=== PATIENT | male | born 1950 | race Caucasian/White ===

== ENCOUNTER 2023-09-24 20:04 | Emergency (ER) | payer OTHER, SELFPAY ==
[2023-09-24 20:14] VITALS: BP 159/80; PULSE 56; RESP 16; TEMP 36.6; O2SAT 98; BMI 26.9
--- NOTE | 2023-09-24 20:23 | ED_ITS ---
HPI - Male Genitourinary General Chief complaint: Urogenital-Male Stated complaint: uti Time Seen by Provider: 09/24/23 20:14 Source: patient Mode of arrival: walk-in Limitations: no limitations History of Present Illness HPI Narrative: patient is on plavix and ASA presents complaining of hematuria that started around 5pm tonight. No nausea, vomiting, pain or fever. Doesn't feel right. Also some ringing in his ears and mild dizziness. Related Data Home Medications Medication Instructions Recorded Confirmed atorvastatin 80 mg tablet 80 mg PO DAILY 09/24/23 09/24/23 clopidogrel 75 mg tablet 75 mg PO DAILY 09/24/23 09/24/23 levothyroxine 75 mcg tablet 75 mcg PO DAILY 09/24/23 09/24/23 lisinopril 5 mg tablet 5 mg PO DAILY 09/24/23 09/24/23 metformin 500 mg tablet 500 mg PO DAILY 09/24/23 09/24/23 metoprolol tartrate 25 mg tablet 12.5 mg PO Q12H 09/24/23 09/24/23 pantoprazole 40 mg tablet,delayed 40 mg PO DAILY 09/24/23 09/24/23 release Allergies Allergy/AdvReac Type Severity Reaction Status Date / Time diphenhydramine AdvReac Hallucinati Verified 09/24/23 20:20 [From Jeffery] german Review of Systems ROS Status of ROS 10 or more systems reviewed and unremark able except as noted in history and below [facility] Social History Smoking status: Never smoker Exam Constitutional Vital Signs, click to edit/add: Last Vital Signs Temp 97.8 F 09/24/23 20:14 Pulse 56 L 09/24/23 20:14 Resp 16 09/24/23 20:14 BP 159/80 H 09/24/23 20:14 Pulse Ox 98 09/24/23 20:14 O2 Del Method Room Air 09/24/23 20:14 Common normals: no apparent distress, average body habitus, oriented x3, no limitations, healthy appearing, alert and well nourished [facility] Other: TM clear Eye Common normals: EOMs intact bilaterally and conjunctivae normal Chest Common normals: inspection of chest normal Respiratory Common normals: normal respiratory effort, no retractions, no use of accessory muscles and clear to auscultation bilaterally GI Common normals: Normal to inspection, nondistended, normoactive bowel sounds present, soft to palpation and non-tender Extremity Common normals: normal to inspection and full ROM Neuro Common normals: oriented x3, CN's II-XII intact bilaterally, moves all extremities and no focal motor deficits Psych Appearance: grossly normal Course Vital Signs Vital signs: Vital Signs Temperature 97.8 F 09/24/23 20:14 Pulse Rate 56 L 09/24/23 20:14 Respiratory Rate 16 09/24/23 20:14 Blood Pressure 159/80 H 09/24/23 20:14 Pulse Oximetry 98 09/24/23 20:14 Oxygen Delivery Method Room Air 09/24/23 20:14 Temperature 97.8 F 09/24/23 20:14 Pulse Rate 56 L 09/24/23 20:14 Respiratory Rate 16 09/24/23 20:14 Blood Pressure 159/80 H 09/24/23 20:14 Pulse Oximetry 98 09/24/23 20:14 Oxygen Delivery Method Room Air 09/24/23 20:14 MDM - Male Genitourinary MDM Narrative Medical decision making narrative: patient presents with acute onset of hematuria. CT with findings of cystitis. no fever. Patient advised he will need to continue workup with urology. Given prescription for cipro and discharged to follow up with Urology. His has seen Dr vaughan in the past and states they will follow up with him Lab Data Labs: Lab Results 09/24/23 09/24/23 Range/Units 20:32 21:20 WBC 5.5 (4.0-11.0) 10^3/uL RBC 4.14 L (4.70-6.10) 10^6/uL Hgb 13.3 L (14.0-18.0) g/dL Hct 39.8 L (42.0-54.0) % MCV 96.1 H (80.0-94.0) fL MCH 32.1 (25.9-34.0) pg MCHC 33.4 (29.9-35.2) g/dL RDW 13.0 (11.0-15.0) % Plt Count 181 (150-450) 10^3/uL MPV 9.2 L (9.5-13.5) fL Neut % (Auto) 72.3 (43.0-75.0) % Lymph % (Auto) 14.1 L (20.5-60.0) % [place] % (Auto) 11.3 (1.7-12.0) % Eos % (Auto) 1.5 (0.9-7.0) % Baso % (Auto) 0.4 (0.2-2.0) % Neut # (Auto) 4.0 (1.4-6.5) 10^3/uL Lymph # (Auto) 0.8 L (1.2-3.8) 10^3/uL [place] # (Auto) 0.6 (0.3-0.8) 10^3/uL Eos # (Auto) 0.1 (0.0-0.7) 10^3/uL Baso # (Auto) 0.0 (0.0-0.1) 10^3/uL Abs Immat Gran (auto) 0.02 (0.00-0.03) 10^3/uL Imm/Tot Granulo (auto) 0.4 (0.0-0.5) % Sodium 139 (136-145) mmol/L Potassium 3.8 (3.5-5.1) mmol/L Chloride 103 (98-107) mmol/L Carbon Dioxide 28.1 (21.0-32.0) mmol/L Anion Gap 11.7 BUN 18.0 (7.0-18.0) mg/dL Creatinine 1.01 (0.70-1.30) mg/dL Est GFR ( Amer) >60 (>=60) Est GFR (Non-Af Amer) >60 (>=60) BUN/Creatinine Ratio 17.8 Glucose 119 H (74-106) mg/dL Calcium 9.2 (8.5-10.1) mg/dL Urine Color Yellow (YELLOW) Urine Clarity Clear (CLEAR) Urine pH 6.5 (5.0-9.0) Ur Specific [place] 1.015 (1.005-1.025) Urine Protein Negative (NEG/TRACE) mg/dL Urine Glucose (UA) Negative (NEGATIVE) mg/dL Urine Ketones Negative (NEGATIVE) mg/dL Urine Occult Blood Moderate A (NEGATIVE) Urine Nitrite Negative (NEGATIVE) Urine Bilirubin Negative (NEGATIVE) Urine Urobilinogen 1.0 (0.2-1.0) EU/dL Ur Leukocyte Esterase Negative (NEGATIVE) Urine RBC 5-10 A (0-2) #/HPF Urine WBC None seen (NONE SEEN) #/HPF Ur Squamous Epith Cells None seen (NONE/RARE) #/LPF Urine Crystals None seen (None Seen) #/HPF Urine Bacteria None seen (NONE SEEN) #/HPF Urine Casts None seen (NONE SEEN) #/LPF Urine Mucus None seen (NONE SEEN) Imaging Data CT scan - abdomen: Radiologist's impression: urrent Patient Location: ER Accession/Order Number: [id number] Exam Date: 09/24/2023 20:38 Report Date: 09/24/2023 21:25 At the request of: ADRIAN TRUJILLO Procedure: CT abdomen pelvis wo con EXAM: CT abdomen pelvis wo con HISTORY: hematuria COMPARISON: None. TECHNIQUE: Axial CT imaging was performed through the abdomen and pelvis without intravenous contrast. Multiplanar reformats were performed. Dose reduction techniques were achieved by using automated exposure control and/or adjustment of mA and/or kV according to patient size and/or use of iterative reconstruction technique. FINDINGS: Lung bases: Lung bases are clear. No pleural effusion. GI upper: Small hiatal hernia. Liver: Normal size and contour. Gallbladder: Cholecystectomy. Biliary system: No intra or extrahepatic biliary ductal dilatation. Pancreas: Unremarkable. Spleen: Normal size. Adrenal glands: Normal adrenal glands. Kidneys/ureters: Normal contours. No hydronephrosis or visible mass. No nephrolithiasis. Both ureters are normal in caliber and course to the bladder. Vessels: No aneurysmal dilatation of the aorta. Atherosclerotic disease is noted. Retroperitoneum: No lymphadenopathy. Small bowel: No wall thickening or dilatation. Colon: No wall thickening or dilatation. Appendix: No findings of appendicitis. Peritoneal cavity: No free fluid or pneumoperitoneum. Lower : There is circumferential wall thickening of the urinary bladder with wall edema and adjacent fat stranding. Bones:Multilevel spondylosis. No acute bony abnormality. Soft tissues: No acute finding. Additional findings: None. CT/CT abdomen pelvis wo con IMPRESSION: 1. Urinary bladder wall thickening, wall edema, and adjacent fat stranding consistent with cystitis. 2. Prior cholecystectomy Discharge Plan Discharge Chief Complaint: Urogenital-Male Clinical Impression: Hematuria, Cystitis Patient Disposition: Home, Self-Care Prescriptions / Home Meds: No Action atorvastatin 80 mg tablet 80 mg PO DAILY clopidogrel 75 mg tablet 75 mg PO DAILY levothyroxine 75 mcg tablet 75 mcg PO DAILY lisinopril 5 mg tablet 5 mg PO DAILY metformin 500 mg tablet 500 mg PO DAILY metoprolol tartrate 25 mg tablet 12.5 mg PO Q12H pantoprazole 40 mg tablet,delayed release (DR/EC) 40 mg PO DAILY Instructions: Hematuria (ED) Additional Instructions: follow up with Urology as discussed Stand Alone Forms: Portal Instructions Referrals: Brandon Estrella DO [Primary Care Provider] - 1 week
[2023-09-24 20:44] LABS: Basophils Percent Auto 0.4 % (0.2-2.0); Eosinophils Absolute Auto 0.1 10^3/uL (0.0-0.7); Eosinophils Percent Auto 1.5 % (0.9-7.0); Hematocrit 39.8 % (42.0-54.0); Hemoglobin 13.3 g/dL (14.0-18.0); Immature Granulocytes Abs Auto 0.02 10^3/uL (0.00-0.03); Immature Granulocytes Pct Auto 0.4 % (0.0-0.5); Lymphocytes Absolute Auto 0.8 10^3/uL (1.2-3.8); Lymphocytes Percent Auto 14.1 % (20.5-60.0); Mean Corpuscular HGB Conc 33.4 g/dL (29.9-35.2); Mean Corpuscular Hemoglobin 32.1 pg (25.9-34.0); Mean Corpuscular Volume 96.1 fL (80.0-94.0); Mean Platelet Volume 9.2 fL (9.5-13.5); Monocytes Absolute Auto 0.6 10^3/uL (0.3-0.8); Monocytes Percent Auto 11.3 % (1.7-12.0); Neutrophils Percent Auto 72.3 % (43.0-75.0); Platelet Count 181 10^3/uL (150-450); Red Blood Count 4.14 10^6/uL (4.70-6.10); White Blood Count 5.5 10^3/uL (4.0-11.0)
[2023-09-24] MEDS: 0.9 % SODIUM CHLORIDE 1,000 ML 999 ML IV (20:59)
[2023-09-24 21:05] LABS: Anion Gap 11.7; BUN Creatinine Ratio 17.8; Calcium 9.2 mg/dL (8.5-10.1); Carbon Dioxide 28.1 mmol/L (21.0-32.0); Chloride 103 mmol/L (98-107); Estimated GFR (African America >60 (>=60); Estimated GFR (Non-African Ame >60 (>=60); Glucose 119 mg/dL (74-106); Potassium 3.8 mmol/L (3.5-5.1); Sodium 139 mmol/L (136-145)
[2023-09-24 21:30] LABS: Bilirubin Urine NEGATIVE (NEGATIVE); Blood Urine MODERATE (NEGATIVE); Clarity Urine CLEAR (CLEAR); Color Urine YELLOW (YELLOW); Glucose Urine UA NEGATIVE (NEGATIVE); Ketones Urine NEGATIVE (NEGATIVE); Leukocyte Esterase Urine NEGATIVE (NEGATIVE); Nitrite Urine NEGATIVE (NEGATIVE); Protein Urine NEGATIVE (NEG/TRACE); Specific Gravity Urine 1.015 (1.005-1.025); Urine Microscopic Indicated YES; pH Urine 6.5 (5.0-9.0)
[2023-09-24 21:37] LABS: Bacteria Urine NONE SEEN #/HPF (NONE SEEN); Cast Seen? NONE SEEN #/LPF (NONE SEEN); Crystals Seen? None Seen #/HPF (None Seen); Mucus Urine NONE SEEN (NONE SEEN); Squamous Epithelial Cell Urine NONE SEEN #/LPF (NONE/RARE); WBC Urine NONE SEEN #/HPF (NONE SEEN)
[2023-09-24] MEDS: CIPROFLOXACIN HCL 500 MG TABLET 250 MG PO (22:52)
[2023-09-24] MEDS: CIPROFLOXACIN HCL 500 MG TABLET PO (22:52)
== END 2023-09-24 22:55 | disposition home or self-care (01) ==
PROVIDERS: Emergency Provider Internal Medicine; PCP Internal Medicine
DX: N30.91 Cystitis, unspecified with hematuria (principal); Z79.02 Long term (current) use of antithrombotics/antiplatelets; Z79.84 Long term (current) use of oral hypoglycemic drugs; Z90.49 Acquired absence of other specified parts of digestive tract; R42 Dizziness and giddiness
CPT/HCPCS: 36415; 74176; 80048; 81001; 85025; 96360; 99285

== ENCOUNTER 2023-10-06 08:33 | Outpatient (OUT) | payer OTHER, SELFPAY ==
--- NOTE | 2023-10-06 | PCN_ITS ---
CARDIAC STRESS TEST Requesting Physician: Procedure Date: 10/06/2023 This was a treadmill stress test with myocardial perfusion imaging, performed at the [facility] on 10/06/2023. Informed consent was obtained. An intravenous line was secured. Baseline ECG and vital signs were obtained. The patient exercised on a treadmill for a 8 minutes and 16 seconds according to the Nael protocol and reached stage 3 and achieved 10.1 METS. Resting heart rate was 51 BPM and maximal heart rate was 118 BPM, representing 80% of maximal predicted heart rate. Resting blood pressure was 122/62 and maximum blood pressure was 176/88. The patient was injected with Cardiolite at peak exercise. The test was stopped due to dyspnea and peripheral muscle fatigue. Resting ECG showed sinus bradycardia with no ischemic changes. ECG during exercise showed sinus tachycardia with no ischemic ST changes. SUMMARY OF THE FINDINGS: 1. Submaximal stress test due to failure to achieve target heart rate. (The patient did not hold their beta rashad prior to the test.) 2. No evidence of ischemic ECG changes or arrhythmias seen during submaximal stress test. 3. Myocardial perfusion images will be reported separately. MTDD
--- NOTE | 2023-10-06 08:37 | NM_ITS ---
Patient Name: ONDINA LO MR#: [id number] : 1950 Exam Date: 10/06/2023 Ordering Doctor: DR CARLO SEN M.D. RADIOLOGY REPORT PROCEDURE: NM WILLIE PERF SPECT REST STR COMPARISON: None. 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 Rest and peak stress ECG findings were non-diagnostic and the exercise portion of the study was Non-diagnostic per attending physician Dr. Harding due to80% PMHR . For more details please see separate cardiac stress test report. FINDINGS: QUALITY OF STUDY: Excellent. PERFUSION DEFECT: None. LOCATION: N/A SIZE: N/A. SEVERITY: N/A. TYPE: N/A. WALL MOTION: Normal. LV SIZE: 86 mL. TID / TCD: 0.8 LVEF: Normal. Calculated EF 57%. SUMMARY: Myocardial perfusion imaging study is NORMAL. CONCLUSION: 1. Normal nuclear medicine myocardial perfusion portion of study. Dictated by: Jaciel Hanson M.D. on 10/07/2023 at 08:59 Approved by: Jaciel Hanson M.D. on 10/07/2023 at 09:01
--- OUTSIDE RECORDS SUMMARY | 2023-10-06 08:39 | XMS_ITS | CCD ---
Author Name Unknown Address [address] [place] [address] Organization [facility] Care Team Providers Care Distillation Operator Name Role Phone PHYSICIAN, DEFAULT Unavailable Unavailable PHYSICIAN, DEFAULT Unavailable Unavailable BALL, BRANDON Unavailable Unavailable PHYSICIAN, DEFAULT Unavailable Unavailable PHYSICIAN, DEFAULT Unavailable Unavailable BALL, BRANDON Unavailable Unavailable Sameer, DO Brandon Primary Care Provider MD Tim Hardwick Attending Provider Tim Hardwick Unavailable ELISABETH, DR TIM Dunn Consulting Unavailable FABIOLA COURTNEY Attending Unavailable SHERWIN, FABIOLA Admitting Unavailable BALL, DR OCAMPO Primary Care Unavailable FABIOLA COURTNEY Consulting Unavailable BALL, DR OCAMPO Attending Unavailable BALL, DR OCAMPO Consulting Unavailable BALL, DR OCAMPO Primary Care Unavailable BALL, DR OCAMPO Admitting Unavailable BALL, DR OCAMPO Consulting Unavailable BALL, DR OCAMPO Primary Care Unavailable BALL, DR OCAMPO Admitting Unavailable BALL, DR OCAMPO Attending Unavailable BALL, DR OCAMPO Attending Unavailable BALL, DR OCAMPO Primary Care Unavailable BALL, DR OCAMPO Admitting Unavailable Ball, Brandon Unavailable CARLO SEN Attending Unavailable Pola STOLL Attending Unavailable JUVENAL BALLARD Attending Unavailable Allergies Allergy Classification Reported Allergen(s) Allergy Type Date of Onset Reaction(s) Facility (1 source) Contrast media Drug allergy (disorder) 10-20-19 16 AOF [facility] Repository (1 source) diphenhydrAMINE Drug Allergy 09-22-20 19 Hallucinating [facility] (2 sources) Contrast media Propensity to adverse reactions Unknown [facility] Other (2 sources) Dyes Propensity to adverse reactions Comment:Contras t Dye [facility] Other (2 sources) Allergies Reconciled Propensity to adverse reactions Unknown [facility] Other (2 sources) patient allergy list reviewed by nurse or physicia Propensity to adverse reactions 09-11-20 Comment:Done [facility] Other (1 source) diphenhydrAMINE; Translations: [DIPHENHYDRAMINE HCL] Drug Allergy 05-10-20 [facility] Repository (1 source) diphenhydrAMINE; Translations: [Benadryl] Drug Allergy [facility] Repository Medications Current Medications Medication Drug Class(es) Dates Sig (Normalized) Sig (Original) Ascorbic Acid (10 sources) Vitamin C Vitamin C Active Aspir-81 81 MG (10 sources) take 1 tablet by mouth once daily Aspir-81 81 MG 1 tablet Orally Once a day Active aspirin 81 mg oral tablet (1 source) Platelet Aggregation Inhibitor, Nonsteroidal Anti-inflammatory Drug Start: 09-22-2019 take 81 mg by mouth once daily Aspirin Active 81 MG PO Daily September 22, 2019 9:01am atorvastatin 80 mg oral tablet (13 sources) HMG-CoA Reductase Inhibitor Start: 09-22-2019 take 80 mg by mouth once daily Atorvastatin Active 80 MG PO Daily September 22, 2019 9:01am cefuroxime 250 mg oral tablet (4 sources) Cephalosporin Antibacterial Start: 04-07-2023 take 1 tablet by mouth twice daily Cefuroxime Axetil 250 MG 1 tablet Orally twice daily w/ food for 7 Mar, Active clopidogrel 75 mg oral tablet (11 sources) P2Y12 Platelet Inhibitor Start: 09-22-2019 take 75 mg by mouth once daily Clopidogrel Active 75 MG PO Daily September 22, 2019 9:01am levothyroxine sodium 0.075 mg oral tablet (12 sources) l-Thyroxine Start: 09-22-2019 take 75 ug by mouth once daily Levothyroxine Active 75 MCG PO Daily September 22, 2019 9:01am take 1 tablet by sol th once daily in the morning Synthroid 75 MCG 1 tablet on an empty stomach in the morning Orally Once a day Active lisinopril 5 mg oral tablet (17 sources) Angiotensin Converting Enzyme Inhibitor Start: 02-16-2023 take 1 tablet by mouth every twenty-four hours Lisinopril 5 MG 1 tablet Orally Once a day for 30 days February, Active Lisinopril Activ e metFORMIN hydrochloride 500 mg oral tablet (11 sources) Biguanide Start: 09-22-2019 take 500 mg by mouth once daily Metformin Active 500 MG PO Daily September 22, 2019 9:01am metoprolol tartrate 25 mg oral tablet (11 sources) beta-Adrenergic Lashanda Start: 09-22-2019 take 0.5 tablet by mouth twice daily Metoprolol Tartrate Active 0.5 TAB PO Twice daily September 22, 2019 9:01am pantoprazole 40 mg delayed release oral tablet (11 sources) Proton Pump Inhibitor Start: 09-22-2019 take 40 mg by mouth once daily Pantoprazole Active 40 MG PO Daily September 22, 2019 9:01am Pantoprazole Sod ium 40 MG 1 packet Orally Once a day Active Vitamin D3 (10 sources) Vitamin D3 Activ e Zinc (10 sources) Zinc Active Completed/Discontinued Medications Medication Drug Class(es) Dates Sig (Normalized) Sig (Original) Acetaminophen (10 sources) Tylenol 1 tab Or al Not-Taking/PRN Tylenol 1 tab Or al Not-Taking Augmentin Tablets 875 MG (10 sources) Start: 05-04-2017 take 1 tablet by mouth twice daily as needed Augmentin Tablets 875 MG Take one tab Orally Twice daily for 10 days Apr, Not-Taking/PRN Start: 05-04-2017 take 1 tablet by sol th twice daily Augmentin Tablets 875 MG Take one tab Orally Twice daily for 10 days Apr, Not-Taking isosorbide dinitrate 30 mg oral tablet (10 sources) Nitrate Vasodilator take 1 tablet by mouth every twelve hours Isosorbide Dinitrate 30 MG 1 tablet Orally Twice a day Not-Taking/PRN Ketorolac (10 sources) Nonsteroidal Anti-inflammatory Drug, Cyclooxygenase Inhibitor Start: 11-17-19 15 Toradol per 15 mg Oct, 60 mg triamcinolone acetonide 40 mg/ml injectable suspension (10 sources) Corticosteroid Start: 01-28-20 23 Kenalog-40 Jul, 60 mg Problems Active Problems Problem Classification Problem Date Documented Da te Episodic/Chronic Acute bronchitis (4 sources) Acute bronchitis; Translations: [Acute bronchitis, unspecified] Onset: 5 Episodic Asthma (4 sources) Mild intermittent asthma; Translations: [Mild intermittent asthma, uncomplicated] Onset: 9 Chronic Coronary atherosclerosis and other heart disease (17 sources) Atherosclerotic heart disease of [place] coronary artery without angina pectoris; Translations: [Coronary arteriosclerosis] Onset: 6 Chronic Deficiency and other anemia (4 sources) Anemia, unspecified; Translations: [ANEMIA UNSPECIFIED] Onset: 2 Episodic Deficiency and other anemia (2 sources) Anemia; Translations: [Anemia, unspecified] Episodic Diabetes mellitus with complications (9 sources) Type 2 diabetes mellitus with hyperglycemia; Translations: [Type 2 diabetes mellitus] Onset: 2 Chronic Diseases of mouth; excluding dental (4 sources) Glossitis; Translations: [Glossitis] Resolved: 1 Episodic Disorders of lipid metabolism (13 sources) Familial hypercholesterolemia; Translations: [Pure hypercholesterolemia] Onset: 5 Chronic Esophageal disorders (20 sources) Gastroesophageal reflux disease without esophagitis; Translations: [Gastro-esophageal reflux disease without esophagitis] Onset: 5 Resolved: 2 Chronic Essential hypertension (9 sources) Essential hypertension; Translations: [Essential (primary) hypertension] Chronic Gastrointestinal hemorrhage (3 sources) Rectal hemorrhage; Translations: [Hemorrhage of anus and rectum] 09-22-2019 Episodic Genitourinary symptoms and ill-defined conditions (1 source) Nocturia Episodic Hemorrhoids (2 sources) Residual hemorrhoidal skin tags; Translations: [Residual hemorrhoidal skin tags] Episodic Hyperplasia of prostate (12 sources) Nocturia due to benign prostatic hypertrophy; Translations: [Benign prostatic hyperplasia with lower urinary tract symptoms] Onset: 5 Chronic Immunizations and screening for infectious disease (2 sources) Vaccination given; Translations: [Encounter for immunization] Episodic Miscellaneous mental health disorders (2 sources) Psychosexual dysfunction associated with inhibited sexual excitement; Translations: [Psychosexual dysfunction with inhibited sexual excitement] Onset: 5 Chronic Occlusion or stenosis of precerebral arteries (6 sources) Occlusion and stenosis of bilateral carotid arteries; Translations: [Left carotid artery occlusion] Onset: 2 Chronic Osteoarthritis (6 sources) Osteoarthritis of joint of right shoulder region; Translations: [Primary osteoarthritis, right shoulder] Chronic Other aftercare (2 sources) 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; Translations: [OTH CORRECTION CURRENT DRUG THERAPY] Onset: 2 Episodic Other aftercare (2 sources) Long-term current use of drug therapy; Translations: [Other [place] [facility] (current) drug therapy] Episodic Other injuries and conditions due to external causes (2 sources) History of fall; Translations: [History of falling] Episodic Other male genital disorders (4 sources) Impotence of organic origin; Translations: [Erectile dysfunction due to arterial insufficiency] Onset: 5 Chronic Other screening for suspected conditions (not mental disorders or infectious disease) (2 sources) Encounter for screening for malignant neoplasm of prostate; Translations: [ENC SCREEN MALIG NEOPLASM PROSTATE] Onset: 2 Episodic Other skin disorders (2 sources) Sebaceous cyst; Translations: [Sebaceous cyst] Episodic Other upper respiratory disease (10 sources) Seasonal allergic rhinitis; Translations: [Other seasonal allergic rhinitis] Chronic Other upper respiratory disease (2 sources) Other seasonal allergic rhinitis Chronic Other upper respiratory disease (2 sources) Allergic rhinitis; Translations: [Allergic rhinitis, unspecified] Onset: 5 Chronic Other upper respiratory infections (4 sources) Acute maxillary sinusitis, unspecified; Translations: [Acute maxillary sinusitis] Episodic Residual codes; unclassified (20 sources) Obstructive sleep apnea syndrome; Translations: [Obstructive sleep apnea (adult) (pediatric)] Chronic Residual codes; unclassified (2 sources) Obstructive sleep apnea (adult) (pediatric) Onset: 2 Resolved: 2 Chronic Spondylosis; intervertebral disc disorders; other back problems (6 sources) Cervical spondylosis; Translations: [Spondylosis without myelopathy or radiculopathy, cervical region] Chronic Systemic lupus erythematosus and connective tissue disorders (2 sources) Autoimmune disease; Translations: [Autoimmune disease, not elsewhere classified] Onset: 9 Chronic Thyroid disorders (20 sources) Acquired hypothyroidism; Translations: [Hypothyroidism, unspecified] Onset: 5 Chronic Past or Other Problems Problem Classification Problem Date Documented Da te Episodic/Chronic Bacterial infection; unspecified site (2 sources) Bacterial infectious disease; Translations: [Bacterial infection, unspecified, in conditions classified elsewhere and of unspecified site] Onset: 12-10-2016 Episodic Cardiac dysrhythmias (2 sources) Bradycardia; Translations: [Bradycardia, unspecified] Onset: 02-14-2018 Episodic Conditions associated with dizziness or vertigo (2 sources) Benign paroxysmal positional vertigo; Translations: [Benign paroxysmal positional vertigo] Onset: 02-14-2018 Episodic Coronary atherosclerosis and other heart disease (2 sources) Post percutaneous transluminal coronary angioplasty; Translations: [Coronary angioplasty status] Onset: 10-24-2015 Episodic Diabetes mellitus without complication (2 sources) Impaired fasting glycemia; Translations: [Impaired fasting glucose] Onset: 12-05-2015 Episodic Esophageal disorders (1 source) Esophageal disorders Malaise and fatigue (2 sources) Malaise and fatigue; Translations: [Other malaise and fatigue] Onset: 12-07-2016 Episodic Nonspecific chest pain (2 sources) Chest pain; Translations: [Chest pain, unspecified] Onset: 11-12-2014 Episodic Other connective tissue disease (1 source) Other symptoms and signs involving the nervous system; Translations: [Other symptoms and signs involving the nervous system] Resolved: 01-28-2021 Episodic Other connective tissue disease (2 sources) Pain in limb; Translations: [Pain in left finger(s)] Onset: 05-17-2018 Episodic Other connective tissue disease (2 sources) Olecranon bursitis; Translations: [Olecranon bursitis] Onset: 05-10-2017 Episodic Other connective tissue disease (1 source) Disorder of nervous system; Translations: [Other symptoms and signs involving the nervous system] Resolved: 01-28-2021 Episodic Other ear and sense organ disorders (2 sources) Tinnitus; Translations: [Tinnitus, right ear] Onset: 02-14-2018 Episodic Other lower respiratory disease (2 sources) Chronic cough; Translations: [Chronic cough] Onset: 11-20-2015 Episodic Other lower respiratory disease (6 sources) Cough; Translations: [Other specified cough] Onset: 10-02-2015 Episodic Other lower respiratory disease (2 sources) H/O: pneumonia; Translations: [Personal history, Pneumonia (recurrent)] Onset: 12-10-2015 Episodic Other nutritional; endocrine; and metabolic disorders (4 sources) Body mass index 25-29 - overweight; Translations: [Body mass index 28.0-28.9, adult] Onset: 04-30-2017 Episodic Other nutritional; endocrine; and metabolic disorders (2 sources) Overweight; Translations: [Overweight] Onset: 03-20-2022 Episodic Residual codes; unclassified (2 sources) Requires influenza virus vaccination; Translations: [Need for prophylactic vaccination and inoculation, Influenza] Onset: 08-02-2015 Episodic Superficial injury; contusion (6 sources) Abrasion, elbow area; Translations: [Abrasion of right elbow, initial encounter] Onset: 05-10-2017 Episodic Unclassified (2 sources) Long-term current use of drug therapy; Translations: [Long-term (current) use of other medications] Onset: 06-16-2016 Unclassified (2 sources) Need for prophylactic vaccination with tetanus toxoid alone; Translations: [Need for prophylactic vaccination with tetanus toxoid alone] Onset: 08-02-2015 Results Test Name Value Interpretation Reference Range Facil ity Office Visiton 09-15-2023 Follow-up visit [id number] PaytonazraPryor A 1950 M Date Provider Department Center 09/15/2023 CARLO LEIVA Family History Problem Relation Age of Onset Heart failure Brother Cancer Brother Family Status - Relation Status Age at Brother Level of Service:50159 SD OFFICE/OUTPATIENT ESTABLISHED MOD MDM 30-39 MIN Normal [facility] Orders Onlyon 09-15-2023 Orders Only [id number] PaytonazraOrourkeblayne A 1950 Date Provider Department Center 09/15/2023 ELLE GUADALUPE GINA [place] Family History Problem Relation Age of Onset Heart failure Brother Cancer Brother Family Status - Relation Status Age at Brother Normal [facility] US CAROTID ART BILon 022 US CAROTID ART SHAHRAM EXAMINATION: US ROSE TID ART SHAHRAM HISTORY: Bilateral stenosis of carotid arteries COMPARISON: No relevant comparison available. TECHNIQUE: Duplex Doppler ultrasound analysis of carotid and vertebral arteries. . Bilateral carotid arterial duplex examination was performed using B-mode, color flow and spectral analysis. Carotid stenosis is reported according to validated velocity parameters, similar to NASCET criteria. FINDINGS: RIGHT CAROTID ARTERY Mild to moderate atherosclerotic plaque. Maximum area of reduction in the bulb 65% Subclavian: PSV: 109.7 cm/s cm/s EDV: 7.9 cm/s cm/s CCA: Prox: PSV: 82.0 cm/s cm/s EDV: 12.8 cm/s cm/s Mid: PSV: 80.9 cm/s cm/s EDV: 18.2 cm/s cm/s Distal: PSV: 86.4 cm/s cm/s EDV: 16.0 cm/s cm/s BULB: PSV: 87.5 cm/s cm/s EDV: 17.1 cm/s cm/s ICA: Prox: PSV: 107.6 cm/s cm/s EDV: 24.8 cm/s cm/s Mid: PSV: 133.2 cm/s cm/s EDV: 26.8 cm/s cm/s Distal: PSV: 66.8 cm/s cm/s EDV: 13.7 cm/s cm/s ECA: PSV: 210.7 cm/s cm/s EDV: 7.2 cm/s cm/s VERTEBRAL: PSV: 44.8 cm/s cm/s EDV: 12.4 cm/s cm/s ICA/CCA ratio: PSV: 1.5 EDV: 1.7 LEFT CAROTID ARTERY Mild to moderate atherosclerotic plaque. Maximum area reduction in the bulb 64% Subclavian: PSV: 129.9 cm/s cm/s EDV: 10.1 cm/s CCA: Prox: PSV: 88.8 cm/s cm/s EDV: 21.5 cm/s Mid: PSV: 104.3 cm/s cm/s EDV: 28.0 cm/s Distal: PSV: 114.7 cm/s cm/s EDV: 25.4 cm/s BULB: PSV: 123.4 cm/s cm/s EDV: 24.8 cm/s ICA: Prox: PSV: 91.4 cm/s cm/s EDV: 20.2 cm/s Mid: PSV: 72.0 cm/s cm/s EDV: 21.5 cm/s Distal: PSV: 51.2 cm/s cm/s EDV: 18.2 cm/s ECA: PSV: 87.5 cm/s cm/s EDV: 7.3 cm/s VERTEBRAL: PSV: 57.8 cm/s cm/s EDV: 18.2 cm/s ICA/CCA ratio: PSV: 1.1 EDV: 1.0 IMPRESSION: 0-49% flow stenosis bilateral internal carotid arteries Spectral Doppler US Thresholds (Reference: Tommie EG, et al. Radiology 2000; 214:247-252) Stenosis (%) PSV (cm/sec) VICA/VCCA 0-49 <150 <2.5 50-69 150-225 2.5-4.0 >70 >225 >4.0 Electronically authenticated by: TIM BARBER Date: 2022-09-28 17:37 Normal [facility] CBC AUTO DIFFon 09-24-2022 BASO # 0.0 103/ul Normal 0.0-0.1 [facility] Comment on above: Performed By: #### C BC #### [facility] [address] [place] [address] Dr. Daisy Alan Basophils/100 WBC (Bld) 0.6 % Normal 0.2-2.0 [facility] Comment on above: Performed By: #### C BC #### [facility] [address] [place] [address] Dr. Daisy Alan EO # 0.1 103/ul Normal 0.0-0.7 [facility] Comment on above: Performed By: #### C BC #### [facility] [address] [place] [address] Dr. Daisy Alan Eosinophils/100 WBC (Bld) 1.7 % Normal 0.9-7.0 [facility] Comment on above: Performed By: #### C BC #### [facility] [address] [place] [address] Dr. Daisy Alan Erythrocyte distribution wid th (RBC) [Ratio] 12.7 % Normal 11.0-15.0 [facility] Comment on above: Performed By: #### C BC #### [facility] [address] [place] [address] Dr. Daisy Alan Hematocrit (Bld) [Volume fraction] 41.4 % Critically low 42.0-54.0 [facility] Comment on above: Performed By: #### C BC #### [facility] [address] [place] [address] Dr. Daisy Alan Hemoglobin (Bld) [Mass/Vol] 14.4 g/dL Normal 14.0-18. 0 [facility] Comment on above: Performed By: #### C BC #### [facility] [address] [place] [address] Dr. Daisy Alan IG # 0.02 10e3/ul Normal 0.00-0.03 [facility] Comment on above: Performed By: #### C BC #### [facility] [address] [place] [address] Dr. Daisy Alan IG % 0.3 % Normal 0.0-0.5 [facility] Comment on above: Performed By: #### C BC #### [facility] [address] [place] [address] Dr. Daisy Alan LYMPH # 1.0 103/ul Critically low 1.2-3.8 [facility] Comment on above: Performed By: #### C BC #### [facility] [address] [place] [address] Dr. Daisy Alan Lymphocytes/100 WBC (Bld) 14.1 % Critically low 20.5-6 0.0 [facility] Comment on above: Performed By: #### C BC #### [facility] [address] [place] [address] Dr. Daisy Alan MANUAL DIFF REQ NO Normal [facility] Comment on above: Performed By: #### C BC #### [facility] [address] [place] [address] Dr. Daisy Alan MCH (RBC) [Entitic mass] 31.9 pg Normal 25.9-34.0 [facility] Comment on above: Performed By: #### C BC #### [facility] [address] [place] [address] Dr. Daisy Alan MCHC (RBC) [Mass/Vol] 34.8 g/dL Normal 29.9-35.2 [facility] Comment on above: Performed By: #### C BC #### [facility] [address] [place] [address] Dr. Daisy Alan MCV (RBC) [Entitic vol] 91.6 fL Normal 80.0-94.0 [facility] Comment on above: Performed By: #### C BC #### [facility] [address] [place] [address] Dr. Daisy Alan MONO # 0.6 103/ul Normal 0.3-0.8 [facility] Comment on above: Performed By: #### C BC #### [facility] [address] [place] [address] Dr. Daisy Alan Monocytes/100 WBC (Bld) 8.7 % Normal 1.7-12.0 [facility] Comment on above: Performed By: #### C BC #### [facility] [address] [place] [address] Dr. Daisy Alan NEUT # 5.3 103/ul Normal 1.4-6.5 [facility] Comment on above: Performed By: #### C BC #### [facility] [address] [place] [address] Dr. Daisy Alan Neutrophils/100 WBC (Bld) 74.6 % Normal 43.0-75.0 [facility] Comment on above: Performed By: #### C BC #### [facility] [address] [place] [address] Dr. Daisy Alan Platelet mean volume (Bld) [Entitic vol] 9.0 fL Critically low 9.5-13.5 [facility] Comment on above: Performed By: #### C BC #### [facility] [address] [place] [address] Dr. Daisy Alan PLT 191 103/ul Normal 150-450 [facility] Comment on above: Performed By: #### C BC #### [facility] [address] [place] [address] Dr. Daisy Alan RBC 4.52 106/ul Critically low 4.70-6.10 [facility] Comment on above: Performed By: #### C BC #### [facility] [address] [place] [address] Dr. Daisy Alan WBC 7.1 103/ul Normal 4.0-11.0 [facility] Comment on above: Performed By: #### C BC #### [facility] [address] [place] [address] Dr. Daisy Alan CBC W MANUAL DIFFon 02-05-20 22 ATYPICAL LYMPH # Normal [facility] Comment on above: Performed By: #### C BCMAN #### [facility] [address] [place] [address] Dr. Daisy Alan ATYPICAL LYMPH % Normal [facility] Comment on above: Performed By: #### C BCMAN #### [facility] [address] [place] [address] Dr. Daisy Alan BAND # Normal 0.0-0.3 [facility] Comment on above: Performed By: #### C BCMAN #### [facility] [address] [place] [address] Dr. Daisy Alan BAND % Normal 0-5 [facility] Comment on above: Performed By: #### C BCMAN #### [facility] [address] [place] [address] Dr. Daisy Alan BASOM # 0.00 103/ul Normal 0.00-0.10 [facility] Comment on above: Performed By: #### C BCMAN #### [facility] [address] [place] [address] Dr. Daisy Alan BASOM % 0.0 % Critically low 0.2-2.0 [facility] Comment on above: Performed By: #### C BCMAN #### [facility] [address] [place] [address] Dr. Daisy Alan BLAST # Normal [facility] Comment on above: Performed By: #### C BCMAN #### [facility] [address] [place] [address] Dr. Daisy Alan BLAST % Normal [facility] Comment on above: Performed By: #### C BCMAN #### [facility] [address] [place] [address] Dr. Daisy Alan CORRECTED WBC Normal 4.0-11.0 [facility] Comment on above: Performed By: #### C BCMAN #### [facility] [address] [address] [address] Daisy Alan EOS # 0.13 103/ul Normal 0.00-0.70 [facility] Comment on above: Performed By: #### C BCBLU #### [facility] [address] [address] [address] Daisy Alan EOS% 2.0 % Normal 0.9-7.0 [facility] Comment on above: Performed By: #### C BCBLU #### [facility] [address] [address] [address] Daisy Alan HCT 41.8 % Critically low 42.0-54.0 [facility] Comment on above: Performed By: #### C BRIGIDA #### [facility] [address] [address] [address] Daisy Alan HGB 13.9 g/dl Critically low 14.0-18.0 [facility] Comment on above: Performed By: #### C BCBLU #### [facility] [address] [address] [address] Daisy Alan LYMPHM # 0.38 103/ul Critically low 1.20-3.80 [facility] Comment on above: Performed By: #### C BCBLU #### [facility] [address] [address] [address] Daisy Alan LYMPHM% 6.0 % Critically low 20.5-60.0 The [facility] Comment on above: Performed By: #### C BCBLU #### [facility] [address] [address] [address] Daisy Alan MCH 30.8 pg Normal 25.9-34.0 The [facility] Comment on above: Performed By: #### C BCMAN #### [facility] [address] [address] [address] Daisy Alan MCHC 33.3 g/dl Normal 29.9-35.2 [facility] Comment on above: Performed By: #### C BRIGIDA #### [facility] [address] [place] [address] Dr. Daisy Alan MCV 92.7 fL Normal 80.0-94.0 [facility] Comment on above: Performed By: #### C BRIGIDA #### [facility] [address] [place] [address] Dr. Daisy Alan METAMYELOCYTE # Normal [facility] Comment on above: Performed By: #### C BRIGIDA #### [facility] [address] [place] [address] Dr. Daisy Alan METAMYELOCYTE % Normal [facility] Comment on above: Performed By: #### C BRIGIDA #### [facility] [address] [place] [address] Dr. Daisy Alan MONOM# 0.50 103/ul Normal 0.30-0.80 [facility] Comment on above: Performed By: #### C BRIGIDA #### [facility] [address] [place] [address] Dr. Daisy Alan MONOM% 8.0 % Normal 1.7-12.0 [facility] Comment on above: Performed By: #### C BRIGIDA #### [facility] [address] [place] [address] Dr. Daisy Alan MPV 9.1 fL Critically low 9.5-13.5 The [facility] Comment on above: Performed By: #### C BRIGIDA #### [facility] [address] [place] [address] Dr. Daisy Alan MYELOCYTE # Normal [facility] Comment on above: Performed By: #### C BRIGIDA #### [facility] [address] [place] [address] Dr. Daisy Alan MYELOCYTE % Normal [facility] Comment on above: Performed By: #### C BRIGIDA #### [facility] [address] [place] [address] Dr. Daisy Alan NRBC Normal [facility] Comment on above: Performed By: #### C BRIGIDA #### [facility] [address] [address] [address] Daisy Alan PLT 153 103/ul Normal 150-450 The [facility] Comment on above: Performed By: #### Roxann ALLRED #### [facility] [address] [address] [address] Daisy Alan RBC 4.51 106/ul Critically low 4.70-6.10 [facility] Comment on above: Performed By: #### Roxann ALLRED #### [facility] [address] [address] [address] Daisy Alan RDW 12.8 % Normal 11.0-15.0 The [facility] Comment on above: Performed By: #### Roxann ALLRED #### [facility] [address] [address] [address] Daisy Alan SEG # 5.29 103/ul Normal 1.40-6.50 [facility] Comment on above: Performed By: #### Roxann ALLRED #### [facility] [address] [address] [address] Daisy Alan SEG % 84.0 % Critically high 43.0-75.0 [facility] Comment on above: Performed By: #### Roxann ALLRED #### [facility] [address] [address] [address] Daisy Alan WBC 6.3 103/ul Normal 4.0-11.0 The [facility] Comment on above: Performed By: #### Roxann ALLRED #### [facility] [address] [address] [address] Daisy Alan GLYCOHEMOGLOBIN A1Con 2021 ADA RECOMMENDATION ADA THERAPEUTIC TARG ET 6.0 - 7.0 ACTION SUGGESTED > 7.0 Normal The [facility] Comment on above: Performed By: #### A 1C #### [facility] [address] [address] [address] Daisy Alan Glucose [Mass/Vol] 154 mg/dL Normal The [facility] Comment on above: Performed By: #### A 1C #### [facility] [address] [address] [address] Daisy Alan HbA1c (Bld) [Mass fraction] 7.0 % Critically high <=6 .0 [facility] Comment on above: Performed By: #### A 1C #### [facility] [address] [place] [address] Dr. Daisy Alan LIPID PROFILEon 02-04-2022 CHOL-HDL RATIO NORM SEE BELOW Normal [facility] Comment on above: Result Comment: 3.3 - 4.4 LOW RISK 4.4 - 7.1 AVERAGE RISK 7.1 - 11.0 MODERATE RISK >11.0 HIGH RISK Performed By: #### B MP, LIPID, ALT, TSH #### [facility] [address] [address] [address] Daisy Alan Cholesterol [Mass/Vol] 149 mg/dL Normal <=200 [facility] Comment on above: Performed By: #### B MP, LIPID, ALT, TSH #### [facility] [address] [address] [address] Daisy Alan Cholesterol in HDL [Mass/Vol] 33 mg/dL Critically low 40 -60 [facility] Comment on above: Performed By: #### B MP, LIPID, ALT, TSH #### [facility] [address] [address] [address] Daisy Alan Cholesterol in LDL [Mass/Vol] 71.0 mg/dL Normal [facility] Comment on above: Performed By: #### B MP, LIPID, ALT, TSH #### [facility] [address] [address] [address] Daisy Alan Cholesterol.total/Cholestero l in HDL [Mass ratio] 4.5 {ratio} Normal [facility] Comment on above: Performed By: #### B MP, LIPID, ALT, TSH #### [facility] [address] [place] [address] Dr. Daisy Alan HDL NORMAL > or = 60 mg/dl - LO W CARDIOVASCULAR RISK <40 mg/dl - HIGH CARDIOVASCULAR RISK Normal [facility] Comment on above: Performed By: #### B MP, LIPID, ALT, TSH #### [facility] [address] [place] [address] Dr. Daisy Alan LDL CALC NORMAL SEE BELOW Normal [facility] Comment on above: Result Comment: <100 mg/dl OPTIMAL 100 - 129 mg/dl NEAR OR ABOVE OPTIMAL 130 - 159 mg/dl BORDERLINE HIGH 160 - 189 mg/dl HIGH >190 mg/dl VERY HIGH Performed By: #### B MP, LIPID, ALT, TSH #### [facility] [address] [place] [address] Dr. Daisy Alan Triglyceride [Mass/Vol] 225 mg/dL Critically high <=150 [facility] Comment on above: Performed By: #### B MP, LIPID, ALT, TSH #### [facility] [address] [place] [address] Dr. Daisy Alan VLDL CALC 45.0 mg/dL Normal [facility] Comment on above: Performed By: #### B MP, LIPID, ALT, TSH #### [facility] [address] [place] [address] Dr. Daisy Alan MICROALBUMIN, RAND URon 04-2 mALB 1.5 mg/L Normal <=30.0 [facility] Comment on above: Performed By: #### M ALBR #### [facility] [address] [place] [address] Dr. Daisy Alan PROF CHEM 8 (BAS METB)on Anion gap [Moles/Vol] 10.6 mmol/L Normal [facility] Comment on above: Performed By: #### B MP, LIPID, ALT, TSH #### [facility] [address] [place] [address] Dr. Daisy Alan Calcium [Mass/Vol] 9.2 mg/dL Normal 8.5-10.1 The [facility] Comment on above: Performed By: #### B MP, LIPID, ALT, TSH #### [facility] [address] [place] [address] Dr. Daisy Alan Chloride [Moles/Vol] 99 mmol/L Normal 98-107 [facility] Comment on above: Performed By: #### B MP, LIPID, ALT, TSH #### [facility] [address] [address] [address] Daisy Alan CO2 [Moles/Vol] 27.7 mmol/L Normal 22.0-30.0 [facility] Comment on above: Performed By: #### B MP, LIPID, ALT, TSH #### [facility] [address] [address] [address] Daisy Alan Creatinine [Mass/Vol] 1.00 mg/dL Normal 0.66-1.25 [facility] Comment on above: Performed By: #### B MP, LIPID, ALT, TSH #### [facility] [address] [address] [address] Daisy Alan EGFR-AF MALDIVIAN >60 Normal >=60 [facility] Comment on above: Performed By: #### B MP, LIPID, ALT, TSH #### [facility] [address] [address] [address] Daisy Alan EGFR-NON AF MALDIVIAN >60 Normal >=60 [facility] Comment on above: Performed By: #### B MP, LIPID, ALT, TSH #### [facility] [address] [address] [address] Daisy Alan Glucose [Mass/Vol] 186 mg/dL Critically high 74-106 T [facility] Comment on above: Performed By: #### B MP, LIPID, ALT, TSH #### [facility] [address] [address] [address] Daisy Alan Potassium [Moles/Vol] 4.3 mmol/L Normal 3.4-5.0 [facility] Comment on above: Performed By: #### B MP, LIPID, ALT, TSH #### [facility] [address] [address] [address] Daisy Alan Sodium [Moles/Vol] 133 mmol/L Critically low 137-145 Th [facility] Comment on above: Performed By: #### B MP, LIPID, ALT, TSH #### [facility] [address] [address] [address] Daisy Alan Urea nitrogen [Mass/Vol] 17.0 mg/dL Normal 7.0-18.0 [facility] Comment on above: Performed By: #### B MP, LIPID, ALT, TSH #### [facility] [address] [place] [address] Dr. Daisy Alna Urea nitrogen/Creatinine [Mass ratio] 17.0 mg/mg Normal [facility] Comment on above: Performed By: #### B MP, LIPID, ALT, TSH #### [facility] [address] [place] [address] Dr. Daisy Alan SGPTon 02-04-2022 ALT [Catalytic activity/Vol] 36 U/L Normal 16-63 [facility] Comment on above: Performed By: #### B MP, LIPID, ALT, TSH #### [facility] [address] [place] [address] Dr. Daisy Alan TSHon 02-04-2022 TSH 3.205 uIU/mL Normal 0.470-4.680 [facility] Comment on above: Performed By: #### B MP, LIPID, ALT, TSH #### [facility] [address] [place] [address] Dr. Daisy Alan TSH RANGE SEE BELOW Normal The [facility] Comment on above: Result Comment: <0.3 4 UIU/ml HYPERTHYROID 0.34-5.60 UIU/ml EUTHYROID >5.60 UIU/ml HYPOTHYROID Performed By: #### B MP, LIPID, ALT, TSH #### [facility] [address] [place] [address] Dr. Daisy Alan Vital Signs Date Time Vital Sign Value Performing Clinician Facility 03-22-2023 14:30-0400 Body height 170.18 cm [facility] Other [facility] Other 03-22-2023 14:30-0400 Body mass index (BMI) [Ratio] 27.12 kg/m2 [facility] Other [facility] Other 03-22-2023 14:30-0400 Body weight 78.56 kg [facility] Other [facility] Other 03-22-2023 14:30-0400 Diastolic blood pressure 74 mm[Hg] Brandon Ball Other [facility] Other 03-22-2023 14:30-0400 Respiratory rate 12 /min Brandon Ball Other [facility] Other 03-22-2023 14:30-0400 Systolic blood pressure 129 mm[Hg] Brandon Ball Other [facility] Other 02-05-2022 11:00-0400 Body height 170.18 cm Tim Hardwick Other [facility] Other 02-05-2022 11:00-0400 Body mass index (BMI) [Ratio] 28.03 kg/m2 Tim Hardwick Other [facility] Other 02-05-2022 11:00-0400 Body temperature 97.3 [degF] Tim Hardwick Other [facility] Other 02-05-2022 11:00-0400 Body weight 81.19 kg Tim Hardwick Other [facility] Other 02-05-2022 11:00-0400 Diastolic blood pressure 83 mm[Hg] Tim Hardwick Other [facility] Other 02-05-2022 11:00-0400 SaO2% (BldA) [Mass fraction] 98 % Tim Hardwick Other [facility] Other 02-05-2022 11:00-0400 Systolic blood pressure 159 mm[Hg] Tim Hardwick Other [facility] Other Encounters Encounter Date Encounter Type Care Provider Facility Start: 10-26-2023 ambulatory [place] ty:MARTA Swann Start: 10-04-2023 End: 10-04-2023 ambulatory JUVENAL BALLARD Not Available Start: 09-28-2023 End: 09-28-2023 ambulatory Brandon Estrella Other [facility] Other Start: 09-28-2023 Telephone encounter Brandon Estrella [facility] Start: 09-15-2023 End: 09-15-2023 ambulatory [facility] Start: 07-20-2023 End: 07-20-2023 ambulatory Brandon Estrella Other [facility] Other Start: 07-20-2023 Nursing evaluation o f patient and report Brandon Estrella [facility] Start: 04-14-2023 End: 04-14-2023 ambulatory Brandon Estrella Other [facility] Other Start: 04-14-2023 Telephone encounter Brandon Estrella [facility] Start: 04-07-2023 End: 04-07-2023 ambulatory Brandon Estrella Other [facility] Other Start: 04-07-2023 Office outpatient vi sit 15 minutes Brandon Estrella [facility] Start: 03-22-2023 End: 03-22-2023 ambulatory Brandon Estrella Other [facility] Other Start: 03-22-2023 Patient encounter procedure Brandon Estrella [facility] Start: 02-16-2023 End: 02-16-2023 ambulatory Brandon Estrella Other [facility] Other Start: 02-16-2023 Telephone encounter Brandon RODRIGUEZ [facility] Start: 01-27-2023 End: 01-27-2023 ambulatory Brandon Estrella Other [facility] Other Start: 01-27-2023 Nursing evaluation o f patient and report Brandon Sameer [facility] Start: 01-18-2023 End: 01-18-2023 ambulatory Brandon Estrella Other [facility] Other Start: 01-18-2023 Telephone encounter Brandon Estrella [facility] Start: 09-28-2022 End: 09-29-[address] TIM BARBER Facility:[facility] Start: 09-24-2022 End: 09-25-[address] BRANDON ESTRELLA Facility:[facility] Start: 05-25-[address] BRANDON ESTRELLA Facili ty:[facility] Start: 03-20-2022 Adult health examination Brandon Estrella Other [facility] Other Start: 02-05-2022 End: 02-05-2022 ambulatory Tim Hardwick Other [facility] Other Start: 02-05-2022 Office outpatient vi sit 15 minutes Tim Hardwick [facility] Start: 02-05-2022 End: 02-05-2022 Patient encounter procedure DO Brandon Estrella Work Phone: [facility] Start: 02-04-2022 End: 02-05-[address] BRANDON ESTRELLA Facility:[facility] Start: 02-14-2018 End: 02-15-2018 Ambulatory DEFAULT PHYSICIAN Facility:[facility] Start: 02-10-2018 End: 02-11-2018 Ambulatory DEFAULT PHYSICIAN Facility:[facility] Procedures Date Procedure Procedure Detail Performing Clinician Start: 03-20-2022 Depression screening Chema pearl [facility] Other Start: 02-04-[address] ITM BARBER Comment on above: Performed By: #### P [facility] #### [facility] [address] [place] [address] Dr. Daisy Alan Start: 12-10-2016 Viral screening Jennifer marino [facility] Other Start: 11-01-2014 Screening for malign ant neoplasm of prostate Brandon Estrella Other Screening for malign ant neoplasm of colon Brandon Sameer Other Screening for malign ant neoplasm of prostate Brandon Estrella Other Immunizations Immunization Date Immunization Notes Care Provider Terence may 09-28-2022 influenza virus vaccine, split virus (incl. purified surface antigen) Brandon Estrella Other [facility] Other 08-06-2020 influenza virus vaccine, split virus (incl. purified surface antigen) Brandon Estrella Other [facility] Other 08-17-2019 influenza virus vaccine, split virus (incl. purified surface antigen) Brandon Estrella Other [facility] Other 07-27-2018 influenza virus vaccine, split virus (incl. purified surface antigen) Brandon Estrella Other [facility] Other 12-11-2016 pneumococcal conjuga te vaccine, 13 valent Brandon Estrella Other [facility] Other 08-02-2015 influenza virus vaccine, split virus (incl. purified surface antigen) Brandon Estrella Other [facility] Other 08-02-2015 tetanus toxoid, redu carrillo diphtheria toxoid, and acellular pertussis vaccine, adsorbed Brandon Estrella Other [facility] Other 11-01-2014 pneumococcal Conjuga te, unspecified formulation; Translations: [Need for prophylactic vaccination against Streptococcus pneumoniae (pneumococcus)] Brandon Estrella Other [facility] Other 11-01-2014 pneumococcal polysaccharide vaccine, 23 valent Brandon Estrella Other [facility] Other Payers Date Payer Category Payer Unknown [id number] 1960 Medicare [id number] [id number] 1960 Self-pay [id number] 1960 Unknown [id number] 1950 Unknown [id number] 2.16.84 [id number] 1950 Unknown [id number] 2.16.84 [id number] 1949 Unknown [id number] 2.16.84 [id number] 1949 Unknown [id number] 2.16.84 [id number] 1949 Unknown [id number] 2.16.8 [id number] 1950 Unknown [id number] Self-pay Self Pay [id number] Unknown Social History Date Type Detail Facility Start: 09-22-2019 Tobacco smoking status NHIS Never smoked tobacco (finding) [facility] Start: 1950 Sex Assigned At Male F [place] Sex Assigned At Sex Assigned At Bir th [facility] Other Clinical Notes 02-05-2022 to 09-15-2023 Note Date & Type Note Facility 09-15-2023 Note [facility] Note Chief Complaint: Patient here for 1 year follow up CAD, carotid artery stenosis, and hypertension. Had carotid US after last visit in Sep 2022. No recent labs or testing. Denies chest pain, SOB, palpitations, and lightheadedness. HPI: Ondina Lo is a 73 y.o. male With a history of coronary artery disease, prior stent placement here in routine follow-up Denies symptoms. Pertinently, he had no significant symptoms prior to needing a stent approximately 7 years ago. He has been diabetic for the past 3 to 4 years. Cardiology ROS: Review of Systems HENT: Positive for tinnitus. Respiratory: Positive for snoring. Musculoskeletal: Positive for arthritis and joint pain. All other systems reviewed and are negative. Past Medical History He has a past medical history of CAD (coronary artery disease), Hyperlipidemia, and Hypertension. Surgical History He has a past surgical history that includes Appendectomy; Cholecystectomy; and Cardiac catheterization (10/17/2015). Social History He reports that he has never smoked. He has never used smokeless tobacco. He reports current alcohol use. No history on file for drug use. Family History Family History Problem Relation Name Age of Onset Heart failure Brother Cancer Brother Allergies Diphenhydramine hcl Medications Current Outpatient Medications: aspirin 81 mg EC tablet, Take 1 tablet every day by oral route., Disp: , Rfl: atorvastatin (Lipitor) 80 mg tablet, Take 1 tablet by mouth in the evening., Disp: , Rfl: clopidogrel (Plavix) 75 mg tablet, TAKE 1 TABLET BY MOUTH EVERY DAY IN THE MORNING, Disp: 90 tablet, Rfl: 3 levothyroxine (Synthroid, Levoxyl) 75 mcg tablet, Take 1 tablet by mouth in the morning., Disp: , Rfl: lisinopril 5 mg tablet, Take 1 tablet (5 mg) by mouth once daily as directed., Disp: 90 tablet, Rfl: 1 metFORMIN (Glucophage) 500 mg tablet, Take 1 tablet by mouth in the morning., Disp: , Rfl: metoprolol tartrate (Lopressor) 25 mg tablet, Take 0.5 tablets (12.5 mg) by mouth in the morning and at bedtime., Disp: 90 tablet, Rfl: 3 pantoprazole (ProtoNix) 40 mg EC tablet, Take 1 tablet (40 mg) by mouth once daily as directed., Disp: 90 tablet, Rfl: 3 Last Recorded Vitals BP 132/70 (BP Location: Left arm, Patient Position: Sitting) Ht 1.727 m (5' 8 ) Wt 79.8 kg (176 lb) BMI 26.76 kg/m??? Physical Examination: GENERAL: alert and oriented x3, well developed, in no acute distress. HEAD: atraumatic, normocephalic. EYES: EVELIA, EOMI. NECK: trachea midline, no JVD present, no carotid bruits present. CARDIAC: S1, S2 present. RRR. No murmur, rubs, or gallops. RESPIRATORY: CTAB, no increased effort of breathing, no rales, rhonchi, or wheezing. ABDOMEN: soft, nontender, nondistended. EXTREMITIES: no lower extremity edema, peripheral pulses are 2+ bilaterally. No rash/skin discoloration present. NEURO: strength/sensation equal and symmetric in bilateral upper and lower extremities. PSYCH: appropriate mood, affect, and judgement. Labs/Testing/Procedures: Labs 02/04/2022: Hgb 13.9, plt 153; Cr. 1, BUN 17, K 4.3, Na 133, GFR >60, ALT 36, Lipids: Chol 149, HDL 33, trig 225, LDL 71, TSH 3.2 Lipids 09/02/2021: Chol 167, HLD 40, trig 113, LDL 104 Carotid US (09/06/2021): 0-49% stenosis to bilateral ICA Labs reviewed 03/07/2020 CBC- WBC 5.2, HGB- 15, HCt-44.3, Plt 186 BUN17, Cr 1.07 AST 21, ALT- 36, Chol- 172, HDL 36, Trig- 147, LDL 106 A1C- 6.8 Carotid US 09/13/2020 US Carotid 05/30/2019 There is 50-69% (closer to 50%) stenosis of the RIGHT internal carotid artery. There is 50-69% (closer to 50%) stenosis of the LEFT internal carotid artery. Doppler flows are suggestive of a greater than 50% stenosis of the RIGHT external carotid artery. Moderate bilateral common carotid artery plaque also visualized. Antegrade vertebral artery flows bilaterally. No significant change from previous study. 01/2018 Echo Global left ventricular systolic function is normal (Visually estimated EF 60%). No significant valvular abnormalities Stress test 01/2018 No ischemia and normal perfusion. CVL report 10/19/2015 FINAL IMPRESSIONS: 1. Severe stenosis of the proximal to mid left anterior descending coronary artery, successfully treated by balloon angioplasty and drug-eluting stent placement. 2. Mild disease of the left circumflex coronary artery. 3. Mildly reduced global left ventricular systolic function by noninvasive imaging. No results found for: EXTCMP, BMPR1A, CBCDIF, BNP, BNP, LASAP, RED Assessment: Coronary artery disease, prior percutaneous revascularization and stent placement Carotid stenoses Essential hypertension Dyslipidemia Type 2 diabetes mellitus Plan: Continue optimal medical therapy for coronary artery disease including aspirin, high intensity statin therapy, a beta-lashanda and an angiotensin-converting enzyme inhibi (more content not included)... [facility] 07-20-2023 Evaluation note Encounter Date Diagnosis Assessment Notes Jul, Acute seasonal allergic rhinitis (ICD-10 - J30.2) [facility] Other 06-28-2023 Evaluation note* Encounter Date Diagnosis Assessment Notes Treatment Notes Treatment Clinical Notes Mar, Acute non-recurrent maxillary sinusitis (ICD-10 - J01.00) [facility] Other 06-21-2023 Evaluation note* Encounter Date Diagnosis Assessment Notes Treatment Notes Treatment Clinical Notes Mar, Acute non-recurrent maxillary sinusitis (ICD-10 - J01.00) Instructed to use Robitussin or Mucinex for cough, saline or Flonase NS for congestion, Tylenol for pain and fever. Mar, ASHD (arteriosclerotic heart disease) (ICD-10 - I25.10) Stable w/o symptoms suggestive of angina. Avoid decongestants, NSAIDs [facility] Other 06-05-2023 Evaluation note* Encounter Date Diagnosis Assessment Notes Treatment Notes Treatment Clinical Notes Mar, Medicare annual well ness visit, subsequent (ICD-10 - Z00.00) Personalized health advice was given to the beneficiary including a written plan for screenings discussed and provided. Advanced care planning reviewed and/or information given as requested. Additional counseling was provided here today in regards to, [ ]. The above visit was performed by [ ], under direct supervision of [ ]. Document reviewed and amended by provider signed below. Healthy diet and exercise. Reviewed age-appropriate preventive testing recommended. Mar, Type 2 diabetes eduardo itus with hyperglycemia, without long-term current use of insulin (ICD-10 - E11.65) This patient is following a comprehensive diabetic treatment plan. They are checking their feet daily for calluses and nonhealing ulcers. They are being seen for yearly dilated eye examinations. Goals: SBP less than 130, LDL less than 100, FBS less than 140, AC and A1C less than 7%. They are checking their BS daily, will which are reviewed at the office visit. Continue regular routine monitoring of A1C,] Microalbumin, Dilated eye exam and Foot exam Mar, ASHD (arteriosclerot ic heart disease) (ICD-10 - I25.10) This patient is stable without activity related CP, dyspnea or lightheadedness. They are instructed to continue exercise and AHA diet plan. Mar, Primary hypertension (ICD-10 - I10) This patient is instructed to consume a healthy, low-fat, low-salt diet. They are also encouraged to continue exercise to achieve/maintain a normal BMI. Mar, Pure hypercholestero lemia (ICD-10 - E78.00) Instructed on diet and exercise with continued statin therapy.Discussed the beneficial effects of lowering cholesterol in reducing the risk for cerebrovascular and cardiovascular disease. Mar, RICCARDO (obstructive sle ep apnea) (ICD-10 - G47.33) This patient is aware of the benefits associated with RICCARDO: With continued use, the patient reduces the risk for UT, CVA, HTN, cardiac dysrhythmias and sudden cardiac deaths.The patient is also aware of the association between RICCARDO and morning headaches, daytime somnolence, fatigue and obesity, which also has been improved with continued use.The patient is compliant with treatment, wearing the equipment every night for greater than 4 hours.The patient is instructed to continue use of the CPAP for RICCARDO treatment. Mar, Gastroesophageal ref lux disease with esophagitis without hemorrhage (ICD-10 - K21.00) Diet instructions: Smaller portions, avoid eating and laying flat, avoid eating or drinking prior to bedtime. Weight loss. 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 (ICD-10 - M19.011) ROM exercises, ice/heat and Tylenol Discussed PT, IA injection and referral Mar, Screening PSA (prost ate specific antigen) (ICD-10 - Z12.5) Mar, High risk medication use (ICD-10 - Z79.899) [facility] Other 05-02-2023 Evaluation note* Encounter Date Diagnosis Assessment Notes Treatment Notes Treatment Clinical Notes February, Primary hypertension (ICD-10 - I10) [facility] Other 04-12-2023 Evaluation note* Encounter Date Diagnosis Assessment Notes Treatment Notes Treatment Clinical Notes Jan, Acute seasonal allergic rhinitis (ICD-10 - J30.2) [facility] Other 04-21-2022 Evaluation note* Encounter Date Diagnosis Assessment Notes Treatment Notes Treatment Clinical Notes Jan, Obstructive sleep apnea (ICD-10 - G47.33) Fortunately the patient is using and benefiting from treatment. He has had positive effects from treatment with overall energy level and even with improved reflux. He does have some leakage issue when using moves around with the nasal pillows, particularly when on his belly. We will try the mask selector. Since he overall is doing well we will have him return in 2 years. He will call sooner if problems Jan, GERD without esophagitis (ICD-10 - K21.9) Nocturnal reflux is common with sleep apnea, as negative intrathoracic pressures during apnea can result in inadvertant esophageal reflux. Many times these issues will improve substantially once apneas are controlled Jan, Other Call if any questions or problems. Patient is advised to work on healthy diet choices and appropriate servings, weight control, regular exercise as directed, and reduce fat intake. Use machine regularly, and keep up with mask changes as needed. Call if problems with mask toleration, increased sleepiness, or poor response to treatment. . [facility] Other Evaluation noteNo assessment information available [facility] Work Phone: Evaluation noteNo InformationNort [employer] Other History general Narrative - Reported* Type Description Date Medical History Hypercholesteremia Medical History Hypothyroid (per patient is cont rolled) Medical History GERD (gastroesophageal reflux di sease) Medical History diabetes Medical History RICCARDO Surgical History cholecystectomy Surgical History heart stent Surgical History appendectomy Hospitalization History see above [facility] Other Summary Purpose Family History No Family History Records Found Relationship Condition Age at Onset Recorded Date/T asif brother Diabetes mellitus Unknown father Congestive heart failure Unknown Advance Directives No Advanced Directives Records Found Advance Directive Response Recorded Date/ Time Advance Directives No August 2:12pm Chief Complaint and Reason for Visit Chief Complaint Sleep apnea annual f ollow up Additional Source Comments (unrecognized sect ion and content) No Status Records FoundNo Status Records FoundNo Status Records FoundNo Status Records FoundNo Status Records Found INFORMATION SOURCE (unrecogn ized section and content) DATE CREATED AUTHOR 04/07/2018 [facility] DATE CREATED AUTHOR AUTHOR'S ORGANIZ ATION 10/09/2022 [facility] DATE CREATED AUTHOR AUTHOR'S ORGANIZ ATION 09/21/2023 [facility] DATE CREATED AUTHOR AUTHOR'S ORGANIZ ATION 10/03/2023 [facility] DATE CREATED AUTHOR AUTHOR'S ORGANIZ ATION 10/04/2023 [facility] [employer] Care Teams (unrecognized sec tion and content) Team Status: Inactive Member Role Status Dates Brandon Estrella DO Primary Care Provider Active Tim Hardwick MD Attending Provider Active Team Status: Active Member Role Status Dates Brandon Estrella DO Primary Care Provider Active Goals (unrecognized section and content) Goals may be documented in a n alternate sectionNo InformationNo InformationNo InformationNo InformationNo InformationNo InformationNo InformationNo InformationNo InformationNo Information REASON FOR VISIT (unrecogniz ed section and content) ER [id number] FOR RECORDS PERTAINING TO PATIENTS WHO ARE OR HAVE BEEN ENROLLED IN A CHEMICAL DEPENDENCY/SUBSTANCEABUSE PROGRAM, SOME INFORMATION MAY BE OMITTED. This clinical summary was aggregated from multiple sources. Caution should be exercised in using it in the provision of clinical care. This summary normalizes information from multiple sources, and as a consequence, information in this document may materially change the coding, format and clinical context of patient data. In addition, data may be omitted in some cases. CLINICAL DECISIONS SHOULD BE BASED ON THE PRIMARY CLINICAL RECORDS. [employer] provides no warranty or guarantee of the accuracy or completeness of information in this document.
== END 2023-10-06 08:34 | disposition home or self-care (01) ==
LOC: NM 08:33
PROVIDERS: PCP Internal Medicine; Visit Provider Internal Medicine Interventional Cardiology
DX: I25.10 Atherosclerotic heart disease of native coronary artery without angina pectoris (principal); I25.83 Coronary atherosclerosis due to lipid rich plaque
CPT/HCPCS: 78452; 93017; A9500

== ENCOUNTER 2023-10-07 06:56 | Outpatient (OUT) | payer OTHER, SELFPAY ==
[2023-10-07 07:16] LABS: Basophils Percent Auto 0.5 % (0.2-2.0); Eosinophils Absolute Auto 0.1 10^3/uL (0.0-0.7); Eosinophils Percent Auto 1.2 % (0.9-7.0); Hematocrit 43.4 % (42.0-54.0); Hemoglobin 14.9 g/dL (14.0-18.0); Immature Granulocytes Abs Auto 0.01 10^3/uL (0.00-0.03); Immature Granulocytes Pct Auto 0.2 % (0.0-0.5); Lymphocytes Percent Auto 14.8 % (20.5-60.0); Mean Corpuscular HGB Conc 34.3 g/dL (29.9-35.2); Mean Corpuscular Hemoglobin 32.7 pg (25.9-34.0); Mean Corpuscular Volume 95.4 fL (80.0-94.0); Mean Platelet Volume 8.8 fL (9.5-13.5); Monocytes Absolute Auto 0.7 10^3/uL (0.3-0.8); Neutrophils Absolute Auto 4.8 10^3/uL (1.4-6.5); Neutrophils Percent Auto 73.3 % (43.0-75.0); Platelet Count 183 10^3/uL (150-450); Red Blood Count 4.55 10^6/uL (4.70-6.10); Red Cell Distribution Width 12.8 % (11.0-15.0); White Blood Count 6.6 10^3/uL (4.0-11.0)
[2023-10-07 07:35] LABS: Microalbumin Urine Random 1.9 mg/dL (<=30.0)
[2023-10-07 07:38] LABS: Estimated Average Glucose 154 mg/dL
[2023-10-07 07:44] LABS: Alanine Aminotransferase 32 U/L (16-63); Carbon Dioxide 28.5 mmol/L (21.0-32.0); Chloride 101 mmol/L (98-107); Chol HDL Ratio 4.5; Cholesterol 188 mg/dL (<=200); Estimated GFR (African America >60 (>=60); Estimated GFR (Non-African Ame 59 (>=60); Glucose 174 mg/dL (74-106); HDL Cholesterol 42 mg/dL (40-60); Potassium 4.5 mmol/L (3.5-5.1); Sodium 138 mmol/L (136-145); Thyroid Stimulating Hormone 3.834 uIU/mL (0.358-3.740); Triglycerides 158 mg/dL (<=150); VLDL CHOLESTEROL 31.6 mg/dL
[2023-10-07 08:20] LABS: Prostate Specific Antigen Scrn 1.26 ng/mL (<=4.00)
--- OUTSIDE RECORDS SUMMARY | 2023-10-07 10:22 | XMS_ITS | CCD ---
Author Name Unknown Address [address] [place] [address] Organization [facility] Care Team Providers Care Bandoleer Straightener Stamper Name Role Phone PHYSICIAN, DEFAULT Unavailable Unavailable PHYSICIAN, DEFAULT Unavailable Unavailable BALL, BRANDON Unavailable Unavailable PHYSICIAN, DEFAULT Unavailable Unavailable PHYSICIAN, DEFAULT Unavailable Unavailable BALL, BRANDON Unavailable Unavailable Sameer, DO Brandon Primary Care Provider [phone] MD Tim Hardwick Attending Provider Tim Hardwick [...] Drug allergy (disorder) 10-20-19 16 [facility]OF [facility]ository (1 source) diphenhydrAMINE Drug Allergy 09-22-20 19 Hallucinating [facility] (3 sources) Contrast media Propensity to adverse reactions Unknown [facility] Other (3 sources) Dyes Propensity to adverse reactions Comment:Contras t Dye [facility] Other (3 sources) Allergies Reconciled Propensity to adverse reactions Unknown [facility] Other (3 sources) patient allergy list reviewed by nurse or physicia Propensity to adverse reactions 09-11-20 Comment:Done [facility] Other (1 source) diphenhydrAMINE; Translations: [DIPHENHYDRAMINE HCL] Drug Allergy 05-10-20 [facility] Repository (1 source) diphenhydrAMINE; Translations: [Benadryl] Drug Allergy [facility] Repository Medications Current Medications Medication Drug Class(es) Dates Sig (Normalized) Sig (Original) Ascorbic Acid (11 sources) Vitamin C Vitamin C Active Aspir-81 81 MG (11 sources) take 1 tablet by mouth once daily Aspir-81 81 MG 1 tablet Orally Once a day Active aspirin 81 mg oral tablet (1 source) Platelet Aggregation Inhibitor, Nonsteroidal Anti-inflammatory Drug Start: 09-22-2019 take 81 mg by mouth once daily Aspirin Active 81 MG PO Daily September 22, 2019 9:01am atorvastatin 80 mg oral tablet (15 sources) HMG-CoA Reductase Inhibitor Start: 09-22-2019 take 80 mg by mouth once daily Atorvastatin Active 80 MG PO Daily September 22, 2019 9:01am cefuroxime 250 mg oral tablet (5 sources) Cephalosporin Antibacterial Start: 04-07-2023 take 1 tablet by mouth twice daily Cefuroxime Axetil 250 MG 1 tablet Orally twice daily w/ food for 7 Mar, Active clopidogrel 75 mg oral tablet (12 sources) P2Y12 Platelet Inhibitor Start: 09-22-2019 take 75 mg by mouth once daily Clopidogrel Active 75 MG PO Daily September 22, 2019 9:01am levothyroxine sodium 0.075 mg oral tablet (14 sources) l-Thyroxine Start: 09-22-2019 take 75 ug by mouth once daily Levothyroxine Active 75 MCG PO Daily September 22, 2019 9:01am take 1 tablet by sol th once daily in the morning Synthroid 75 MCG 1 tablet on an empty stomach in the morning Orally Once a day Active lisinopril 5 mg oral tablet (19 sources) Angiotensin Converting Enzyme Inhibitor Start: 02-16-2023 take 1 tablet by mouth every twenty-four hours Lisinopril 5 MG 1 tablet Orally Once a day for 30 days February, Active Lisinopril Activ e metFORMIN hydrochloride 500 mg oral tablet (12 sources) Biguanide Start: 09-22-2019 take 500 mg by mouth once daily Metformin Active 500 MG PO Daily September 22, 2019 9:01am metoprolol tartrate 25 mg oral tablet (12 sources) beta-Adrenergic Lashanda Start: 09-22-2019 take 0.5 tablet by mouth twice daily Metoprolol Tartrate Active 0.5 TAB PO Twice daily September 22, 2019 9:01am pantoprazole 40 mg delayed release oral tablet (12 sources) Proton Pump Inhibitor Start: 09-22-2019 take 40 mg by mouth once daily Pantoprazole Active 40 MG PO Daily September 22, 2019 9:01am Pantoprazole Sod ium 40 MG 1 packet Orally Once a day Active Vitamin D3 (11 sources) Vitamin D3 Activ e Zinc (11 sources) Zinc Active Completed/Discontinued Medications Medication Drug Class(es) Dates Sig (Normalized) Sig (Original) Acetaminophen (11 sources) Tylenol 1 tab Or al Not-Taking/PRN Tylenol 1 tab Or al Not-Taking Augmentin Tablets 875 MG (11 sources) Start: 05-04-2017 take 1 tablet by mouth twice daily as needed Augmentin Tablets 875 MG Take one tab Orally Twice daily for 10 days Apr, Not-Taking/PRN Start: 05-04-2017 take 1 tablet by sol th twice daily Augmentin Tablets 875 MG Take one tab Orally Twice daily for 10 days Apr, Not-Taking isosorbide dinitrate 30 mg oral tablet (11 sources) Nitrate Vasodilator take 1 tablet by mouth every twelve hours Isosorbide Dinitrate 30 MG 1 tablet Orally Twice a day Not-Taking/PRN Ketorolac (11 sources) Nonsteroidal Anti-inflammatory Drug, Cyclooxygenase Inhibitor Start: 11-17-19 15 Toradol per 15 mg Oct, 60 mg triamcinolone acetonide 40 mg/ml injectable suspension (12 sources) Corticosteroid Start: 01-28-20 23 Kenalog-40 Jul, 60 mg Problems Active Problems Problem Classification Problem Date Documented Da te Episodic/Chronic Acute bronchitis (6 sources) Acute bronchitis; Translations: [Acute bronchitis, unspecified] Onset: 5 Episodic Asthma (6 sources) Mild intermittent asthma; Translations: [Mild intermittent asthma, uncomplicated] Onset: 9 Chronic Coronary atherosclerosis and other heart disease (20 sources) Atherosclerotic heart disease of [place] coronary artery without angina pectoris; Translations: [Coronary arteriosclerosis] Onset: 6 Chronic Deficiency and other anemia (4 sources) Anemia, unspecified; Translations: [ANEMIA UNSPECIFIED] Onset: 2 Episodic Deficiency and other anemia (3 sources) Anemia; Translations: [Anemia, unspecified] Episodic Diabetes mellitus with complications (12 sources) Type 2 diabetes mellitus with hyperglycemia; Translations: [Type 2 diabetes mellitus] Onset: 2 Chronic Diseases of mouth; excluding dental (6 sources) Glossitis; Translations: [Glossitis] Resolved: 1 Episodic Disorders of lipid metabolism (17 sources) Familial hypercholesterolemia; Translations: [Pure hypercholesterolemia] Onset: 5 Chronic Esophageal disorders (20 sources) Gastroesophageal reflux disease without esophagitis; Translations: [Gastro-esophageal reflux disease without esophagitis] Onset: 5 Resolved: 2 Chronic Essential hypertension (11 sources) Essential hypertension; Translations: [Essential (primary) hypertension] Chronic Gastrointestinal hemorrhage (4 sources) Rectal hemorrhage; Translations: [Hemorrhage of anus and rectum] 09-22-2019 Episodic Genitourinary symptoms and ill-defined conditions (3 sources) Nocturia; Translations: [Gross hematuria] Episodic Hemorrhoids (3 sources) Residual hemorrhoidal skin tags; Translations: [Residual hemorrhoidal skin tags] Episodic Hyperplasia of prostate (17 sources) Nocturia due to benign prostatic hypertrophy; Translations: [Benign prostatic hyperplasia with lower urinary tract symptoms] Onset: 5 Chronic Immunizations and screening for infectious disease (3 sources) Vaccination given; Translations: [Encounter for immunization] Episodic Miscellaneous mental health disorders (3 sources) Psychosexual dysfunction associated with inhibited sexual excitement; Translations: [Psychosexual dysfunction with inhibited sexual excitement] Onset: 5 Chronic Occlusion or stenosis of precerebral arteries (7 sources) Occlusion and stenosis of bilateral carotid arteries; Translations: [Left carotid artery occlusion] Onset: 2 Chronic Osteoarthritis (7 sources) Osteoarthritis of joint of right shoulder region; Translations: [Primary osteoarthritis, right shoulder] Chronic Other aftercare (2 sources) Other half-way (current) drug therapy; Translations: [OTH 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 CURRENT DRUG THERAPY] Onset: 2 Episodic Other aftercare (3 sources) Long-term current use of drug therapy; Translations: [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] Episodic Other injuries and conditions due to external causes (3 sources) History of fall; Translations: [History of falling] Episodic Other male genital disorders (6 sources) Impotence of organic origin; Translations: [Erectile dysfunction due to arterial insufficiency] Onset: 5 Chronic Other screening for suspected conditions (not mental disorders or infectious disease) (2 sources) Encounter for screening for malignant neoplasm of prostate; Translations: [ENC SCREEN MALIG NEOPLASM PROSTATE] Onset: 2 Episodic Other skin disorders (3 sources) Sebaceous cyst; Translations: [Sebaceous cyst] Episodic Other upper respiratory disease (12 sources) Seasonal allergic rhinitis; Translations: [Other seasonal allergic rhinitis] Chronic Other upper respiratory disease (2 sources) Other seasonal allergic rhinitis Chronic Other upper respiratory disease (3 sources) Allergic rhinitis; Translations: [Allergic rhinitis, unspecified] Onset: 5 Chronic Other upper respiratory infections (5 sources) Acute maxillary sinusitis, unspecified; Translations: [Acute maxillary sinusitis] Episodic Residual codes; unclassified (20 sources) Obstructive sleep apnea syndrome; Translations: [Obstructive sleep apnea (adult) (pediatric)] Chronic Residual codes; unclassified (2 sources) Obstructive sleep apnea (adult) (pediatric) Onset: 2 Resolved: 2 Chronic Spondylosis; intervertebral disc disorders; other back problems (7 sources) Cervical spondylosis; Translations: [Spondylosis without myelopathy or radiculopathy, cervical region] Chronic Systemic lupus erythematosus and connective tissue disorders (3 sources) Autoimmune disease; Translations: [Autoimmune disease, not elsewhere classified] Onset: 9 Chronic Thyroid disorders (20 sources) Acquired hypothyroidism; Translations: [Hypothyroidism, unspecified] Onset: 5 Chronic Past or Other Problems Problem Classification Problem Date Documented Da te Episodic/Chronic Bacterial infection; unspecified site (3 sources) Bacterial infectious disease; Translations: [Bacterial infection, unspecified, in conditions classified elsewhere and of unspecified site] Onset: 12-10-2016 Episodic Cardiac dysrhythmias (3 sources) Bradycardia; Translations: [Bradycardia, unspecified] Onset: 02-14-2018 Episodic Conditions associated with dizziness or vertigo (3 sources) Benign paroxysmal positional vertigo; Translations: [Benign paroxysmal positional vertigo] Onset: 02-14-2018 Episodic Coronary atherosclerosis and other heart disease (3 sources) Post percutaneous transluminal coronary angioplasty; Translations: [Coronary angioplasty status] Onset: 10-24-2015 Episodic Diabetes mellitus without complication (3 sources) Impaired fasting glycemia; Translations: [Impaired fasting glucose] Onset: 12-05-2015 Episodic Esophageal disorders (1 source) Esophageal disorders Malaise and fatigue (3 sources) Malaise and fatigue; Translations: [Other malaise and fatigue] Onset: 12-07-2016 Episodic Nonspecific chest pain (3 sources) Chest pain; Translations: [Chest pain, unspecified] Onset: 11-12-2014 Episodic Other connective tissue disease (1 source) Other symptoms and signs involving the nervous system; Translations: [Other symptoms and signs involving the nervous system] Resolved: 01-28-2021 Episodic Other connective tissue disease (3 sources) Pain in limb; Translations: [Pain in left finger(s)] Onset: 05-17-2018 Episodic Other connective tissue disease (3 sources) Olecranon bursitis; Translations: [Olecranon bursitis] Onset: 05-10-2017 Episodic Other connective tissue disease (2 sources) Disorder of nervous system; Translations: [Other symptoms and signs involving the nervous system] Resolved: 01-28-2021 Episodic Other ear and sense organ disorders (3 sources) Tinnitus; Translations: [Tinnitus, right ear] Onset: 02-14-2018 Episodic Other lower respiratory disease (3 sources) Chronic cough; Translations: [Chronic cough] Onset: 11-20-2015 Episodic Other lower respiratory disease (9 sources) Cough; Translations: [Other specified cough] Onset: 10-02-2015 Episodic Other lower respiratory disease (3 sources) H/O: pneumonia; Translations: [Personal history, Pneumonia (recurrent)] Onset: 12-10-2015 Episodic Other nutritional; endocrine; and metabolic disorders (6 sources) Body mass index 25-29 - overweight; Translations: [Body mass index 28.0-28.9, adult] Onset: 04-30-2017 Episodic Other nutritional; endocrine; and metabolic disorders (3 sources) Overweight; Translations: [Overweight] Onset: 03-20-2022 Episodic Residual codes; unclassified (3 sources) Requires influenza virus vaccination; Translations: [Need for prophylactic vaccination and inoculation, Influenza] Onset: 08-02-2015 Episodic Superficial injury; contusion (9 sources) Abrasion, elbow area; Translations: [Abrasion of right elbow, initial encounter] Onset: 05-10-2017 Episodic Unclassified (3 sources) Long-term current use of drug therapy; Translations: [Long-term (current) use of other medications] Onset: 06-16-2016 Unclassified (3 sources) Need for prophylactic vaccination with tetanus toxoid alone; Translations: [Need for prophylactic vaccination with tetanus toxoid alone] Onset: 08-02-2015 Results Test Name Value Interpretation Reference Range Facility Office Visiton 09-15-2023 Follow-up visit [id number] Ondina Lo A 1950 M Date Provider Department Center 09/15/2023 CARLO LEIVA [facility] Family History Problem Relation Age of Onset Heart failure Brother Cancer Brother Family Status - Relation Status Age at Brother Level of Service:04262 NC OFFICE/OUTPATIENT ESTABLISHED MOD MDM 30-39 MIN Normal [facility] Orders Onlyon 09-15-2023 Orders Only [id number] Ondina Lo A 1950 Date Provider Department Center 09/15/2023 ELLE GUADALUPE [facility] Family History Problem Relation Age of Onset Heart failure Brother Cancer Brother Family Status - Relation Status Age at Brother Normal [facility] US CAROTID ART BILon 09-28-2 022 US CAROTID ART SHAHRAM EXAMINATION: US CAROTID ART SHAHRAM HISTORY: Bilateral stenosis of carotid [...] TIM BARBER Date: 2022-09-28 17:37 Normal [facility] CBC AUTO DIFFon 09-24-2022 BASO # 0.0 103/ul Normal 0.0-0.1 [facility] Comment on above: Performed By: #### C BC #### [facility] [address] [place] [address] Dr. Daisy Alan Basophils/100 WBC (Bld) 0.6 % Normal 0.2-2.0 [facility] Comment on above: Performed By: #### C BC #### [facility] [address] [place] [address] Dr. Daisy Alan EO # 0.1 103/ul Normal 0.0-0.7 [facility] Comment on above: Performed By: #### C BC #### [facility] [address] [address] [address] Daisy Alan Eosinophils/100 WBC (Bld) 1.7 % Normal 0.9-7.0 [facility] Comment on above: Performed By: #### C BC #### [facility] [address] [address] [address] Daisy Alan Erythrocyte distribution width (RBC) [Ratio] 12.7 % Normal 11.0-15.0 [facility] Comment on above: Performed By: #### C BC #### [facility] [address] [place] [address] Dr. Daisy Alan Hematocrit (Bld) [Volume fraction] 41.4 % Critically low 42.0-54.0 [facility] Comment on above: Performed By: #### C BC #### [facility] [address] [place] [address] Dr. Daisy Alan Hemoglobin (Bld) [Mass/Vol] 14.4 g/dL Normal 14.0-18.0 [facility] Comment on above: Performed By: #### C BC #### [facility] [address] [place] [address] Dr. Daisy Alan IG # 0.02 10e3/ul Normal 0.00-0.03 [facility] Comment on above: Performed By: #### C BC #### [facility] [address] [place] [address] Dr. Daisy Alan IG % 0.3 % Normal 0.0-0.5 [facility] Comment on above: Performed By: #### C BC #### [facility] [address] [place] [address] Dr. Daisy Alan LYMPH # 1.0 103/ul Critically low 1.2-3.8 [facility] Comment on above: Performed By: #### C BC #### [facility] [address] [place] [address] Dr. Daisy Alan Lymphocytes/100 WBC (Bld) 14.1 % Critically low 20.5-60.0 [facility] Comment on above: Performed By: #### C BC #### [facility] [address] [place] [address] Dr. Daisy Alan MANUAL DIFF REQ NO Normal [facility] Comment on above: Performed By: #### C BC #### [facility] [address] [place] [address] Dr. Daisy Alan MCH (RBC) [Entitic mass] 31.9 pg Normal 25.9-34.0 [facility] Comment on above: Performed By: #### C BC #### [facility] [address] [place] [address] Dr. Daisy Alan MCHC (RBC) [Mass/Vol] 34.8 g/dL Normal 29.9-35.2 [facility] Comment on above: Performed By: #### C BC #### [facility] [address] [place] [address] Dr. Daisy Alan MCV (RBC) [Entitic vol] 91.6 fL Normal 80.0-94.0 [facility] Comment on above: Performed By: #### C BC #### [facility] [address] [address] [address] Daisy Alan MONO # 0.6 103/ul Normal 0.3-0.8 [facility] Comment on above: Performed By: #### C BC #### [facility] [address] [address] [address] Daisy Alan Monocytes/100 WBC (Bld) 8.7 % Normal 1.7-12.0 [facility] Comment on above: Performed By: #### C BC #### [facility] [address] [address] [address] Daisy Alan NEUT # 5.3 103/ul Normal 1.4-6.5 [facility] Comment on above: Performed By: #### C BC #### [facility] [address] [address] [address] Daisy Alan Neutrophils/100 WBC (Bld) 74.6 % Normal 43.0-75.0 [facility] Comment on above: Performed By: #### C BC #### [facility] [address] [address] [address] Daisy Alan Platelet mean volume (Bld) [Entitic vol] 9.0 fL Critically low 9.5-13.5 [facility] Comment on above: Performed By: #### C BC #### [facility] [address] [address] [address] Daisy Alan PLT 191 103/ul Normal 150-450 [facility] Comment on above: Performed By: #### C BC #### [facility] [address] [address] [address] Daisy Alan RBC 4.52 106/ul Critically low 4.70-6.10 [facility] Comment on above: Performed By: #### C BC #### [facility] [address] [address] [address] Daisy Alan WBC 7.1 103/ul Normal 4.0-11.0 [facility] Comment on above: Performed By: #### C BC #### [facility] [address] [place] [address] Dr. Daisy Alan CBC W MANUAL DIFFon 02-05-20 ATYPICAL LYMPH # Normal [facility] Comment on above: Performed By: #### C BCMAN #### [facility] [address] [place] [address] Dr. Daisy Alan ATYPICAL LYMPH % Normal [facility] Comment on above: Performed By: #### C BCMAN #### [facility] [address] [address] [address] Daisy Alan BAND # Normal 0.0-0.3 [facility] Comment on above: Performed By: #### C BCMAN #### [facility] [address] [place] [address] Dr. Daisy Alan BAND % Normal 0-5 [facility] Comment on above: Performed By: #### C BCBLU #### [facility] [address] [place] [address] Dr. Daisy Alan BASOM # 0.00 103/ul Normal 0.00-0.10 [facility] Comment on above: Performed By: #### C BCBLU #### [facility] [address] [place] [address] Dr. Daisy Alan BASOM % 0.0 % Critically low 0.2-2.0 [facility] Comment on above: Performed By: #### C BRIGIDA #### [facility] [address] [place] [address] Dr. Daisy Alan BLAST # Normal [facility] Comment on above: Performed By: #### C BCMAN #### [facility] [address] [place] [address] Dr. Daisy Alan BLAST % Normal [facility] Comment on above: Performed By: #### C BCMAN #### [facility] [address] [place] [address] Dr. Daisy Alan CORRECTED WBC Normal 4.0-11.0 [facility] Comment on above: Performed By: #### C BRIGIDA #### [facility] [address] [place] [address] Dr. Daisy Alan EOS # 0.13 103/ul Normal 0.00-0.70 [facility] Comment on above: Performed By: #### C BRIGIDA #### [facility] [address] [address] [address] Daisy Alan EOS% 2.0 % Normal 0.9-7.0 [facility] Comment on above: Performed By: #### C BRIGIDA #### [facility] [address] [address] [address] Daisy Alan HCT 41.8 % Critically low 42.0-54.0 [facility] Comment on above: Performed By: #### C BRIGIDA #### [facility] [address] [place] [address] Dr. Daisy Alan HGB 13.9 g/dl Critically low 14.0-18.0 [facility] Comment on above: Performed By: #### C BRIGIDA #### [facility] [address] [place] [address] Dr. Daisy Alan LYMPHM # 0.38 103/ul Critically low 1.20-3.80 [facility] Comment on above: Performed By: #### C BRIGIDA #### [facility] [address] [place] [address] Dr. Daisy Alan LYMPHM% 6.0 % Critically low 20.5-60.0 [facility] Comment on above: Performed By: #### C BRIGIDA #### [facility] [address] [address] [address] Daisy Alan MCH 30.8 pg Normal 25.9-34.0 [facility] Comment on above: Performed By: #### C BRIGIDA #### [facility] [address] [address] [address] Daisy Alan MCHC 33.3 g/dl Normal 29.9-35.2 [facility] Comment on above: Performed By: #### C BRIGIDA #### [facility] [address] [address] [address] Daisy Alan MCV 92.7 fL Normal 80.0-94.0 [facility] Comment on above: Performed By: #### C BRIGIDA #### [facility] [address] [address] [address] Daisy Alan METAMYELOCYTE # Normal [facility] Comment on above: Performed By: #### C BRIGIDA #### [facility] [address] [address] [address] Daisy Alan METAMYELOCYTE % Normal [facility] Comment on above: Performed By: #### C BRIGIDA #### [facility] [address] [address] [address] Daisy Alan MONOM# 0.50 103/ul Normal 0.30-0.80 [facility] Comment on above: Performed By: #### C BRIGIDA #### [facility] [address] [address] [address] Daisy Alan MONOM% 8.0 % Normal 1.7-12.0 [facility] Comment on above: Performed By: #### C BRIGIDA #### [facility] [address] [address] [address] Daisy Alan MPV 9.1 fL Critically low 9.5-13.5 [facility] Comment on above: Performed By: #### C BRIGIDA #### [facility] [address] [place] [address] Dr. Daisy Alan MYELOCYTE # Normal [facility] Comment on above: Performed By: #### C BRIGIDA #### [facility] [address] [address] [address] Daisy Alan MYELOCYTE % Normal [facility] Comment on above: Performed By: #### C BRIGIDA #### [facility] [address] [address] [address] Daisy Alan NRBC Normal [facility] Comment on above: Performed By: #### C BRIGIDA #### [facility] [address] [address] [address] Daisy Alan PLT 153 103/ul Normal 150-450 [facility] Comment on above: Performed By: #### C BRIGIDA #### [facility] [address] [address] [address] Daisy Alan RBC 4.51 106/ul Critically low 4.70-6.10 [facility] Comment on above: Performed By: #### C BRIGIDA #### [facility] [address] [address] [address] Daisy Alan RDW 12.8 % Normal 11.0-15.0 [facility] Comment on above: Performed By: #### C BRIGIDA #### [facility] [address] [address] [address] Daisy Alan SEG # 5.29 103/ul Normal 1.40-6.50 [facility] Comment on above: Performed By: #### C RBIGIDA #### [facility] [address] [place] [address] Dr. Daisy Alan SEG % 84.0 % Critically high 43.0-75.0 [facility] Comment on above: Performed By: #### C BRIGIDA #### [facility] [address] [address] [address] Daisy Alan WBC 6.3 103/ul Normal 4.0-11.0 [facility] Comment on above: Performed By: #### C BRIGIDA #### [facility] [address] [address] [address] Daisy Alan GLYCOHEMOGLOBIN A1Con 2021 ADA RECOMMENDATION ADA THERAPEUTIC TARGET 6.0 - 7.0 ACTION SUGGESTED > 7.0 Normal [facility] Comment on above: Performed By: #### A 1C #### [facility] [address] [place] [address] Dr. Daisy Alan Glucose [Mass/Vol] 154 mg/dL Normal [facility] Comment on above: Performed By: #### A 1C #### [facility] [address] [address] [address] Daisy Alan HbA1c (Bld) [Mass fraction] 7.0 % Critically high <=6.0 [facility] Comment on above: Performed By: #### A 1C #### [facility] [address] [place] [address] Dr. Daisy Alan LIPID PROFILEon 02-04-2022 CHOL-HDL RATIO NORM SEE BELOW Normal [facility] Comment on above: Result Comment: 3.3 - 4.4 LOW RISK 4.4 - 7.1 AVERAGE RISK 7.1 - 11.0 MODERATE RISK >11.0 HIGH RISK Performed By: #### B MP, LIPID, ALT, TSH #### [facility] [address] [address] [address] Daisy Alan Cholesterol [Mass/Vol] 149 mg/dL Normal <=200 [facility] Comment on above: Performed By: #### B MP, LIPID, ALT, TSH #### [facility] [address] [address] [address] Daisy Alan Cholesterol in HDL [Mass/Vol] 33 mg/dL Critically low 40-60 [facility] Comment on above: Performed By: #### B MP, LIPID, ALT, TSH #### [facility] [address] [address] [address] Daisy Alan Cholesterol in LDL [Mass/Vol] 71.0 mg/dL Normal [facility] Comment on above: Performed By: #### B MP, LIPID, ALT, TSH #### [facility] [address] [address] [address] Daisy Alan Cholesterol.total/Ch olesterol in HDL [Mass ratio] 4.5 {ratio} Normal [facility] Comment on above: Performed By: #### B MP, LIPID, ALT, TSH #### [facility] [address] [address] [address] Daisy Alan HDL NORMAL > or = 60 mg/dl - LOW CARDIOVASCULAR RISK <40 mg/dl - HIGH CARDIOVASCULAR RISK Normal [facility] Comment on above: Performed By: #### B MP, LIPID, ALT, TSH #### [facility] [address] [place] [address] Dr. Daisy Alan LDL CALC NORMAL SEE BELOW Normal [facility] Comment on above: Result Comment: <100 mg/dl OPTIMAL 100 - 129 mg/dl NEAR OR ABOVE OPTIMAL 130 - 159 mg/dl BORDERLINE HIGH 160 - 189 mg/dl HIGH >190 mg/dl VERY HIGH Performed By: #### B MP, LIPID, ALT, TSH #### [facility] [address] [address] [address] Daisy Alan Triglyceride [Mass/Vol] 225 mg/dL Critically high <=150 [facility] Comment on above: Performed By: #### B MP, LIPID, ALT, TSH #### [facility] [address] [address] [address] Daisy Alan VLDL CALC 45.0 mg/dL Normal [facility] Comment on above: Performed By: #### B MP, LIPID, ALT, TSH #### [facility] [address] [place] [address] Dr. Daisy Alan MICROALBUMIN, RAND URon 04 mALB 1.5 mg/L Normal <=30.0 [facility] Comment on above: Performed By: #### M ALBR #### [facility] [address] [place] [address] Dr. Daisy Alan PROF CHEM 8 (BAS METB)on Anion gap [Moles/Vol] 10.6 mmol/L Normal [facility] Comment on above: Performed By: #### B MP, LIPID, ALT, TSH #### [facility] [address] [place] [address] Dr. Daisy Alan Calcium [Mass/Vol] 9.2 mg/dL Normal 8.5-10.1 [facility] Comment on above: Performed By: #### B MP, LIPID, ALT, TSH #### [facility] [address] [place] [address] Dr. Daisy Alan Chloride [Moles/Vol] 99 mmol/L Normal 98-107 [facility] Comment on above: Performed By: #### B MP, LIPID, ALT, TSH #### [facility] [address] [place] [address] Dr. Daisy Alan CO2 [Moles/Vol] 27.7 mmol/L Normal 22.0-30.0 [facility] Comment on above: Performed By: #### B MP, LIPID, ALT, TSH #### [facility] [address] [address] [address] Daisy Alan Creatinine [Mass/Vol] 1.00 mg/dL Normal 0.66-1.25 [facility] Comment on above: Performed By: #### B MP, LIPID, ALT, TSH #### [facility] [address] [address] [address] Daisy Alan EGFR-AF SLOVENIAN >60 Normal >=60 [facility] Comment on above: Performed By: #### B MP, LIPID, ALT, TSH #### [facility] [address] [address] [address] Daisy Alan EGFR-NON AF SLOVENIAN >60 Normal >=60 [facility] Comment on above: Performed By: #### B MP, LIPID, ALT, TSH #### [facility] [address] [address] [address] Daisy Alan Glucose [Mass/Vol] 186 mg/dL Critically high 74-106 [facility] Comment on above: Performed By: #### B MP, LIPID, ALT, TSH #### [facility] [address] [address] [address] Daisy Alan Potassium [Moles/Vol] 4.3 mmol/L Normal 3.4-5.0 [facility] Comment on above: Performed By: #### B MP, LIPID, ALT, TSH #### [facility] [address] [address] [address] Daisy Alan Sodium [Moles/Vol] 133 mmol/L Critically low 137-145 [facility] Comment on above: Performed By: #### B MP, LIPID, ALT, TSH #### [facility] [address] [address] [address] Daisy Alan Urea nitrogen [Mass/Vol] 17.0 mg/dL Normal 7.0-18.0 [facility] Comment on above: Performed By: #### B MP, LIPID, ALT, TSH #### [facility] [address] [address] [address] Daisy Alan Urea nitrogen/Creatinine [Mass ratio] 17.0 mg/mg Normal [facility] Comment on above: Performed By: #### B MP, LIPID, ALT, TSH #### [facility] [address] [address] [address] Daisy Alan SGPTon 02-04-2022 ALT [Catalytic activity/Vol] 36 U/L Normal 16-63 [facility] Comment on above: Performed By: #### B MP, LIPID, ALT, TSH #### [facility] [address] [address] [address] Daisy Alan TSHon 02-04-2022 TSH 3.205 uIU/mL Normal 0.470-4.680 [facility] Comment on above: Performed By: #### B MP, LIPID, ALT, TSH #### [facility] [address] [address] [address] Daisy Alan TSH RANGE SEE BELOW Normal [facility] Comment on above: Result Comment: <0.3 4 UIU/ml HYPERTHYROID 0.34-5.60 UIU/ml EUTHYROID >5.60 UIU/ml HYPOTHYROID Performed By: #### B MP, LIPID, ALT, TSH #### [facility] [address] [address] [address] Daisy Alan Vital Signs Date Time Vital Sign Value Performing Clinician Facility 10-05-2023 13:45-0500 Body height 170.18 cm Brandon [email or web address] Other [facility] Other 10-05-2023 13:45-0500 Body mass index (BMI) [Ratio] 27.94 kg/m2 Brandon [email or web address] Other [facility] Other 10-05-2023 13:45-0500 Body weight 80.92 kg Brandon [email or web address] Other [facility] Other 10-05-2023 13:45-0500 Diastolic blood pressure 77 mm[Hg] Brandon [email or web address] Other [facility] Other 10-05-2023 13:45-0500 Respiratory rate 12 /min Brandon [email or web address] Other [facility] Other 10-05-2023 13:45-0500 Systolic blood pressure 128 mm[Hg] Brandon Ball Other [facility] Other 03-22-2023 14:30-0400 Body height 170.18 cm Brandon Ball Other [facility] Other 03-22-2023 14:30-0400 Body mass index (BMI) [Ratio] 27.12 kg/m2 Brandon Ball Other [facility] Other 03-22-2023 14:30-0400 Body weight 78.56 kg Brandon Ball Other [facility] Other 03-22-2023 14:30-0400 Diastolic blood pressure 74 mm[Hg] Brandon Ball Other [facility] Other 03-22-2023 14:30-0400 Respiratory rate 12 /min Brandon Ball Other [facility] Other 03-22-2023 14:30-0400 Systolic blood pressure 129 mm[Hg] Brandon Ball Other [facility] Other 02-05-2022 11:00-0400 Body height 170.18 cm Tim Hardwick Other [facility] Other 02-05-2022 11:00-0400 Body mass index (BMI) [Ratio] 28.03 kg/m2 Tim Hardwick Other [facility] Other 02-05-2022 11:00-0400 Body temperature 97.3 [degF] Tim Hardwick Other [facility] Other 02-05-2022 11:00-0400 Body weight 81.19 kg Tim Hardwick Other [facility] Other 02-05-2022 11:00-0400 Diastolic blood pressure 83 mm[Hg] Tim Hardwick Other [facility] Other 02-05-2022 11:00-0400 SaO2% (BldA) [Mass fraction] 98 % Tim Hardwick Other [facility] Other 02-05-2022 11:00-0400 Systolic blood pressure 159 mm[Hg] Tim Hardwick Other [facility] Other Encounters Encounter Date Encounter Type Care Provider Facility Start: 10-26-2023 ambulatory [place] ty:MARTA Swann Start: 10-05-2023 End: 10-05-2023 ambulatory Brandon Estrella Other [facility] Other Start: 10-05-2023 Office outpatient vi sit 15 minutes Brandon Estrella [facility] Start: 10-04-2023 End: 10-04-2023 ambulatory JUVENAL BALLARD Not Available Start: 09-28-2023 End: 09-28-2023 ambulatory Brandon Sameer Other [facility] Other Start: 09-28-2023 Telephone encounter Brandon Estrella [facility] Start: 09-15-2023 End: 09-15-2023 ambulatory [facility] Start: 07-20-2023 End: 07-20-2023 ambulatory Brandon Estrella Other [facility] Other Start: 07-20-2023 Nursing evaluation o f patient and report Brandon Estrella [facility] Start: 04-14-2023 End: 04-14-2023 ambulatory Brandon Estrella Other [facility] Other Start: 04-14-2023 Telephone encounter Brandon Sameer [facility] Start: 04-07-2023 End: 04-07-2023 ambulatory Brandon Estrella Other [facility] Other Start: 04-07-2023 Office outpatient vi sit 15 minutes Brandon Estrella [facility] Start: 03-22-2023 End: 03-22-2023 ambulatory Brandon Estrella Other [facility] Other Start: 03-22-2023 Patient encounter procedure Brandon Estrella [facility] Start: 02-16-2023 End: 02-16-2023 ambulatory Brandon Estrella Other [facility] Other Start: 02-16-2023 Telephone encounter Brandon Estrella [facility] Start: 01-27-2023 End: 01-27-2023 ambulatory Brandon Estrella Other [facility] Other Start: 01-27-2023 Nursing evaluation o f patient and report Brandon Estrella [facility] Start: 01-18-2023 End: 01-18-2023 ambulatory Brandon Estrella Other [facility] Other Start: 01-18-2023 Telephone encounter Brandon Estrella [facility] Start: 09-28-2022 End: 09-29-[address] TIM BARBER Facility:[facility] Start: 09-24-2022 End: 09-25-[address] BRANDON ESTRELLA Facility:[facility] Start: 05-25-[address] BRANDON ESTRELLA Facili ty:[facility] Start: 03-20-2022 Adult health examination Brandon Esterlla Other [facility] Other Start: 02-05-2022 End: 02-05-2022 ambulatory Tim Hardwick Other [facility] Other Start: 02-05-2022 Office outpatient vi sit 15 minutes Tim Hardwick [facility] Start: 02-05-2022 End: 02-05-2022 Patient encounter procedure DO Brandon Estrella Work Phone: [facility] Start: 02-04-2022 End: 02-05-[address] BRANDON ESTRELLA Facility: Start: 02-14-2018 End: 02-15-2018 Ambulatory DEFAULT PHYSICIAN Facility:[facility] Start: 02-10-2018 End: 02-11-2018 Ambulatory DEFAULT PHYSICIAN Facility:[facility] Procedures Date Procedure Procedure Detail Performing Clinician Start: 03-20-2022 Depression screening Be dae Estrella Other Start: 02-04-[address] TIM BARBER Comment on above: Performed By: #### [facility] #### [facility] [address] [place] [address] Dr. Daisy Alan Start: 12-10-2016 Viral screening Jennifer Estrella Other Start: 11-01-2014 Screening for malign ant neoplasm of prostate Brandon Estrella Other Screening for malign ant neoplasm of colon Brandon Estrella Other Screening for malign ant neoplasm of prostate Brandon Estrella Other Immunizations Immunization Date Immunization Notes [facility]-2022 influenza virus vaccine, split virus (incl. purified surface antigen) Brandon Estrella Other [facility] Other 08-06-2020 influenza virus vaccine, split virus (incl. purified surface antigen) Brandon Estrella Other [facility] Other 08-17-2019 influenza virus vaccine, split virus (incl. purified surface antigen) Brandon Estrella Other [facility] Other 07-27-2018 influenza virus vaccine, split virus (incl. purified surface antigen) Brandon Estrella Other [facility] Other 12-11-2016 pneumococcal conjuga te vaccine, 13 valent Brandon Estrella Other [facility] Other 08-02-2015 influenza virus vaccine, split virus (incl. purified surface antigen) Brandon Estrella Other [facility] Other 08-02-2015 tetanus toxoid, redu carrillo diphtheria toxoid, and acellular pertussis vaccine, adsorbed Brandon Estrella Other [facility] Other 11-01-2014 pneumococcal Conjuga te, unspecified formulation; Translations: [Need for prophylactic vaccination against Streptococcus pneumoniae (pneumococcus)] Brandon Estrella Other [facility] Other 11-01-2014 pneumococcal polysaccharide vaccine, 23 valent Brandon Estrella Other [facility] Other Payers Date Payer Category Payer Unknown [id number] 1960 Medicare [id number] 1960 Self-pay [id number] 1960 Unknown [id number] 1950 Unknown [id number] 2.16.84 [id number] 1950 Unknown [id number] 2.16.84 [id number] 1950 Unknown [id number] [id number] 1950 Unknown [id number] 2.16.84 [id number] 1950 Unknown [id number] 2.16.8 [id number] 1950 Unknown [id number] Self-pay Self Pay [id number] Unknown Social History Date Type Detail Facility Start: 09-22-2019 Tobacco smoking status NHIS Never smoked tobacco (finding) [facility] Start: 1950 Sex Assigned At Male F [facility] Sex Assigned At Sex Assigned At Bir th [facility] Other Clinical Notes 02-05-2022 to 10-05-2023 Note Date & Type Note Facility 10-05-2023 Evaluation note Encounter Date Diagnosis Assessment Notes Sep, Primary hypertension (ICD-10 - I10) Hypertensive in ER. Home BP readings all normal. No change in treatment. Sep, Gross hematuria (ICD-10 - R31.0) No further hematuria noted. Push fluids and call if recurs. He denies fever, chills, flank pain or any additional symptoms of intercurrent infection. CT abdomen/pelvis w/ thickening of the bladder wall w/o tumor. Refer to Urology for cystoscopy Sep, Type 2 diabetes mellitus with hyperglycemia, without long-term current use of insulin (ICD-10 - E11.65) Home BS are between 150-200 He was instructed to have his wellness labs (A1C) completed. Continue healthy diet and exercise. Sep, Nocturia (ICD-10 - R35.1) Nocturia x 1 and symptoms tolerable. He denies need for treatment. Sep, Benign prostatic hyperplasia with lower urinary tract symptoms (ICD-10 - N40.1) [facility] [id number] Chief Complaint: Patient [...] an angiotensin-converting enzyme inhibi (more content not included)...[facility] 07-20-2023 Evaluation note* Encounter Date Diagnosis Assessment Notes Treatment Notes Treatment Clinical Notes Jul, Acute seasonal allergic rhinitis (ICD-10 - J30.2) [facility] Other 06-28-2023 Evaluation note* Encounter Date Diagnosis Assessment Notes Treatment Notes Treatment Clinical Notes Mar, Acute non-recurrent maxillary sinusitis (ICD-10 - J01.00) [facility] Other 06-21-2023 Evaluation note* Encounter Date Diagnosis Assessment Notes Treatment Notes Treatment Clinical Notes Mar, Acute non-recurrent maxillary sinusitis (ICD-10 - J01.00) Instructed to use Robitussin or Mucinex for cough, saline or Flonase NS for congestion, Tylenol for pain and fever. Mar, ASHD (arteriosclerotic heart disease) (ICD-10 - I25.10) Stable w/o symptoms suggestive of angina. Avoid decongestants, NSAIDs [facility] Other 06-05-2023 Evaluation note* Encounter Date Diagnosis [...] use, the patient reduces the risk for KS, CVA, HTN, cardiac dysrhythmias and sudden cardiac [...] High risk medication use (ICD-10 - Z79.899) [facility] Other 05-02-2023 Evaluation note* Encounter Date Diagnosis Assessment Notes Treatment Notes Treatment Clinical Notes February, Primary hypertension (ICD-10 - I10) [facility] Other 04-12-2023 Evaluation note* Encounter Date Diagnosis Assessment Notes Treatment Notes Treatment Clinical Notes Jan, Acute seasonal allergic rhinitis (ICD-10 - J30.2) [facility] Other 04-21-2022 Evaluation note* Encounter Date Diagnosis [...] sleepiness, or poor response to treatment. . [facility] Other Evaluation noteNo assessment information available [facility] Work Phone: Evaluation [facility]No [facility] Other History general Narrative - Reported* Type Description Date Medical History Hypercholesteremia Medical History Hypothyroid (per patient is cont rolled) Medical History GERD (gastroesophageal reflux di sease) Medical History diabetes Medical History RICCARDO Surgical History cholecystectomy Surgical History heart stent Surgical History appendectomy Hospitalization History see above [facility] Other Summary Purpose Family History Relationship Condition Age at Onset Recorded Date/T asif brother Diabetes mellitus Unknown father Congestive heart failure Unknown Advance Directives Advance Directive Response Recorded Date/ Time Advance Directives No August 2:12pm Chief Complaint and Reason for Visit Chief Complaint Sleep apnea annual f ollow up Additional Source Comments (unrecognized sect ion and content) No Status Records FoundNo Status Records FoundNo Status Records FoundNo Status Records FoundNo Status Records Found INFORMATION SOURCE (unrecogn ized section and content) DATE CREATED AUTHOR 04/07/2018 [facility] DATE CREATED AUTHOR AUTHOR'S ORGANIZ ATION 10/09/2022 [facility] DATE CREATED AUTHOR AUTHOR'S ORGANIZ ATION 09/21/2023 [facility] DATE CREATED AUTHOR AUTHOR'S ORGANIZ ATION 10/03/2023 [facility] DATE CREATED AUTHOR AUTHOR'S ORGANIZ ATION 10/04/2023 [facility] [employer] Care Teams (unrecognized sec [...] VISIT (unrecogniz ed section and content) ER [id number] FOR RECORDS PERTAINING TO PATIENTS WHO ARE [...] BE BASED ON THE PRIMARY CLINICAL RECORDS. [facility] [employer] [facility]. provides no warranty or guarantee of the accuracy or completeness of information in this document.
== END 2023-10-07 06:57 | disposition home or self-care (01) ==
LOC: LAB 06:58
PROVIDERS: PCP Internal Medicine; Visit Provider Internal Medicine
DX: E11.65 Type 2 diabetes mellitus with hyperglycemia (principal); I10 Essential (primary) hypertension; E78.00 Pure hypercholesterolemia, unspecified; Z12.5 Encounter for screening for malignant neoplasm of prostate; Z79.899 Other long term (current) drug therapy; E06.3 Autoimmune thyroiditis
CPT/HCPCS: 36415; 80048; 80061; 82043; 83036; 84443; 84460; 85025; G0103

== ENCOUNTER 2024-02-18 08:02 | Outpatient (OUT) | payer OTHER, SELFPAY ==
--- OUTSIDE RECORDS SUMMARY | 2024-02-18 08:09 | XMS_ITS | CCD ---
Author Organization [facility] Care Team Providers Care Finishing Area Operator Name Role Phone PHYSICIAN, DEFAULT Unavailable Unavailable PHYSICIAN, DEFAULT Unavailable Unavailable BALL, BRANDON Unavailable Unavailable PHYSICIAN, DEFAULT Unavailable Unavailable PHYSICIAN, DEFAULT Unavailable Unavailable SAMEER, BRANDON Unavailable Unavailable Sameer, DO Taylor Primary Care Provider [phone] MD Tim Hardwick Attending Provider Tim Hardwick ELISABETH, DR TIM Dunn Consulting Unavailable FABIOLA COURTNEY Attending Unavailable FABIOLA COURTNEY Admitting Unavailable BALL, DR TAYLOR Primary Care Unavailable FABIOLA COURTNEY Consulting Unavailable BALL, DR TAYLOR Attending Unavailable BALL, DR TAYLOR Consulting Unavailable BALL, DR TAYLOR Primary Care Unavailable BALL, DR TAYLOR Admitting Unavailable BALL, DR TAYLOR Consulting Unavailable BALL, DR TAYLOR Primary Care Unavailable BALL, DR TAYLOR Admitting Unavailable BALL, DR TAYLOR Attending Unavailable BALL, DR TAYLOR Attending Unavailable BALL, DR TAYLOR Primary Care Unavailable BALL, DR TAYLOR Admitting Unavailable Ball, Brandon Unavailable CARLO SEN Attending Unavailable OMER ESTRELLA Primary Care Physician TRISH BALLARD Attending Unavailable TRISH BALLARD Attending Unavailable Unavailable Primary Care Provider UnavailPola Sharp Attending Unavailable CANTRELL, Pola Rothman Attending Unavailable CANTRELL, Pola Rothman Attending Unavailable CANTRELL, Pola Rothman Attending Unavailable BALLBRANDON Referring Unavailable CANTRELL, Pola Rothman Attending Unavailable CANTRELL, Pola R Attending Unavailable CANTRELL, Pola Rothman Admitting Unavailable CANTRELL, Pola Rothman Attending Unavailable Allergies Allergy Classification Reported Allergen(s) Allergy Type Date of Onset Reaction(s) Facility (1 source) Contrast media Drug allergy (disorder) 10-20-19 16 [facility] Repository (8 sources) diphenhydrAMIN E; Translations: [Diphenhydrami ne] Drug Allergy 05-10-20 19 Hallucinations (finding), Unknown [facility] Comment on above: Pt states that it is only IV Benadryl (9 sources) Contrast media Propensity to adverse reactions Unknown [facility] [employer] [facility] Other (11 sources) Dyes Propensity to adverse reactions 11-16-19 Comment:Contrast Dye [facility] (8 sources) Allergies Reconciled Propensity to adverse reactions Unknown [facility] Other (8 sources) patient allergy list reviewed by nurse or physicia Propensity to adverse reactions 09-11-20 Comment:Done [facility] [employer] Other (1 source) diphenhydrAMIN E; Translations: [DIPHENHYDRAMI NE HCL] Drug Allergy 05-10-20 19 [facility] Repository (4 sources) Iodinated Contrast Media Drug Allergy 06-16-20 23 Unknown [facility] (1 source) diphenhydrAMIN E; Translations: [Benadryl] Drug Allergy [facility] Repository Medications Current Medications Medication Drug Class(es) Dates Sig (Normalized) Sig (Original) Ascorbic Acid (20 sources) Vitamin C Start: 10-26-2023 Vitamin C Zeenat y Start Date: 10/26/23 Status: Ordered Vitamin C Active Aspir-81 81 MG (17 sources) take 1 tablet by mouth once daily Aspir-81 81 MG 1 tablet Orally Once a day Active aspirin 81 mg delayed release oral tablet (6 sources) Platelet Aggregation Inhibitor, Nonsteroidal Anti-inflammatory Drug Start: 09-09-2020 take 1 mg by mouth once daily aspirin 81 mg Oral EC Tab mg tab(s), Oral, Daily, Refills(s) 0 Start Date: 09/09/20 Status: Ordered Start: 09-22-2019 take 81 mg by mouth once daily Aspirin Active 81 MG PO Daily September 22, 2019 1:00am atorvastatin 80 mg oral tablet (20 sources) HMG-CoA Reductase Inhibitor Start: 09-22-2019 take 80 mg by mouth once daily Atorvastatin Active 80 MG PO Daily September 22, 2019 1:00am atorvastatin (Li pitor) 10 MG tablet azithromycin 250 mg oral tablet (2 sources) Macrolide Antimicrobial Start: 01-26-2024 Azithromycin Active 250 MG PO As Directed 6 January 26, 2024 12:00am baclofen 10 mg oral tablet (2 sources) gamma-Aminobutyri c Acid-ergic Agonist baclofen (Lioresal) 10 MG tablet baclofen 10 mg tablet 0 Active cefuroxime 250 mg oral tablet (11 sources) Cephalosporin Antibacterial Start: 04-07-2023 take 1 tablet by mouth twice daily Cefuroxime Axetil 250 MG 1 tablet Orally twice daily w/ food for 7 Mar, Active cholecalciferol 0.05 mg oral capsule (2 sources) Vitamin D take 1 capsule by mouth in the morning cholecalciferol (Vitamin D-3) 50 MCG (2000 UT) capsule Take 2,000 Units by mouth in the morning. 0 Active ciprofloxacin 500 mg oral tablet (4 sources) Quinolone Antimicrobial Start: 10-26-2023 ciprofloxacin (Cipro) 500 MG tablet TAKE ONE TAB DAY BEFORE PROCEDURE AND ONE TAB AFTER PROCEDURE 0 10/26/2023 Active clopidogrel 75 mg oral tablet (20 sources) P2Y12 Platelet Inhibitor Start: 09-22-2019 take 75 mg by mouth once daily Clopidogrel Active 75 MG PO Daily September 22, 2019 1:00am doxycycline hyclate 100 mg oral capsule (1 source) Tetracycline-clas s Drug Start: 11-19-2023 take 1 capsule by mouth twice daily Doxycycline Hyclate 100 MG 1 capsule Orally twice daily for 7 days Nov, Active ezetimibe 10 mg oral tablet (2 sources) Dietary Cholesterol Absorption Inhibitor ezetimibe (Zetia) 10 MG tablet ezetimibe 10 mg tablet 0 Active 24 hr hydroCHLOROthiazide 12.5 mg / metoprolol succinate 25 mg extended release oral tablet (3 sources) Thiazide Diuretic, beta-Adrenergic Lashanda Start: 09-09-2020 take 1 tablet by mouth once daily hydrochlorothiazide -metoprolol 12.5 mg-25 mg oral tablet, extended release tab(s), Oral, Daily, Refill(s) 0 Start Date: 09/09/20 Status: Ordered levoFLOXacin 500 mg oral tablet (2 sources) Quinolone Antimicrobial levoFLOXacin (Levaquin) 500 MG tablet levofloxacin 500 mg tablet 0 Active levothyroxine (20 sources) l-Thyroxine Start: 09-09-2020 take 1 tablet by mouth once daily Synthroid 75 mcg (0.075 mg) Tab mcg tab(s), Oral, Daily, Refills(s) 0 Start Date: 09/09/20 Status: Ordered Start: 09-22-2019 take 75 ug by mouth once daily Levothyroxine Active 75 MCG PO Daily September 22, 2019 1:00am take 1 tablet by sol th once daily in the morning Synthroid 75 MCG 1 tablet on an empty stomach in the morning Orally Once a day Active lisinopril 5 mg oral tablet (20 sources) Angiotensin Converting Enzyme Inhibitor Start: 02-16-2023 take 1 mg by mouth once daily lisinopril 5 mg Tab mg tab(s), Oral, Daily Start Date: 10/26/23 Status: Ordered lisinopril 2.5 M G tablet lisinopril 2.5 mg tablet 0 Active Lisinopril Activ e meloxicam 15 mg oral tablet (2 sources) Nonsteroidal Anti-inflammatory Drug meloxicam (Mobic) 15 MG tablet meloxicam 15 mg tablet 0 Active metFORMIN hydrochloride 500 mg oral tablet (20 sources) Biguanide Start: 01-31-20 24 take 1 tablet by mouth once daily at mealtime Metformin Active 0 .ROUTE .COMPLEX 90 January 31, 2024 6:13pm TAKE 1 TABLET BY MOUTH EVERY DAY WITH A MEAL FOR 90 DAYS Start: 09-09-2020 take 1 mg by mouth twice daily metformin 500 mg oral tablet mg tab(s), Oral, BID, Refills(s) 0 Start Date: 09/09/20 Status: Ordered Start: 09-22-2019 End: 01-31-2024 take 500 mg by mouth once daily Metformin Discontinued 500 MG PO Daily September 22, 2019 1:00am January 31, 2024 6:13pm metoprolol tartrate 25 mg oral tablet (20 sources) beta-Adrenergic Lashanda Start: 09-22-2019 take 0.5 tablet by mouth twice daily Metoprolol Tartrate Active 0.5 TAB PO Twice daily September 22, 2019 1:00am take 1 tablet by sol th every twenty-four hours in the morning metoprolol succinate XL (Toprol-XL) 25 M G 24 hr tablet Take 12.5 mg by mouth in the morning and 12.5 mg in the evening. 0 Active pantoprazole 40 mg delayed release oral tablet (20 sources) Proton Pump Inhibitor Start: 09-22-2019 take 40 mg by mouth once daily Pantoprazole Active 40 MG PO Daily September 22, 2019 1:00am Pantoprazole Sod ium 40 MG 1 packet Orally Once a day Active paxlovid (300/100) 20 x 150 mg & 10 x 100mg tablet therapy pack (2 sources) Start: 11-01-2023 take 3 tablets by mouth every twelve hours Paxlovid (300/100) 20 x 150 MG & 10 x 100MG 3 tablets Orally Twice a day for 5 days Oct, Active traMADol hydrochloride 50 mg oral tablet (2 sources) Opioid Agonist traMADol (Ultram) 50 MG tablet tramadol 50 mg tablet 0 Active Vitamin D3 (20 sources) Start: 10-26-2023 Vitamin D3 Sta rt Date: 10/26/23 Status: Ordered Vitamin D3 Activ e Zinc (20 sources) Start: 09-09-2020 take 1 mg by mouth o nce daily Zinc mg, Oral, Daily, Refills(s) 0 Start Date: 09/09/20 Status: Ordered Zinc Active Completed/Discontinued Medications Medication Drug Class(es) Dates Sig (Normalized) Sig (Original) Acetaminophen (17 sources) Tylenol 1 tab Or al Not-Taking/PRN Tylenol 1 tab Or al Not-Taking Augmentin Tablets 875 MG (17 sources) Start: 05-04-2017 take 1 tablet by mouth twice daily as needed Augmentin Tablets 875 MG Take one tab Orally Twice daily for 10 days Apr, Not-Taking/PRN Start: 05-04-2017 take 1 tablet by sol th twice daily Augmentin Tablets 875 MG Take one tab Orally Twice daily for 10 days Apr, Not-Taking isosorbide dinitrate 30 mg oral tablet (17 sources) Nitrate Vasodilator take 1 tablet by mouth every twelve hours Isosorbide Dinitrate 30 MG 1 tablet Orally Twice a day Not-Taking/PRN Ketorolac (17 sources) Nonsteroidal Anti-inflammatory Drug, Cyclooxygenase Inhibitor Start: 11-17-19 15 Toradol per 15 mg Oct, 60 mg triamcinolone acetonide 40 mg/ml injectable suspension (20 sources) Corticosteroid Start: 01-28-20 23 Kenalog-40 Jul, 60 mg Problems Active Problems Problem Classification Problem Date Documented Da te Episodic/Chronic Acute bronchitis (20 sources) Acute bronchitis; Translations: [Acute bronchitis, unspecified] Onset: 5 Episodic Asthma (18 sources) Mild intermittent asthma; Translations: [Mild intermittent asthma, uncomplicated] Onset: 9 Chronic Coronary atherosclerosis and other heart disease (20 sources) Atherosclerotic heart disease of [place] coronary artery without angina pectoris; Translations: [Coronary arteriosclerosis] Onset: 6 Chronic Deficiency and other anemia (4 sources) Anemia, unspecified; Translations: [ANEMIA UNSPECIFIED] Onset: 2 Episodic Deficiency and other anemia (9 sources) Anemia; Translations: [Anemia, unspecified] Episodic Diabetes mellitus with complications (20 sources) Type 2 diabetes mellitus with hyperglycemia; Translations: [Type 2 diabetes mellitus] Onset: 2 Chronic Diabetes mellitus without complication (3 sources) Type 2 diabetes mellitus 09-09-2020 Chronic Diseases of mouth; excluding dental (18 sources) Glossitis; Translations: [Glossitis] Resolved: 1 Episodic Disorders of lipid metabolism (20 sources) Familial hypercholesterolemia; Translations: [Pure hypercholesterolemia] Onset: 5 Chronic Esophageal disorders (20 sources) Gastroesophageal reflux disease without esophagitis; Translations: [Gastro-esophageal reflux disease without esophagitis] Onset: 5 Resolved: 2 Chronic Essential hypertension (18 sources) Essential hypertension; Translations: [Essential (primary) hypertension] Chronic Gastrointestinal hemorrhage (12 sources) Rectal hemorrhage; Translations: [Hemorrhage of anus and rectum] 09-22-2019 Episodic Genitourinary symptoms and ill-defined conditions (10 sources) Nocturia; Translations: [Gross hematuria] Onset: 4 Episodic Hemorrhoids (9 sources) Residual hemorrhoidal skin tags; Translations: [Residual hemorrhoidal skin tags] Episodic Hyperplasia of prostate (20 sources) Nocturia due to benign prostatic hypertrophy; Translations: [Benign prostatic hyperplasia with lower urinary tract symptoms] Onset: 5 Chronic Immunizations and screening for infectious disease (9 sources) Vaccination given; Translations: [Encounter for immunization] Episodic Miscellaneous mental health disorders (9 sources) Psychosexual dysfunction associated with inhibited sexual excitement; Translations: [Psychosexual dysfunction with inhibited sexual excitement] Onset: 5 Chronic Occlusion or stenosis of precerebral arteries (13 sources) Occlusion and stenosis of bilateral carotid arteries; Translations: [Left carotid artery occlusion] Onset: 2 Chronic Osteoarthritis (13 sources) Osteoarthritis of joint of right shoulder region; Translations: [Primary osteoarthritis, right shoulder] Chronic Other aftercare (2 sources) Other terminal superintendent (current) drug therapy; Translations: [OTH SKILLED NURSING CURRENT DRUG THERAPY] Onset: 2 Episodic Other aftercare (9 sources) Long-term current use of drug therapy; Translations: [Other terminal superintendent (current) drug therapy] Episodic Other aftercare (2 sources) Long-term current use of anticoagulant; Translations: [continuous churn buttermaker (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] Onset: 4 Episodic Other diseases of bladder and urethra (1 source) Disorder of bladder; Translations: [Bladder disorder, unspecified] Onset: 4 Chronic Other diseases of bladder and urethra (1 source) Lesion of bladder 11-23-2023 Chronic Other injuries and conditions due to external causes (9 sources) History of fall; Translations: [History of falling] Episodic Other male genital disorders (18 sources) Impotence of organic origin; Translations: [Erectile dysfunction due to arterial insufficiency] Onset: 5 Chronic Other male genital disorders (5 sources) Male erectile dysfunction, unspecified; Translations: [Erectile dysfunction] Onset: 4 Chronic Other non-epithelial cancer of skin (5 sources) Malignant neoplasm of skin; Translations: [Basal cell carcinoma of upper extremity] 09-09-2020 Episodic Other screening for suspected conditions (not mental disorders or infectious disease) (4 sources) Encounter for screening for malignant neoplasm of prostate; Translations: [Screening for malignant neoplasm done] Onset: 2 Episodic Other skin disorders (9 sources) Sebaceous cyst; Translations: [Sebaceous cyst] Episodic Other skin disorders (2 sources) Actinic keratosis; Translations: [Actinic keratosis] 11-24-2023 Episodic Other upper respiratory disease (20 sources) Seasonal allergic rhinitis; Translations: [Other seasonal allergic rhinitis] Chronic Other upper respiratory disease (2 sources) Other seasonal allergic rhinitis Chronic Other upper respiratory disease (9 sources) Allergic rhinitis; Translations: [Allergic rhinitis, unspecified] Onset: 5 Chronic Other upper respiratory infections (11 sources) Acute maxillary sinusitis, unspecified; Translations: [Acute maxillary sinusitis] Episodic Residual codes; unclassified (20 sources) Obstructive sleep apnea syndrome; Translations: [Obstructive sleep apnea (adult) (pediatric)] Chronic Residual codes; unclassified (2 sources) Obstructive sleep apnea (adult) (pediatric) Onset: 2 Resolved: 2 Chronic Spondylosis; intervertebral disc disorders; other back problems (13 sources) Cervical spondylosis; Translations: [Spondylosis without myelopathy or radiculopathy, cervical region] Chronic Systemic lupus erythematosus and connective tissue disorders (9 sources) Autoimmune disease; Translations: [Autoimmune disease, not elsewhere classified] Onset: 9 Chronic Thyroid disorders (20 sources) Acquired hypothyroidism; Translations: [Hypothyroidism, unspecified] Onset: 5 Chronic Unclassified (3 sources) Drug therapy finding 10-26-2023 Unclassified (3 sources) Patient encounter status 10-26-2023 Urinary tract infections (2 sources) Chronic cystitis; Translations: [Other chronic cystitis without hematuria] Onset: 4 Chronic Past or Other Problems Problem Classification Problem Date Documented Da te Episodic/Chronic Bacterial infection; unspecified site (9 sources) Bacterial infectious disease; Translations: [Bacterial infection, unspecified, in conditions classified elsewhere and of unspecified site] Onset: 12-10-2016 Episodic Cardiac dysrhythmias (9 sources) Bradycardia; Translations: [Bradycardia, unspecified] Onset: 02-14-2018 Episodic Conditions associated with dizziness or vertigo (9 sources) Benign paroxysmal positional vertigo; Translations: [Benign paroxysmal positional vertigo] Onset: 02-14-2018 Episodic Coronary atherosclerosis and other heart disease (9 sources) Post percutaneous transluminal coronary angioplasty; Translations: [Coronary angioplasty status] Onset: 10-24-2015 Episodic Diabetes mellitus without complication (9 sources) Impaired fasting glycemia; Translations: [Impaired fasting glucose] Onset: 12-05-2015 Episodic Esophageal disorders (1 source) Esophageal disorders Malaise and fatigue (9 sources) Malaise and fatigue; Translations: [Other malaise and fatigue] Onset: 12-07-2016 Episodic Nonspecific chest pain (9 sources) Chest pain; Translations: [Chest pain, unspecified] Onset: 11-12-2014 Episodic Other connective tissue disease (1 source) Other symptoms and signs involving the nervous system; Translations: [Other symptoms and signs involving the nervous system] Resolved: 01-28-2021 Episodic Other connective tissue disease (9 sources) Pain in limb; Translations: [Pain in left finger(s)] Onset: 05-17-2018 Episodic Other connective tissue disease (9 sources) Olecranon bursitis; Translations: [Olecranon bursitis] Onset: 05-10-2017 Episodic Other connective tissue disease (8 sources) Disorder of nervous system; Translations: [Other symptoms and signs involving the nervous system] Resolved: 01-28-2021 Episodic Other ear and sense organ disorders (9 sources) Tinnitus; Translations: [Tinnitus, right ear] Onset: 02-14-2018 Episodic Other lower respiratory disease (9 sources) Chronic cough; Translations: [Chronic cough] Onset: 11-20-2015 Episodic Other lower respiratory disease (20 sources) Cough; Translations: [Other specified cough] Onset: 10-02-2015 Episodic Other lower respiratory disease (9 sources) H/O: pneumonia; Translations: [Personal history, Pneumonia (recurrent)] Onset: 12-10-2015 Episodic Other nutritional; endocrine; and metabolic disorders (18 sources) Body mass index 25-29 - overweight; Translations: [Body mass index 28.0-28.9, adult] Onset: 04-30-2017 Episodic Other nutritional; endocrine; and metabolic disorders (9 sources) Overweight; Translations: [Overweight] Onset: 03-20-2022 Episodic Residual codes; unclassified (9 sources) Requires influenza virus vaccination; Translations: [Need for prophylactic vaccination and inoculation, Influenza] Onset: 08-02-2015 Episodic Superficial injury; contusion (20 sources) Abrasion, elbow area; Translations: [Abrasion of right elbow, initial encounter] Onset: 05-10-2017 Episodic Unclassified (9 sources) Long-term current use of drug therapy; Translations: [Long-term (current) use of other medications] Onset: 06-16-2016 Unclassified (9 sources) Need for prophylactic vaccination with tetanus toxoid alone; Translations: [Need for prophylactic vaccination with tetanus toxoid alone] Onset: 08-02-2015 Viral infection (1 source) COVID-19 Results Test Name Value Interpretation Reference Range Facility Forms 02-04-2024 Forms [id number] 0[facility] Consent for Procedure/Surger yon 02-02-2024 Consent for Procedure/Surgery [id number]#1.0 0TIFF [facility] Consent for Procedure/Surgery [id number] 0[facility] Formson 02-02-2024 Forms [id number] 0[facility] Ambulatory Visit Summaryon 0 02-01-2024 Ambulatory Visit Summary ONDINA LO :1950 Visit Date:02/01/2024 Ambulatory Visit Instructions Your Diagnosis Lesion of bladder Gross hematuria Chronic cystitis Screening PSA (prostate specific antigen) BPH without urinary obstruction ED (erectile dysfunction) Anticoagulated Your Care Team Attending Physician - DODIE DAWKINS, Pola Rothman Primary Care Physician - SAMEER DAWKINS, OMER This Is Your Medications List Contact prescribing physician if questions or concerns ascorbic acid (Vitamin C) aspirin (aspirin 81 mg Oral EC Tab) atorvastatin (Lipitor 80 mg Tab) cholecalciferol (Vitamin D3) clopidogrel (clopidogrel 75 mg Tab) hydrochlorothiazide-me toprolol (hydrochlorothiazide-m etoprolol 12.5 mg-25 mg oral tablet, extended release) levothyroxine (Synthroid 75 mcg (0.075 mg) Tab) lisinopril (lisinopril 5 mg Tab) metformin (metformin 500 mg oral tablet) pantoprazole (Pantoprazole [address] Tab) zinc sulfate (Zinc) [Image Removed: STOP]Stop taking these medications acetaminophen-hydrocod one ([place] 325 mg-5 mg oral tablet) ciprofloxacin (Cipro 500 mg Tab) Procedures Performed Cystoscopy (02/01/2024), Cystoscopy (11/23/2023), Appendectomy, Cholecystectomy, Colonoscopy, Placement of stent in cardiac conduit. Discharge Vitals Height 171 cm Height 67 in Weight 78 kg Weight 171.6 lb BMI 26.67 What to do next Scheduled Follow-Up Appointments Wednesday 10:45 AM EDT With: DODIE DAWKINS, Pola Rothman Where: [facility] Urology Office/Clinic Noteon 02-01-2024 Urology Office/Clinic Note Chief Complaint Cysto HPI Staff 2 month cystoscopy. Abx taken History of Present Illness Tests reviewed: none I have reviewed the previous health record information and history for this patient from Dr. Cantrell. I have reviewed and verified the staff HPI to be accurate for this encounter. Review of Systems PHQ Score Initial Depression Screen Score: 0 SCORE ROS - Provider Constitutional: denies weight loss, denies hot flashes. Eyes: denies eye problems. Gastrointestinal: denies nausea, denies vomiting. Cardiovascular: denies chest pain or angina. Integumentary: no dryness Musculoskeletal: denies musculoskeletal symptoms. ENMT: denies otolaryngeal symptoms. Respiratory: no shortness of breath. Heme/Lymph: denies easy bleeding tendency, denies easy bruising tendency. Psychiatric: no confusion, no anxiety. Genitourinary: See HPI. Physical Exam Vitals & Measurements HT: 67 in HT: 171 cm WT: 78 kg WT: 171.6 lb BMI: 26.67 General Appearance: alert, no distress, well nourished, well developed male. Genitourinary: normal scrotum, normal testes, normal urethra, normal epididymis, normal vas deferens/spermatic cord. Flank Pain: none. Bladder: nonpalpable. Procedure Operative Information Anesthesia Type: Local Procedure: Local Cystoscopy Complications: None Surgical risks, benefits, details of the procedure have been explained to the patient. Full informed consent has been obtained. Intraoperative Information Prepped: Patient is brought back to the endoscopy suite. Patient is placed in supine position. Patient prepped in the usual fashion with Betadine solution. 2% Xylocaine Jelly is placed per Urethra. After waiting several minutes, the Cystoscope is introduced. The Urethra is: Normal The Prostatic Urethra is: trilobar obstruction, mildly friable The Bladder: C.F. lesions subsided on R, one remaining C.F. lesion on L, 2 cm patches of raised fleshy lesions still present on L and R wall. Trabeculated: Mild (1) The Ureteral orifices: Show efflux of clear urine Specimens Removed: None Removal: Cystoscope is removed. The patient tolerated it well. Postoperative Information Patient is discharged home with antibiotic coverage. Follow up arranged. Assessment/Plan 1. Lesion of bladder (N32.9: Bladder disorder, unspecified) S/p Cysto 11/23/23 - 2 cm patches of raised fleshy lesions with CF lesions on left and right bladder wall. Pt had IO cysto without complications today. Pt took prophylactic abx and [place] prior to procedure. Found to have C.F. lesions subsided on R with one remaining C.F. lesion on L and 2 cm patches of raised fleshy lesions still present on L and R wall. Red on the left side. -Will schedule Cysto with TURBT. The procedure risks, benefits, details, and treatment alternatives have been discussed with the patient. These include bleeding -- sometimes to the point of hemorrhaging, infection, risk of bladder perforation, recurrence of bladder tumor in 60-70% of patients, need for indwelling catheter for a variable amount of time, as well as the rare risk of needing an open operation to repair the bladder, among others. Additional therapy as well as follow-up bladder evaluation will most likely be required. Full informed consent has been obtained. Will order General anesthesia. 2. Gross hematuria (R31.0: Gross hematuria) Presented to [facility] at the beginning of September 2023 due to gross hematuria. Was given Cipro 250mg x5 days. Did not notice any changes after taking abx. Micro UA 09/24/23 - 5-[address] AP wo con 09/24/23 - bladder wall thickening, wall edema, adjacent fat stranding consistent with cystitis. No stones or hydro. FISH/Cytology 10/26/23 - neg. Pt still being worked up hematuria. See #1. 3. Chronic cystitis (N30.20: Other chronic cystitis without hematuria) Found per cysto 11/23/23. Was given doxycycline 100mg bid x30 days at that time. 4. Screening PSA (prostate specific antigen) (Z12.5: Encounter for screening for malignant neoplasm of prostate) PSA 03/07/20 - 1.13 08/23/21 - 1.15 02/04/22 - 1.08 10/07/23 - 1.26 -Cont routine PSA checks w/ PCP 5. BPH without urinary obstruction (N40.0: Benign prostatic hyperplasia without lower urinary tract symptoms) S/p Cysto 11/23/23 - Trilobar obstruction and mildly friable prostate. Not currently taking any BPH meds. 6. ED (erectile dysfunction) (N52.9: Male erectile dysfunction, unspecified) Sildenafil 100mg prn. 7. Anticoagulated (Z79.01: [facility] (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) On Plavix and aspirin. Has 2 heart stents, placed 7 years ago. Elevated risk for periop complications in the future. Follow-up With When Contact Information DODIE DAWKINS, Pola Rothman, URL [facility] [address], [place] [phone] Additional Instructions: sched TURBT Patient Education Cystoscopy I, Simran Arroyo, personally scribed for Dr. Cantrell on 02/01/2024 13:34:43. Electronically signed by dia Khalil (more content not included)... [facility] Comment on above: Result Comment: Elec tronically Signed By: Pola CANTRELL MD\.br\Date and Time Signed: 02/01/24 13:36 EDT\.br\Electronically Co-Signed By: Simran Arroyo\.br\Date and Time Co-Signed: 02/01/24 13:35 EDT Consent for Procedure/Surger yon 11-24-2023 Consent for Procedure/Surgery [id number]#1. 00TIFF [facility] No Panel Informationon 11-24 Complexity: simple Destruction method: electrodesiccation and curettage Informed consent: discussed and consent obtained Informed consent comment: The risks of the procedure were discussed, including, but not limited to risks of scarring, darker or warehouse team member pigmentary changes, recurrence, infection, and incomplete removal Timeout: patient name, date of , surgical site, and procedure verified Procedure prep: Patient was prepped and draped in usual sterile fashion Prep type: Chlorhexidine Anesthesia: the lesion was anesthetized in a standard fashion Anesthetic: 1% lidocaine w/ epinephrine 1-100,000 buffered w/ 8.4% NaHCO3 Curettage performed in three different directions: Yes Electrodesiccation performed over the curetted area: Yes Curettage cycles: 3 Lesion length (cm): 1.5 Lesion width (cm): 1.4 Margin per side (cm): 0 Final wound size (cm): 1.5 Hemostasis achieved with: electrodesiccation Outcome: patient tolerated procedure well with no complications Post-procedure details: wound care instructions given Post-procedure details comment: Post-procedure instructions were given verbally and in writing. The office will be contacted if the lesion fails to resolve despite treatment, or if a side effect develops such as abnormal crusting, scabbing, reddness, discharge, or tenderness. Additional details: Amount of lidocaine used: 1.0 cc Previous accession number: [id number] [facility] Ambulatory Visit Summaryon 0 11-23-2023 Ambulatory Visit Summary ONDINA LO :1950 Visit Date:11/23/2023 Ambulatory Visit Instructions Your Diagnosis Gross hematuria BPH without urinary obstruction Screening PSA (prostate specific antigen) ED (erectile dysfunction) Anticoagulated Lesion of bladder Chronic cystitis Your Care Team Attending Physician - Pola CANTRELL MD Primary Care Physician - SAMEER DAWKINS, OMER This Is Your Medications List Contact prescribing physician if questions or concerns ascorbic acid (Vitamin C) aspirin (aspirin 81 mg Oral EC Tab) atorvastatin (Lipitor 80 mg Tab) cholecalciferol (Vitamin D3) clopidogrel (clopidogrel 75 mg Tab) hydrochlorothiazide-me toprolol (hydrochlorothiazide-m etoprolol 12.5 mg-25 mg oral tablet, extended release) levothyroxine (Synthroid 75 mcg (0.075 mg) Tab) lisinopril (lisinopril 5 mg Tab) metformin (metformin 500 mg oral tablet) pantoprazole (Pantoprazole [address] Tab) zinc sulfate (Zinc) Procedures Performed Cystoscopy (11/23/2023), Appendectomy, Cholecystectomy, Colonoscopy, Placement of stent in cardiac conduit. Discharge Vitals Heart Rate (Peripheral) 55 Respiratory Rate 18 Blood Pressure 132/81 Height 171 cm Height 67 in Weight 78 kg Weight 171.6 lb BMI 26.67 What to do next You Need to Schedule the Following Appointments Follow Up with DODIE DAWKINS, Pola Rothman, KRISTIN When: Where: [facility] [address] , [place] [address]- Medications What How Much When Instructions Unchanged ascorbic acid (Vitamin C) Every day Contact prescribing physician if questions or concerns Unchanged aspirin (aspirin 81 mg Oral EC Tab) Every day Contact prescribing physician if questions or concerns Unchanged atorvastatin (Lipitor 80 mg Tab) Every day Contact prescribing physician if questions or concerns Unchanged cholecalciferol (Vitamin D3) Contact prescribing physician if questions or concerns Unchanged clopidogrel (clopidogrel 75 mg Tab) Every day Contact prescribing physician if questions or concerns Unchanged hydrochlorothiazide-me toprolol (hydrochlorothiazide-m etoprolol 12.5 mg-25 mg oral tablet, extended release) Every day Contact prescribing physician if questions or concerns Unchanged levothyroxine (Synthroid 75 mcg (0.075 mg) Tab) Every day Contact prescribing physician if questions or concerns Unchanged lisinopril (lisinopril 5 mg Tab) Every day Contact prescribing physician if questions or concerns Unchanged metformin (metformin 500 mg oral tablet) 2 times a day Contact prescribing physician if questions or concerns Unchanged pantoprazole (Pantoprazole [address] Tab) Every day Contact prescribing physician if questions or concerns Unchanged zinc sulfate (Zinc) Every day Contact prescribing physician if questions or concerns Medications and Immunizations Administered Given lidocaine Top 2% Gel w/Appl 6 mL, 6 mL, Topical. For: Gross hematuria Allergies Benadryl (Hallucinations) Problems Ongoing - Any problem that you are currently receiving treatment for. Anticoagulated BPH associated with nocturia BPH without urinary obstruction CAD (coronary artery disease) Chronic cystitis ED (erectile dysfunction) Gross hematuria High cholesterol Lesion of bladder Screening PSA (prostate specific antigen) Skin cancer Type 2 diabetes mellitus Patient Survey You may receive a survey via text or e-mail asking about your office visit. Please share your experience with us by completing your survey. We appreciate your feedback and thank you for choosing us for your care. Normal [facility] Urology Office/Clinic Noteon 11-23-2023 Urology Office/Clinic Note Chief Complaint Patient is here for Cystoscopy. HPI Staff 73 yo male here for cystoscopy due to gross hematuria. Negative FISH/cytology 10/26/23. ABX started. History of Present Illness Tests reviewed: none. I have reviewed the previous health record information and history for this patient from . I have reviewed and verified the staff HPI to be accurate for this encounter. There have been no associated fever, chills, flank pain, or blood in the urine. Denies any urinary infections since last encounter. Review of Systems ROS - Provider Constitutional: denies weight loss, denies hot flashes. Eyes: denies eye problems. Gastrointestinal: denies nausea, denies vomiting. Cardiovascular: denies chest pain or angina. Integumentary: no dryness Musculoskeletal: denies musculoskeletal symptoms. ENMT: denies otolaryngeal symptoms. Respiratory: no shortness of breath. Heme/Lymph: denies easy bleeding tendency, denies easy bruising tendency. Psychiatric: no confusion, no anxiety. Genitourinary: See HPI. Physical Exam Vitals & Measurements HR: 55(Peripheral) RR: 18 BP: 132/81 HT: 67 in HT: 171 cm WT: 78 kg WT: 171.6 lb BMI: 26.67 General Appearance: alert, no distress, well nourished, well developed male. Procedure Operative Information Anesthesia Type: Local Procedure: Local Cystoscopy Complications: None Surgical risks, benefits, details of the procedure have been explained to the patient. Full informed consent has been obtained. Intraoperative Information Prepped: Patient is brought back to the endoscopy suite. Patient is placed in supine position. Patient prepped in the usual fashion with Betadine solution. 2% Xylocaine Jelly is placed per Urethra. After waiting several minutes, the Cystoscope is introduced. The Urethra is: Normal The Prostatic Urethra is: trilobar obstruction, mildly friable The Bladder: on the Lt and Rt wall there are 2 cm patches of raised fleshy lesions with C.F. lesions, Trabeculated: Mild (1) The Ureteral orifices: Show efflux of clear urine Specimens Removed: None Removal: Cystoscope is removed. The patient tolerated it well. Postoperative Information Patient is discharged home with antibiotic coverage. Follow up arranged. Assessment/Plan 1. Gross hematuria (R31.0: Gross hematuria) Presented to [facility] at the beginning of September due to gross hematuria. Was given Cipro 250mg x5 days. Did not notice any changes after taking abx. Micro UA 09/24/23 - 5-[address] AP wo con 09/24/23 - bladder wall thickening, wall edema, adjacent fat stranding consistent with cystitis. No stones or hydro. UA on 10/26/23 showed no signs of blood or infections, FISH/Cytology was negative. Pt had IO cysto done today without complications. Prophylactic abx taken. Follow up in 2 mos w/cysto. All questions/concerns were discussed. Pt to call the office if he encounters any issues prior. Pt acknowledges understanding. -Will schedule cysto. The risks and benefits for cystoscopy have been discussed. The risks include bleeding, infection, and irritation of the bladder and urinary channel, among others. The patient, after being informed of procedural details and after questions have been answered, wishes to proceed. Full informed consent has been obtained. Will order Local anesthesia. 2. BPH without urinary obstruction (N40.0: Benign prostatic hyperplasia without lower urinary tract symptoms) IPSS 3. Not currently taking any BPH meds. Denies any bothersome urinary habits. 3. Screening PSA (prostate specific antigen) (Z12.5: Encounter for screening for malignant neoplasm of prostate) PSA 03/07/20 - 1.13 08/23/21 - 1.15 02/04/22 - 1.08 10/07/23 - 1.26 Checked by PCP. Advised pt PSA levels are stable. States Dr. Estrella checks 4. ED (erectile dysfunction) (N52.9: Male erectile dysfunction, unspecified) Sildenafil 100mg prn. 5. Anticoagulated (Z79.01: [facility] (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) On Plavix and aspirin. Has 2 heart stents, placed 7 years ago. 6. Lesion of bladder (N32.9: Bladder disorder, unspecified) Found on cysto today. 7. Chronic cystitis (N30.20: Other chronic cystitis without hematuria) Found on cysto today. -Will send Doxycycline 100mg BID x30 days to pharmacy on file. Discussed the medication side effects, and the patient will monitor closely for these, as well as for symptom improvement. If severe side effects occur, the medication should be stopped and the office notified. Follow-up With When Contact Information DODIE DAWKINS, Pola Rothman, URL [facility] [address], [place] [address]- Additional Instructions: Patient Education I, Jess Solorzano , personally scribed for Dr. Cantrell on 11/23/2023 08:02:54. . Documentation recorded by the scribe, Jess Solorzano, accurately reflects the services(s) I performed and decisions made by me. Problem List/Past Medical History (more content not included)... [facility] Comment on above: Result Comment: Elec tronically Signed By: DODIE DAWKINS, Pola Rothman\.br\Date and Time Signed: 11/23/23 08:04 EST\.br\Electronically Co-Signed By: Jess Solorzano\.br\Date and Time Co-Signed: 11/23/23 08:03 EST [facility] Fish and Urine Cyt o ([facility])on 11-03-2023 UV[facility] & UC Diagnosis Info Invalid Interpretation Code [facility] Comment on above: Result Comment: A:Ur ine,Urine:Voided Diagnosis Summary - No evidence of high grade urothelial carcinoma identified. Adequate cellularity for evaluation. Diagnosis Summary - The [facility] FISH study detected normal copy numbers for chromosomes 3, 7, 17, and 9p21. 120 cells were analyzed in this evaluation. No evidence of aneuploidy for chromosomes 3, 7, or 17 or deletion of the 9p21 locus was found in cells present in this specimen. This test does not rule out the possibility of a low grade non-invasive papillary urothelial carcinoma. These findings should be correlated with cytology and cystoscopy results.* CPT 44449, 08298 Microscopic Notes - Microscopic Notes - Abnormal cells 9p21 deletions: Abnormal cells aneploid events: Total cells analyzed: 120 Hematuria: Gross Description Site ID:A color Shayla fixative Alcohol Received 90 mls of clear shayla fluid with the patient's name and, Urine on the vial. Electronically signed by : on: 11/03/2023 10:52:02 Performed By: #### 1 [id number] ####[facility] [id number] [place] [address] Physician Referralon Physician Referral [id number] 0TIFF Normal [facility] Formson 10-27-2023 Forms [id number] 0TIFF Normal [facility] Physician Referralon 024 Physician Referral [id number]. 00TIFF Normal [facility] Screenson 10-27-2023 Screens [id number]. 00TIFF Alexa Ibrahim [facility] Ambulatory Visit Summaryon 0 10-26-2023 Ambulatory Visit Summary ONDINA LO :1950 Visit Date:10/26/2023 Ambulatory Visit Instructions Your Diagnosis Gross hematuria BPH without urinary obstruction Screening PSA (prostate specific antigen) ED (erectile dysfunction) Anticoagulated Tests Performed Urnls Dip Stick Auto w/o Microscopy POC 71515 Your Care Team Attending Physician - DODIE DAWKINS, Pola Rothman Primary Care Physician - SAMEER DAWKINS, OMER Referring Physician - BRANDON ESTRELLA DO This Is Your Medications List ciprofloxacin (Cipro 500 mg Tab) Contact prescribing physician if questions or concerns ascorbic acid (Vitamin C) aspirin (aspirin 81 mg Oral EC Tab) atorvastatin (Lipitor 80 mg Tab) cholecalciferol (Vitamin D3) clopidogrel (clopidogrel 75 mg Tab) hydrochlorothiazide-me toprolol (hydrochlorothiazide-m etoprolol 12.5 mg-25 mg oral tablet, extended release) levothyroxine (Synthroid 75 mcg (0.075 mg) Tab) lisinopril (lisinopril 5 mg Tab) metformin (metformin 500 mg oral tablet) pantoprazole (Pantoprazole [address] Tab) zinc sulfate (Zinc) Procedures Performed Appendectomy, Cholecystectomy, Colonoscopy, Placement of stent in cardiac conduit. Discharge Vitals Heart Rate (Peripheral) 59 Blood Pressure 137/77 Height 169 cm Height 67 in Weight 78 kg Weight 171.6 lb BMI 27.31 What to do next You Need to Schedule the Following Appointments Follow Up with DODIE DAWKINS, Pola Rothman, URL When: Comments: sched cysto Where: [facility] [address] , [place] [address]- [phone] Medications What How Much When Instructions New ciprofloxacin (Cipro 500 mg Tab) 1 Tablets By Mouth Every day take one tab day before procedure and one tab after procedure Pickup at [facility]/pharmacy #[id number] Unchanged ascorbic acid (Vitamin C) Every day Contact prescribing physician if questions or concerns Unchanged aspirin (aspirin 81 mg Oral EC Tab) By Mouth Every day Contact prescribing physician if questions or concerns Unchanged atorvastatin (Lipitor 80 mg Tab) By Mouth Every day Contact prescribing physician if questions or concerns Unchanged cholecalciferol (Vitamin D3) Contact prescribing physician if questions or concerns Unchanged clopidogrel (clopidogrel 75 mg Tab) By Mouth Every day Contact prescribing physician if questions or concerns Unchanged hydrochlorothiazide-me toprolol (hydrochlorothiazide-m etoprolol 12.5 mg-25 mg oral tablet, extended release) By Mouth Every day Contact prescribing physician if questions or concerns Unchanged levothyroxine (Synthroid 75 mcg (0.075 mg) Tab) By Mouth Every day Contact prescribing physician if questions or concerns Unchanged lisinopril (lisinopril 5 mg Tab) By Mouth Every day Contact prescribing physician if questions or concerns Unchanged metformin (metformin 500 mg oral tablet) By Mouth 2 times a day Contact prescribing physician if questions or concerns Unchanged pantoprazole (Pantoprazole [address] Tab) By Mouth Every day Contact prescribing physician if questions or concerns Unchanged zinc sulfate (Zinc) By Mouth Every day Contact prescribing physician if questions or concerns Pharmacy Information [facility]/pharmacy #[id number]: [address] [place], [place] [id number] [phone] Test Results Urnls Dip Stick Auto w/o Microscopy POC 91328 (10/26/2023) Bilirubin Urine Dipstick - Negative Blood Urine Dipstick - Negative Glucose Urine Dipstick - Negative Ketones Urine Dipstick - Negative Leukocytes Urine Dipstick - Negative Nitrite Urine Dipstick - Negative Protein Urine Dipstick - Negative Specific [place] Urine Dipstick - 1.020 Urine Appearance Urine Dipstick - Clear Urine Color Urine Dipstick - Yellow Urobilinogen Urine Dipstick - Normal 0.2-1 EU/dl pH Urine Dipstick - 6 Medications and Immunizations Administered Not Given influenza virus vaccine, inactivated, Patient Refuses Allergies Benadryl (Hallucinations) Problems Ongoing - Any problem that you are currently receiving treatment for. Anticoagulated BPH associated with nocturia BPH without urinary obstruction CAD (coronary artery disease) ED (erectile dysfunction) Gross hematuria High cholesterol Screening PSA (prostate specific antigen) Skin cancer Type 2 diabetes mellitus Patient Survey You may receive a survey via text or e-mail asking about your office visit. Please share your experience with us by completing your survey. We appreciate your feedback and thank you for choosing us for your care. Education Materials Cystoscopy Cystoscopy is a procedure that is used to help diagnose and sometimes treat conditions that affect the lower urinary tract. The lower urinary tract includes the bladder and the urethra. The urethra is the tube that drains urine from the bladder. Cystoscopy is done using a thin, tube-shaped instrument with a light and camera at the end (cystoscope). The cystoscope may be hard or flexible, depending on the goal of the pr (more content not included)... Normal [facility] Fish and Urine Cyt o ([facility])on 10-26-2023 [facility] Method of Extraction Voided Normal [facility] Comment on above: Performed By: #### 1 [id number] ####[facility] [id number] [facility] [place] [address] [facility] Number of Jars 1 Invalid Interpretation Code [facility] Comment on above: Performed By: #### 1 [id number] ####[facility] [id number] [facility] [place] [address] [facility] Specimen Urine Normal [facility] Comment on above: Performed By: #### 1 [id number] ####[facility] [id number] [facility] [place] [address] [facility] Type of Service Technical Only Normal [facility] Comment on above: Performed By: #### 1 [id number] ####[facility] [id number] [facility] [place] [address] Urology Office/Clinic Noteon 10-26-2023 Urology Office/Clinic Note Chief Complaint Pt re-referred by Brandon Estrella, DO due to gross hematuria HPI Staff Re-referral per [facility] due to gross hematuria. Pt was last seen in our office on 12/02/20. CT SCAN 09/24/23. BUN 23, Creatinine 1.21-10/07/23. Previous DX: BPH w/o urinary obstruction, ED *Sildenafil 100mg PRN. Current PSA 1.26-10/07/23 Dysuria: denies pain and burning Incomplete bladder emptying: denies Hematuria: denies visible blood, Pt states he has not seen blood since ER visit, no urinary issues at this time. Frequency: denies Urgency: denies Nocturia: once a night Stream: okay stream Leaking: denies Post void dripping: denies Wearing pads/ Depends: denies Urge incontinence: denies Stress incontinence: denies Incontinence without Sensory Awareness: denies Abdominal pain: denies Flank pain: denies Sexual complaints: _ History of Present Illness Tests reviewed: reviewed UA, ER notes I have reviewed the previous health record information and history for this patient from external providers. I have reviewed and verified the staff HPI to be accurate for this encounter. Review of Systems PHQ Score Initial Depression Screen Score: 0 SCORE ROS - Provider Constitutional: denies weight loss, denies hot flashes. Eyes: denies eye problems. Gastrointestinal: denies nausea, denies vomiting. Cardiovascular: denies chest pain or angina. Integumentary: no dryness Musculoskeletal: denies musculoskeletal symptoms. ENMT: denies otolaryngeal symptoms. Respiratory: no shortness of breath. Heme/Lymph: denies easy bleeding tendency, denies easy bruising tendency. Psychiatric: no confusion, no anxiety. Genitourinary: See HPI. Physical Exam Vitals & Measurements HR: 59(Peripheral) BP: 137/77 HT: 67 in HT: 169 cm WT: 78 kg WT: 171.6 lb BMI: 27.31 General Appearance: alert, no distress, well nourished, well developed male. Head: normocephalic . Eyes: normal orbit and globe. ENMT: normal examination of external ears. Chest: Lungs CTA, respirations non labored. Cardiovascular: regular rate and rhythm. Abdomen: soft, non distended, no tenderness, no mass or organomegaly, no hernia. Genitourinary: normal scrotum, normal testes, normal urethra, normal epididymis, normal vas deferens/spermatic cord. Flank Pain: none. Bladder: nonpalpable. Penis: normal shaft, normal glans. Lymph Nodes: unremarkable palpation of the cervical area. Skin: warm, dry, no bruising. Psychiatric: cooperative, affect appropriate for age, normal judgement, euthymic mood. Assessment/Plan Ondina is a 73 yo male re-referred by Dr. Estrella for gross hematuria. Last seen in our office 12/02/20. 1. Gross hematuria (R31.0: Gross hematuria) Presented to [facility] at the beginning of September due to gross hematuria. Was given Cipro 250mg x5 days. Did not notice any changes after taking abx. Micro UA 09/24/23 - 5-[address] AP wo con 09/24/23 - bladder wall thickening, wall edema, adjacent fat stranding consistent with cystitis. No stones or hydro. Denies ever seeing any visible blood since ER visit. Denies any gross hematuria episodes prior. Denies hx of UTI sxs. Denies passing any blood clots. Never a smoker. UA today negative for blood and infection. Discussed possible etiologies of hematuria, such as prostatitis or an enlarged prostate. Due to no definitive reasoning for hematuria episode, will proceed with cysto. -Will schedule cystoscopy. The risks and benefits for cystoscopy have been discussed. The risks include bleeding, infection, and irritation of the bladder and urinary channel, among others. The patient, after being informed of procedural details and after questions have been answered, wishes to proceed. Full informed consent has been obtained. Will order Local anesthesia. urine will be sent for fish and cytology 2. BPH without urinary obstruction (N40.0: Benign prostatic hyperplasia without lower urinary tract symptoms) IPSS 3. Not currently taking any BPH meds. Denies any bothersome urinary habits. 3. Screening PSA (prostate specific antigen) (Z12.5: Encounter for screening for malignant neoplasm of prostate) PSA 03/07/20 - 1.13 08/23/21 - 1.15 02/04/22 - 1.08 10/07/23 - 1.26 Checked by PCP. Advised pt PSA levels are stable. States Dr. Estrella checks 4. ED (erectile dysfunction) (N52.9: Male erectile dysfunction, unspecified) Sildenafil 100mg prn. 5. Anticoagulated (Z79.01: [facility] (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) On Plavix and aspirin. Has 2 heart stents, placed 7 years ago. Follow-up With When Contact Information DODIE DAWKINS, Pola Rothman, [facility] [address], [place] [address] [phone] Additional Instructions: sched cysto Patient Education Cystoscopy Hematuria, Adult I, Simran Arroyo, personally scribed for Dr. Cantrell on 10/26/2023 10:02:48. . Documentation recorded by the scribeSimran, accurately reflects the services (more content not included)... Normal [facility] Comment on above: Result Comment: Elec tronically Signed By: Pola CANTRELL MD\.br\Date and Time Signed: 10/26/23 10:07 EST\.br\Electronically Co-Signed By: Simran Arroyo\.br\Date and Time Co-Signed: 10/26/23 10:03 EST RAD - CT Reporton 10-14-2023 RAD - CT Report [id number] 0TIFF Normal [facility] RAD - CT Report [id number]. 00TIFF Normal [facility] Office Visiton 09-15-2023 Follow-up visit [id number] Ondina Lo A 1950 M Date Provider Department Center 09/15/2023 CARLO LEIVA Family History Problem Relation Age of Onset Heart failure Brother Cancer Brother Family Status - Relation Status Age at Brother Level of Service:44796 [place] OFFICE/OUTPATIENT ESTABLISHED MOD MDM 30-39 MIN Normal [facility] Orders Onlyon 09-15-2023 Orders Only [id number] Ondina Lo A 1950 M Date Provider Department Center 09/15/2023 ELLE GUADALUPE [place]INA [place] Family History Problem Relation Age of Onset Heart failure Brother Cancer Brother Family Status - Relation Status Age at Brother Normal [facility] US CAROTID ART BILon 022 US [...] TIM BARBER Date: 2022-09-28 17:37 Normal [facility] CBC AUTO DIFFon 09-24-2022 BASO # 0.0 103/ul Normal 0.0-0.1 [facility] Comment on above: Performed By: #### C BC #### [facility] [address] [place] [address] Dr. Daisy Alan Basophils/100 WBC (Bld) 0.6 % Normal 0.2-2.0 [facility] Comment on above: Performed By: #### C BC #### [facility] [address] [place] [address] Dr. Daisy Alan EO # 0.1 103/ul Normal 0.0-0.7 [facility] Comment on above: Performed By: #### C BC #### [facility] [address] [place] [address] Dr. Daisy Alan Eosinophils/100 WBC (Bld) 1.7 % Normal 0.9-7.0 [facility] Comment on above: Performed By: #### C BC #### [facility] [address] [place] [address] Dr. Daisy Alan Erythrocyte distribution width (RBC) [Ratio] 12.7 % Normal 11.0-15.0 [facility] Comment on above: Performed By: #### C BC #### [facility] [address] [place] [address] Dr. Daisy Alan Hematocrit (Bld) [Volume fraction] 41.4 % Critically low 42.0-54.0 [facility] Comment on above: Performed By: #### C BC #### [facility] [address] [place] [address] Dr. Daisy Alan Hemoglobin (Bld) [Mass/Vol] 14.4 g/dL Normal 14.0-18.0 [facility] Comment on above: Performed By: #### C BC #### [facility] [address] [address] [address] Daisy Alan IG # 0.02 10e3/ul Normal 0.00-0.03 [facility] Comment on above: Performed By: #### C BC #### [facility] [address] [address] [address] Daisy Alan IG % 0.3 % Normal 0.0-0.5 [facility] Comment on above: Performed By: #### C BC #### [facility] [address] [place] [address] Dr. Daisy Alan LYMPH # 1.0 103/ul Critically low 1.2-3.8 [facility] Comment on above: Performed By: #### C BC #### [facility] [address] [place] [address] Dr. Daisy Alan Lymphocytes/100 WBC (Bld) 14.1 % Critically low 20.5-60.0 [facility] Comment on above: Performed By: #### C BC #### [facility] [address] [place] [address] Dr. Daisy Alan MANUAL DIFF REQ NO Normal [facility] Comment on above: Performed By: #### C BC #### [facility] [address] [place] [address] Dr. Daisy Alan MCH (RBC) [Entitic mass] 31.9 pg Normal 25.9-34.0 [facility] Comment on above: Performed By: #### C BC #### [facility] [address] [place] [address] Dr. Daisy Alan MCHC (RBC) [Mass/Vol] 34.8 g/dL Normal 29.9-35.2 [facility] Comment on above: Performed By: #### C BC #### [facility] [address] [place] [address] Dr. Daisy Alan MCV (RBC) [Entitic vol] 91.6 fL Normal 80.0-94.0 [facility] Comment on above: Performed By: #### C BC #### [facility] [address] [address] [address] Daisy Alan MONO # 0.6 103/ul Normal 0.3-0.8 [facility] Comment on above: Performed By: #### C BC #### [facility] [address] [place] [address] Dr. Daisy Alan Monocytes/100 WBC (Bld) 8.7 % Normal 1.7-12.0 [facility] Comment on above: Performed By: #### C BC #### [facility] [address] [place] [address] Dr. Daisy Alan NEUT # 5.3 103/ul Normal 1.4-6.5 [facility] Comment on above: Performed By: #### C BC #### [facility] [address] [place] [address] Dr. Daisy Alan Neutrophils/100 WBC (Bld) 74.6 % Normal 43.0-75.0 [facility] Comment on above: Performed By: #### C BC #### [facility] [address] [place] [address] Dr. Daisy Alan Platelet mean volume (Bld) [Entitic vol] 9.0 fL Critically low 9.5-13.5 [facility] Comment on above: Performed By: #### C BC #### [facility] [address] [place] [address] Dr. Daisy Alan PLT 191 103/ul Normal 150-450 [facility] Comment on above: Performed By: #### C BC #### [facility] [address] [place] [address] Dr. Daisy Alan RBC 4.52 106/ul Critically low 4.70-6.10 [facility] Comment on above: Performed By: #### C BC #### [facility] [address] [place] [address] Dr. Daisy Alan WBC 7.1 103/ul Normal 4.0-11.0 [facility] Comment on above: Performed By: #### C BC #### [facility] [address] [place] [address] Dr. Daisy Alan CBC W MANUAL DIFFon 04-20-20 22 ATYPICAL LYMPH # Normal [facility] Comment on above: Performed By: #### C BCMAN #### [facility] [address] [place] [address] Dr. Daisy Alan ATYPICAL LYMPH % Normal [facility] Comment on above: Performed By: #### C BCMAN #### [facility] [address] [place] [address] Dr. Daisy Alan BAND # Normal 0.0-0.3 [facility] Comment on above: Performed By: #### C BCMAN #### [facility] [address] [place] [address] Dr. Daisy Alan BAND % Normal 0-5 [facility] Comment on above: Performed By: #### C BRIGIDA #### [facility] [address] [place] [address] Dr. Daisy Alan BASOM # 0.00 103/ul Normal 0.00-0.10 [facility] Comment on above: Performed By: #### C BRIGIDA #### [facility] [address] [place] [address] Dr. Daisy Alan BASOM % 0.0 % Critically low 0.2-2.0 [facility] Comment on above: Performed By: #### C BRIGIDA #### [facility] [address] [place] [address] Dr. Daisy Alan BLAST # Normal [facility] Comment on above: Performed By: #### C BRIGIDA #### [facility] [address] [place] [address] Dr. Daisy Alan BLAST % Normal [facility] Comment on above: Performed By: #### C BCBLU #### [facility] [address] [place] [address] Dr. Daisy Alan CORRECTED WBC Normal 4.0-11.0 [facility] Comment on above: Performed By: #### C BCMAN #### [facility] [address] [place] [address] Dr. Daisy Alan EOS # 0.13 103/ul Normal 0.00-0.70 [facility] Comment on above: Performed By: #### C BRIGIDA #### [facility] [address] [address] [address] Daisy Alan EOS% 2.0 % Normal 0.9-7.0 [facility] Comment on above: Performed By: #### C BRIGIDA #### [facility] [address] [address] [address] Daisy Alan HCT 41.8 % Critically low 42.0-54.0 [facility] Comment on above: Performed By: #### C BRIGIDA #### [facility] [address] [address] [address] Daisy Alan HGB 13.9 g/dl Critically low 14.0-18.0 [facility] Comment on above: Performed By: #### C BRIGIDA #### [facility] [address] [address] [address] Daisy Alan LYMPHM # 0.38 103/ul Critically low 1.20-3.80 [facility] Comment on above: Performed By: #### C BRIGIDA #### [facility] [address] [address] [address] Daisy Alan LYMPHM% 6.0 % Critically low 20.5-60.0 [facility] Comment on above: Performed By: #### C BRIGIDA #### [facility] [address] [address] [address] Daisy Alan MCH 30.8 pg Normal 25.9-34.0 [facility] Comment on above: Performed By: #### C BRIGIDA #### [facility] [address] [address] [address] Daisy Alan MCHC 33.3 g/dl Normal 29.9-35.2 [facility] Comment on above: Performed By: #### C BRIGIDA #### [facility] [address] [address] [address] Daisy Aaln MCV 92.7 fL Normal 80.0-94.0 [facility] Comment on above: Performed By: #### C BRIGIDA #### [facility] [address] [place] [address] Dr. Daisy Alan METAMYELOCYTE # Normal [facility] Comment on above: Performed By: #### C BRIGIDA #### [facility] [address] [place] [address] Dr. Daisy Alan METAMYELOCYTE % Normal [facility] Comment on above: Performed By: #### C BRIGIDA #### [facility] [address] [place] [address] Dr. Daisy Alan MONOM# 0.50 103/ul Normal 0.30-0.80 [facility] Comment on above: Performed By: #### C BRIGIDA #### [facility] [address] [place] [address] Dr. Daisy Alan MONOM% 8.0 % Normal 1.7-12.0 [facility] Comment on above: Performed By: #### C BRIGIDA #### [facility] [address] [place] [address] Dr. Daisy Alan MPV 9.1 fL Critically low 9.5-13.5 [facility] Comment on above: Performed By: #### C KEEMAN #### [facility] [address] [place] [address] Dr. Daisy Alan MYELOCYTE # Normal [facility] Comment on above: Performed By: #### C BRIGIDA #### [facility] [address] [place] [address] Dr. Daisy Alan MYELOCYTE % Normal [facility] Comment on above: Performed By: #### C BRIGIDA #### [facility] [address] [place] [address] Dr. Daisy Alan NRBC Normal [facility] Comment on above: Performed By: #### C BRIGIDA #### [facility] [address] [place] [address] Dr. Daisy Alan PLT 153 103/ul Normal 150-450 [facility] Comment on above: Performed By: #### C BRIGIDA #### [facility] [address] [place] [address] Dr. Daisy Alan RBC 4.51 106/ul Critically low 4.70-6.10 [facility] Comment on above: Performed By: #### C BRIGIDA #### [facility] [address] [address] [address] Daisy Alan RDW 12.8 % Normal 11.0-15.0 [facility] Comment on above: Performed By: #### C BRIGIDA #### [facility] [address] [address] [address] Daisy Alan SEG # 5.29 103/ul Normal 1.40-6.50 [facility] Comment on above: Performed By: #### C BRIGIDA #### [facility] [address] [address] [address] Daisy Alan SEG % 84.0 % Critically high 43.0-75.0 [facility] Comment on above: Performed By: #### C BRIGIDA #### [facility] [address] [address] [address] Daisy Alan WBC 6.3 103/ul Normal 4.0-11.0 [facility] Comment on above: Performed By: #### C BRIGIDA #### [facility] [address] [address] [address] Daisy Alan GLYCOHEMOGLOBIN A1Con 2021 ADA RECOMMENDATION ADA THERAPEUTIC TARG ET 6.0 - 7.0 ACTION SUGGESTED > 7.0 Normal [facility] Comment on above: Performed By: #### A 1C #### [facility] [address] [address] [address] Daisy Alan Glucose [Mass/Vol] 154 mg/dL Normal [facility] Comment on above: Performed By: #### A 1C #### [facility] [address] [address] [address] Daisy Alan HbA1c (Bld) [Mass fraction] 7.0 % Critically high <=6.0 [facility] Comment on above: Performed By: #### A 1C #### [facility] [address] [address] [address] Daisy Alan LIPID PROFILEon 02-04-2022 CHOL-HDL RATIO NORM SEE BELOW Normal [facility] Comment on above: Result Comment: 3.3 - 4.4 LOW RISK 4.4 - 7.1 AVERAGE RISK 7.1 - 11.0 MODERATE RISK >11.0 HIGH RISK Performed By: #### B MP, LIPID, ALT, TSH #### [facility] [address] [address] [address] Daisy Alan Cholesterol [Mass/Vol] 149 mg/dL Normal <=200 [facility] Comment on above: Performed By: #### B MP, LIPID, ALT, TSH #### [facility] [address] [address] [address] Daisy Alan Cholesterol in HDL [Mass/Vol] 33 mg/dL Critically low 40-60 [facility] Comment on above: Performed By: #### B MP, LIPID, ALT, TSH #### [facility] [address] [address] [address] Daisy Alan Cholesterol in LDL [Mass/Vol] 71.0 mg/dL Normal [facility] Comment on above: Performed By: #### B MP, LIPID, ALT, TSH #### [facility] [address] [address] [address] Daisy Alan Cholesterol.total/C holesterol in HDL [Mass ratio] 4.5 {ratio} Normal [facility] Comment on above: Performed By: #### B MP, LIPID, ALT, TSH #### [facility] [address] [address] [address] Daisy Alan HDL NORMAL > or = 60 mg/dl - LO W CARDIOVASCULAR RISK <40 mg/dl - HIGH CARDIOVASCULAR RISK Normal [facility] Comment on above: Performed By: #### B MP, LIPID, ALT, TSH #### [facility] [address] [address] [address] Daisy Alan LDL CALC NORMAL SEE BELOW Normal [facility] Comment on above: Result Comment: <100 mg/dl OPTIMAL 100 - 129 mg/dl NEAR OR ABOVE OPTIMAL 130 - 159 mg/dl BORDERLINE HIGH 160 - 189 mg/dl HIGH >190 mg/dl VERY HIGH Performed By: #### B MP, LIPID, ALT, TSH #### [facility] [address] [address] [address] Daisy Alan Triglyceride [Mass/Vol] 225 mg/dL Critically high <=150 [facility] Comment on above: Performed By: #### B MP, LIPID, ALT, TSH #### [facility] [address] [address] [address] Daisy Alan VLDL CALC 45.0 mg/dL Normal [facility] Comment on above: Performed By: #### B MP, LIPID, ALT, TSH #### [facility] [address] [address] [address] Daisy Alan MICROALBUMIN, RAND URon 04-2 mALB 1.5 mg/L Normal <=30.0 [facility] Comment on above: Performed By: #### M ALBR #### [facility] [address] [place] [address] Dr. Daisy Alan PROF CHEM 8 (BAS METB)on Anion gap [Moles/Vol] 10.6 mmol/L Normal [facility] Comment on above: Performed By: #### B MP, LIPID, ALT, TSH #### [facility] [address] [address] [address] Daisy Alan Calcium [Mass/Vol] 9.2 mg/dL Normal 8.5-10.1 [facility] Comment on above: Performed By: #### B MP, LIPID, ALT, TSH #### [facility] [address] [address] [address] Daisy Alan Chloride [Moles/Vol] 99 mmol/L Normal 98-107 [facility] Comment on above: Performed By: #### B MP, LIPID, ALT, TSH #### [facility] [address] [address] [address] Daisy Alan CO2 [Moles/Vol] 27.7 mmol/L Normal 22.0-30.0 [facility] Comment on above: Performed By: #### B MP, LIPID, ALT, TSH #### [facility] [address] [address] [address] Daisy Alan Creatinine [Mass/Vol] 1.00 mg/dL Normal 0.66-1.25 [facility] Comment on above: Performed By: #### B MP, LIPID, ALT, TSH #### [facility] [address] [place] [address] Dr. Daisy Alan EGFR-AF CYMRAES >60 Normal >=60 [facility] Comment on above: Performed By: #### B MP, LIPID, ALT, TSH #### [facility] [address] [place] [address] Dr. Daisy Alan EGFR-NON AF CYMRAES >60 Normal >=60 [facility] Comment on above: Performed By: #### B MP, LIPID, ALT, TSH #### [facility] [address] [place] [address] Dr. Daisy Alan Glucose [Mass/Vol] 186 mg/dL Critically high 74-106 [facility] Comment on above: Performed By: #### B MP, LIPID, ALT, TSH #### [facility] [address] [place] [address] Dr. Daisy Alan Potassium [Moles/Vol] 4.3 mmol/L Normal 3.4-5.0 [facility] Comment on above: Performed By: #### B MP, LIPID, ALT, TSH #### [facility] [address] [place] [address] Dr. Daisy Alan Sodium [Moles/Vol] 133 mmol/L Critically low 137-145 [facility] Comment on above: Performed By: #### B MP, LIPID, ALT, TSH #### [facility] [address] [place] [address] Dr. Daisy Alan Urea nitrogen [Mass/Vol] 17.0 mg/dL Normal 7.0-18.0 [facility] Comment on above: Performed By: #### B MP, LIPID, ALT, TSH #### [facility] [address] [place] [address] Dr. Daisy Alan Urea nitrogen/Creatinine [Mass ratio] 17.0 mg/mg Normal [facility] Comment on above: Performed By: #### B MP, LIPID, ALT, TSH #### [facility] [address] [address] [address] Daisy Alan SGPTon 02-04-2022 ALT [Catalytic activity/Vol] 36 U/L Normal 16-63 [facility] Comment on above: Performed By: #### B MP, LIPID, ALT, TSH #### [facility] [address] [address] [address] Daisy Alan TSHon 02-04-2022 TSH 3.205 uIU/mL Normal 0.470-4.680 [facility] Comment on above: Performed By: #### B MP, LIPID, ALT, TSH #### [facility] [address] [address] [address] Daisy lAan TSH RANGE SEE BELOW Normal [facility] Comment on above: Result Comment: <0.3 4 UIU/ml HYPERTHYROID 0.34-5.60 UIU/ml EUTHYROID >5.60 UIU/ml HYPOTHYROID Performed By: #### B MP, LIPID, ALT, TSH #### [facility] [address] [address] [address] Daisy Alan Vital Signs Date Time Vital Sign Value Performing Clinician Facility 02-03-2024 10:16-0400 Body height 170.18 cm [facility] 02-03-2024 10:16-0400 Body mass index (BMI) [Ratio] 27.6 kg/m2 [facility] 02-03-2024 10:16-0400 Body weight 79.83 kg [facility] 02-03-2024 10:16-0400 Diastolic blood pressure 71 mm[Hg] [facility] 02-03-2024 10:16-0400 Heart rate 57 /min [facility] 02-03-2024 10:16-0400 SaO2% (BldA) [Mass fraction] 98 % [facility] 02-03-2024 10:16-0400 Systolic blood pressure 142 mm[Hg] [facility] 02-01-2024 12:47-0400 Blood Pressure Location Pola CANTRELL [facility] 10-26-2023 08:52-0500 Blood Pressure Location Poal CANTRELL [facility] 10-26-2023 08:52-0500 Diastolic blood pressure 77 mm[Hg] Pola CANTRELL [facility] 10-26-2023 08:52-0500 Heart rate 59 /min Pola CANTRELL [facility] 10-26-2023 08:52-0500 Systolic blood pressure 137 mm[Hg] Pola CANTRELL [facility] 10-05-2023 13:45-0500 Body height 170.18 cm Brandon Ball Other [facility] [employer] Other 10-05-2023 13:45-0500 Body mass index (BMI) [Ratio] 27.94 kg/m2 Brandon Ball Other [employer] Other 10-05-2023 13:45-0500 Body weight 80.92 kg Brandon Ball Other [employer] Other 10-05-2023 13:45-0500 Diastolic blood pressure 77 mm[Hg] Brandon Ball Other [employer] Other 10-05-2023 13:45-0500 Respiratory rate 12 /min Brandon Ball Other [employer] Other 10-05-2023 13:45-0500 Systolic blood pressure 128 mm[Hg] Brandon Ball Other [employer] Other 03-22-2023 14:30-0400 Body height 170.18 cm Brandon Ball Other [employer] Other 03-22-2023 14:30-0400 Body mass index (BMI) [Ratio] 27.12 kg/m2 Brandon Ball Other [employer] Other 03-22-2023 14:30-0400 Body weight 78.56 kg Brandon Ball Other [employer] Other 03-22-2023 14:30-0400 Diastolic blood pressure 74 mm[Hg] Brandon Ball Other [employer] Other 03-22-2023 14:30-0400 Respiratory rate 12 /min Brandon Ball Other [employer] Other 03-22-2023 14:30-0400 Systolic blood pressure 129 mm[Hg] Brandon Ball Other [employer] Other 02-05-2022 11:00-0400 Body height 170.18 cm Tim Hardwick Other [employer] Other 02-05-2022 11:00-0400 Body mass index (BMI) [Ratio] 28.03 kg/m2 Tim Hardwick Other [employer] Other 02-05-2022 11:00-0400 Body temperature 97.3 [degF] Tim Hardwick Other [facility] Other 02-05-2022 11:00-0400 Body weight 81.19 kg Tim Hardwick Other [facility] Other 02-05-2022 11:00-0400 Diastolic blood pressure 83 mm[Hg] Tim Hardwick Other [facility] Other 02-05-2022 11:00-0400 SaO2% (BldA) [Mass fraction] 98 % Tim Hardwick Other [facility] Other 02-05-2022 11:00-0400 Systolic blood pressure 159 mm[Hg] Tim Hardwick Other [facility] Other Encounters Encounter Date Encounter Type Care Provider Facility Start: 2024 ambulatory Pola Kebedei ty:[facility] Start: 03-02-2024 ambulatory Pola Kebedei ty:[id number] Start: 02-03-2024 End: 02-03-2024 ambulatory [facility] Work Phone: Start: 02-03-2024 End: 02-03-2024 Patient encounter procedure [facility] Work Phone: Start: 02-01-2024 End: 02-02-2024 ambulatory Pola CANTRELL Facility:[facility] [place] Start: 02-01-2024 End: 02-01-2024 Patient encounter procedure Pola CANTRELL [facility] Start: 01-26-2024 End: 01-26-2024 ambulatory [facility] Work Phone: Start: 01-26-2024 End: 01-26-2024 Patient encounter procedure [facility] Work Phone: Start: 12-28-2023 End: 12-28-2023 Patient encounter procedure [facility] Work Phone: Start: 11-24-2023 End: 11-24-2023 ambulatory TRISH BALLARD Not Available Start: 11-24-2023 End: 11-24-2023 Office outpatient visit 15 minutes Trish Ballard MD Work Phone: [facility] Comment on above: Actinic keratosis (P rimary Dx); Basal cell carcinoma of skin of left upper limb, including shoulder Start: 11-23-2023 End: 11-24-2023 ambulatory Pola CANTRELL Facility:[facility] Start: 11-11-2023 End: 11-11-2023 ambulatory Brandon Estrella Other [facility] Other Start: 11-11-2023 Office outpatient vi sit 15 minutes Brandon Ball [facility] Start: 11-01-2023 End: 11-01-2023 ambulatory Brandon Ball Other [facility] Other Start: 11-01-2023 Office outpatient vi sit 15 minutes Brandon Ball [facility] Start: 11-01-2023 Patient encounter procedure [facility] Start: 10-26-2023 ambulatory Pola CANTRELL Facili ty[facility] Start: 10-26-2023 End: 10-27-2023 ambulatory BRANDON ESTRELLA Facility:[facility] Start: 10-26-2023 End: 10-26-2023 Lab Drop off Pola CANTRELL [facility] Start: 10-26-2023 End: 10-26-2023 Patient encounter procedure Pola CANTRELL [facility] Start: 10-14-2023 End: 10-14-2023 ambulatory Brandon Estrella Other [facility] Other Start: 10-14-2023 Telephone encounter Brandon Ball [facility] Start: 10-08-2023 End: 10-08-2023 ambulatory Brandon Ball Other [facility] Other Start: 10-08-2023 Telephone encounter Brandon Ball [facility] Start: 10-07-2023 End: 10-07-2023 ambulatory Brandon Ball Other [facility] Other Start: 10-07-2023 Telephone encounter Brandon Ball [facility] Start: 10-05-2023 End: 10-05-2023 ambulatory Brandon Ball Other [facility] Other Start: 10-05-2023 Office outpatient vi sit 15 minutes Brandon Ball [facility] Start: 10-04-2023 End: 10-04-2023 ambulatory TRISH BALLARD Not Available Start: 09-28-2023 End: 09-28-2023 ambulatory Brandon Ball Other [facility] Other Start: 09-28-2023 Telephone encounter Brandon Ball [facility] Start: 09-15-2023 End: 09-15-2023 ambulatory EHAB [facility] Start: 07-20-2023 End: 07-20-2023 ambulatory Brandon Ball Other [facility] Other Start: 07-20-2023 Nursing evaluation o f patient and report Brandon Ball [facility] Start: 04-14-2023 End: 04-14-2023 ambulatory Brandon Ball Other [facility] Other Start: 04-14-2023 Telephone encounter Brandon Ball [facility] Start: 04-07-2023 End: 04-07-2023 ambulatory Brandon Ball Other [facility] Other Start: 04-07-2023 Office outpatient vi sit 15 minutes Brandon Ball [facility] Start: 03-22-2023 End: 03-22-2023 ambulatory Brandon Ball Other [facility] Other Start: 03-22-2023 Patient encounter procedure Brandon Ball [facility] Start: 02-16-2023 End: 02-16-2023 ambulatory Brandon Ball Other [facility] Other Start: 02-16-2023 Telephone encounter Brandon Ball [facility] Start: 01-27-2023 End: 01-27-2023 ambulatory Brandon Ball Other [facility] Other Start: 01-27-2023 Nursing evaluation o f patient and report Brandon SOMMER [facility] Start: 01-18-2023 End: 01-18-2023 ambulatory Brandon Estrella Other [facility] Other Start: 01-18-2023 Telephone encounter Brandon Estrella [facility] Start: 09-28-2022 End: 09-29-[address] TIM BARBER Facility:[facility] Start: 09-24-2022 End: 09-25-[address] BRANDON ESTRELLA Facility:[facility] Start: 05-25-[address] BRANDON ESTRELLA Facili ty:[facility] Start: 03-20-2022 Adult health examination Brandon Estrella Other [facility] Other Start: 02-05-2022 End: 02-05-2022 ambulatory Tim Hardwick Other [facility] Other Start: 02-05-2022 Office outpatient vi sit 15 minutes Tim Hardwick [facility] Start: 02-05-2022 End: 02-05-2022 Patient encounter procedure DO Brandon Estrella Work Phone: [facility] Start: 02-04-2022 End: 02-05-[address] BRANDON ESTRELLA Facility: Start: 02-14-2018 End: 02-15-2018 Ambulatory DEFAULT PHYSICIAN Facility:[facility] Start: 02-10-2018 End: 02-11-2018 Ambulatory DEFAULT PHYSICIAN Facility:[facility] Procedures Date Procedure Procedure Detail Performing Clinician Start: 02-01-2024 Transurethral cystoscopy Pola CANTRELL Start: 11-24-2023 DESTRUCTION OF LESION Delmy Ballard MD Work Phone: Start: 11-23-2023 Transurethral cystoscopy Pola CANTRELL Start: 03-20-2022 Depression screening Chema Estrella Other Start: 02-04-[address] TIM BARBER Comment on above: Performed By: #### [facility] #### [facility] [address] [address] [address] Daisy Alan Start: 12-10-2016 Viral screening Benjami n Same[facility] Other Start: 11-01-2014 Screening for malign ant neoplasm of prostate Brandon Estrella Other Appendectomy Pola CANTRELL Cholecystectomy Pola SOLIS Colonoscopy Pola CANTRELL Placement of stent i n cardiac conduit Pola CANTRELL Screening for malign ant neoplasm of colon Brandon Estrella Other Screening for malign ant neoplasm of prostate Brandon Estrella Other Plan of Treatment Date Care Activity Detail Author Start: 04-04-2024 End: 04-04-2024 Patient encounter procedure 04/04/2024 8:30 AM EDT [facility] [address] [place] [id number] Trish Ballard MD [address] [place] [address] [facility] Start: 12-11-2017 Pneumococcal Vaccine : 65+ Years (2 - PPSV23 or PCV20) Pneumococcal Vaccine: 65+ Years (2 - PPSV23 or PCV20) [facility] Start: 1950 Screening for malign ant neoplasm of colon [facility] Immunizations Immunization Date Immunization Notes Care Provider Fa cili 08-07-2023 influenza virus vaccine, unspecified formulation Pola CANTRELL [facility] 04-22-2023 zoster vaccine recombinant Pola CANTRELL [facility] 02-13-2023 zoster vaccine recombinant Pola CANTRELL [facility] 09-28-2022 influenza virus vaccine, split virus (incl. purified surface antigen) Brandon Estrella Other [facility] Other 09-28-2022 influenza virus vaccine, unspecified formulation Pola CANTRELL [facility] 01-31-2021 SARS-CoV-2 (COVID-19 ) mRNA BNT-162b2 vax Pola [employer] [facility] 01-10-2021 SARS-CoV-2 (COVID-19 ) mRNA BNT-162b2 vax Pola [employer] [facility] 08-06-2020 influenza virus vaccine, split virus (incl. purified surface antigen) Brandon Estrella Other [facility] [employer] Other 08-06-2020 influenza virus vaccine, unspecified formulation [facility] 08-17-2019 influenza virus vaccine, split virus (incl. purified surface antigen) Brandon Estrella Other [facility] [employer] Other 08-17-2019 influenza virus vaccine, unspecified formulation [facility] 09-06-2018 influenza virus vaccine, unspecified formulation Pola CANTRELL [facility] 07-27-2018 influenza virus vaccine, split virus (incl. purified surface antigen) Brandon Estrella Other [facility] [employer] Other 07-27-2018 influenza virus vaccine, unspecified formulation [facility] 07-25-2018 influenza virus vaccine, live, attenuated, for intranasal use Pola CANTRELL [facility] 12-11-2016 pneumococcal conjuga te vaccine, 13 valent Brandon Estrella Other [facility] 08-18-2016 influenza virus vaccine, unspecified formulation Polagage CANTRELL [facility] 08-02-2015 influenza virus vaccine, split virus (incl. purified surface antigen) Brandon Estrella Other [facility] [employer] Other 08-02-2015 influenza virus vaccine, unspecified formulation [facility] 08-02-2015 tetanus and diphther ia toxoids, adsorbed, preservative free, for adult use (5 Lf of tetanus toxoid and 2 Lf of diphtheria toxoid) [facility] 08-02-2015 tetanus toxoid, reduced diphtheria toxoid, and acellular pertussis vaccine, adsorbed Brandon Estrella Other [facility] [employer] Other 11-01-2014 pneumococcal Conjugate, unspecified formulation; Translations: [Need for prophylactic vaccination against Streptococcus pneumoniae (pneumococcus)] Brandon Estrella Other [facility] [employer] Other 11-01-2014 pneumococcal polysaccharide vaccine, 23 valent Brandon Estrella Other [facility] 08-22-1999 Td(adult) unspecifie d formulation Pola CANTRELL [facility] NEGATED: Highlighted row has not occurred!10-26-2023 influenza virus vaccine, unspecified formulation Pola CANTRELL [facility] Payers Date Payer Category Payer Unknown 2022 Unknown [id number] 1960 Medicare [id number] 1960 Self-pay [id number] 1960 Unknown [id number] 1950 Unknown [id number] 2.16.84 [id number] 1950 Unknown [id number] 2.16.84 [id number] 1950 Unknown [id number] 2.16.84 [id number] 1949 Unknown [id number] 2.16.84 [id number] 1949 Unknown [id number] 2.16.84 [id number] 1949 Unknown [id number] 2.16.840 [id number] 1949 Unknown [id number] 2.16.8 [id number] 1950 Unknown [id number] 2.16.8 [id number] 1949 Unknown [id number] 2.16.8 [id number] 1949 Unknown [id number] 2.16.8 [id number] 1950 Unknown [id number] 2.16.8 [id number] 1950 Unknown [id number] 2.16.8 [id number] Self-pay Self Pay [id number] Unknown [employer] [id number] Social History Date Type Detail Facility Start: 09-22-2019 End: 02-01-2024 Tobacco smoking status NHIS Never smoked tobacco (finding) [facility] Start: 1950 Sex Assigned At Male F [facility] Start: 11-24-2023 Sex Assigned At F [facility] Tobacco smoking status Never [facility] Start: 04-09-2023 Tobacco use and exposure Smokeless tobacco non-user [facility] Start: 11-24-2023 Alcohol intake Current drinke r of alcohol (finding) [facility] Start: 11-24-2023 History of Social function [facility] Start: 04-09-2023 Alcohol Comment caffeine: 1-2 cups per day [facility] Start: 1950 Sex Assigned At Not on file N [facility] Functional Status Date Assessment Result Facility 02-01-2024 Functional Status N/A [facility] 10-26-2023 Functional Status Yes [facility] Clinical Notes 02-05-2022 to 02-01-2024 Trish Ballard MD - 11/24/2023 8:50 AM EST Note Date & Type Note Facility 02-01-2024 Note Urology Cystoscopy Cystoscopy is a procedure that is used to help diagnose and sometimes treat conditions that affect the lower urinary tract. The lower urinary tract includes the bladder and the urethra. The urethra is the tube that drains urine from the bladder. Cystoscopy is done using a thin, tube-shaped instrument with a light and camera at the end (cystoscope). The cystoscope may be hard or flexible, depending on the goal of the procedure. The cystoscope is inserted through the urethra, into the bladder. Cystoscopy may be recommended if you have: ? Urinary tract infections that keep coming back. ? Blood in the urine (hematuria). ? An inability to control when you urinate (urinary incontinence) or an overactive bladder. ? Unusual cells found in a urine sample. ? A blockage in the urethra, such as a urinary stone. ? Painful urination. ? An abnormality in the bladder found during an intravenous pyelogram (IVP) or CT scan. Cystoscopy may also be done to remove a sample of tissue to be examined under a microscope (biopsy). Tell a health care provider about: ? Any allergies you have. ? All medicines you are taking, including vitamins, herbs, eye drops, creams, and wkjm-ehy-rjemhtl medicines. ? Any problems you or family members have had with anesthetic medicines. ? Any blood disorders you have. ? Any surgeries you have had. ? Any medical conditions you have. ? Whether you are or may be . What are the risks? Generally, this is a safe procedure. However, problems may occur, including: ? Infection. ? Bleeding. ? Allergic reactions to medicines. ? Damage to other structures or organs. What happens before the procedure? Medicines Ask your health care provider about: ? Changing or stopping your regular medicines. This is especially important if you are taking diabetes medicines or blood thinners. ? Taking medicines such as aspirin and ibuprofen. These medicines can thin your blood. Do not take these medicines unless your health care provider tells you to take them. ? Taking vajp-tox-mfpxigx medicines, vitamins, herbs, and supplements. Tests You may have an exam or testing, such as: ? X-rays of the bladder, urethra, or kidneys. ? CT scan of the abdomen or pelvis. ? Urine tests to check for signs of infection. General instructions ? Follow instructions from your health care provider about eating or drinking restrictions. ? Ask your health care provider what steps will be taken to help prevent infection. These steps may include: ? Washing skin with a germ-killing soap. ? Taking antibiotic medicine. ? Plan to have a responsible adult take you home from the hospital or clinic. What happens during the procedure? ? You will be given one or more of the following: ? A medicine to help you relax (sedative). ? A medicine to numb the area (local anesthetic). ? The area around the opening of your urethra will be cleaned. ? The cystoscope will be passed through your urethra into your bladder. ? Germ-free (sterile) fluid will flow through the cystoscope to fill your bladder. The fluid will stretch your bladder so that your health care provider can clearly examine your bladder parham. ? Your doctor will look at the urethra and bladder. Your doctor may take a biopsy or remove stones. ? The cystoscope will be removed, and your bladder will be emptied. The procedure may vary among health care providers and hospitals. What can I expect after the procedure? After the procedure, it is common to have: ? Some soreness or pain in your abdomen and urethra. ? Urinary symptoms. These include: ? Mild pain or burning when you urinate. Pain should stop within a few minutes after you urinate. This may last for up to 1 week. ? A small amount of blood in your urine for several days. ? Feeling like you need to urinate but producing only a small amount of urine. Follow these instructions at home: Medicines ? Take pvek-epf-yfedxaw and prescription medicines only as told by your health care provider. ? If you were prescribed an antibiotic medicine, take it as told by your health care provider. Do not stop taking the antibiotic even if you start to feel better. General instructions ? Return to your normal activities as told by your health care provider. Ask your health care provider what activities are safe for you. ? If you were given a sedative during the procedure, it can affect you for several hours. Do not drive or operate machinery until your health care provider says that it is safe. ? Watch for any blood in your urine. If the amount of blood in your urine increases, call your health care provider. ? Follow instructions from your health care provider about eating or drinking restrictions. ? If a tissue sample was removed for testing (biopsy) during your procedure, it is up to you to get your test results. Ask your health care provider, or the department th (more content not included)... [facility] 02-01-2024 Hospital Discharge instructions Patient Education 02/01/2024 13:26:23 Cystoscopy Cystoscopy Cystoscopy is a procedure that is used to help diagnose and sometimes treat conditions that affect the lower urinary tract. The lower urinary tract includes the bladder and the urethra. The urethra is the tube that drains urine from the bladder. Cystoscopy is done using a thin, tube-shaped instrument with a light and camera at the end (cystoscope). The cystoscope may be hard or flexible, depending on the goal of the procedure. The cystoscope is inserted through the urethra, into the bladder. Cystoscopy may be recommended if you have: Urinary tract infections that keep coming back. Blood in the urine (hematuria). An inability to control when you urinate (urinary incontinence) or an overactive bladder. Unusual cells found in a urine sample. A blockage in the urethra, such as a urinary stone. Painful urination. An abnormality in the bladder found during an intravenous pyelogram (IVP) or CT scan. Cystoscopy may also be done to remove a sample of tissue to be examined under a microscope (biopsy). Tell a health care provider about: Any allergies you have. All medicines you are taking, including vitamins, herbs, eye drops, creams, and qgge-tgg-qeauwsj medicines. Any problems you or family members have had with anesthetic medicines. Any blood disorders you have. Any surgeries you have had. Any medical conditions you have. Whether you are or may be . What are the risks? Generally, this is a safe procedure. However, problems may occur, including: Infection. Bleeding. Allergic reactions to medicines. Damage to other structures or organs. What happens before the procedure? Medicines Ask your health care provider about: Changing or stopping your regular medicines. This is especially important if you are taking diabetes medicines or blood thinners. Taking medicines such as aspirin and ibuprofen. These medicines can thin your blood. Do not take these medicines unless your health care provider tells you to take them. Taking wwvq-fzh-gpwzcyh medicines, vitamins, herbs, and supplements. Tests You may have an exam or testing, such as: X-rays of the bladder, urethra, or kidneys. CT scan of the abdomen or pelvis. Urine tests to check for signs of infection. General instructions Follow instructions from your health care provider about eating or drinking restrictions. Ask your health care provider what steps will be taken to help prevent infection. These steps may include: ?Washing skin with a germ-killing soap. ?Taking antibiotic medicine. Plan to have a responsible adult take you home from the hospital or clinic. What happens during the procedure? You will be given one or more of the following: ?A medicine to help you relax (sedative). ?A medicine to numb the area (local anesthetic). The area around the opening of your urethra will be cleaned. The cystoscope will be passed through your urethra into your bladder. Germ-free (sterile) fluid will flow through the cystoscope to fill your bladder. The fluid will stretch your bladder so that your health care provider can clearly examine your bladder parham. Your doctor will look at the urethra and bladder. Your doctor may take a biopsy or remove stones. The cystoscope will be removed, and your bladder will be emptied. The procedure may vary among health care providers and hospitals. What can I expect after the procedure? After the procedure, it is common to have: Some soreness or pain in your abdomen and urethra. Urinary symptoms. These include: ?Mild pain or burning when you urinate. Pain should stop within a few minutes after you urinate. This may last for up to 1 week. ?A small amount of blood in your urine for several days. ?Feeling like you need to urinate but producing only a small amount of urine. Follow these instructions at home: Medicines Take ppwo-pln-myofmvg and prescription medicines only as told by your health care provider. If you were prescribed an antibiotic medicine, take it as told by your health care provider. Do not stop taking the antibiotic even if you start to feel better. General instructions Return to your normal activities as told by your health care provider. Ask your health care provider what activities are safe for you. If you were given a sedative during the procedure, it can affect you for several hours. Do not drive or operate machinery until your health care provider says that it is safe. Watch for any blood in your urine. If the amount of blood in your urine increases, call your health care provider. Follow instructions from your health care provider about eating or drinking restrictions. If a tissue sample was removed for testing (biopsy) during your procedure, it is up to you to get your test results. Ask your health care provider, or the department that is doing the test, when your results will be ready. Drink enough fluid to keep your urine pale yellow. Keep all follow-up visits. This is important. Contact a health care provider if: You have pain that gets worse or does not get better with medicine, especially pain when you urinate. You have trouble urinating. You have more blood in your urine. Get help right away if: You have blood clots in your urine. You have abdominal pain. You have a fever or chills. You are unable to urinate. Summary Cystoscopy is a procedure that is used to help diagnose and sometimes treat conditions that affect the lower urinary tract. Cystoscopy is done using a thin, tube-shaped instrument with a light and camera at the end. After the procedure, it is common to have some soreness or pain in your abdomen and urethra. Watch for any blood in your urine. If the amount of blood in your urine increases, call your health care provider. If you were prescribed an antibiotic medicine, take it as told by your health care provider. Do not stop taking the antibiotic even if you start to feel better. This information is not intended to replace advice given to you by your health care provider. Make sure you discuss any questions you have with your health care provider. Document Revised: 06/17/2022 Document Reviewed: 05/16/2021 [employer] Patient Education 2022 [address] Follow Up Care 01/31/2024 16:48:56 With:DODIE DAWKINS, Pola Rothman, URL Address: [facility] [address], [place] [address]- [phone] When: Unknown Comments:adalberto RIOS [facility] 11-24-2023 History of Present illness Narrative Images from the original note were not included. Follow up Diagnosis: Basal Cell Carcinoma Location: left clavicular area Last visit: 10/04/2023 Symptoms: redness Procedure performed: Shave biopsy Date of procedure: 10/04/2023 Current treatment: Here today for ED&C All pertinent medical history, medications, and allergies were reviewed. General Exam: alert , oriented to person, place, and time , normal affect, well appearing Unaccompanied A focused exam completed based on patient reported problems, see below: 1. Basal cell carcinoma of skin of left upper limb, including shoulder left clavicular area [place] papule at biopsy site Destr of lesion Complexity: simple Destruction method: electrodesiccation and curettage Informed consent: discussed and consent obtained Informed consent comment: The risks of the procedure were discussed, including, but not limited to risks of scarring, darker or warehouse team member pigmentary changes, recurrence, infection, and incomplete removal Timeout: patient name, date of , surgical site, and procedure verified Procedure prep: Patient was prepped and draped in usual sterile fashion Prep type: Chlorhexidine Anesthesia: the lesion was anesthetized in a standard fashion Anesthetic: 1% lidocaine w/ epinephrine 1-100,000 buffered w/ 8.4% NaHCO3 Curettage performed in three different directions: Yes Electrodesiccation performed over the curetted area: Yes Curettage cycles: 3 Lesion length (cm): 1.5 Lesion width (cm): 1.4 Margin per side (cm): 0 Final wound size (cm): 1.5 Hemostasis achieved with: electrodesiccation Outcome: patient tolerated procedure well with no complications Post-procedure details: wound care instructions given Post-procedure details comment: Post-procedure instructions were given verbally and in writing. The office will be contacted if the lesion fails to resolve despite treatment, or if a side effect develops such as abnormal crusting, scabbing, reddness, discharge, or tenderness. Additional details: Amount of lidocaine used: 1.0 cc Previous accession number: [id number] ED&C today, see procedure note. Return to clinic prior to next scheduled visit for any signs or symptoms of recurrence, reviewed the signs and symptoms. 2. Actinic keratosis (3) Left Eyebrow, Right Ear, Right Upper Arm - Posterior Erythematous scaly papules Patient was counseled regarding these sun-induced growths that can develop into squamous cell carcinoma if left untreated. Discussed treatment options, including cryotherapy and topical preparations. It was emphasized that any treated lesions that fail to resolve should be re-evaluated. Patient elected for treatment with Efudex as this has become a chronic issue. Has already been using Efudex on these areas with good response. Educated on Efudex treatment. Continue to spot treat twice a day for two weeks. Discussed that treated areas will become red, crusty, and inflamed. If areas become too uncomfortable, patient may use OTC hydrocortisone cream to help decrease irritation and can discontinue treatment early. Sun exposure should be avoided during treatment. Patient instructed to contact office for any questions or issues during treatment. Lesions that fail to resolve once treated area is healed should be re-evaluated in the office. Patient familiar with medication and instructions for use Next Visit: as scheduled documented in this encounter [facility] 11-11-2023 Evaluation note Encounter Date Diagnosis Assessment Notes Oct, Acute bronchitis due to other specified organisms (ICD-10 - J20.8) Instructed to use robitussin or mucinex for cough, saline or flonase NS for congestion, tylenol for pain and fever. Instructed to use Robitussin or Mucinex for cough, saline or Flonase NS for congestion, Tylenol for pain and fever. Oct, ASHD (arteriosclero tic heart disease) (ICD-10 - I25.10) This patient is stable without activity related CP, dyspnea or lightheadedne ss. They are instructed to continue exercise and AHA diet plan. Continue secondary prevention measures. [facility] Other 01-15-2024 Evaluation note* Encounter Date Diagnosis Assessment Notes Treatment Notes Treatment Clinical Notes Oct, COVID-19 (ICD-10 - U07.1) Instructed to use Robitussin or Mucinex for cough, saline or Flonase NS for congestion, Tylenol for pain and fever. Self isolate at home. - Cannot work - avoid contact with others - avoid pets - wipe counters, door knobs if touched - if can't avoid leaving home, must wear mask to protect others - need to stay isolated for 10 days from onset of symptoms - to discontinue isolation must be 5 days AND must be without fever for 24 hours AND symptoms must be improving. Always wear a mask in public places for complete 10 days Oct, ASHD (arteriosclerotic heart disease) (ICD-10 - I25.10) Increases risk for more serious, prolonged illness [facility] Other 01-09-2024 NoteUrology Cystoscopy Cystoscopy is a procedure that is used to help diagnose and sometimes treat conditions that affect the lower urinary tract. The lower urinary tract includes the bladder and the urethra. The urethra is the tube that drains urine from the bladder. Cystoscopy is done using a thin, tube-shaped instrument with a light and camera at the end (cystoscope). The cystoscope may be hard or flexible, depending on the goal of the procedure. The cystoscope is inserted through the urethra, into the bladder. Cystoscopy may be recommended if you have: ? Urinary tract infections that keep coming back. ? Blood in the urine (hematuria). ? An inability to control when you urinate (urinary incontinence) or an overactive bladder. ? Unusual cells found in a urine sample. ? A blockage in the urethra, such as a urinary stone. ? Painful urination. ? An abnormality in the bladder found during an intravenous pyelogram (IVP) or CT scan. Cystoscopy may also be done to remove a sample of tissue to be examined under a microscope (biopsy). Tell a health care provider about: ? Any allergies you have. ? All medicines you are taking, including vitamins, herbs, eye drops, creams, and zrgg-kbr-tujfjtm medicines. ? Any problems you or family members have had with anesthetic medicines. ? Any blood disorders you have. ? Any surgeries you have had. ? Any medical conditions you have. ? Whether you are or may be . What are the risks? Generally, this is a safe procedure. However, problems may occur, including: ? Infection. ? Bleeding. ? Allergic reactions to medicines. ? Damage to other structures or organs. What happens before the procedure? Medicines Ask your health care provider about: ? Changing or stopping your regular medicines. This is especially important if you are taking diabetes medicines or blood thinners. ? Taking medicines such as aspirin and ibuprofen. These medicines can thin your blood. Do not take these medicines unless your health care provider tells you to take them. ? Taking ydps-gfl-wygbnwp medicines, vitamins, herbs, and supplements. Tests You may have an exam or testing, such as: ? X-rays of the bladder, urethra, or kidneys. ? CT scan of the abdomen or pelvis. ? Urine tests to check for signs of infection. General instructions ? Follow instructions from your health care provider about eating or drinking restrictions. ? Ask your health care provider what steps will be taken to help prevent infection. These steps mayinclude: ? Washing skin with a germ-killing soap. ? Taking antibiotic medicine. ? Plan to have a responsible adult take you home from the hospital or clinic. What happens during the procedure? ? You will be given one or more of the following: ? A medicine to help you relax (sedative). ? A medicine to numb the area (local anesthetic). ? The area around the opening of your urethra will be cleaned. ? The cystoscope will be passed through your urethra into your bladder. ? Germ-free (sterile) fluid will flow through the cystoscope to fill your bladder. The fluid will stretch your bladder so that your health care provider can clearly examine your bladder parahm. ? Your doctor will look at the urethra and bladder. Your doctor may take a biopsy or remove stones. ? The cystoscope will be removed, and your bladder will be emptied. The procedure may vary among health care providers and hospitals. What can I expect after the procedure? After the procedure, it is common to have: ? Some soreness or pain in your abdomen and urethra. ? Urinary symptoms. These include: ? Mild pain or burning when you urinate. Pain should stop within a few minutes after you urinate. This may last for up to 1 week. ? A small amount of blood in your urine for several days. ? Feeling like you need to urinate but producing only a small amount of urine. Follow these instructions at home: Medicines ? Take qwes-kkd-axhcevl and prescription medicines only as told by your health care provider. ? If you were prescribed an antibiotic medicine, take it as told by your health care provider. Do not stop taking the antibiotic even if you start to feel better. General instructions ? Return to your normal activities as told by your health care provider. Ask your health care provider what activities are safe for you. ? If you were given a sedative during the procedure, it can affect you for several hours. Do not drive or operate machinery until your health care provider says that it is safe. ? Watch for any blood in your urine. If the amount of blood in your urine increases, call your health care provider. ? Follow instructions from your health care provider about eating or drinking restrictions. ? If a tissue sample was removed for testing (biopsy) during your procedure, it is up to you to getyour test results. Ask your health care provider, or the department th (more content not included)...[facility] 10-26-2023 Hospital Discharge instructions Patient Education 10/26/2023 10:02:29 Cystoscopy Cystoscopy Cystoscopy is a procedure that is used to help diagnose and sometimes treat conditions that affect the lower urinary tract. The lower urinary tract includes the bladder and the urethra. The urethra is the tube that drains urine from the bladder. Cystoscopy is done using a thin, tube-shaped instrument with a light and camera at the end (cystoscope). The cystoscope may be hard or flexible, depending on the goal of the procedure. The cystoscope is inserted through the urethra, into the bladder. Cystoscopy may be recommended if you have: Urinary tract infections that keep coming back. Blood in the urine (hematuria). An inability to control when you urinate (urinary incontinence) or an overactive bladder. Unusual cells found in a urine sample. A blockage in the urethra, such as a urinary stone. Painful urination. An abnormality in the bladder found during an intravenous pyelogram (IVP) or CT scan. Cystoscopy may also be done to remove a sample of tissue to be examined under a microscope (biopsy). Tell a health care provider about: Any allergies you have. All medicines you are taking, including vitamins, herbs, eye drops, creams, and pziy-scu-cjjjdgl medicines. Any problems you or family members have had with anesthetic medicines. Any blood disorders you have. Any surgeries you have had. Any medical conditions you have. Whether you are or may be . What are the risks? Generally, this is a safe procedure. However, problems may occur, including: Infection. Bleeding. Allergic reactions to medicines. Damage to other structures or organs. What happens before the procedure? Medicines Ask your health care provider about: Changing or stopping your regular medicines. This is especially important if you are taking diabetes medicines or blood thinners. Taking medicines such as aspirin and ibuprofen. These medicines can thin your blood. Do not take these medicines unless your health care provider tells you to take them. Taking lsgt-quc-apmvbva medicines, vitamins, herbs, and supplements. Tests You may have an exam or testing, such as: X-rays of the bladder, urethra, or kidneys. CT scan of the abdomen or pelvis. Urine tests to check for signs of infection. General instructions Follow instructions from your health care provider about eating or drinking restrictions. Ask your health care provider what steps will be taken to help prevent infection. These steps may include: ?Washing skin with a germ-killing soap. ?Taking antibiotic medicine. Plan to have a responsible adult take you home from the hospital or clinic. What happens during the procedure? You will be given one or more of the following: ?A medicine to help you relax (sedative). ?A medicine to numb the area (local anesthetic). The area around the opening of your urethra will be cleaned. The cystoscope will be passed through your urethra into your bladder. Germ-free (sterile) fluid will flow through the cystoscope to fill your bladder. The fluid will stretch your bladder so that your health care provider can clearly examine your bladder parham. Your doctor will look at the urethra and bladder. Your doctor may take a biopsy or remove stones. The cystoscope will be removed, and your bladder will be emptied. The procedure may vary among health care providers and hospitals. What can I expect after the procedure? After the procedure, it is common to have: Some soreness or pain in your abdomen and urethra. Urinary symptoms. These include: ?Mild pain or burning when you urinate. Pain should stop within a few minutes after you urinate. This may last for up to 1 week. ?A small amount of blood in your urine for several days. ?Feeling like you need to urinate but producing only a small amount of urine. Follow these instructions at home: Medicines Take kqms-jss-jwiggss and prescription medicines only as told by your health care provider. If you were prescribed an antibiotic medicine, take it as told by your health care provider. Do notstop taking the antibiotic even if you start to feel better. General instructions Return to your normal activities as told by your health care provider. Ask your health care provider what activities are safe for you. If you were given a sedative during the procedure, it can affect you for several hours. Do not drive or operate machinery until your health care provider says that it is safe. Watch for any blood in your urine. If the amount of blood in your urine increases, call your healthcare provider. Follow instructions from your health care provider about eating or drinking restrictions. If a tissue sample was removed for testing (biopsy) during your procedure, it is up to you to get your test results. Ask your health care provider, or the department that is doing the test, when yourresults will be ready. Drink enough fluid to keep your urine pale yellow. Keep all follow-up visits. This is important. Contact a health care provider if: You have pain that gets worse or does not get better with medicine, especially pain when you urinate. You have trouble urinating. You have more blood in your urine. Get help right away if: You have blood clots in your urine. You have abdominal pain. You have a fever or chills. You are unable to urinate. Summary Cystoscopy is a procedure that is used to help diagnose and sometimes treat conditions that affect the lower urinary tract. Cystoscopy is done using a thin, tube-shaped instrument with a light and camera at the end. After the procedure, it is common to have some soreness or pain in your abdomen and urethra. Watch for any blood in your urine. If the amount of blood in your urine increases, call your healthcare provider. If you were prescribed an antibiotic medicine, take it as told by your health care provider. Do notstop taking the antibiotic even if you start to feel better. This information is not intended to replace advice given to you by your health care provider. Make sure you discuss any questions you have with your health care provider. Document Revised: 06/17/2022 Document Reviewed: 05/16/2021 [employer] Patient Education [address] 10/26/2023 10:02:27 Hematuria, Adult Hematuria, Adult Hematuria is blood in the urine. Blood may be visible in the urine, or it may be identified with a test. This condition can be caused by infections of the bladder, urethra, kidney, or prostate. Otherpossible causes include: Kidney stones. Cancer of the urinary tract. Too much calcium in the urine. Conditions that are passed from parent to child (inherited conditions). Exercise that requires a lot of energy. Infections can usually be treated with medicine, and a kidney stone usually will pass through your urine. If neither of these is the cause of your hematuria, more tests may be needed to identify the cause of your symptoms. It is very important to tell your health care provider about any blood in your urine, even if it ispainless or the blood stops without treatment. Blood in the urine, when it happens and then stops and then happens again, can be a symptom of a very serious condition, including cancer. There is no pain in the initial stages of many urinary cancers. Follow these instructions at home: Medicines Take xgfw-hyz-layncmn and prescription medicines only as told by your health care provider. If you were prescribed an antibiotic medicine, take it as told by your health care provider. Do notstop taking the antibiotic even if you start to feel better. Eating and drinking Drink enough fluid to keep your urine pale yellow. It is recommended that you drink 3 4 quarts (2.83.8 L) a day. If you have been diagnosed with an infection, drinking cranberry juice in addition tolarge amounts of water is recommended. Avoid caffeine, tea, and carbonated beverages. These tend to irritate the bladder. Avoid alcohol because it may irritate the prostate (in males). General instructions If you have been diagnosed with a kidney stone, follow your health care provider's instructions about straining your urine to catch the stone. Empty your bladder often. Avoid holding urine for long periods of time. If you are female: ?After a bowel movement, wipe from front to back and use each piece of toilet paper only once. ?Empty your bladder before and after sex. Pay attention to any changes in your symptoms. Tell your health care provider about any changes or any new symptoms. It is up to you to get the results of any tests. Ask your health care provider, or the department that is doing the test, when your results will be ready. Keep all follow-up visits. This is important. Contact a health care provider if: You develop back pain. You have a fever or chills. You have nausea or vomiting. Your symptoms do not improve after 3 days. Your symptoms get worse. Get help right away if: You develop severe vomiting and are unable to take medicine without vomiting. You develop severe pain in your back or abdomen even though you are taking medicine. You pass a large amount of blood in your urine. You pass blood clots in your urine. You feel very weak or like you might faint. You faint. Summary Hematuria is blood in the urine. It has many possible causes. It is very important that you tell your health care provider about any blood in your urine, even ifit is painless or the blood stops without treatment. Take jiog-ttl-rdjnjgv and prescription medicines only as told by your health care provider. Drink enough fluid to keep your urine pale yellow. This information is not intended to replace advice given to you by your health care provider. Make sure you discuss any questions you have with your health care provider. Document Revised: 06/04/2021 Document Reviewed: 06/04/2021 [employer] Patient Education [address] Follow Up Care 10/01/2023 13:06:22 With:DODIE DAWKINS, Pola Rothman, URL Address: [facility] [address] , [place] [address]- [phone] When: Unknown Comments:sched cysto [facility] 12-19-2023 Evaluation note* Encounter Date Diagnosis Assessment Notes Treatment Notes Treatment Clinical Notes Sep, Primary hypertension (ICD-10 - I10) [...] lower urinary tract symptoms (ICD-10 - N40.1) [facility] Other 11-29-2023 [facility] Cardiology Clinic Note Chief Complaint: Patient [...] an angiotensin-converting enzyme inhibi (more content not included)...[facility] 07-20-2023 Evaluation note* Encounter Date Diagnosis Assessment Notes Treatment Notes Treatment Clinical Notes Jul, Acute seasonal allergic rhinitis (ICD-10 - J30.2) [facility] Other 06-28-2023 Evaluation note* Encounter Date Diagnosis Assessment Notes Treatment Notes Treatment Clinical Notes Mar, Acute non-recurrent maxillary sinusitis (ICD-10 - J01.00) [facility] Other 06-21-2023 Evaluation note* Encounter Date Diagnosis Assessment Notes Treatment Notes Treatment Clinical Notes Mar, Acute non-recurrent maxillary sinusitis (ICD-10 - J01.00) Instructed to use Robitussin or Mucinex for cough, saline or Flonase NS for congestion, Tylenol for pain and fever. Mar, ASHD (arteriosclerotic heart disease) (ICD-10 - I25.10) Stable w/o symptoms suggestive of angina. Avoid decongestants, NSAIDs [facility] Other 06-05-2023 Evaluation note* Encounter Date Diagnosis [...] use, the patient reduces the risk for NH, CVA, HTN, cardiac dysrhythmias and sudden cardiac [...] High risk medication use (ICD-10 - Z79.899) [facility] Other 05-02-2023 Evaluation note* Encounter Date Diagnosis Assessment Notes Treatment Notes Treatment Clinical Notes February, Primary hypertension (ICD-10 - I10) [facility] Other 04-12-2023 Evaluation note* Encounter Date Diagnosis Assessment Notes Treatment Notes Treatment Clinical Notes Jan, Acute seasonal allergic rhinitis (ICD-10 - J30.2) [facility] Other 04-21-2022 Evaluation note* Encounter Date Diagnosis [...] sleepiness, or poor response to treatment. . [facility] Other Evaluation + Plan note Future Appointments Appointment Date:11/23/2023 07:30:00 AM Scheduled Provider:Pola CANTRELL MD Location:[facility] Appointment Type:URO Procedure 15 min [facility] Evaluation + Plan note Future Appointments Appointment Date:11/23/2023 07:30:00 AM Scheduled Provider:[facility] Procedure 15 min Diagnostic Tests Pending * [facility]rine [facility]) [facility] Future App[facility]ments Appointment Date:2024 10:45:00 AM Scheduled Provider:Pola CANTRELL MD Location:[facility] Appointment Type:URO Office Visit [facility] Evaluation noteNo assessment information available [facility] Work Phone: Evaluation noteNo InformationNortWest [facility] [employer] Other Evaluation note* Diagnosis Actinic keratosis- Primary Basal cell carcinoma of skin of left upper limb, including shoulder [facility] Diagnosis Onset Date Resolution Status ASHD (arteriosclerotic heart disease) acute Acute bronchitis due to other specified organisms noneactive [facility] Work Phone: History general Narrative - Reported* Type Description Date Medical History Hypercholesteremia Medical History Hypothyroid (per patient is cont rolled) Medical History GERD (gastroesophageal reflux di sease) Medical History diabetes Medical History RICCARDO Surgical History cholecystectomy Surgical History heart stent Surgical History appendectomy Hospitalization History see above [facility] Other Hospital course Narrative No data available for this section [facility] Discharge instructions No data available for this section [facility] No data available for this section [facility] [facility] Prixtel Summary Purpose Family History No Family History Records Found Relationship Condition Age at Onset Recorded Date/T asif brother Diabetes mellitus Unknown father Congestive heart failure Unknown Relationship Condition Age at Onset Recorded Date/T asif brother Diabetes mellitus Unknown father Congestive heart failure Unknown brother Unknown brother Heart disease Unknown Diabetes mellitus Unknown father Unknown Heart disease Unknown Not Specified Unknown Family history of other condition Unknown Advance Directives No Advanced Directives Records Found Advance Directive Response Recorded Date/ Time Advance Directives No August 2:12pm Chief Complaint and Reason for Visit Chief Complaint Sleep apnea annual f ollow up Chief Complaint Allergy Shot Sinuses/ [phone] Reason for Visit ASHD (arteriosclerot ic heart disease) Acute bronchitis due to other specified organisms Chief Complaint Allergy Shot Sinuses/ [phone] RICCARDO/Annual Reason for Visit ASHD (arteriosclerot ic heart disease) Acute bronchitis due to other specified organisms Reason for Referral Reason Gross Hematuria Diagnosis 1 Gross hematuria (R31 .0) Referral Organization [facility] dae Referring Provider First Name Brandon Referring Provider Last Name Sameer Referring Provider Specialty Internal Ne dicine Referred Organization [facility] Referred Provider Pola Cantrell Referred Address [address],[place], [place],[address] Referred Provider Specialty Urology Referral Priority Routine General Notes Patient with one epi sode of painless hematuria. He has nocturia x 1 but denies associated dysuria or polyuria. He denies fever, chills or any additional symptoms of intercurrent infection. He denies flank or abdominal pain. His CT scan reveals edema and thickening of the bladder wall. His most recent PSA was < 3 and unchanged from previous results. Clinical Notes Include CT scan from [facility]. Include recent labs completed. Additional Source Comments (unrecognized sect ion and content) No Status Records FoundNo Status Records FoundNo Status Records FoundNo Status Records FoundNo Status Records Found INFORMATION SOURCE (unrecogn ized section and content) DATE CREATED AUTHOR 04/07/2018 [facility] DATE CREATED AUTHOR AUTHOR'S ORGANIZ ATION 10/09/2022 [facility] DATE CREATED AUTHOR AUTHOR'S ORGANIZ ATION 09/21/2023 [facility] DATE CREATED AUTHOR AUTHOR'S ORGANIZ ATION 11/25/2023 [facility] EPIC DATE CREATED AUTHOR AUTHOR'S ORGANIZ ATION 02/05/2024 [facility] Care Teams (unrecognized sec tion and content) Team Status: Active Member Role Status Dates Brandon Estrella DO Primary Care Provider Active Team Status: Inactive Member Role Status Dates Brandon Estrella DO Primary Care Provide r, Attending Provider Active Start: December 28, 2023 End: December 28, 2023 Team Status: Inactive Member Role Status Dates Brandon Estrella DO Primary Care Provide r, Attending Provider Active Start: January 26, 2024 End: January 26, 2024 Team Status: Inactive Member Role Status Dates Brandon Estrella DO Primary Care Provider Active Start: February 03, 2024 End: February 03, 2024 Tim Hardwick MD Attending Provider Active S tart: February 03, 2024 End: February 03, 2024 Team Status: Inactive Member Role Status Dates Brandon Estrella DO Primary Care Provider Active Tim Hardwick MD Attending Provider Active Team Status: Active Member Role Status Dates Provider Conversion Attending Provider Active St art: November 01, 2023 Goals (unrecognized section and content) Goals may be documented in a n alternate sectionNo InformationNo InformationNo InformationNo InformationNo InformationNo InformationNo InformationNo InformationNo InformationNo InformationNo InformationNo InformationNo InformationNo InformationNo Information No data available for this section No data available for this sectionNo InformationNo InformationGoals may be documented in an alternate section No data available for this sectionGoals may be documented in an alternate section REASON FOR VISIT (unrecogniz ed section and content) Reason Comments Follow-up coughChest Congestion, Sinuses-Testing for COVID- [id number] resultsER f/[phone] ShotRefill FOR RECORDS PERTAINING TO PATIENTS WHO [...] BE BASED ON THE PRIMARY CLINICAL RECORDS. [facility]. provides no warranty or guarantee of the accuracy or completeness of information in this document.
--- NOTE | 2024-02-18 08:11 | XR_ITS ---
The [address] [address] Patient Name: ONDINA LO MRN: [facility]:[id number] date: 1950 Sex: M Assigned Patient Location: [facility] Current Patient Location: [facility] Accession/Order Number: [id number] Exam Date: 02/18/2024 08:51 Report Date: 02/18/2024 09:20 At the request of: MARANDA STOLL Procedure: XR chest 2V EXAMINATION: XR chest 2V HISTORY: Preop exam COMPARISON: 02/01/2018 TECHNIQUE: PA and lateral FINDINGS: LUNGS: Low lung volumes. Left basilar linear opacities VASCULATURE: No increased pulmonary vasculature. PLEURA: No pneumothorax, effusion, or pleural thickening. CARDIAC: No cardiomegaly or cardiac silhouette abnormality. MEDIASTINUM: No visible mass or adenopathy. BONES: No fracture or visible bone lesion. OTHER: Negative. XR/XR chest 2V IMPRESSION: Left basilar atelectasis Electronically authenticated by: TIM BARBER Date: 02/18/2024 09:20
--- NOTE | 2024-02-18 08:39 | ECG_ITS ---
The [facility] Test Date: 2024-02-18 Pat Name: ONDINA LO Department: Room: - Gender: Male Rehabilitation Attendant: : 1950 Requested By: MARANDA STOLL Order Number: [id number] Reading MD: TERRENCE GIBSON Measurements Intervals [place] Rate: 52 P: 21 AK: 168 QRS: 9 QRSD: 104 T: 36 QT: 403 QTc: 376 Interpretive Statements SINUS BRADYCARDIA Compared to ECG 02/03/2018 16:01:01 No significant changes Electronically Signed On 02-20-2024 10:44:24 EDT by TERRENCE GIBSON
--- NOTE | 2024-02-18 08:54 | PM.PRESUREVA ---
History of Present Illness History of Present Illness Chief complaint: bladder lesion Narrative: Patient presents for preadmission testing. Please see HPI from Dr. Cantrell dated 02/01/2024. Review of Systems ROS Narrative Please see ROS from Dr. Cantrell dated 02/01/2024. PFSH PFS Medical History (Updated 02/18/24 @ 08:33 by Joanne Chan NP) Back pain ?M54.9 - Dorsalgia, unspecified (ICD-10) Sleep apnea ?G47.30 - Sleep apnea, unspecified (ICD-10) GERD (gastroesophageal reflux disease) ?K21.9 - Gastro-esophageal reflux disease without esophagitis (ICD-10) High cholesterol ?E78.00 - Pure hypercholesterolemia, unspecified (ICD-10) Hypertension ?I10 - Essential (primary) hypertension (ICD-10) Coronary artery disease ?I25.10 - Atherosclerotic heart disease of [place] coronary artery without angina pectoris (ICD-10) Diabetes ?E11.9 - Type 2 diabetes mellitus without complications (ICD-10) Lesion of bladder ?N32.9 - Bladder disorder, unspecified (ICD-10) Surgical History (Updated 02/18/24 @ 08:33 by Joanne Chan NP) History of cardiac catheterization ?Z98.890 - Other specified postprocedural states (ICD-10) History of heart artery stent ?Z95.5 - Presence of coronary angioplasty implant and graft (ICD-10) History of colonoscopy ?Z98.890 - Other specified postprocedural states (ICD-10) History of cholecystectomy ?Z90.49 - Acquired absence of other specified parts of digestive tract (ICD-10) History of appendectomy ?Z90.49 - Acquired absence of other specified parts of digestive tract (ICD-10) S/P cystoscopy ?Z98.890 - Other specified postprocedural states (ICD-10) Family History (Updated 02/18/24 @ 08:33 by Joanne Chan NP) Other Congestive heart failure Family history of diabetes mellitus Family history of hypertension Social History (Updated 02/18/24 @ 08:26 by Joanne Chan NP) Within the past year, how often did you have a drink containing alcohol: 4 or more times a week Within the past year, how many standard drinks containing alcohol did you have on a typical day: 5 or 6 Smoking status: Never smoker Non-prescribed substance use: denies use Highest level of school completed/degree received: high school graduate Meds Home Medications and Allergies Home Medications ?Medication ?Instructions ?Recorded ?Confirmed ?Type atorvastatin 80 mg tablet 80 mg PO DAILY 09/24/23 02/18/24 History clopidogrel 75 mg tablet 75 mg PO DAILY 09/24/23 02/18/24 History levothyroxine 75 mcg tablet 75 mcg PO DAILY 09/24/23 02/18/24 History lisinopril 5 mg tablet 5 mg PO DAILY 09/24/23 02/18/24 History metformin 500 mg tablet 500 mg PO DAILY 09/24/23 02/18/24 History metoprolol tartrate 25 mg tablet 12.5 mg PO Q12H 09/24/23 02/18/24 History pantoprazole 40 mg tablet,delayed 40 mg PO DAILY 09/24/23 02/18/24 History release ascorbic acid (vitamin C) 1,000 mg 1 g PO DAILY 02/18/24 02/18/24 History capsule aspirin 81 mg tablet,delayed 81 mg PO DAILY 02/18/24 02/18/24 History release (Adult Aspirin Regimen) cholecalciferol (vitamin D3) 25 25 mcg PO DAILY 02/18/24 02/18/24 History mcg (1,000 unit) capsule zinc 50 mg capsule 50 mg PO DAILY 02/18/24 02/18/24 History Allergies Allergy/AdvReac Type Severity Reaction Status Date / Time diphenhydramine AdvReac Hallucinati Verified 02/18/24 08:23 [From Lorenayeli] Exam Narrative Exam Narrative: Constitutional: Awake, alert, comfortable, appears younger than stated age, well-appearing, nontoxic, interactive, vital signs as charted Head: Normocephalic, atraumatic Neck: Supple, normal appearance, normal range of motion, no meningeal signs, no lymphadenopathy Respiratory: No respiratory distress, breath sounds clear Cardiovascular: Regular rate and rhythm, strong and regular heart tones Abdomen: Nontender, normal bowel sounds, soft, no CVA tenderness Musculoskeletal: Normal gait, no swelling or edema Skin: No rashes or induration, no lesions, only visible skin inspected Neuro: No neurological deficits, normal sensation Psychiatric: Oriented ?3, normal affect Assessment and Plan Assessment and Plan (1) Lesion of bladder: Plan Cystoscopy/TURBT scheduled with Dr. Cantrell 03/02/2024.
[2024-02-18 09:10] LABS: Basophils Percent Auto 0.5 % (0.2-2.0); Eosinophils Absolute Auto 0.1 10^3/uL (0.0-0.7); Eosinophils Percent Auto 0.9 % (0.9-7.0); Hematocrit 39.7 % (42.0-54.0); Hemoglobin 13.2 g/dL (14.0-18.0); Immature Granulocytes Abs Auto 0.05 10^3/uL (0.00-0.03); Immature Granulocytes Pct Auto 0.9 % (0.0-0.5); Lymphocytes Absolute Auto 0.8 10^3/uL (1.2-3.8); Lymphocytes Percent Auto 13.8 % (20.5-60.0); Mean Corpuscular HGB Conc 33.2 g/dL (29.9-35.2); Mean Corpuscular Hemoglobin 31.9 pg (25.9-34.0); Mean Corpuscular Volume 95.9 fL (80.0-94.0); Mean Platelet Volume 9.1 fL (9.5-13.5); Monocytes Absolute Auto 0.5 10^3/uL (0.3-0.8); Monocytes Percent Auto 9.1 % (1.7-12.0); Neutrophils Absolute Auto 4.2 10^3/uL (1.4-6.5); Neutrophils Percent Auto 74.8 % (43.0-75.0); Platelet Count 172 10^3/uL (150-450); Red Blood Count 4.14 10^6/uL (4.70-6.10); Red Cell Distribution Width 13.5 % (11.0-15.0); White Blood Count 5.6 10^3/uL (4.0-11.0)
[2024-02-18 09:17] LABS: Anion Gap 10.1; BUN Creatinine Ratio 13.3; Calcium 9.5 mg/dL (8.5-10.1); Carbon Dioxide 30.4 mmol/L (21.0-32.0); Chloride 102 mmol/L (98-107); Estimated GFR (African America >60 (>=60); Estimated GFR (Non-African Ame >60 (>=60); Glucose 222 mg/dL (74-106); Potassium 4.5 mmol/L (3.5-5.1); Sodium 138 mmol/L (136-145)
[2024-02-18 11:29] LABS: INR 0.97; Partial Thromboplastin Time 25.8 sec (22.3-36.2); Prothrombin Time 10.3 sec (9.0-11.6)
== END 2024-02-18 08:03 | disposition home or self-care (01) ==
LOC: PST 08:03
PROVIDERS: PCP Internal Medicine; Visit Provider Urology
DX: Z01.810 Encounter for preprocedural cardiovascular examination (principal); Z01.812 Encounter for preprocedural laboratory examination; Z01.818 Encounter for other preprocedural examination; N32.9 Bladder disorder, unspecified; R31.0 Gross hematuria
CPT/HCPCS: 71046; 80048; 85025; 85610; 85730; 93005; G0463

== ENCOUNTER 2024-03-02 08:46 | Day surgery (SDC) | payer OTHER, SELFPAY ==
[2024-02-18 08:48] VITALS: BP 132/84; PULSE 54; TEMP 36.3; O2SAT 96; BMI 28.0
[2024-03-02] VITALS (11 sets, daily range): BP systolic 154–185; BP diastolic 76–96; PULSE 50–63; TEMP 35.8–36.2; O2SAT 92–98; BMI 27.2
[2024-03-02 09:03] LABS: Glucometer 244 mg/dL (74-106)
[2024-03-02] MEDS: LACTATED RINGER'S SOLUTION 1,000 ML 50 ML IV ×2 (09:11→13:08)
[2024-03-02] MEDS: CEFAZOLIN SODIUM/DEXTROSE,ISO 1 GM/50 ML IV.SOLN IV (11:12)
--- NOTE | 2024-03-02 12:47 | P.URON_ITS ---
Urology Surgery Operative Note Operative Note Procedure Date: 03/02/24 Time Out Performed: yes Pre-op Diagnosis: Gross hematuria and bladder lesions Post-op Diagnosis: same as pre-op Procedures performed: 1. Cystoscopy. 2. Transurethral resection of bladder lesions approximately6 cm. Anesthesia: GETA Primary Surgeon: Pola Cantrell Complications: None Estimated blood loss (mL): 5 Findings: Sheets of papillary erythematous lesions on the left lateral wall and right lateral wall lateral to the ureteral orifices and over the mid trigone. Specimens: Bladder lesions Drains: None Indications for Procedures: This gentleman had gross hematuria. His upper tract study was negative. 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 After antibiotics and repeat cystoscopy the CF lesions subsided but the raised red lesions persisted. He now presents for cystoscopy and transurethral resection of these bladder lesions. He has signed an informed consent after risks were explained. Detailed description of Procedure: The patient was brought to the operating room and placed on the operating room table in the supine position. SCDs were placed on the lower extremities and turned on and functioning during the entire case. Timeout was done by all parties in the room. We all agreed upon the patient's identification and the planned procedures for this patient. Genn. anesthesia was then administered. The patient was then repositioned into the modified dorsal lithotomy position. All pressure points were satisfactorily padded. Genitalia were sterilely prepped and draped in usual fashion.I started by passing a 26 [place] resectoscope with a standard bipolar loop electrode per urethra and into the bladder. His anterior urethra was normal. 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 The ureteral orifices were identified and marked with the loop electrode. I then uniformly and deeply resected these raised red lesions on the lateral parham and over the mid trigone. The [place] was used to get all the tumor pieces out and these were sent for permanent sections. The resection beds were fully coagulated. Upon completion, I could see clear effluxing of urine from both ureteral orifices. All the tissue was removed from the bladder. No lesions remained. I elected not to place a catheter in the bladder. The scope was removed after the bladder was drained of its contents. The anesthetic was then reversed. He was then transferred to a [facility] bed and wheeled to PACU in stable condition.
== END 2024-03-02 14:00 | disposition home or self-care (01) ==
PROVIDERS: PCP Internal Medicine; Visit Provider Urology
PROC: (CPT 00912; principal; 2024-03-02 09:40)
DX: D30.3 Benign neoplasm of bladder (principal); N40.1 Benign prostatic hyperplasia with lower urinary tract symptoms; I10 Essential (primary) hypertension; E11.9 Type 2 diabetes mellitus without complications; Z79.01 Long term (current) use of anticoagulants; I25.10 Atherosclerotic heart disease of native coronary artery without angina pectoris; G47.30 Sleep apnea, unspecified; E78.00 Pure hypercholesterolemia, unspecified; Z95.5 Presence of coronary angioplasty implant and graft; Z90.49 Acquired absence of other specified parts of digestive tract; Z79.84 Long term (current) use of oral hypoglycemic drugs; Z79.899 Other long term (current) drug therapy; R35.1 Nocturia; N30.21 Other chronic cystitis with hematuria; N52.8 Other male erectile dysfunction
CPT/HCPCS: 00912; 52234; 36415; 82948; 88307; J1094; J2704

== ENCOUNTER 2024-04-04 07:43 | Outpatient (OUT) | payer OTHER, SELFPAY ==
--- NOTE | 2024-04-04 07:45 | US_ITS ---
[address] [address] Patient Name: ONDINA LO MRN: [facility]:[id number] date: 1950 Sex: M Assigned Patient Location: Current Patient Location: Accession/Order Number: [id number] Exam Date: 04/04/2024 07:47 Report Date: 04/05/2024 09:21 At the request of: TERRENCE GIBSON Procedure: US carotid duplex BI EXAMINATION: US carotid duplex BI HISTORY: Carotid Bruit, Stenosis Of Carotid Artery COMPARISON: CTA carotid artery bilateral 09/28/2022 TECHNIQUE: Duplex Doppler ultrasound analysis of carotid and vertebral arteries. . Bilateral carotid arterial duplex examination was performed using B-mode, color flow and spectral analysis. Carotid stenosis is reported according to validated velocity parameters, similar to NASCET criteria. FINDINGS: RIGHT CAROTID ARTERY: Mild-moderate plaque within mid common carotid artery. Subclavian: PSV: 105.11 cm/s cm/s EDV: 19.04 cm/s cm/s CCA: Prox: PSV: 85.54 cm/s cm/s EDV: 19.04 cm/s cm/s Mid: PSV: 92.06 cm/s cm/s EDV: 20.34 cm/s cm/s Distal: PSV: 93.36 cm/s cm/s EDV: 28.16 cm/s cm/s BULB: PSV: 122.04 cm/s cm/s EDV: 34.68 cm/s cm/s ICA: Prox: PSV: 90.73 cm/s cm/s EDV: 32.07 cm/s cm/s Mid: PSV: 114.20 cm/s cm/s EDV: cm/s 34.68 cm/s Distal: PSV: 86.82 cm/s cm/s EDV: 25.55 cm/s cm/s ECA: PSV: 94.64 cm/s cm/s EDV: 9.04 cm/s cm/s VERTEBRAL: PSV: 39.78 cm/s cm/s EDV: 9.10 cm/s cm/s ICA/CCA ratio: PSV: EDV: LEFT CAROTID ARTERY: Moderate plaque within mid common carotid artery (70% area reduction). Subclavian: PSV: cm/s EDV: CCA: Prox: PSV: 85.28 cm/s cm/s EDV: 17.14 cm/s Mid: PSV: 99.52 cm/s cm/s EDV: 28.12 cm/s Distal: PSV: 99.13 cm/s cm/s EDV: 22.78 cm/s BULB: PSV: 95.25 cm/s cm/s EDV: 25.36 cm/s ICA: Prox: PSV: 100.42 cm/s cm/s EDV: 31.84 cm/s Mid: PSV: 114.65 cm/s cm/s EDV: 29.25 cm/s Distal: PSV: 60.33 cm/s cm/s EDV: 19.67 cm/s ECA: PSV: 54.00 cm/s cm/s EDV: 6.89 cm/s VERTEBRAL: PSV: 50.46 cm/s cm/s EDV: 16.30 cm/s ICA/CCA ratio: PSV: EDV: US/US carotid duplex BI IMPRESSION: 1. 0-49% flow stenosis within the right left carotid arteries. 2. Atherosclerotic plaque narrowing the mid common carotid artery bilaterally: Mild on right, moderate on left. Stable to minimally progressed compared to prior study. Spectral Doppler US Thresholds Stenosis (%) PSV (cm/sec) VICA/VCCA 0-49 <150 <2.5 50-69 150-225 2.5-4.0 >70 >225 >4.0 Electronically authenticated by: SITA CANO Date: 04/05/2024 09:21
[2024-04-04 09:21] LABS: Estimated Average Glucose 183 mg/dL
== END 2024-04-04 07:44 | disposition home or self-care (01) ==
LOC: US 07:43
PROVIDERS: PCP Internal Medicine; Visit Provider Internal Medicine
DX: E11.65 Type 2 diabetes mellitus with hyperglycemia (principal); R09.89 Other specified symptoms and signs involving the circulatory and respiratory systems; I65.29 Occlusion and stenosis of unspecified carotid artery
CPT/HCPCS: 36415; 83036; 93880

== ENCOUNTER 2024-08-28 07:42 | Outpatient (OUT) | payer OTHER, SELFPAY ==
--- OUTSIDE RECORDS SUMMARY | 2024-08-28 07:58 | XMS_ITS | CCD ---
Author Organization [facility] Care Team Providers Care Tooling Supervisor Name Role Phone PHYSICIAN, DEFAULT Unavailable Unavailable PHYSICIAN, DEFAULT Unavailable Unavailable BALL, BRANDON Unavailable Unavailable PHYSICIAN, DEFAULT Unavailable Unavailable PHYSICIAN, DEFAULT Unavailable Unavailable BALL, BRANDON Unavailable Unavailable Ball, DO Brandon Primary Care Provider [phone] MD Tim Hardwick Attending Provider Tim Hardwick Unavailable ELISABETH, DR TIM Dunn Consulting Unavailable SHERWINFABIOLA Attending Unavailable SHERWIN, FABIOLA Admitting Unavailable BALL, [...] Attending Unavailable OMER ESTRELLA Primary Care Physician Unavailable Primary Care Provider MD Pola Plata Attending Provider [phone] Pola Cantrell Attending Unavailable Cantrell, Pola Admitting Unavailable CANTRELL, Pola R Attending Unavailable CANTRELL, Pola R Admitting Unavailable CANTRELL, Pola R Attending Unavailable BALL, BRANDON Referring Unavailable CANTRELL, Pola R Attending Unavailable CANTRELL, Pola R Attending Unavailable CANTRELL, Pola R Attending Unavailable CANTRELL, Pola R Attending Unavailable CANTRELL, Pola R Attending Unavailable CANTRELL, Pola R Attending Unavailable CANTRELL, Pola R Admitting Unavailable CANTRELL, Pola R Attending Unavailable PETITTI, TRISH A Attending Unavailable PETITTI, TRISH A Attending Unavailable PETITTI, TRISH A Attending Unavailable CANTRELL, Pola R Attending Unavailable CANTRELL, Pola R Attending Unavailable CANTRELL, Pola R Attending Unavailable CANTRELL, Pola R Attending Unavailable Allergies Allergy Classification Reported Allergen(s) Allergy Type Date of Onset Reaction(s) Facility diphenhydrAMINE (1 source) diphenhydrAMINE Drug Allergy Hallucinating [facility] (1 source) Contrast media Drug allergy (disorder) [facility] Repository (16 sources) diphenhydrAMINE; Translations: [Diphenhydramine] Drug Allergy Hallucinations (finding), Unknown [facility] Comment on above: Pt states that it is only IV Benadryl (9 sources) Contrast media Propensity to adverse reactions Unknown [facility] Other (15 sources) Dyes Propensity to adverse reactions Comment:Contrast Dye [facility] (8 sources) Allergies Reconciled Propensity to adverse reactions Unknown [facility] Other (8 sources) patient allergy list reviewed by nurse or physicia Propensity to adverse reactions Comment:Done [facility] Other (1 source) diphenhydrAMINE; Translations: [DIPHENHYDRAMINE HCL] Drug Allergy [facility] Repository (8 sources) Iodinated Contrast Media Drug Allergy 023 Unknown [facility] (2 sources) diphenhydrAMINE; Translations: [Benadryl] Drug Allergy [facility] Repository Medications Current Medications Medication Drug Class(es) Dates Sig (Normalized) Sig (Original) Ascorbic Acid (20 sources) Vitamin C Start: 10-26-2023 Vitamin C Zeenat y Start Date: 10/26/23 Status: Ordered Vitamin C Active Aspir-81 81 MG (17 sources) take 1 tablet by mouth once daily Aspir-81 81 MG 1 tablet Orally Once a day Active aspirin 81 mg delayed release oral tablet (15 sources) Platelet Aggregation Inhibitor, Nonsteroidal Anti-inflammatory Drug Start: 09-09-2020 take 1 mg by mouth once daily aspirin 81 mg Oral EC Tab mg tab(s), Oral, Daily, Refills(s) 0 Start Date: 09/09/20 Status: Ordered Start: 09-22-2019 take 81 mg by mouth once daily Aspirin Active 81 MG PO Daily September 22, 2019 1:00am atorvastatin 80 mg oral tablet (20 sources) HMG-CoA Reductase Inhibitor Start: 06-20-2024 take 1 tablet by mouth once daily in the evening Atorvastatin Active 0 .ROUTE .COMPLEX 90 June 20, 2024 1:05pm TAKE 1 TABLET BY MOUTH EVERY DAY IN THE EVENING Start: 09-22-2019 End: 06-20-2024 take 80 mg by mouth once daily Atorvastatin Discontinu ed 80 MG PO Daily September 22, 2019 1:00am June 20, 2024 1:05pm atorvastatin (Li pitor) 10 MG tablet azithromycin 250 mg oral tablet (7 sources) Macrolide Antimicrobial Start: 07-28-2024 Azithromycin Active 250 MG PO As Directed 03 22July 28, 2024 12:00am Start: 01-26-2024 End: 05-12-2024 Azithromycin Discontinued 25 0 MG PO As Directed 03 22January 26, 2024 12:00am May 12, 2024 4:08pm baclofen 10 mg oral tablet (2 sources) gamma-Aminobutyric Acid-ergic Agonist baclofen (Lioresal) 10 MG tablet baclofen 10 mg tablet 0 Active cefuroxime 250 mg oral tablet (11 sources) Cephalosporin Antibacterial Start : 04-07 take 1 tablet by mouth twice daily [...] mg oral tablet (4 sources) Quinolone Antimicrobial Start : 10-26 ciprofloxacin (Cipro) 500 MG tablet TAKE ONE TAB DAY BEFORE PROCEDURE AND ONE TAB AFTER PROCEDURE 0 10/26/2023 Active clopidogrel 75 mg oral tablet (20 sources) P2Y12 Platelet Inhibitor Start : 09-22 take 75 mg by mouth once daily Clopidogrel Active 75 MG PO Daily September 22, 2019 1:00am doxycycline hyclate 100 mg oral capsule (1 source) Tetracycline-class Drug Start : 11-19 take 1 capsule by mouth twice daily Doxycycline Hyclate 100 MG 1 capsule Orally twice daily for 7 days Nov, Active ezetimibe 10 mg oral tablet (2 sources) Dietary Cholesterol Absorption Inhibitor ezetimibe (Zetia) 1 0 MG tablet ezetimibe 10 mg tablet 0 Active 24 hr hydroCHLOROthiazide 12.5 mg / metoprolol succinate 25 mg extended release oral tablet (8 sources) Thiazide Diuretic, beta-Adrenergic Lashanda Start : 09-09 take 1 tablet by mouth once daily hydrochlorothiazide- metoprolol 12.5 mg-25 mg oral tablet, extended release tab(s), Oral, Daily, Refill(s) 0 Start Date: 09/09/20 Status: Ordered levoFLOXacin 500 mg oral tablet (2 sources) Quinolone Antimicrobial levoFLOX acin (Levaquin) 500 MG tablet levofloxacin 500 mg tablet 0 Active levothyroxine (20 sources) l-Thyroxine Start : 09-09 take 1 tablet by mouth once daily [...] the morning Orally Once a day Active linagliptin 5 mg oral tablet (2 sources) Dipeptidyl Peptidase 4 Inhibitor Start: 04-04-2024 take 1 tablet by mouth once daily Linagliptin (Tradjenta) 5 mg tablet Active 5 MG PO Daily April 04, 2024 12:00am lisinopril 5 mg oral tablet (20 sources) Angiotensin Converting Enzyme Inhibitor Start: 02-16-2023 take 5 mg by mouth once daily Lisinopril Active 5 MG PO Daily May 12, 2024 12:00am lisinopril 2.5 M G tablet lisinopril 2.5 mg tablet 0 Active Lisinopril Activ e meloxicam 15 mg oral tablet (2 sources) Nonsteroidal Anti-inflammatory Drug meloxicam (Mobic) 15 MG tablet meloxicam 15 mg tablet 0 Active metFORMIN hydrochloride 500 mg oral tablet (20 sources) Biguanide Start: 01-31-20 take 1 tablet by mouth once daily at mealtime Metformin Active 0 .ROUTE .COMPLEX 90 Zoe 15th, 2024 6:13pm TAKE 1 TABLET BY MOUTH [...] a day for 5 days Oct, Active tamsulosin hydrochloride 0.4 mg oral capsule (2 sources) alpha-Adrenergi c Lashanda Start: 03-23-2024 take 1 capsule by mouth once daily tamsulosin 0.4 mg Cap 0.4 mg = 1 cap(s), Oral, Daily, # 90 cap(s), Refills(s) 3, Pharmacy: [facility]/pharmacy #[id number], 171, cm, 07/25/24 11:05:00 EDT, Height/Length Dosing, 79, kg, 07/25/24 11:05:00 EDT, Weight Dosing Start Date: 07/25/24 Status: Ordered traMADol hydrochloride 50 mg oral tablet (2 sources) Opioid Agonist traMADol (Ultram ) 50 MG tablet tramadol 50 mg tablet [...] disease (20 sources) Atherosclerotic heart disease of [place] coronary artery without angina pectoris; Translations: [Coronary arteriosclerosis] Onset: 6 Chronic Deficiency and other anemia (4 sources) Anemia, unspecified; Translations: [ANEMIA UNSPECIFIED] Onset: 2 Episodic Deficiency and other anemia (9 sources) Anemia; Translations: [Anemia, unspecified] Episodic Diabetes mellitus with complications (20 sources) Type 2 diabetes mellitus with hyperglycemia; Translations: [Type 2 diabetes mellitus] Onset: 2 Chronic Diabetes mellitus without complication (8 sources) Type 2 diabetes mellitus 09-09-2020 Chronic [...] Translations: [Essential (primary) hypertension] Chronic Gastrointestinal hemorrhage (16 sources) Rectal hemorrhage; Translations: [Hemorrhage of anus and rectum] 09-22-2019 Episodic Genitourinary symptoms and ill-defined conditions (6 sources) Urge incontinence; Translations: [Urge incontinence of urine] Onset: 4 Chronic Genitourinary symptoms and ill-defined conditions (17 sources) Nocturia; Translations: [Gross hematuria] Onset: 4 [...] Chronic Occlusion or stenosis of precerebral arteries (18 sources) Occlusion and stenosis of bilateral carotid arteries; Translations: [Left carotid artery occlusion] Onset: 2 Chronic Osteoarthritis (13 sources) Osteoarthritis of joint of right shoulder region; Translations: [Primary osteoarthritis, right shoulder] Chronic Other aftercare (2 sources) Other chcf (current) drug therapy; Translations: [OTH INTERMEDIATE CURRENT DRUG THERAPY] Onset: 2 Episodic Other aftercare (9 sources) Long-term current use of drug therapy; Translations: [Other chcf (current) drug therapy] Episodic Other aftercare (2 sources) Long-term current use of anticoagulant; Translations: [terminal superintendent (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] Onset: 4 Episodic Other diseases of bladder and urethra (3 sources) Disorder of bladder; Translations: [Bladder disorder, unspecified] Onset: 4 Chronic Other diseases of bladder and urethra (6 sources) Lesion of bladder 11-23-2023 Chronic Other injuries and conditions due to external causes (9 sources) History of fall; Translations: [History of falling] Episodic Other male genital disorders (18 sources) Impotence of organic origin; Translations: [Erectile dysfunction due to arterial insufficiency] Onset: 5 Chronic Other male genital disorders (11 sources) Male erectile dysfunction, unspecified; Translations: [Erectile dysfunction] Onset: 4 Chronic Other non-epithelial cancer of skin (10 sources) Malignant neoplasm of skin; Translations: [Basal cell carcinoma of upper extremity] 09-09-2020 Episodic Other nutritional; endocrine; and metabolic disorders (1 source) Overweight in adulthood with body mass index of 25 or more but less than 30; Translations: [Body mass index (BMI) 27.0-27.9, adult] 02-03-2024 Episodic Other nutritional; endocrine; and metabolic disorders (1 source) Body mass index (BMI) 27.0-27.9, adult; Translations: [Body Mass Index 27.0-27.9, adult] 02-03-2024 Episodic Other screening for suspected conditions (not mental disorders or infectious disease) (5 sources) Encounter for screening for malignant neoplasm [...] syndrome; Translations: [Obstructive sleep apnea (adult) (pediatric)] 02-03-2024 Chronic Residual codes; unclassified (7 sources) Obstructive sleep apnea (adult) (pediatric); Translations: [Obstructive sleep apnea (adult)(pediatric)] Onset: 2 Resolved: 2 Chronic Spondylosis; intervertebral disc disorders; other back problems (13 sources) Cervical spondylosis; Translations: [Spondylosis without myelopathy or radiculopathy, cervical region] Chronic Systemic lupus erythematosus and connective tissue disorders (9 sources) Autoimmune disease; Translations: [Autoimmune disease, not elsewhere classified] Onset: 9 Chronic Thyroid disorders (20 sources) Acquired hypothyroidism; Translations: [Hypothyroidism, unspecified] Onset: 5 Chronic Unclassified (8 sources) Drug therapy finding 10-26-2023 Unclassified (8 sources) Patient encounter status 10-26-2023 Urinary tract infections (8 sources) Chronic cystitis; Translations: [Other chronic cystitis [...] Test Name Value Interpretation Reference Range Facility Ambulatory Visit Summaryon 1 Ambulatory Visit Summary Ambulatory Visit Summary ONDINA LO :1950 Visit Date:07/25/2024 Ambulatory Visit Instructions Your Diagnosis Lesion of bladder BPH without urinary obstruction Screening PSA (prostate specific antigen) Chronic cystitis ED (erectile dysfunction) Your Care Team Attending Physician - Pola CANTRELL MD Primary Care Physician - SAMEER DAWKINS, OMER This Is Your Medications List tamsulosin (tamsulosin 0.4 mg Cap) Contact prescribing physician if questions or concerns [...] DR Tab) zinc sulfate (Zinc) Procedures Performed TURBT - Transurethral resection of bladder tumor (03/02/2024), Cystoscopy (02/01/2024), Cystoscopy (11/23/2023), Appendectomy, Cholecystectomy, Colonoscopy, Placement of stent in cardiac conduit. Discharge Vitals Heart Rate (Peripheral) 65 Blood Pressure 161/70 Height 171 cm Height 67 in Weight 79.0 kg Weight 173.8 lb BMI 27.02 What to do next Scheduled Follow-Up Appointments Wednesday 8:15 AM EDT With: Pola CANTRELL MD Where: [facility] [address] [place] [address]- You Need to Schedule the Following Appointments Follow Up with Pola CANTRELL MD, URL When: Where: [facility] [address] [place] [address]- [phone] Medications What How Much When Instructions Unchanged tamsulosin (tamsulosin 0.4 mg Cap) 1 Capsules By Mouth Every day Unchanged ascorbic acid (Vitamin C) Every day [...] Contact prescribing physician if questions or concerns Allergies Benadryl (Hallucinations) Problems Ongoing - Any problem that you are currently receiving treatment for. Anticoagulated BPH associated with nocturia BPH without urinary obstruction CAD (coronary artery disease) Chronic cystitis ED (erectile dysfunction) Gross hematuria High cholesterol Lesion of bladder Screening PSA (prostate specific antigen) Skin cancer Type 2 diabetes mellitus Urge incontinence Patient Survey You may receive a survey via text or e-mail asking about your office visit. Please share your experience with us by completing your survey. We appreciate your feedback and thank you for choosing us for your care. Education Materials Benign Prostatic Hyperplasia Benign prostatic hyperplasia (BPH) is an enlarged prostate gland that is caused by the normal aging process. The prostate may get bigger as a man gets older. The condition is not caused by cancer. The prostate is a walnut-sized gland that is involved in the production of semen. It is located in front of the rectum and below the bladder. The bladder stores urine. The urethra carries stored urine out of the body. An enlarged prostate can press on the urethra. This can make it harder to pass urine. The buildup of urine in the bladder can cause infection. Back pressure and infection may progress to bladder damage and kidney (renal) failure. What are the causes? This condition is part of the normal aging process. However, not all men develop problems from this condition. If the prostate enlarges away from the urethra, urine flow will not be blocked. If it enlarges toward the urethra and compresses (more content not included)... Normal [facility] Urology Office/Clinic Noteon 07-25-2024 Urology Office/Clinic Note Urology Office/Clinic Note Chief Complaint 6 month f/u HPI Staff 6 mos with PVR. S/p TURBT 03/02/24, path was sent to [facility] for second opinion 03/20/24. *Flomax 0.4 mg qd. PVR 07/25/24 - 20mL Dysuria: no Incomplete bladder emptying: no Hematuria: no Frequency: every 3-4hrs Urgency: no Nocturia: sometimes 1x per night, other times not at all Stream: moderate to strong stream Leaking: no Post void dripping: no Wearing pads/ Depends: no Urge incontinence: no Stress incontinence: no Incontinence without Sensory Awareness: no Abdominal pain: no Flank pain: no Sexual complaints: no History of Present Illness Tests reviewed: reviewed UA, PVR, second opinion path I have reviewed the previous health record information and history for this patient from external providers and Dr. Cantrell. I have reviewed and verified [...] HPI. Physical Exam Vitals & Measurements HR: 65(Peripheral) BP: 161/70 HT: 67 in HT: 171 cm WT: 79.0 kg WT: 173.8 lb BMI: 27.02 General Appearance: alert, no distress, well nourished, well developed male. Assessment/Plan 1. 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 No evidence of malignancy, CIS, or high grade urothelial atypia. Small portion of muscularis propria muscle are also noted in at least 2 fragments, also wo tumor involvement. -Second opinion path from [facility]: 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, non-intestinal type. Reviewed second opinion path with pt which reveals is no evidence of malignancy. No further evaluation of the tissue removed is planned. All questions were answered and the report discussed in terms that the patient could understand. 2. BPH without urinary obstruction (N40.0: Benign prostatic hyperplasia without lower urinary tract symptoms) S/p Cysto 11/23/23 - Trilobar obstruction and mildly friable prostate. IPSS 1. PVR today 20 mL. Taking Tamsulosin 0.4mg qd. Denies SEs. No bother with urination. -Cont Tamsulosin daily. Refills sent to [facility]. -F/u in 1 year 3. Screening PSA (prostate specific antigen) (Z12.5: Encounter for screening for malignant neoplasm of prostate) PSA 03/07/20 - 1.13 08/23/21 - 1.15 02/04/22 - 1.08 10/07/23 - 1.26 No fam hx of prostate ca. Discussed stopping the PSA checks due to the PSA stability and his advancing age. He is aware that his chances of developing and having problems from prostate cancer at this point are quite low. He agrees to stop the PSA checks. 4. Chronic cystitis (N30.20: Other chronic cystitis without hematuria) Found per cysto 11/23/23. Was given doxycycline 100mg bid x30 days at that time. [1] UA today negative for blood and infection. 5. ED (erectile dysfunction) (N52.9: Male erectile dysfunction, unspecified) Sildenafil 100mg prn. [2] Follow-up With When Contact Information DODIE DAWKINS, Pola Rothman, URL [facility] [address], [place] [phone] Additional Instructions: 1 yr (no labs) Patient Education Benign Prostatic Hyperplasia I, Simran Arroyo, personally scribed for Dr. Cantrell on 07/25/2024 11:40:35. . Documentation recorded by the sedrickibSimran west, accurately reflects the services(s) I performed and decisions made by me. Authenticated by Dr. Cantrell on 07/25/2024 11:48:38. Problem List/Past Medical History Ongoing Anticoagulated BPH associated with nocturia BPH without urinary obstruction CAD (coronary artery disease) Chronic cystitis ED (erectile dysfunction) Gross hematuria High cholesterol Lesion of bladder Screening PSA (prostate specific antigen) Skin cancer Type 2 diabetes mellitus Urge incontinence Historical No qualifying data Procedure/Surgical History TURBT - Transurethral resection of bladder tumor (03/02/2024), Cystoscopy (02/01/2024), Cystoscopy (11/23/2023), Appendectomy, Cholecystectomy, Colonoscopy, Placement of stent in cardiac conduit. Medications aspirin 81 mg Oral EC Tab, Oral, Daily clopidogrel 75 mg Tab, Oral, Daily hydrochlorothiazide-dc toprolol 12.5 mg-25 mg oral tablet, extended r (more content not included)... Normal [facility] Comment on above: Result Comment: Elec tronically Signed By: Pola CANTRELL MD\.br\Date and Time Signed: 07/25/24 11:48 EDT\.br\Electronically Co-Signed By: Simran Arroyo\.br\Date and Time Co-Signed: 07/25/24 11:41 EDT Glucose mean value [Mass/vol ume] in Blood Estimated from glycated hemoglobinon 04-04-2024 Average glucose Estimated from glycated hemoglobin (Bld) [Mass/Vol] 183 mg/dL [facility] - Hematology and Cell countson 04-04-2024 HbA1c (Bld) [Mass fraction] 8.0 % High 4.5-6.2 [facility] Comment on above: ADA RECOMMENDED LIMI T 4.0 - 6.0ADA THERAPEUTIC TARGET < 7.0ACTION SUGGESTED> 7.0 Pathology Noteon 03-24-2024 Pathology Note [id number]#1.00 TIFF Normal [facility] Pathology Note [id number]#1.0 0TIFF [facility] Pathology Noteon 03-23-2024 Pathology Note [id number]#1.00 TIFF Normal [facility] C Urineon 03-22-2024 Bacteria identified Cx Nom (U) Microbiology PROCEDURE: Urine Culture [R1] SOURCE: U CleanCatch BODY SITE: COLLECTED DATE/TIME: 03/20/2024 14:40 EDT RECEIVED DATE/TIME: 03/20/2024 18:59 EDT START DATE/TIME: 03/20/2024 18:59 EDT FREE TEXT SOURCE: DODIE DAWKINS, Pola CANTRELL MD, Pola Rothman FINAL REPORTS Final Report [] Verified Date/Time: 03/22/2024 11:09 EDT No growth at 2 days. Performing Locations R1: This test was performed at: [facility], [address] [place] [address], [address] [place] [address], [facility] Comment on above: Performed By: #### [id number] #### [facility] [address] [place] [address] Pathology Noteon 03-22-2024 Pathology Note [id number]#1.0 0TIFF [facility] Pathology Noteon 03-19-2024 Pathology Note [id number]#1.00 TIFF Normal [facility] Pathology Noteon 03-15-2024 Pathology Note [id number]#1.00 TIFF [facility] Formson 03-10-2024 Forms [id number]#1.0 0TIFF [facility] Ambulatory Visit Summaryon 0 2024 Ambulatory Visit Summary PAYTONDELORESONDINA :1950 Visit Date:2024 Ambulatory Visit Instructions Your Diagnosis Lesion of bladder Gross hematuria Urge incontinence Your Care Team Attending Physician - Pola CANTRELL MD Primary Care Physician - OMER ESTRELLA MD This Is Your Medications List Contact prescribing [...] DR Tab) zinc sulfate (Zinc) Procedures Performed TURBT - Transurethral resection of bladder tumor (03/02/2024), Cystoscopy (02/01/2024), Cystoscopy (11/23/2023), Appendectomy, Cholecystectomy, Colonoscopy, Placement of stent in cardiac conduit. Discharge Vitals Temperature (Temporal Artery) 37 ?C Heart Rate (Peripheral) 59 Respiratory Rate 17 Blood Pressure 125/75 Height 171 cm Height 67 in Weight 78 kg Weight 171.6 lb BMI 26.67 What to do next You Need to Schedule the Following Appointments Follow Up with DODIE DAWKINS, Pola Rothman, KRISTIN When: Where: [facility] [address], [place] [address]- Medications What How Much When Instructions Unchanged [...] Contact prescribing physician if questions or concerns Allergies Benadryl (Hallucinations) Problems Ongoing - Any problem that you are currently receiving treatment for. Anticoagulated BPH associated with nocturia BPH without urinary obstruction CAD (coronary artery disease) Chronic cystitis ED (erectile dysfunction) Gross hematuria High cholesterol Lesion of bladder Screening PSA (prostate specific antigen) Skin cancer Type 2 diabetes mellitus Urge incontinence Patient Survey You may receive a survey via text or e-mail asking about your office visit. Please share your experience with us by completing your survey. We appreciate your feedback and thank you for choosing us for your care. Education Materials Hematuria, Adult Hematuria is blood in the urine. Blood may be visible in the urine, or it may be identified with a test. This condition can be caused by infections of the bladder, urethra, kidney, or prostate. Other possible causes include: ? Kidney stones. ? Cancer of the urinary tract. ? Too much calcium in the urine. ? Conditions that are passed from parent to child (inherited conditions). ? Exercise that requires a lot of energy. [...] blood in your urine, even if it is painless or the blood stops without treatment. Blood in the urine, when it happens and then stops and then happens again, can be a symptom of a very serious condition, including cancer. There is no pain in the initial stages of many urinary cancers. Follow these instructions at home: Medicines ? Take [id number] and prescription medicines only as told by your health care provider. ? If you were prescribed an antibiotic medicine, take it as told by your health care provider. Do not stop taking the antibiotic even if you start to feel better. Eating and drinking ? Drink enough fluid to keep your urine pale yello (more content not included)... Normal [facility] Pathology Noteon 2024 Pathology Note [id number]#1.00 TIFF Normal [facility] Patient Educationon 03-08-20 24 Patient Education Urology Hematuria, Adult Hematuria is blood in the urine. Blood may be visible in the urine, or it may be identified with a test. This condition can be caused by infections of the bladder, urethra, kidney, or prostate. Other possible causes include: ? Kidney stones. ? Cancer of the urinary tract. ? Too much calcium in the urine. ? Conditions that are passed from parent to child (inherited conditions). ? Exercise that requires a lot of energy. [...] blood in your urine, even if it is painless or the blood stops without treatment. Blood in the urine, when it happens and then stops and then happens again, can be a symptom of a very serious condition, including cancer. There is no pain in the initial stages of many urinary cancers. Follow these instructions at home: Medicines ? Take jguo-vkn-klhklmm and prescription medicines only as told by your health care provider. ? If you were prescribed an antibiotic medicine, take it as told by your health care provider. Do not stop taking the antibiotic even if you start to feel better. Eating and drinking ? Drink enough fluid to keep your urine pale yellow. It is recommended that you drink 3?4 quarts (2.8?3.8 L) a day. If you have been diagnosed with an infection, drinking cranberry juice in addition to large amounts of water is recommended. ? Avoid caffeine, tea, and carbonated beverages. These tend to irritate the bladder. ? Avoid alcohol because it may irritate the prostate (in males). General instructions ? If you have been diagnosed with a kidney stone, follow your health care provider's instructions about straining your urine to catch the stone. ? Empty your bladder often. Avoid holding urine for long periods of time. ? If you are female: ? After a bowel movement, wipe from front to back and use each piece of toilet paper only once. ? Empty your bladder before and after sex. ? Pay attention to any changes in your symptoms. Tell your health care provider about any changes or any new symptoms. ? It is up to you to get the results of any tests. Ask your health care provider, or the department that is doing the test, when your results will be ready. ? Keep all follow-up visits. This is important. Contact a health care provider if: ? You develop back pain. ? You have a fever or chills. ? You have nausea or vomiting. ? Your symptoms do not improve after 3 days. ? Your symptoms get worse. Get help right away if: ? You develop severe vomiting and are unable to take medicine without vomiting. ? You develop severe pain in your back or abdomen even though you are taking medicine. ? You pass a large amount of blood in your urine. ? You pass blood clots in your urine. ? You feel very weak or like you might faint. ? You faint. Summary ? Hematuria is blood in the urine. It has many possible causes. ? It is very important that you tell your health care provider about any blood in your urine, even if it is painless or the blood stops without treatment. ? Take ewer-hpn-quvvzih and prescription medicines only as told by your health care provider. ? Drink enough fluid to keep your urine pale yellow. This information is not intended to replace advice given to you by your health care provider. Make sure you discuss any questions you have with your health care provider. Document Revised: 06/04/2021 Document Reviewed: 06/04/2021 [employer] Patient Education ? 2022 [employer] [facility] Urology Office/Clinic Noteon 2024 Urology Office/Clinic Note Chief Complaint Follow up to TURBT done 03/02/24, review pathology report HPI Staff Follow up TURBT 03/02/24, review pathology report Previous DX: BPH w/o urinary obstruction, chronic cystitis, ED, gross hematuria, lesion on bladder, screening PSA S/P Cysto 02/01/24-2 cm patches of raised fleshy lesions with CF lesions on left and right bladder wall. PSA 03/07/20 - 1.13 08/23/21 - 1.15 02/04/22 - 1.08 10/07/23 - 1.26 Dysuria: a little bit of pain Incomplete bladder emptying: unsure Hematuria: very little yesterday Frequency: 5x a day Urgency: severe Nocturia: once a night. 3x last night Stream: sometimes hesitancy Leaking: denies Post void dripping: denies Wearing pads/ Depends: denies Urge incontinence: a couple of times Stress incontinence: denies Incontinence without Sensory Awareness: denies Abdominal pain: denies Flank pain: denies Sexual complaints: _ History of Present Illness Tests reviewed: reviewed UA, op note, path I have reviewed the previous health record information and history for this patient from Dr. Cantrell. I have reviewed and verified the staff HPI to be accurate for this encounter. There have been no associated fever, chills, flank pain, or blood in the urine. Denies any urinary infections since last encounter. Review of Systems PHQ Score Initial [...] See HPI. Physical Exam Vitals & Measurements T: 37 ?C(Temporal Artery) HR: 59(Peripheral) RR: 17 BP: 125/75 HT: 67 in HT: 171 cm WT: 78 kg WT: 171.6 lb BMI: 26.67 General Appearance: alert, no distress, well nourished, well developed male. Genitourinary: normal scrotum, normal testes, normal urethra, normal epididymis, normal vas deferens/spermatic cord. Flank Pain: none. Bladder: nonpalpable. Assessment/Plan Pt accompanied by an adult female today. 1. 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 No evidence of malignancy, CIS, or high grade urothelial atypia. Small portion of muscularis propria muscle are also noted in at least 2 fragments, also wo tumor involvement. Reviewed indeterminate pathology with pt. Discussed sending tissue for second opinion to [facility] for a clear dx. Follow up pending second opinion below or sooner if needed. Pt understands and agrees with plan. -Send slides for second opinion to [facility]. Will call pt in 2-3 wks with results. 2. Gross hematuria (R31.0: Gross hematuria) UA shows large blood, neg for infection. Expected after procedure. It is also expected to see some mild blood. Will cont to monitor for resolution with time and healing. Small amount of visible hematuria when providing UA sample. -Dramatically increase fluid intake. -Avoid strenuous activity for a couple weeks. 3. Urge incontinence (N39.41: Urge incontinence) Has been experiencing urgency and a couple incontinence episodes. Educated this will cont to improve with time and healing. Offered to start bladder control med to help with these sx. Nocturia also worsened, previously 1x/night, now can be a few times per night. Pt defers starting med at this time. Follow-up With When Contact Information DODIE DAWKINS, Pola Rothman, URL [facility] [address], [place] [address]- Additional Instructions: pending second opinion on path Patient Education Hematuria, Adult I, Amanda Regan, personally scribed for Dr. Cantrell on 2024 12:33:47. . Documentation recorded by the scribe, Amanda Regan, accurately reflects the services(s) I performed and decisions made by me. Authenticated by Dr. Cantrell on 2024 12:41:20. Problem List/Past Medical History Ongoing Anticoagulated BPH associated with nocturia BPH without urinary obstruction CAD (coronary artery disease) Chronic cystitis ED (erectile dysfunction) Gross hematuria High cholesterol Lesion of bladder Screening PSA (prostate specific antigen) Skin cancer Type 2 diabetes mellitus Urge incontinence Historical No qualifying data Procedure/Surgical History TURBT - Transurethral resection of bladder tumor (03/02/2024), Cystoscopy (02/01/2024), Cystoscopy (11/23/2023), Appendectomy, Cholecystectomy, Colonoscopy, Placement of stent in cardiac conduit. Medications (more content not included)... Normal [facility] Comment on above: Result Comment: Elec tronically Signed By: Pola CANTRELL MD\.br\Date and Time Signed: 03/08/24 12:41 EDT\.br\Electronically Co-Signed By: Amanda Regan\.br\Date and Time Co-Signed: 03/08/24 12:35 EDT Pathology Noteon 03-07-2024 Pathology Note [id number]#1.00 TIFF Normal [facility] Operative Reporton Operative Report [id number]#1.0 0TIFF Normal [facility] Yonathan 03-02-2024 L Specimen: [id number] Received: 03/03/24 Status: SOUMari Req Num: [id number] Spec Type: Surgical Subm Dr: Pola Cantrell MD Tissues: A Urinary Bladder - TUR (BLADDER LESIONS) Procedures: HE/3, Gross/Micro L5 Age/ Patient Sex Location Account Attending Physician PaytondeloresOndina Ehsan 73/M LABELL [id number] Pola Cantrell MD SPEC NUM: [id number] RECD: 03/03/24 STATUS: WILMER REQ NUM: [id number] FRANCESCA: 03/02/[address]: Pola Cantrell MD ENTERED: 03/03/24 [facility] DR: Sukhwinder [place] SPEC TYPE: Surgical DEPT: ALEX[facility] AR[facility]AGA ORDERED: HE/3, Gross/Micro L5 ORDERED: HE/3, Gross/Micro L5 Supplemental Report Addendum 1 Entered: 03/23/24-482 Supplemental for findings of consultation report from [facility]: -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, intestinal type Addendum Signed (signature on file) Maddy Alan MD 03/23/24 7290 ---- Pathological Diagnosis The lesions, TURBT: -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 also noted in most fragments -No evidence of malignancy, CIS, or high-grade urothelial atypia -Small portion of muscularis propria muscle are also noted in at least 2 fragments, also without tumor involvement ---- Specimen: [id number] Received: 03/03/24 Status: WILMER [place]wood Num: [id number] Spec Type: Surgical Subm Dr: Pola Cantrell MD Tissues: A Urinary Bladder - TUR (BLADDER LESIONS) Procedures: HE/3, Gross/Micro L5 ---- Patient: PaytondeloresOndina [id number] (Continued) ---- Specimen: [id number] Received: 03/03/24 (Continued) Signed (signature on file) Maddy Alan MD 03/06/24 1940 ---- Specimen: [id number] Received: 03/03/24 Status: WILMER Boo Num: [id number] Spec Type: Surgical Subm Dr: Pola Cantrell MD Tissues: A Urinary Bladder - TUR (BLADDER LESIONS) Procedures: HE/3, Gross/Micro L5 ---- Patient: Ondina Lo [id number] (Continued) ---- Specimen: [id number] Received: 03/03/24 (Continued) Clinical Information Bladder lesions, blood and urine. Gross Description Received in formalin, labeled with the patient's name, date of and bladder lesions are multiple rubbery and cauterized orr tissue fragments measuring in aggregate 1.8 x 0.7 x 0.3 cm, entirely submitted in A1. CPT Codes 21642 ---- ---- Specimen: [id number] Received: 03/03/24-1231 Status: WILMER Boo Num: [id number] Spec Type: Surgical Subm Dr: Pola Cantrell MD Tissues: A Urinary Bladder - TUR (BLADDER LESIONS) Procedures: /3, Gross/Micro L5 ---- Patient: Ondina Lo [id number] (Continued) ---- Signed (signature on file) Maddy Alan MD 03/06/24 1939 Normal [facility] RAD - MISCon 02-22-2024 RAD - MISC [id number]#1.0 0TIFF Normal [facility] ECG 12-Leadon 02-21-2024 ECG 12-Lead [id number]#1.0 0TIFF Normal [facility] Lab Reportson 02-21-2024 Lab Reports [id number]#1.0 0TIFF Normal [facility] Lab Reports [id number]#1.0 0TIFF Normal [facility] RAD - MISCon 02-21-2024 RAD - MISC [id number]#1.0 0TIFF Normal [facility] Activated partial thrombopla stin time (aPTT) in platelet poor plasma by coagulation aon 02-18-2024 aPTT Coag (PPP) [Time] 25.8 s 22.3-36.2 [facility] Basophils Auto (Bld) [#/Vol] on 02-18-2024 Basophils (Bld) [#/Vol] 0.0 10 3/uL 0.0-0.1 [facility] Basophils/100 WBC Auto (Bld) on 02-18-2024 Basophils/100 WBC (Bld) 0.5 % 0.2-2.0 [facility] Eosinophils/100 WBC Auto (Bl d)on 02-18-2024 Eosinophils/100 WBC (Bld) 0.9 % 0.9-7.0 [facility] Erythrocyte distribution wid th Auto (RBC) [Ratio]on 02-18-2024 Erythrocyte distribution width (RBC) [Ratio] 13.5 % 11.0-15.0 [facility] Estimated glomerular filtrat ion rate (GFR) non- Americanon 02-18-2024 GFR/1.73 sq M.predicted among non-blacks MDRD (S/P/Bld) [Vol rate/Area] mL/min/{1.73_m2} >=60 [facility] Hematocrit Auto (Bld) [Volum e fraction]on 02-18-2024 Hematocrit (Bld) [Volume fraction] 39.7 % Low 42.0-54.0 [facility] Hemoglobin [Mass/volume] in Bloodon 02-18-2024 Hemoglobin (Bld) [Mass/Vol] 13.2 g/dL Low 14.0-18.0 [facility] INR in Platelet poor plasma by Coagulation assayon 02-18-2024 INR Coag (PPP) [Relative time] 0.97 {INR} [facility] Comment on above: DESIRED INR:2.0-3.0 CONDITIONS NOT LISTED BELOW2.5-3.5 FOR PROSTHETIC HEART VALVE REPLACEMENT2.5-3.5 RECURRENT THROMBOSIS Laboratory - Chemistry and C hemistry - challengeon 02-18-2024 Calcium [Mass/Vol] 9.5 mg/dL 8.5-10.1 [facility] Chloride [Moles/Vol] 102 mmol/L 98-107 [facility] CO2 [Moles/Vol] 30.4 mmol/L 21.0-32.[address] [facility] Creatinine [Mass/Vol] 1.05 mg/dL 0.70-1.30 [facility] GFR/1.73 sq M.predicted MDRD (S/P/Bld) [Vol rate/Area] mL/min/{1.73_m2} >=60 [facility] Glucose [Mass/Vol] 222 mg/dL High 74-106 [facility] Potassium [Moles/Vol] 4.5 mmol/L 3.5-5.1 [facility] Sodium [Moles/Vol] 138 mmol/L 136-145 [facility] Urea nitrogen [Mass/Vol] 14.0 mg/dL 7.0-18.0 [facility] Urea nitrogen/Creatinine [Mass ratio] 13.3 mg/mg [facility] Laboratory - Hematology and Cell countson 02-18-2024 Immature granulocytes/100 WBC (Bld) 0.9 % High 0.0-0.5 [facility] Leukocytes [#/volume] correc kristal for nucleated erythrocytes in Blood by Automated counon 02-18-2024 WBC corrected for nucl RBC Auto (Bld) [#/Vol] 5.6 10 3/uL 4.0-11.0 [facility] Lymphocytes Auto (Bld) [#/Vo l]on 02-18-2024 Lymphocytes (Bld) [#/Vol] 0.8 10 3/uL Low 1.2-3.8 [facility] Lymphocytes/100 WBC Auto (Bl d)on 02-18-2024 Lymphocytes/100 WBC (Bld) 13.8 % Low 20.5-60.0 [facility] MCH Auto (RBC) [Entitic mass ]on 02-18-2024 MCH (RBC) [Entitic mass] 31.9 pg 25.9-34.0 [facility] MCHC Auto (RBC) [Mass/Vol]on 02-18-2024 MCHC (RBC) [Mass/Vol] 33.2 g/dL 29.9-35.2 [facility] MCV Auto (RBC) [Entitic vol] on 02-18-2024 MCV (RBC) [Entitic vol] 95.9 fL High 80.0-94.0 [facility] Monocytes Auto (Bld) [#/Vol] on 02-18-2024 Monocytes (Bld) [#/Vol] 0.5 10 3/uL 0.3-0.8 [facility] Monocytes/100 WBC Auto (Bld) on 02-18-2024 Monocytes/100 WBC (Bld) 9.1 % 1.7-12.0 [facility] Neutrophils Auto (Bld) [#/Vo l]on 02-18-2024 Neutrophils (Bld) [#/Vol] 4.2 10 3/uL 1.4-6.5 [facility] Neutrophils/100 WBC Auto (Bl d)on 02-18-2024 Neutrophils/100 WBC (Bld) 74.8 % 43.0-75.0 [facility] No Panel Informationon 02-17 Eosinophils # (Auto) 0.1 10 3/uL 0.0-0.7 [facility] Immature Granulocyte # (Auto) 0.05 10 3/uL High 0.00-0.03 [facility] Platelet mean volume Auto (B ld) [Entitic vol]on 02-18-2024 Platelet mean volume (Bld) [Entitic vol] 9.1 fL Low 9.5-13.5 [facility] Platelets Auto (Bld) [#/Vol] on 02-18-2024 Platelets (Bld) [#/Vol] 172 10 3/uL 150-450 [facility] Prothrombin time (PT)on PT Coag (PPP) [Time] 10.3 s 9.0-11.6 [facility] RBC Auto (Bld) [#/Vol]on RBC (Bld) [#/Vol] 4.14 10 6/uL Low 4.70-6.10 [facility] Serum or plasma anion gap de terminationon 02-18-2024 Anion gap [Moles/Vol] 10.1 mmol/L [facility] Formson 02-04-2024 Forms [id number]#1.0 0TIFF Normal [facility] Consent for Procedure/Surger yon 02-02-2024 Consent for Procedure/Surgery [id number]#1.0 0TIFF Normal [facility] Consent for Procedure/Surgery [id number]#1.0 0TIFF Normal [facility] Formson 02-02-2024 Forms [id number]#1.0 0TIFF [facility] Ambulatory Visit Summaryon 0 02-01-2024 Ambulatory Visit [...] Removed: STOP]Stop taking these medications acetaminophen-hydrocod one ([place] 325 mg-5 mg oral tablet) ciprofloxacin (Cipro 500 mg Tab) Procedures Performed Cystoscopy (02/01/2024), Cystoscopy (11/23/2023), Appendectomy, Cholecystectomy, Colonoscopy, Placement of stent in cardiac conduit. Discharge Vitals Height 171 cm Height 67 in Weight 78 kg Weight 171.6 lb BMI 26.67 What to do next Scheduled Follow-Up Appointments Wednesday. 2023 10:45 AM EDT With: DODIE DAWKINS, Pola Rothman Where: [facility] Urology Office/Clinic Noteon 02-01-2024 Urology Office/Clinic Note [...] complications today. Pt took prophylactic abx and [place] prior to procedure. Found to have C.F. [...] Gross hematuria (R31.0: Gross hematuria) Presented to [facility] at the beginning of September 2023 due [...] unspecified) Sildenafil 100mg prn. 7. 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 Has 2 heart stents, placed 7 years ago. Elevated risk for periop complications in the future. Follow-up With When Contact Information Pola CANTRELL MD, URL [facility] [address], [place] [address] [phone] Additional Instructions: sched TURBT Patient Education Cystoscopy I, Simran Arroyo, personally scribed for Dr. Cantrell on 02/01/2024 13:34:43. Electronically signed by dia Khalil (more content not included)... [facility] Comment on above: Result Comment: Elec tronically Signed By: Pola CANRTELL MD\.br\Date and Time Signed: 02/01/24 13:36 EDT\.br\Electronically Co-Signed By: Simran Arroyo\.br\Date and Time Co-Signed: 02/01/24 13:35 EDT Consent for Procedure/Surger yon 11-24-2023 Consent for Procedure/Surgery [id number]#1. 00TIFF [facility] No Panel Informationon 11-24 Complexity: simple Destruction method: electrodesiccation and curettage Informed consent: discussed and consent obtained Informed consent comment: The risks of the procedure were discussed, including, but not limited to risks of scarring, darker or ammonia worker pigmentary changes, recurrence, infection, and incomplete removal [...] lidocaine used: 1.0 cc Previous accession number: [id number] [facility] Ambulatory Visit Summaryon 0 11-23-2023 Ambulatory Visit Summary ONDINA LO :1950 Visit Date:11/23/2023 Ambulatory Visit Instructions Your Diagnosis Gross hematuria BPH without urinary obstruction Screening PSA (prostate specific antigen) ED (erectile dysfunction) Anticoagulated Lesion of bladder Chronic cystitis Your Care Team Attending Physician - DODIE [...] Following Appointments Follow Up with DODIE DAWKINS, KRISTIN Tyler When: Where: [facility] [address], [place] [address]- Medications What How Much When Instructions Unchanged [...] you for choosing us for your care. Alexa Ibrahim [facility] Urology Office/Clinic Noteon 11-23-2023 Urology Office/Clinic [...] Gross hematuria (R31.0: Gross hematuria) Presented to [facility] at the beginning of September due to [...] unspecified) Sildenafil 100mg prn. 5. 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 Follow-up With When Contact Information Pola CANTRELL MD, URL [facility] [address] [place] [address]- Additional Instructions: Patient Education I, Jess Solorzano , personally scribed for Dr. Cantrell on 11/23/2023 08:02:54. . Documentation recorded by the scribJess west, accurately reflects the services(s) I performed and decisions made by me. Problem List/Past Medical History (more content not included)... Normal [facility] Comment on above: Result Comment: Elec tronically Signed By: Pola CANTRELL MD\.br\Date and Time Signed: 11/23/23 08:04 EST\.br\Electronically Co-Signed By: Jess Solorzano\.br\Date and Time Co-Signed: 11/23/23 08:03 EST [facility] Fish and Urine Cyt o ([facility])on 11-03-2023 [facility] Diagnosis Info Invalid Interpretation Code [facility] Comment on above: Result Comment: [...] correlated with cytology and cystoscopy results.* CPT 74993, 51411 Microscopic Notes - Microscopic Notes - Abnormal cells 9p21 deletions: Abnormal cells aneploid events: Total cells analyzed: 120 Hematuria: Gross Description Site ID:A color Shayla fixative Alcohol Received 90 mls of clear shayla fluid with the patient's name and, Urine on the vial. Electronically signed by : on: 11/03/2023 10:52:02 Performed By: #### 1 [id number] ####[facility] [address] [place] [address] Physician Referralon 024 Physician Referral [id number]#1.0 0TIFF Normal [facility] Formson 10-27-2023 Forms [id number]#1.0 0TIFF Normal [facility] Physician Referralon 024 Physician Referral [id number]#1. 00TIFF Normal [facility] Screenson 10-27-2023 Screens [id number]#1. 00TIFF Normal [facility] Ambulatory Visit Summaryon 0 10-26-2023 Ambulatory Visit Summary ONDINA LO :1950 Visit Date:10/26/2023 Ambulatory Visit Instructions Your Diagnosis Gross hematuria BPH without urinary obstruction Screening PSA (prostate specific antigen) ED (erectile dysfunction) Anticoagulated Tests Performed Urnls Dip Stick Auto w/o Microscopy POC 27277 Your Care Team Attending Physician - DODIE [...] Following Appointments Follow Up with DODIE DAWKINS, KRISTIN Tyler When: Comments: sched cysto Where: [facility] [address], [place] [phone] Medications What How Much When Instructions New ciprofloxacin (Cipro 500 mg Tab) 1 Tablets By Mouth Every day take one tab day before procedure and one tab after procedure Pickup at [facility]/pharmacy #[id number] Unchanged ascorbic acid (Vitamin C) Every day [...] physician if questions or concerns Pharmacy Information [facility]/pharmacy #[id number]: [address], [place] [id number] [phone] Test Results Urnls Dip Stick Auto w/o Microscopy POC 62168 (10/26/2023) Bilirubin Urine Dipstick - Negative Blood Urine Dipstick - Negative Glucose Urine Dipstick - Negative Ketones Urine Dipstick - Negative Leukocytes Urine Dipstick - Negative Nitrite Urine Dipstick - Negative Protein Urine Dipstick - Negative Specific [place] Urine Dipstick - 1.020 Urine Appearance Urine [...] the pr (more content not included)... Normal [facility] Fish and Urine Cyt o ([facility])on 10-26-2023 [facility] Method of Extraction Voided Normal [facility] Comment on above: Performed By: #### 1 [id number] ####[facility] [address] [place] [address] [facility] Number of Jars 1 Invalid Interpretation Code [facility] Comment on above: Performed By: #### 1 [id number] ####[facility] [address] [place] [address] [facility] Specimen Urine Normal [facility] Comment on above: Performed By: #### 1 [id number] ####[facility] [id number] [place] [address] UVUC Type of Service Technical Only Normal [facility] Comment on above: Performed By: #### 1 [id number] ####[facility] [id number] [place] [address] Urology Office/Clinic Noteon 10-26-2023 Urology Office/Clinic Note Chief Complaint Pt re-referred by Brandon Estrella, DO due to gross hematuria HPI Staff Re-referral per [facility] due to gross hematuria. Pt was last [...] Gross hematuria (R31.0: Gross hematuria) Presented to [facility] at the beginning of September due to [...] unspecified) Sildenafil 100mg prn. 5. 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 Has 2 heart stents, placed 7 years ago. Follow-up With When Contact Information Pola CANTRELL MD, URL [facility] [address], [place] [address]- [phone] Additional Instructions: sched cysto Patient Education Cystoscopy Hematuria, Adult I, Simran Cruz, personally scribed for Dr. Cantrell on 10/26/2023 10:02:48. . Documentation recorded by the scribeSimran, accurately reflects the services (more content not included)... [facility] Comment on above: Result Comment: Elec tronically Signed By: Pola CANTRELL MD\.br\Date and Time Signed: 10/26/23 10:07 EST\.br\Electronically Co-Signed By: Simran Arroyo\.br\Date and Time Co-Signed: 10/26/23 10:03 EST RAD - CT Reporton 10-14-2023 RAD - CT Report [id number] 20 [id number] 0TIFF [facility] RAD - CT Report [id number]. 00TIFF [facility] Office Visiton 09-15-2023 Follow-up visit [id number] Ondina Lo A 1950 M Date Provider Department Center 09/15/2023 271-CARLO SEN GINA [facility] Family History Problem Relation Age of Onset Heart failure Brother Cancer Brother Family Status - Relation Status Age at Brother Level of Service:[address] [place] OFFICE/OUTPATIENT ESTABLISHED MOD MDM 30-39 MIN [facility] Orders Onlyon 09-15-2023 Orders Only [id number] Ondina Lo A 1950 M Date Provider Department Center 09/15/2023 Thai-ELLE GREENWOOD GINA [place] Family History Problem Relation Age of Onset Heart failure Brother Cancer Brother Family Status - Relation Status Age at Brother Normal [facility] US CAROTID ART BILon 022 US [...] TIM BARBER Date: 2022-09-28 17:37 Normal [facility] CBC AUTO DIFFon 09-24-2022 BASO # 0.0 103/ul Normal 0.0-0.1 [facility] Comment on above: Performed By: #### C BC #### [facility] [address] [place] [address] Dr. Daisy Alan Basophils/100 WBC (Bld) 0.6 % Normal 0.2-2.0 [facility] Comment on above: Performed By: #### C BC #### [facility] [address] [place] [address] Dr. Daisy Alan EO # 0.1 103/ul Normal 0.0-0.7 [facility] Comment on above: Performed By: #### C BC #### [facility] [address] [place] [address] Dr. Daisy Alan Eosinophils/100 WBC (Bld) 1.7 % Normal 0.9-7.0 [facility] Comment on above: Performed By: #### C BC #### [facility] [address] [place] [address] Dr. Daisy Alan Erythrocyte distribution width (RBC) [Ratio] 12.7 % Normal 11.0-15.0 [facility] Comment on above: Performed By: #### C BC #### [facility] [address] [place] [address] Dr. Daisy Alan Hematocrit (Bld) [Volume fraction] 41.4 % Critically low 42.0-54.0 [facility] Comment on above: Performed By: #### C BC #### [facility] [address] [place] [address] Dr. Daisy Alan Hemoglobin (Bld) [Mass/Vol] 14.4 g/dL Normal 14.0-18.0 [facility] Comment on above: Performed By: #### C BC #### [facility] [address] [place] [address] Dr. Daisy Alan IG # 0.02 10e3/ul Normal 0.00-0.03 [facility] Comment on above: Performed By: #### C BC #### [facility] [address] [place] [address] Dr. Daisy Alan IG % 0.3 % Normal 0.0-0.5 [facility] Comment on above: Performed By: #### C BC #### [facility] [address] [place] [address] Dr. Daisy Alan LYMPH # 1.0 103/ul Critically low 1.2-3.8 [facility] Comment on above: Performed By: #### C BC #### [facility] [address] [place] [address] Dr. Daisy Alan Lymphocytes/100 WBC (Bld) 14.1 % Critically low 20.5-60.0 [facility] Comment on above: Performed By: #### C BC #### [facility] [address] [place] [address] Dr. Daisy Alan MANUAL DIFF REQ NO Normal [facility] Comment on above: Performed By: #### C BC #### [facility] [address] [place] [address] Dr. Daisy Alan MCH (RBC) [Entitic mass] 31.9 pg Normal 25.9-34.0 [facility] Comment on above: Performed By: #### C BC #### [facility] [address] [place] [address] Dr. Daisy Alan MCHC (RBC) [Mass/Vol] 34.8 g/dL Normal 29.9-35.2 [facility] Comment on above: Performed By: #### C BC #### [facility] [address] [place] [address] Dr. Daisy Alan MCV (RBC) [Entitic vol] 91.6 fL Normal 80.0-94.0 [facility] Comment on above: Performed By: #### C BC #### [facility] [address] [place] [address] Dr. Daisy Alan MONO # 0.6 103/ul Normal 0.3-0.8 [facility] Comment on above: Performed By: #### C BC #### [facility] [address] [place] [address] Dr. Daisy Alan Monocytes/100 WBC (Bld) 8.7 % Normal 1.7-12.0 [facility] Comment on above: Performed By: #### C BC #### [facility] [address] [place] [address] Dr. Daisy Alan NEUT # 5.3 103/ul Normal 1.4-6.5 [facility] Comment on above: Performed By: #### C BC #### [facility] [address] [place] [address] Dr. Daisy Alan Neutrophils/100 WBC (Bld) 74.6 % Normal 43.0-75.0 [facility] Comment on above: Performed By: #### C BC #### [facility] [address] [place] [address] Dr. Daisy Alan Platelet mean volume (Bld) [Entitic vol] 9.0 fL Critically low 9.5-13.5 [facility] Comment on above: Performed By: #### C BC #### [facility] [address] [place] [address] Dr. Daisy Alan PLT 191 103/ul Normal 150-450 [facility] Comment on above: Performed By: #### C BC #### [facility] [address] [address] [address] Daisy Alan RBC 4.52 106/ul Critically low 4.70-6.10 [facility] Comment on above: Performed By: #### C BC #### [facility] [address] [place] [address] Dr. Daisy Alan WBC 7.1 103/ul Normal 4.0-11.0 [facility] Comment on above: Performed By: #### C BC #### [facility] [address] [place] [address] Dr. Daisy Alan CBC W MANUAL DIFFon 02-05-20 ATYPICAL LYMPH # Normal [facility] Comment on above: Performed By: #### C KEEMAN #### [facility] [address] [place] [address] Dr. Daisy Alan ATYPICAL LYMPH % Normal [facility] Comment on above: Performed By: #### C BCMAN #### [facility] [address] [place] [address] Dr. Daisy Alan BAND # Normal 0.0-0.3 [facility] Comment on above: Performed By: #### C BCMAN #### [facility] [address] [place] [address] Dr. Daisy Alan BAND % Normal 0-5 [facility] Comment on above: Performed By: #### C BCMAN #### [facility] [address] [place] [address] Dr. Daisy Alan BASOM # 0.00 103/ul Normal 0.00-0.10 [facility] Comment on above: Performed By: #### C BCMAN #### [facility] [address] [place] [address] Dr. Daisy Alan BASOM % 0.0 % Critically low 0.2-2.0 [facility] Comment on above: Performed By: #### C BCMAN #### [facility] [address] [place] [address] Dr. Daisy Alan BLAST # Normal [facility] Comment on above: Performed By: #### C BRIGIDA #### [facility] [address] [address] [address] Daisy Alan BLAST % Normal [facility] Comment on above: Performed By: #### C BRIGIDA #### [facility] [address] [address] [address] Daisy Alan CORRECTED WBC Normal 4.0-11.0 [facility] Comment on above: Performed By: #### C BRIGIDA #### [facility] [address] [address] [address] Daisy Alan EOS # 0.13 103/ul Normal 0.00-0.70 [facility] Comment on above: Performed By: #### C BRIGIDA #### [facility] [address] [place] [address] Dr. Daisy Alan EOS% 2.0 % Normal 0.9-7.0 [facility] Comment on above: Performed By: #### C BRIGIDA #### [facility] [address] [place] [address] Dr. Daisy Alan HCT 41.8 % Critically low 42.0-54.0 [facility] Comment on above: Performed By: #### C BRIGIDA #### [facility] [address] [place] [address] Dr. Daisy Alan HGB 13.9 g/dl Critically low 14.0-18.0 [facility] Comment on above: Performed By: #### C BRIGIDA #### [facility] [address] [place] [address] Dr. Daisy Alan LYMPHM # 0.38 103/ul Critically low 1.20-3.80 [facility] Comment on above: Performed By: #### C BRIGIDA #### [facility] [address] [place] [address] Dr. Daisy Alan LYMPHM% 6.0 % Critically low 20.5-60.0 [facility] Comment on above: Performed By: #### C BRIGIDA #### [facility] [address] [place] [address] Dr. Daisy Alan MCH 30.8 pg Normal 25.9-34.0 [facility] Comment on above: Performed By: #### C BRIGIDA #### [facility] [address] [address] [address] Daisy Alan MCHC 33.3 g/dl Normal 29.9-35.2 [facility] Comment on above: Performed By: #### C BRIGIDA #### [facility] [address] [address] [address] Daisy Alan MCV 92.7 fL Normal 80.0-94.0 [facility] Comment on above: Performed By: #### C BRIGIDA #### [facility] [address] [place] [address] Dr. Daisy Alan METAMYELOCYTE # Normal [facility] Comment on above: Performed By: #### C BRIGIDA #### [facility] [address] [place] [address] Dr. Daisy Alan METAMYELOCYTE % Normal [facility] Comment on above: Performed By: #### C BRIGIDA #### [facility] [address] [place] [address] Dr. Daisy Alan MONOM# 0.50 103/ul Normal 0.30-0.80 [facility] Comment on above: Performed By: #### C BRIGIDA #### [facility] [address] [place] [address] Dr. Daisy Alan MONOM% 8.0 % Normal 1.7-12.0 [facility] Comment on above: Performed By: #### C BRIGIDA #### [facility] [address] [place] [address] Dr. Daisy Alan MPV 9.1 fL Critically low 9.5-13.5 [facility] Comment on above: Performed By: #### C BRIGIDA #### [facility] [address] [place] [address] Dr. Daisy Alan MYELOCYTE # Normal [facility] Comment on above: Performed By: #### C BRIGIDA #### [facility] [address] [place] [address] Dr. Daisy Alan MYELOCYTE % Normal [facility] Comment on above: Performed By: #### C BRIGIDA #### [facility] [address] [address] [address] Daisy Alan NRBC Normal [facility] Comment on above: Performed By: #### C BRIGIDA #### [facility] [address] [address] [address] Daisy Alna PLT 153 103/ul Normal 150-450 [facility] Comment on above: Performed By: #### C BRIGIDA #### [facility] [address] [address] [address] Daisy Alan RBC 4.51 106/ul Critically low 4.70-6.10 [facility] Comment on above: Performed By: #### C BRIGIDA #### [facility] [address] [place] [address] Dr. Daisy Alan RDW 12.8 % Normal 11.0-15.0 [facility] Comment on above: Performed By: #### C BRIGIDA #### [facility] [address] [address] [address] Daisy Alan SEG # 5.29 103/ul Normal 1.40-6.50 [facility] Comment on above: Performed By: #### C BRIGIDA #### [facility] [address] [address] [address] Daisy Alan SEG % 84.0 % Critically high 43.0-75.0 [facility] Comment on above: Performed By: #### C BRIGIDA #### [facility] [address] [address] [address] Daisy Alan WBC 6.3 103/ul Normal 4.0-11.0 [facility] Comment on above: Performed By: #### C BRIGIDA #### [facility] [address] [address] [address] Daisy Alan GLYCOHEMOGLOBIN A1Con 2021 ADA RECOMMENDATION ADA THERAPEUTIC TARG ET 6.0 - 7.0 ACTION SUGGESTED > 7.0 Normal [facility] Comment on above: Performed By: #### A 1C #### [facility] [address] [address] [address] Daisy Alan Glucose [Mass/Vol] 154 mg/dL Normal [facility] Comment on above: Performed By: #### A 1C #### [facility] [address] [address] [address] Daisy Alan HbA1c (Bld) [Mass fraction] 7.0 % Critically high <=6.0 [facility] Comment on above: Performed By: #### A 1C #### [facility] [address] [address] [address] Daisy Alan LIPID PROFILEon 02-04-2022 CHOL-HDL RATIO NORM SEE BELOW Normal [facility] Comment on above: Result Comment: 3.3 - 4.4 LOW RISK 4.4 - 7.1 AVERAGE RISK 7.1 - 11.0 MODERATE RISK >11.0 HIGH RISK Performed By: #### B MP, LIPID, ALT, TSH #### [facility] [address] [address] [address] Daisy Alan Cholesterol [Mass/Vol] 149 mg/dL Normal <=200 [facility] Comment on above: Performed By: #### B MP, LIPID, ALT, TSH #### [facility] [address] [place] [address] Dr. Daisy Alan Cholesterol in HDL [Mass/Vol] 33 mg/dL Critically low 40-60 [facility] Comment on above: Performed By: #### B MP, LIPID, ALT, TSH #### [facility] [address] [address] [address] Daisy Alan Cholesterol in LDL [Mass/Vol] 71.0 mg/dL Normal [facility] Comment on above: Performed By: #### B MP, LIPID, ALT, TSH #### [facility] [address] [address] [address] Daisy Alan Cholesterol.total/C holesterol in HDL [Mass ratio] 4.5 {ratio} Normal [facility] Comment on above: Performed By: #### B MP, LIPID, ALT, TSH #### [facility] [address] [address] [address] Daisy Alan HDL NORMAL > or = 60 mg/dl - LO W CARDIOVASCULAR RISK <40 mg/dl - HIGH CARDIOVASCULAR RISK Normal [facility] Comment on above: Performed By: #### B MP, LIPID, ALT, TSH #### [facility] [address] [address] [address] Daisy Alan LDL CALC NORMAL SEE BELOW Normal [facility] Comment on above: Result Comment: <100 mg/dl OPTIMAL 100 - 129 mg/dl NEAR OR ABOVE OPTIMAL 130 - 159 mg/dl BORDERLINE HIGH 160 - 189 mg/dl HIGH >190 mg/dl VERY HIGH Performed By: #### B MP, LIPID, ALT, TSH #### [facility] [address] [address] [address] Daisy Alan Triglyceride [Mass/Vol] 225 mg/dL Critically high <=150 [facility] Comment on above: Performed By: #### B MP, LIPID, ALT, TSH #### [facility] [address] [address] [address] Daisy Alan VLDL CALC 45.0 mg/dL Normal [facility] Comment on above: Performed By: #### B MP, LIPID, ALT, TSH #### [facility] [address] [place] [address] Dr. Daisy Alan MICROALBUMIN, RAND URon 04- mALB 1.5 mg/L Normal <=30.0 [facility] Comment on above: Performed By: #### M ALBR #### [facility] [address] [place] [address] Dr. Daisy Alan PROF CHEM 8 (BAS METB)on Anion gap [Moles/Vol] 10.6 mmol/L Normal [facility] Comment on above: Performed By: #### B MP, LIPID, ALT, TSH #### [facility] [address] [place] [address] Dr. Daisy Alan Calcium [Mass/Vol] 9.2 mg/dL Normal 8.5-10.1 [facility] Comment on above: Performed By: #### B MP, LIPID, ALT, TSH #### [facility] [address] [address] [address] Daisy Alan Chloride [Moles/Vol] 99 mmol/L Normal 98-107 [facility] Comment on above: Performed By: #### B MP, LIPID, ALT, TSH #### [facility] [address] [address] [address] Daisy Alan CO2 [Moles/Vol] 27.7 mmol/L Normal 22.0-30.0 [facility] Comment on above: Performed By: #### B MP, LIPID, ALT, TSH #### [facility] [address] [address] [address] Daisy Alan Creatinine [Mass/Vol] 1.00 mg/dL Normal 0.66-1.25 [facility] Comment on above: Performed By: #### B MP, LIPID, ALT, TSH #### [facility] [address] [address] [address] Daisy Alan EGFR-AF NICARAGUAN >60 Normal >=60 [facility] Comment on above: Performed By: #### B MP, LIPID, ALT, TSH #### [facility] [address] [address] [address] Daisy Alan EGFR-NON AF NICARAGUAN >60 Normal >=60 [facility] Comment on above: Performed By: #### B MP, LIPID, ALT, TSH #### [facility] [address] [address] [address] Daisy Alan Glucose [Mass/Vol] 186 mg/dL Critically high 74-106 [facility] Comment on above: Performed By: #### B MP, LIPID, ALT, TSH #### [facility] [address] [address] [address] Daisy Alan Potassium [Moles/Vol] 4.3 mmol/L Normal 3.4-5.0 [facility] Comment on above: Performed By: #### B MP, LIPID, ALT, TSH #### [facility] [address] [address] [address] Daisy Alan Sodium [Moles/Vol] 133 mmol/L Critically low 137-145 [facility] Comment on above: Performed By: #### B MP, LIPID, ALT, TSH #### [facility] [address] [place] [address] Dr. Daisy Alan Urea nitrogen [Mass/Vol] 17.0 mg/dL Normal 7.0-18.0 [facility] Comment on above: Performed By: #### B MP, LIPID, ALT, TSH #### [facility] [address] [place] [address] Dr. Daisy Alan Urea nitrogen/Creatinine [Mass ratio] 17.0 mg/mg Normal [facility] Comment on above: Performed By: #### B MP, LIPID, ALT, TSH #### [facility] [address] [place] [address] Dr. Daisy Alan [facility] 02-04-2022 ALT [Catalytic activity/Vol] 36 U/L Normal 16-63 [facility] Comment on above: Performed By: #### B MP, LIPID, ALT, TSH #### [facility] [address] [place] [address] Dr. Daisy Alan TSHon 02-04-2022 TSH 3.205 uIU/mL Normal 0.470-4.680 [facility] Comment on above: Performed By: #### B MP, LIPID, ALT, TSH #### [facility] [address] [place] [address] Dr. Daisy Alan TSH RANGE SEE BELOW Normal [facility] Comment on above: Result Comment: <0.3 4 UIU/ml HYPERTHYROID 0.34-5.60 UIU/ml EUTHYROID >5.60 UIU/ml HYPOTHYROID Performed By: #### B MP, LIPID, ALT, TSH #### [facility] [address] [place] [address] Dr. Daisy Alan Vital Signs Date Time Vital Sign Value Performing Clinician Facility 07-28-2024 14: Body height 170.[address] [facility] 07-28-2024 14:170400 Body mass index (BMI) [Ratio] 27.3 kg/m2 [facility] 07-28-2024 14:17-0400 Body weight 79.[address] [facility] 07-28-2024 14:17-0400 Diastolic blood pressure 68 mm[Hg] [facility] 07-28-2024 14:17-0400 Heart rate 67 /min [facility] 07-28-2024 14:17-0400 Respiratory rate 12 /min [facility] 07-28-2024 14:17-0400 Systolic blood pressure 122 mm[Hg] [facility] 07-25-2024 11:00-0400 Blood Pressure Location Pola CANTRELL [facility] 07-25-2024 11:00-0400 Diastolic blood pressure 70 mm[Hg] Pola CANTRELL [facility] 07-25-2024 11:00-0400 Heart rate 65 /min Pola CANTRELL [facility] 07-25-2024 11:00-0400 Systolic blood pressure 161 mm[Hg] Pola CANTRELL [facility] 03-23-2024 08:42-0400 Body height 170.18 cm MD Pola Cantrell Work Phone: [facility] 03-23-2024 08:42-0400 Body mass index (BMI) [Ratio] 27.3 kg/m2 MD Pola Cantrell Work Phone: [facility] 03-23-2024 08:42-0400 Body weight 79.15 kg MD Pola Cantrell Work Phone: [facility] 03-23-2024 08:42-0400 Diastolic blood pressure 76 mm[Hg] MD Pola Cantrell Work Phone: [facility] 03-23-2024 08:42-0400 Heart rate 57 /min MD Pola Cantrell Work Phone: [facility] 03-23-2024 08:42-0400 Respiratory rate 12 /min MD Pola Cantrell Work Phone: [facility] 03-23-2024 08:42-0400 Systolic blood pressure 133 mm[Hg] MD Pola Cantrell Work Phone: [facility] 2024 11:23-0400 Blood Pressure Location Pola CANTRELL [facility] 2024 11:23-0400 Body temperature 98.6 [degF] Pola CANTRELL [facility] 2024 11:23-0400 Diastolic blood pressure 75 mm[Hg] Pola CANTRELL [facility] 2024 11:23-0400 Heart rate 59 /min Pola CANTRELL [facility] 2024 11:23-0400 Respiratory rate 17 /min Pola CANTRELL [facility] 2024 11:23-0400 Systolic blood pressure 125 mm[Hg] Pola CANTRELL [facility] 02-03-2024 10:16-0400 Body height 170.[address] [facility] 02-03-2024 10:16-0400 Body mass index (BMI) [Ratio] 27.6 kg/m2 [facility] 02-03-2024 10:16-0400 Body weight 79.[address] [facility] 02-03-2024 10:16-0400 Diastolic blood pressure 71 mm[Hg] [facility] 02-03-2024 10:16-0400 Heart rate 57 /min [facility] 02-03-2024 10:16-0400 SaO2% (BldA) [Mass fraction] 98 % [facility] 02-03-2024 10:16-0400 Systolic blood pressure 142 mm[Hg] [facility] 02-01-2024 12:47-0400 Blood Pressure Location Pola CANTRELL [facility] 10-26-2023 08:52-0500 Blood Pressure Location Pola CANTRELL [facility] 10-26-2023 08:52-0500 Diastolic blood pressure 77 mm[Hg] Pola CANTRELL [facility] 10-26-2023 08:52-0500 Heart rate 59 /min Pola CANTRELL [facility] 10-26-2023 08:52-0500 Systolic blood pressure 137 mm[Hg] Pola CANTRELL [facility] 10-05-2023 13:45-0500 Body height 170.18 cm Brandon Ball Other [facility] Other 10-05-2023 13:45-0500 Body mass index (BMI) [Ratio] 27.94 kg/m2 Brandon Ball Other [facility] Other 10-05-2023 13:45-0500 Body weight 80.92 kg Brandon Ball Other [facility] Other 10-05-2023 13:45-0500 Diastolic blood pressure 77 mm[Hg] Brandon Ball Other [facility] Other 10-05-2023 13:45-0500 Respiratory rate 12 /min Brandon Ball Other [facility] Other 10-05-2023 13:45-0500 Systolic blood pressure 128 mm[Hg] Brandon Ball Other [facility] Other 03-22-2023 14:30-0400 Body height 170.18 cm Brandon Ball Other [facility] Other 03-22-2023 14:30-0400 Body mass index (BMI) [Ratio] 27.12 kg/m2 Brandon Ball Other [facility] Other 03-22-2023 14:30-0400 Body weight 78.56 kg Brandon Ball Other [facility] Other 03-22-2023 14:30-0400 Diastolic blood pressure 74 mm[Hg] Brandon Ball Other [facility] Other 03-22-2023 14:30-0400 Respiratory rate 12 /min Brandon Ball Other [facility] Other 03-22-2023 14:30-0400 Systolic blood pressure 129 mm[Hg] Brandon Ball Other [facility] Other 02-05-2022 11:00-0400 Body height 170.18 cm Tim Hardwick Other [facility] Other 02-05-2022 11:00-0400 Body mass index (BMI) [Ratio] 28.03 kg/m2 Tim Hardwick Other [facility] Other 02-05-2022 11:00-0400 Body temperature 97.3 [degF] Tim Hardwick Other [facility] Other 02-05-2022 11:00-0400 Body weight 81.19 kg Tim Hardwick Other [facility] Other 02-05-2022 11:00-0400 Diastolic blood pressure 83 mm[Hg] Tim Hardwick Other [facility] Other 02-05-2022 11:00-0400 SaO2% (BldA) [Mass fraction] 98 % Tim Hardwick Other [facility] Other 02-05-2022 11:00-0400 Systolic blood pressure 159 mm[Hg] Tim Hardwick Other [facility] Other Encounters Encounter Date Encounter Type Care Provider Facility Start: 07-25-2025 ambulatory [place]a [place] ty:[facility] Start: 07-28-2024 End: 07-28-2024 ambulatory [facility] Work Phone: Start: 07-28-2024 End: 07-28-2024 Patient encounter procedure [facility] Work Phone: Start: 07-25-2024 End: 07-25-2024 ambulatory Pola CANTRELL Facility:[facility] Start: 07-25-2024 End: 07-25-2024 Patient encounter procedure Pola CANTRELL [facility] Start: 07-24-2024 End: 07-24-2024 ambulatory Pola CANTRELL Facility:[facility] Start: 07-24-2024 End: 07-24-2024 Patient encounter procedure Pola CANTRELL [facility] Start: 05-23-2024 End: 05-23-2024 ambulatory TRISH BALLARD Not Available Start: 04-13-2024 End: 04-13-2024 ambulatory MD Pola Cantrell Work Phone: [facility] Work Phone: Start: 04-13-2024 End: 04-13-2024 Patient encounter procedure MD Pola Cantrell Work Phone: [facility] Work Phone: Start: 04-07-2024 ambulatory Pola CANTRELL Facili ty:[facility] Start: 04-04-2024 Non-patient / Non-visit MD Karol Cantrell Work Phone: [facility] Work Phone: Start: 03-23-2024 End: 03-23-2024 ambulatory MD Pola Cantrell Work Phone: [facility] Work Phone: Start: 03-23-2024 End: 03-23-2024 Patient encounter procedure MD Pola Cantrell Work Phone: [facility] Work Phone: Start: 03-20-2024 End: 03-20-2024 ambulatory Pola CANTRELL Facility:[facility] Start: 03-20-2024 End: 03-20-2024 Lab Drop off Pola CANTRELL [facility] Start: 03-20-2024 End: 03-20-2024 ambulatory Pola CANTRELL Facility:[facility] Start: 03-20-2024 End: 03-20-2024 Patient encounter procedure Pola CANTRELL [facility] Start: 2024 End: 2024 ambulatory Pola CANTRELL Facility:[facility] Start: 2024 End: 2024 Patient encounter procedure Pola CANTRELL [facility] Start: 03-02-2024 End: 03-02-2024 ambulatory Pola Cantrell [facility] Work Phone: Start: 03-02-2024 End: 03-02-2024 Departed Referred MD Pola Cantrell Work Phone: [facility] Start: 03-02-2024 End: 03-02-2024 ambulatory Pola CANTRELL Facility:[id number] Start: 02-18-2024 Non-patient / Non-visit MD Karol Cantrell Work Phone: [facility] Work Phone: Start: 02-03-2024 End: 02-03-2024 ambulatory [facility] Work Phone: Start: 02-03-2024 End: 02-03-2024 Patient encounter procedure [facility] Work Phone: Start: 02-01-2024 End: 02-01-2024 ambulatory Pola CANTRELL Facility:[facility] Start: 02-01-2024 End: 02-01-2024 Patient encounter procedure Pola CANTRELL [facility] Start: 01-26-2024 End: 01-26-2024 ambulatory [facility] Work Phone: Start: 01-26-2024 End: 01-26-2024 Patient encounter procedure [facility] Work Phone: Start: 12-28-2023 End: 12-28-2023 Patient encounter procedure [facility] Work Phone: Start: 11-24-2023 End: 11-24-2023 Office outpatient visit 15 minutes Trish Ballard MD Work Phone: [facility] Comment on above: Actinic keratosis (P rimary Dx); Basal cell carcinoma of skin of left upper limb, including shoulder Start: 11-24-2023 End: 11-24-2023 ambulatory TRISH BALLARD Not Available Start: 11-23-2023 End: 11-23-2023 ambulatory oPla CANTRELL Facility:[facility] Start: 11-11-2023 End: 11-11-2023 ambulatory Brandon Estrella Other [facility] Other Start: 11-11-2023 Office outpatient vi sit 15 minutes Brandon Sameer [facility] Start: 11-01-2023 End: 11-01-2023 ambulatory Brandon Estrella Other [facility] Other Start: 11-01-2023 Office outpatient vi sit 15 minutes Brandon Estrella [facility] Start: 11-01-2023 Patient encounter procedure [facility] Start: 10-26-2023 ambulatory Pola CANTRELL Facili ty:[facility] Start: 10-26-2023 End: 10-26-2023 Lab Drop off Pola CANTRELL [facility] Start: 10-26-2023 End: 10-26-2023 ambulatory BRANDON ESTRELLA Facility:[facility] Start: 10-26-2023 End: 10-26-2023 Patient encounter procedure Pola CANTRELL [facility] Start: 10-14-2023 End: 10-14-2023 ambulatory Brandon Estrella Other [facility] Other Start: 10-14-2023 Telephone encounter Brandon Estrella [facility] Start: 10-08-2023 End: 10-08-2023 ambulatory Brandon Sameer Other [facility] Other Start: 10-08-2023 Telephone encounter Brandon Sameer [facility] Start: 10-07-2023 End: 10-07-2023 ambulatory Brandon Sameer Other [facility] Other Start: 10-07-2023 Telephone encounter Brandon Estrella [facility] Start: 10-05-2023 End: 10-05-2023 ambulatory Brandon Estrella Other [facility] Other Start: 10-05-2023 Office outpatient vi sit 15 minutes Brandon Ball [facility] Start: 10-04-2023 End: 10-04-2023 ambulatory TRISH BALLARD Not Available Start: 09-28-2023 End: 09-28-2023 ambulatory Brandon Estrella Other [facility] Other Start: 09-28-2023 Telephone encounter Brandon RODRIGUEZ [facility] Start: 09-15-2023 End: 09-15-2023 ambulatory [facility] Start: 07-20-2023 End: 07-20-2023 ambulatory Brandon Estrella Other [facility] Other Start: 07-20-2023 Nursing evaluation o f patient and report Brandon Estrella [facility] Start: 04-14-2023 End: 04-14-2023 ambulatory Brandon Estrella Other [facility] Other Start: 04-14-2023 Telephone encounter Brandon Estrella [facility] Start: 04-07-2023 End: 04-07-2023 ambulatory Brandon Estrella Other [facility] Other Start: 04-07-2023 Office outpatient vi sit 15 minutes Brandon Estrella [facility] Start: 03-22-2023 End: 03-22-2023 ambulatory Brandon Estrella Other [facility] Other Start: 03-22-2023 Patient encounter procedure Brandon Estrella [facility] Start: 02-16-2023 End: 02-16-2023 ambulatory Brandon Estrella Other [facility] Other Start: 02-16-2023 Telephone encounter Brandon Estrella [facility] Start: 01-27-2023 End: 01-27-2023 ambulatory Brandon Estrella Other [facility] Other Start: 01-27-2023 Nursing evaluation o f patient and report Brandon Estrella [facility] Start: 01-18-2023 End: 01-18-2023 ambulatory Brandon Estrella Other [facility] Other Start: 01-18-2023 Telephone encounter Brandon Estrella [facility] Start: 09-28-2022 End: 09-29-[address] TIM BARBER Facility:[facility] Start: 09-24-2022 End: 09-25-[address] BRANDON ESTRELLA Facility:[facility] Start: 05-25-[address] BRANDON ESTRELLA Facili ty:[facility] Start: 03-20-2022 Adult health examination Brandon Estrella Other [facility] Other Start: 02-05-2022 End: 02-05-2022 ambulatory Tim Hardwick Other [facility] Other Start: 02-05-2022 Office outpatient vi sit 15 minutes Tim Hardwick [facility] Start: 02-05-2022 End: 02-05-2022 Patient encounter procedure DO Brandon Estrella Work Phone: [facility] Start: 02-04-2022 End: 02-05-[address] BRANDON ESTRELLA Facility: Start: 02-14-2018 End: 02-15-2018 Ambulatory DEFAULT PHYSICIAN Facility:[facility] Start: 02-10-2018 End: 02-11-2018 Ambulatory DEFAULT PHYSICIAN Facility:[facility] Procedures Date Procedure Procedure Detail Performing Clinician Start: 03-02-2024 Transurethral resect ion of bladder neoplasm Pola CANTRELL Start: 02-01-2024 Transurethral cystoscopy Pola CANTRELL Start: 11-24-2023 DESTRUCTION OF LESION Delmy Ballard MD Work Phone: Start: 02-06-2024 Transurethral cystoscopy Pola CANTRELL Start: 03-20-2022 Depression screening Be njluis fernando Estrella Other Start: 02-04-[address] TIM BARBER Comment on above: Performed By: #### P [facility] #### [facility] [address] [address] [address] Daisy Alan Start: 12-10-2016 Viral screening Benjami n Sameer Other Start: 11-01-2014 Screening for malign ant neoplasm of prostate Brandon Sameer Other Appendectomy Pola CANTRELL Cholecystectomy Pola SOLIS Colonoscopy Polagage CANTRELL Placement of stent i n cardiac conduit Pola CANTRELL Screening for malign ant neoplasm of colon Brandon Estrella Other Screening for malign ant neoplasm of prostate Brandon Estrella Other Plan of Treatment Date Care Activity Detail Author Start: 04-04-2024 End: 04-04-2024 Patient encounter procedure 04/04/2024 8:30 AM EDT Office Visit [facility] [address] [place] [id number] Trish Ballard MD [address] [place] [address] [facility] Start: 12-11-2017 Pneumococcal Vaccine: 65+ Years (2 - PPSV23 or PCV20) Pneumococcal Vaccine: 65+ Years (2 - PPSV23 or PCV20) [facility] Start: 1950 Screening for malignant neoplasm of colon [facility].doppler Carotid arteries - bilateral [facility] Immunizations Immunization Date Immunization Notes Care Provider Fa cility 08-07-2023 influenza virus vaccine, unspecified formulation Pola CANTRELL [facility] 07-06-2023 zoster vaccine recombinant Pola CANTRELL [facility] 02-13-2023 zoster vaccine recombinant Pola CANTRELL [facility] 09-28-2022 influenza virus vaccine, split virus (incl. purified surface antigen) Brandon Estrella Other [facility] Other 09-28-2022 influenza virus vaccine, unspecified formulation Pola CANTRELL [facility] 01-31-2021 SARS-CoV-2 (COVID-19 ) mRNA BNT-162b2 vax Pola CANTRELL [facility] 01-10-2021 SARS-CoV-2 (COVID-19 ) mRNA BNT-162b2 vax Pola CANTRELL [facility] 08-06-2020 influenza virus vaccine, split virus (incl. purified surface antigen) Brandon Estrella Other [facility] Other 08-06-2020 influenza virus vaccine, unspecified formulation [facility] 08-17-2019 influenza virus vaccine, split virus (incl. purified surface antigen) Brandon Estrella Other [facility] Other 08-17-2019 influenza virus vaccine, unspecified formulation [facility] 09-06-2018 influenza virus vaccine, unspecified formulation Pola CANTRELL [facility] 07-27-2018 influenza virus vaccine, split virus (incl. purified surface antigen) Brandon Estrella Other [facility] Other 07-27-2018 influenza virus vaccine, unspecified formulation [facility] 07-25-2018 influenza virus vaccine, live, attenuated, for intranasal use Pola CANTRELL [facility] 12-11-2016 pneumococcal conjuga te vaccine, 13 valent Brandon Estrella Other [facility] 08-18-2016 influenza virus vaccine, unspecified formulation Pola CANTRELL [facility] 08-02-2015 influenza virus vaccine, split virus (incl. purified surface antigen) Brandon Estrella Other [facility] Other 08-02-2015 influenza virus vaccine, unspecified formulation [facility] 08-02-2015 tetanus and diphther ia toxoids, adsorbed, preservative free, for adult use (5 Lf of tetanus toxoid and 2 Lf of diphtheria toxoid) [facility] 08-02-2015 tetanus toxoid, reduced diphtheria toxoid, and acellular pertussis vaccine, adsorbed Brandon Estrella Other [facility] Other 11-01-2014 pneumococcal Conjugate, unspecified formulation; Translations: [Need for prophylactic vaccination against Streptococcus pneumoniae (pneumococcus)] Bradnon Estrella Other [facility] Other 11-01-2014 pneumococcal polysaccharide vaccine, 23 valent Brandon Estrella Other [facility] 08-22-1999 Td(adult) unspecifie d formulation Pola CANTRELL [facility] NEGATED: Highlighted row has not occurred!10-26-2023 influenza virus vaccine, unspecified formulation Pola CANTRELL [facility] Payers Date Payer Category Payer Unknown 2022 Unknown [id number] 1960 Medicare [id number] 1960 Self-pay [id number] 1960 Unknown [id number] 1950 Unknown [id number] 2.16.84 0.1.758801.3.579.2.593 1950 Unknown [id number] 2.16.84 0.1.778612.3.579.2.593 1949 Unknown [id number] 2.16.84 0.1.191153.3.579.2.593 1949 Unknown [id number] 2.16.84 0.1.255684.3.579.2.593 1949 Unknown [id number] 2.16.8 40.1.769465.3.579.2.727 1949 Unknown [id number] 2.16.8 40.1.013497.3.579.2.72 1949 Unknown [id number] 2.16.8 40.1.131706.3.579.2.72 1949 Unknown [id number] 2.16.8 40.1.692469.3.579.2.72 1949 Unknown [id number] 2.16.8 40.1.526164.3.579.2.727 1949 Unknown [id number] 2.16.8 40.1.700511.3.579.2.727 1949 Unknown [id number] 2.16.8 40.1.684859.3.579.2.727 1949 Unknown [id number] 2.16.8 40.1.937749.3.579.2.72 1949 Unknown [id number] 2.16.8 40.1.071916.3.579.2.727 1949 Unknown [id number] 2.16.84 0.1.621705.3.579.2.1259 1949 Unknown [id number] 2.16.84 0.1.218244.3.579.2.1259 1949 Unknown [id number] 2.16.840 .1.641672.3.579.2.1259 1949 Unknown [id number] 2.16.8 40.1.221470.3.579.2.727 1949 Unknown [id number] 2.16.8 40.1.758375.3.579.2.727 1949 Unknown [id number] 2.16.8 40.1.774831.3.579.2.727 1950 Unknown [id number] 2.16.8 40.1.607006.3.579.2.727 Self-pay Self Pay [id number] Unknown [facility] [id number] Social History Date Type Detail Facility Start: 09-22-2019 End: 07-25-2024 Tobacco smoking status NHIS Never smoked tobacco (finding) [facility] Start: 1950 Sex Assigned At Male F [facility] Start: 11-24-2023 Sex Assigned At F [facility] Tobacco smoking status Never [facility] Start: 04-09-2023 Tobacco use and exposure Smokeless tobacco non-user [facility] Start: 11-24-2023 Alcohol intake Current drinke r of alcohol (finding) [facility] Start: 11-24-2023 History of Social function [facility] Start: 04-09-2023 Alcohol Comment caffeine: 1-2 cups per day [facility] Start: 1950 Sex Assigned At Not on file N [facility] [place] Functional Status Date Assessment Result Facility 07-25-2024 Functional Status N/A [facility] 2024 Functional Status N/A [facility] 02-01-2024 Functional Status N/A [facility] 10-26-2023 Functional Status Yes [facility] Clinical Notes 02-05-2022 to 07-25-2024 Trish Ballard MD - 11/24/2023 8:50 AM EST Note Date & Type Note Facility 07-25-2024 Hospital Discharge instructions Patient Education 07/25/2024 11:39:02 Benign Prostatic Hyperplasia Benign Prostatic Hyperplasia Benign prostatic hyperplasia (BPH) is an enlarged prostate gland that is caused by the normal aging process. The prostate may get bigger as a man gets older. The condition is not caused by cancer. The prostate is a walnut-sized gland that is involved in the production of semen. It is located in front of the rectum and below the bladder. The bladder stores urine. The urethra carries stored urine out of the body. An enlarged prostate can press on the urethra. This can make it harder to pass urine. The buildup of urine in the bladder can cause infection. Back pressure and infection may progress to bladder damage and kidney (renal) failure. What are the causes? This condition is part of the normal aging process. However, not all men develop problems from this condition. If the prostate enlarges away from the urethra, urine flow will not be blocked. If it enlarges toward the urethra and compresses it, there will be problems passing urine. What increases the risk? This condition is more likely to develop in men older than 50 years. What are the signs or symptoms? Symptoms of this condition include: Getting up often during the night to urinate. Needing to urinate frequently during the day. Difficulty starting urine flow. Decrease in size and strength of your urine stream. Leaking (dribbling) after urinating. Inability to pass urine. This needs immediate treatment. Inability to completely empty your bladder. Pain when you pass urine. This is more common if there is also an infection. Urinary tract infection (UTI). How is this diagnosed? This condition is diagnosed based on your medical history, a physical exam, and your symptoms. Tests will also be done, such as: A post-void bladder scan. This measures any amount of urine that may remain in your bladder after you finish urinating. A digital rectal exam. In a rectal exam, your health care provider checks your prostate by putting a lubricated, gloved finger into your rectum to feel the back of your prostate gland. This exam detects the size of your gland and any abnormal lumps or growths. An exam of your urine (urinalysis). A prostate specific antigen (PSA) screening. This is a blood test used to screen for prostate cancer. An ultrasound. This test uses sound waves to electronically produce a picture of your prostate gland. Your health care provider may refer you to a specialist in kidney and prostate diseases (urologist). How is this treated? Once symptoms begin, your health care provider will monitor your condition (active surveillance or watchful waiting). Treatment for this condition will depend on the severity of your condition. Treatment may include: Observation and yearly exams. This may be the only treatment needed if your condition and symptoms are mild. Medicines to relieve your symptoms, including: ?Medicines to shrink the prostate. ?Medicines to relax the muscle of the prostate. Surgery in severe cases. Surgery may include: ?Prostatectomy. In this procedure, the prostate tissue is removed completely through an open incision or with a laparoscope or robotics. ?Transurethral resection of the prostate (TURP). In this procedure, a tool is inserted through the opening at the tip of the penis (urethra). It is used to cut away tissue of the inner core of the prostate. The pieces are removed through the same opening of the penis. This removes the blockage. ?Transurethral incision (TUIP). In this procedure, small cuts are made in the prostate. This lessens the prostate's pressure on the urethra. ?Transurethral microwave thermotherapy (TUMT). This procedure uses microwaves to create heat. The heat destroys and removes a small amount of prostate tissue. ?Transurethral needle ablation (TUNA). This procedure uses radio frequencies to destroy and remove a small amount of prostate tissue. ?Interstitial laser coagulation (ILC). This procedure uses a laser to destroy and remove a small amount of prostate tissue. ?Transurethral electrovaporization (TUVP). This procedure uses electrodes to destroy and remove a small amount of prostate tissue. ?Prostatic urethral lift. This procedure inserts an implant to push the lobes of the prostate away from the urethra. Follow these instructions at home: Take nzml-lax-ekwrybc and prescription medicines only as told by your health care provider. Monitor your symptoms for any changes. Contact your health care provider with any changes. Avoid drinking large amounts of liquid before going to bed or out in public. Avoid or reduce how much caffeine or alcohol you drink. Give yourself time when you urinate. Keep all follow-up visits. This is important. Contact a health care provider if: You have unexplained back pain. Your symptoms do not get better with treatment. You develop side effects from the medicine you are taking. Your urine becomes very dark or has a bad smell. Your lower abdomen becomes distended and you have trouble passing urine. Get help right away if: You have a fever or chills. You suddenly cannot urinate. You feel light-headed or very dizzy, or you faint. There are large amounts of blood or clots in your urine. Your urinary problems become hard to manage. You develop moderate to severe low back or flank pain. The flank is the side of your body between the ribs and the hip. These symptoms may be an emergency. Get help right away. Call 911. Do not wait to see if the symptoms will go away. Do not drive yourself to the hospital. Summary Benign prostatic hyperplasia (BPH) is an enlarged prostate that is caused by the normal aging process. It is not caused by cancer. An enlarged prostate can press on the urethra. This can make it hard to pass urine. This condition is more likely to develop in men older than 50 years. Get help right away if you suddenly cannot urinate. This information is not intended to replace advice given to you by your health care provider. Make sure you discuss any questions you have with your health care provider. Document Revised: 04/22/2022 Document Reviewed: 04/22/2022 [employer] Patient Education 2023 [employer]. Follow Up Care 07/24/2024 13:23:01 With:DODIE DAWKINS, Pola Rothman, URL Address: [facility] [address] , [place] [address] [phone] When: Unknown [facility] 07-25-2024 Note Patient Education Urology Benign Prostatic Hyperplasia Benign prostatic hyperplasia (BPH) is an enlarged prostate gland that is caused by the normal aging process. The prostate may get bigger as a man gets older. The condition is not caused by cancer. The prostate is a walnut-sized gland that is involved in the production of semen. It is located in front of the rectum and below the bladder. The bladder stores urine. The urethra carries stored urine out of the body. An enlarged prostate can press on the urethra. This can make it harder to pass urine. The buildup of urine in the bladder can cause infection. Back pressure and infection may progress to bladder damage and kidney (renal) failure. What are the causes? This condition is part of the normal aging process. However, not all men develop problems from this condition. If the prostate enlarges away from the urethra, urine flow will not be blocked. If it enlarges toward the urethra and compresses it, there will be problems passing urine. What increases the risk? This condition is more likely to develop in men older than 50 years. What are the signs or symptoms? Symptoms of this condition include: ? Getting up often during the night to urinate. ? Needing to urinate frequently during the day. ? Difficulty starting urine flow. ? Decrease in size and strength of your urine stream. ? Leaking (dribbling) after urinating. ? Inability to pass urine. This needs immediate treatment. ? Inability to completely empty your bladder. ? Pain when you pass urine. This is more common if there is also an infection. ? Urinary tract infection (UTI). How is this diagnosed? This condition is diagnosed based on your medical history, a physical exam, and your symptoms. Tests will also be done, such as: ? A post-void bladder scan. This measures any amount of urine that may remain in your bladder after you finish urinating. ? A digital rectal exam. In a rectal exam, your health care provider checks your prostate by putting a lubricated, gloved finger into your rectum to feel the back of your prostate gland. This exam detects the size of your gland and any abnormal lumps or growths. ? An exam of your urine (urinalysis). ? A prostate specific antigen (PSA) screening. This is a blood test used to screen for prostate cancer. ? An ultrasound. This test uses sound waves to electronically produce a picture of your prostate gland. Your health care provider may refer you to a specialist in kidney and prostate diseases (urologist). How is this treated? Once symptoms begin, your health care provider will monitor your condition (active surveillance or watchful waiting). Treatment for this condition will depend on the severity of your condition. Treatment may include: ? Observation and yearly exams. This may be the only treatment needed if your condition and symptoms are mild. ? Medicines to relieve your symptoms, including: ? Medicines to shrink the prostate. ? Medicines to relax the muscle of the prostate. ? Surgery in severe cases. Surgery may include: ? Prostatectomy. In this procedure, the prostate tissue is removed completely through an open incision or with a laparoscope or robotics. ? Transurethral resection of the prostate (TURP). In this procedure, a tool is inserted through the opening at the tip of the penis (urethra). It is used to cut away tissue of the inner core of the prostate. The pieces are removed through the same opening of the penis. This removes the blockage. ? Transurethral incision (TUIP). In this procedure, small cuts are made in the prostate. This lessens the prostate's pressure on the urethra. ? Transurethral microwave thermotherapy (TUMT). This procedure uses microwaves to create heat. The heat destroys and removes a small amount of prostate tissue. ? Transurethral needle ablation (TUNA). This procedure uses radio frequencies to destroy and remove a small amount of prostate tissue. ? Interstitial laser coagulation (ILC). This procedure uses a laser to destroy and remove a small amount of prostate tissue. ? Transurethral electrovaporization (TUVP). This procedure uses electrodes to destroy and remove a small amount of prostate tissue. ? Prostatic urethral lift. This procedure inserts an implant to push the lobes of the prostate away from the urethra. Follow these instructions at home: ? Take pkjy-dwy-mclkdcm and prescription medicines only as told by your health care provider. ? Monitor your symptoms for any changes. Contact your health care provider with any changes. ? Avoid drinking large amounts of liquid before going to bed or out in public. ? Avoid or reduce how much caffeine or alcohol you drink. ? Give yourself time when you urinate. ? Keep all follow-up visits. This is important. Contact a health care provider if: ? You have unexplained back pain. ? Your symptoms do not get better with treatment. ? You develop side effec (more content not included)... [facility] 03-23-2024 Hospital Discharge instructions Follow Up Care 03/23/2024 12:48:04 With:DODIE DAWKINS, Pola Rothman, URL Address: [facility] [address], [place] [address]- [phone] When: Unknown [facility] 03-20-2024 Evaluation + Plan note Diagnostic Tests PendingUrine Culture 03/20/24 [facility] 2024 Hospital Discharge instructions Patient Education 2024 12:28:39 Hematuria, Adult Hematuria, Adult Hematuria is blood in the urine. Blood may be visible in the urine, or it may be identified with a test. This condition can be caused by infections of the bladder, urethra, kidney, or prostate. Other possible causes include: Kidney stones. Cancer of the [...] blood in your urine, even if it is painless or the blood stops without treatment. Blood in the urine, when it happens and then stops and then happens again, can be a symptom of a very serious condition, including cancer. There is no pain in the initial stages of many urinary cancers. Follow these instructions at home: Medicines Take lemo-spw-qdfkpye and prescription medicines only as told by your health care provider. If you were prescribed an antibiotic medicine, take it as told by your health care provider. Do not stop taking the antibiotic even if you start to feel better. Eating and drinking Drink enough fluid to keep your urine pale yellow. It is recommended that you drink 3 4 quarts (2.8 3.8 L) a day. If you have been diagnosed with an infection, drinking cranberry juice in addition to large amounts of water is recommended. Avoid caffeine, [...] blood in your urine, even if it is painless or the blood stops without treatment. Take lkya-ico-xhlyrqf and prescription medicines only as told by your health care provider. Drink enough fluid to keep your urine pale yellow. This information is not intended to replace advice given to you by your health care provider. Make sure you discuss any questions you have with your health care provider. Document Revised: 06/04/2021 Document Reviewed: 06/04/2021 [employer] Patient Education 2022 [employer]. Follow Up Care 02/01/2024 13:46:15 With:DODIE DAWKINS, Pola Rothman, URL Address: [facility] [address] , [place] [address]- When: Unknown [facility] 02-01-2024 Hospital Discharge instructions Patient Education 02/01/2024 [...] including vitamins, herbs, eye drops, creams, and wouo-iwd-qzjbzwj medicines. Any problems you or family members [...] provider tells you to take them. Taking jibc-zau-tekuguz medicines, vitamins, herbs, and supplements. Tests You [...] Follow these instructions at home: Medicines Take lusd-ouh-tkzslby and prescription medicines only as told by [...] provider. Document Revised: 06/17/2022 Document Reviewed: 05/16/2021 [employer] Patient Education 2022 [employer]. Follow Up Care 01/31/2024 16:48:56 With:DODIE DAWKINS, Pola Rothman, URL Address: [facility] [address] , [place] [address]- [phone] When: Unknown Comments:adalberto RIOS [facility] 02-01-2024 Note Urology Cystoscopy Cystoscopy is a [...] including vitamins, herbs, eye drops, creams, and icnm-vfx-qssicpl medicines. ? Any problems you or family [...] tells you to take them. ? Taking sazc-hqc-mazlcyh medicines, vitamins, herbs, and supplements. Tests You [...] these instructions at home: Medicines ? Take bwcr-ntg-qjksymx and prescription medicines only as told by [...] the department th (more content not included)... [facility] 11-24-2023 History of Present illness Narrative Images [...] upper limb, including shoulder left clavicular area [place] papule at biopsy site Destr of lesion Complexity: simple Destruction method: electrodesiccation and curettage Informed consent: discussed and consent obtained Informed consent comment: The risks of the procedure were discussed, including, but not limited to risks of scarring, darker or ammonia worker pigmentary changes, recurrence, infection, and incomplete removal [...] lidocaine used: 1.0 cc Previous accession number: [id number] ED&C today, see procedure note. Return to [...] Visit: as scheduled documented in this encounter [facility] 11-11-2023 Evaluation note Encounter Date Diagnosis Assessment [...] AHA diet plan. Continue secondary prevention measures. [facility] 01-15-2024 Evaluation note* Encounter Date Diagnosis [...] Increases risk for more serious, prolonged illness [facility] 01-09-2024 Hospital Discharge instructions Patient Education 10/26/2023 10:02:29 [...] including vitamins, herbs, eye drops, creams, and bgsf-cfc-jnmmaef medicines. Any problems you or family members [...] provider tells you to take them. Taking xwhe-ctx-gxsrely medicines, vitamins, herbs, and supplements. Tests You [...] Follow these instructions at home: Medicines Take whff-kic-nlobbih and prescription medicines only as told by [...] provider. Document Revised: 06/17/2022 Document Reviewed: 05/16/2021 [employer] Patient Education 2022 [employer]. 10/26/2023 10:02:27 Hematuria, Adult Hematuria, Adult Hematuria [...] Follow these instructions at home: Medicines Take awbr-nri-sadlnxr and prescription medicines only as told by [...] or the blood stops without treatment. Take mfsn-pxt-ziqarvg and prescription medicines only as told by your health care provider. Drink enough fluid to keep your urine pale yellow. This information is not intended to replace advice given to you by your health care provider. Make sure you discuss any questions you have with your health care provider. Document Revised: 06/04/2021 Document Reviewed: 06/04/2021 [employer] Patient Education 2022 [employer]. Follow Up Care 10/01/2023 13:06:22 With:DODIE DAWKINS, Pola Rothman, URL Address: [facility] [address] , [place] [address] [phone] When: Unknown Comments:sched cysto [facility] 01-09-2024 NoteUrology Cystoscopy Cystoscopy is a procedure [...] including vitamins, herbs, eye drops, creams, and oljh-glj-cihziru medicines. ? Any problems you or family [...] tells you to take them. ? Taking vixm-gnr-aeuwpnv medicines, vitamins, herbs, and supplements. Tests You [...] these instructions at home: Medicines ? Take uukv-ngt-ynaugxn and prescription medicines only as told by [...] or the department th (more content not included)...[facility] 10-05-2023 Evaluation note* Encounter Date Diagnosis Assessment Notes [...] lower urinary tract symptoms (ICD-10 - N40.1) [facility] Chief Complaint: Patient [...] an angiotensin-converting enzyme inhibi (more content not included)...[facility] 07-20-2023 Evaluation note* Encounter Date Diagnosis Assessment Notes Treatment Notes Treatment Clinical Notes Jul, Acute seasonal allergic rhinitis (ICD-10 - J30.2) [facility] 06-28-2023 Evaluation note* Encounter Date Diagnosis Assessment Notes Treatment Notes Treatment Clinical Notes Mar, Acute non-recurrent maxillary sinusitis (ICD-10 - J01.00) [facility] 06-21-2023 Evaluation note* Encounter Date Diagnosis Assessment Notes Treatment Notes Treatment Clinical Notes Mar, Acute non-recurrent maxillary sinusitis (ICD-10 - J01.00) Instructed to use Robitussin or Mucinex for cough, saline or Flonase NS for congestion, Tylenol for pain and fever. Mar, ASHD (arteriosclerotic heart disease) (ICD-10 - I25.10) Stable w/o symptoms suggestive of angina. Avoid decongestants, NSAIDs [facility] 06-05-2023 Evaluation note* Encounter Date Diagnosis [...] use, the patient reduces the risk for OH, CVA, HTN, cardiac dysrhythmias and sudden cardiac [...] High risk medication use (ICD-10 - Z79.899) [facility] 05-02-2023 Evaluation note* Encounter Date Diagnosis Assessment Notes Treatment Notes Treatment Clinical Notes February, Primary hypertension (ICD-10 - I10) [facility] 04-12-2023 Evaluation note* Encounter Date Diagnosis Assessment Notes Treatment Notes Treatment Clinical Notes Jan, Acute seasonal allergic rhinitis (ICD-10 - J30.2) [facility] 04-21-2022 Evaluation note* Encounter Date Diagnosis [...] sleepiness, or poor response to treatment. . [facility] Evaluation + Plan note Future Appointments Appointment Date:11/23/2023 07:30:00 AM Scheduled Provider:Pola CANTRELL MD Location:[facility] Appointment Type:URO Procedure 15 min [facility] Evaluation + Plan note Future Appointments Appointment Date:11/23/2023 07:30:00 AM Scheduled Provider:Pola CANTRELL MD [facility] Appointment Type:URO Procedure 15 min Diagnostic Tests Pending * [facility] Fish and Urine Cyto ([facility]) [facility] Future Appointments Appointment Date:2024 10:45:00 AM Scheduled Provider:Pola CANTRELL MD Location:[facility] [place] Appointment Type:URO Office Visit [facility] Evaluation + Plan note Future Appointments Appointment Date:07/25/2024 10:15:00 AM Scheduled Provider:Pola CANTRELL MD Location:[facility] Appointment Type:URO Office Visit [facility] evaluation + Plan note Future Appointments Appointment Date:07/25/2025 08:15:00 AM Scheduled Provider:Pola CANTRELL MD [facility] Appointment Type:URO Office Visit [facility] [place] Evaluation noteNo assessment information available [facility] Work Phone: Evaluation noteNo InformationNort [email or web address] Other Evaluation note* Diagnosis Actinic keratosis- Primary Basal cell carcinoma of skin of left upper limb, including shoulder [facility] Diagnosis Onset Date Resolution Status ASHD (arteriosclerotic heart disease) acute Acute bronchitis due to other specified organisms noneactive [facility] Work Phone: Evaluation note* Diagnosis Onset Date Resolution Status ASHD (arteriosclerotic heart disease) acute Acute bronchitis due to other specified organisms noneactive BMI 27.0-27.9,adult acute Obstructive sleep apnea acut e [facility] Work Phone: Evaluation note* Diagnosis Onset Date Resolution Status ASHD (arteriosclerotic heart disease) acute Acute bronchitis due to other specified organisms noneactive Obstructive sleep apnea acut e ASHD (arteriosclerotic heart disease) acute Carotid stenosis acute GERD (gastroesophageal reflux disease) acute Hypercholesterolemia acute Hypothyroid acute Obstructive sleep apnea acut e Type 2 diabetes mellitus with hyperglycemia acute Medicare annual wellness visit, subsequent noneactive [facility] Work Phone: History general Narrative - Reported* Type Description Date Medical History Hypercholesteremia Medical History Hypothyroid (per patient is cont rolled) Medical History GERD (gastroesophageal reflux di sease) Medical History diabetes Medical History RICCARDO Surgical History cholecystectomy Surgical History heart stent Surgical History appendectomy Hospitalization History see above [facility] Hospital course Narrative No data available for this section [facility] Discharge instructions No data available for this section [facility] No data available for this section [facility] [employer] Summary Purpose Family History Relationship Condition Age at Onset Recorded Date/T asif brother Diabetes mellitus Unknown father Congestive heart failure Unknown Relationship Condition Age at Onset Recorded Date/T asif brother Diabetes mellitus Unknown father Congestive heart failure Unknown brother Unknown brother Heart disease Unknown Diabetes mellitus Unknown father Unknown Heart disease Unknown Not Specified Unknown Family history of other condition Unknown Relationship Condition Age at Onset Recorded Date/T asif brother Diabetes mellitus Unknown father Congestive heart failure Unknown brother Unknown brother Heart disease Unknown Diabetes mellitus Unknown father Unknown Heart disease Unknown mother Unknown Family history of other condition Unknown Advance Directives Advance Directive Response Recorded Date/ Time Advance Directives No August 2:12pm Chief Complaint and Reason for Visit Chief Complaint Sleep apnea annual f ollow up Chief Complaint Allergy Shot Sinuses/ [phone] Reason for Visit ASHD (arteriosclerot ic heart disease) Acute bronchitis due to other specified organisms Chief Complaint Allergy Shot Sinuses/ [phone] RICCARDO/Annual Reason for Visit ASHD (arteriosclerot ic heart disease) Acute bronchitis due to other specified organisms Chief Complaint Allergy Shot Sinuses/ [phone] RICCARDO/Annual Unknown Reason for Visit ASHD (arteriosclerot ic heart disease) Acute bronchitis due to other specified organisms BMI 27.0-27.9,adult Obstructive sleep apnea Chief Complaint Allergy Shot Sinuses/ [phone] RICCARDO/Annual Unknown Wellness Reason for Visit ASHD (arteriosclerot ic heart disease) Acute bronchitis due to other specified organisms Obstructive sleep apnea ASHD (arteriosclerotic heart disease) Carotid stenosis GERD (gastroesophageal reflux disease) Hypercholesterolemia Hypothyroid Obstructive sleep apnea Type 2 diabetes mellitus with hyperglycemia Medicare annual wellness visit, subsequent Chief Complaint Sinuses/ [phone] RICCARDO/Annual Unknown Wellness allergy shot Reason for Visit ASHD (arteriosclerot ic heart disease) Acute bronchitis due to other specified organisms Obstructive sleep apnea ASHD (arteriosclerotic heart disease) Carotid stenosis GERD (gastroesophageal reflux disease) Hypercholesterolemia Hypothyroid Obstructive sleep apnea Type 2 diabetes mellitus with hyperglycemia Medicare annual wellness visit, subsequent Chief Complaint cough, COVID - Reason for Referral Reason Gross Hematuria Diagnosis 1 Gross hematuria (R31 .0) Referral Organization [facility] Ina pearl Referring Provider First Name Brandon Referring Provider Last Name Sameer Referring Provider Specialty Internal Me dicine Referred Organization [facility] Referred Provider Pola Cantrell Referred Address [address] [facility],[place],[address] Referred Provider Specialty Urology Referral Priority Routine [...] results. Clinical Notes Include CT scan from [facility]. Include recent labs completed. Additional Source Comments (unrecognized sect ion and content) No Status Records FoundNo Status Records FoundNo Status Records FoundNo Status Records FoundNo Status Records FoundNo Status Records FoundNo Status Records FoundNo Status Records Found INFORMATION SOURCE (unrecogn ized section and content) DATE CREATED AUTHOR 04/07/2018 [facility] DATE CREATED AUTHOR AUTHOR'S ORGANIZ ATION 10/09/2022 [facility] DATE CREATED AUTHOR AUTHOR'S ORGANIZ ATION 09/21/2023 [facility] DATE CREATED AUTHOR AUTHOR'S ORGANIZ ATION 03/23/2024 [facility] DATE CREATED AUTHOR AUTHOR'S ORGANIZ ATION 03/25/2024 [facility] DATE CREATED AUTHOR AUTHOR'S ORGANIZ ATION 03/25/2024 [facility] DATE CREATED AUTHOR AUTHOR'S ORGANIZ ATION 05/25/2024 [facility] EPIC DATE CREATED AUTHOR AUTHOR'S ORGANIZ ATION 07/27/2024 [facility] Care Teams (unrecognized sec tion and content) Team Status: Active Member Role Status Dates Brandon Estrella , DO Primary Care Provider Active Team Status: Inactive Member Role Status Dates Brandon Estrella , DO Primary Care Provide r, Attending Provider Active Start: December 28, 2023 End: December 28, 2023 Team Status: Inactive Member Role Status Dates Brandon Estrella , DO Primary Care Provide r, Attending Provider Active Start: January 26, 2024 End: January 26, 2024 Team Status: Inactive Member Role Status Dates Brandon Estrella , Primary Care Provider Active Start: February 03, 2024 End: February 03, 2024 Tim Hardwick MD Attending Provider Active S tart: February 03, 2024 End: February 03, 2024 Team Status: Inactive Member Role Status Dates Brandon Estrella Primary Care Provider Active Tim Hardwick MD Attending Provider Active Team Status: Active Member Role Status Dates Provider Conversion Attending Provider Active St art: November 01, 2023 Team Status: Active Member Role Status Dates Brandon Estrella Primary Care Provider Active Start: February 18, 2024 Pola Cantrell MD Attending Provider Active St art: February 18, 2024 Team Status: Inactive Member Role Status Dates Pola Cantrell MD Attending Provider Active St art: March 02, 2024 End: March 02, 2024 Team Status: Inactive Member Role Status Dates Brandon Estrella Primary Care Provide r, Attending Provider Active Start: March 23, 2024 End: March 23, 2024 Team Status: Active Member Role Status Puja Brandon Estrella Primary Care Provide r, Attending Provider Active Start: April 04, 2024 Team Status: Inactive Member Role Status Dates Brandon Estrella DO Primary Care Provider Active Start: April 13, 2024 End: April 13, 2024 Rossana Martinez MD Attending Provider Active St art: April 13, 2024 End: April 13, 2024 Team Status: Inactive Member Role Status Dates Brandon Estrella Primary Care Provide r, Attending Provider Active Start: July 28, 2024 End: July 28, 2024 Goals (unrecognized section and content) Goals may [...] alternate section No data available for this section No data available for this sectionGoals may be documented in an alternate sectionGoals may be documented in an alternate section No data available for this section No data available for this sectionGoals may be documented in an alternate section REASON FOR VISIT (unrecogniz ed section and content) Reason Comments Follow-up coughChest Congestion, Sinuses-Testing for COVID- [phone] resultsER f/zglcghqhGyzefzt-[phone] ShotRefill FOR RECORDS PERTAINING TO PATIENTS WHO [...] BE BASED ON THE PRIMARY CLINICAL RECORDS. [employer] provides no warranty or guarantee of the accuracy or completeness of information in this document.
[2024-08-28 08:25] LABS: Estimated Average Glucose 192 mg/dL; Glycohemoglobin A1C 8.3 % (4.5-6.2)
== END 2024-08-28 07:43 | disposition home or self-care (01) ==
LOC: LAB 07:45
PROVIDERS: PCP Internal Medicine; Visit Provider Internal Medicine
DX: E11.65 Type 2 diabetes mellitus with hyperglycemia (principal)
CPT/HCPCS: 36415; 83036

== ENCOUNTER 2024-09-07 09:08 | Outpatient (OUT) | payer OTHER, SELFPAY ==
--- OUTSIDE RECORDS SUMMARY | 2024-09-07 09:32 | XMS_ITS | CCD ---
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 Name Role Phone PHYSICIAN, DEFAULT Unavailable Unavailable PHYSICIAN, DEFAULT Unavailable Unavailable BALL, BRANDON Unavailable Unavailable PHYSICIAN, DEFAULT Unavailable Unavailable PHYSICIAN, DEFAULT Unavailable Unavailable BALL, BRANDON Unavailable Unavailable Ball, DO Brandon Primary Care Provider [phone] MD Tim Hardwick Attending Provider [phone] Tim Hardwick Unavailable ELISABETH, DR TIM Dunn [...] DR OCAMPO Admitting Unavailable Ball, Brandon Unavailable OMER ESTRELLA Primary Care Physician Unavailable Primary Care Provider MD Pola Plata Attending Provider [phone] Pola Cantrell Attending Unavailable Cantrell, Pola Admitting Unavailable CANTRELL, Pola R Attending Unavailable CANTRELL, Pola R Admitting Unavailable CANTRELL, Pola Rothman Attending Unavailable BALL, BRANDON Referring Unavailable CANTRELL, Pola R Attending Unavailable CANTRELL, Pola R Attending Unavailable CANTRELL, Pola R Attending Unavailable CANTRELL, Pola R Attending Unavailable CANTRELL, Pola R Attending Unavailable CANTRELL, Pola R Attending Unavailable CANTRELL, Pola R Admitting Unavailable CANTRELL, Pola R Attending Unavailable PETITTI, JUVENAL A Attending Unavailable PETITTI, JUVENAL A Attending Unavailable PETITTI, JUVENAL A Attending Unavailable CANTRELL, Pola R Attending Unavailable CANTRELL, Pola R Attending Unavailable CANTRELL, Pola R Attending Unavailable CANTRELL, Pola Rothman Attending Unavailable [place], EHAB Attending Unavailable CARLO SEN Attending Unavailable Allergies Allergy Classification Reported Allergen(s) Allergy Type Date of Onset Reaction(s) Facility diphenhydrAMINE (1 source) diphenhydrAMINE Drug Allergy 024 Hallucinating [facility] (1 source) Contrast media Drug allergy (disorder) 016 AOF [facility] Repository (17 sources) diphenhydrAMINE; Translations: [Diphenhydramine] Drug Allergy 019 Hallucinations (finding), Unknown [facility] Comment on above: Pt states that it is only IV Benadryl (9 sources) Contrast media Propensity to adverse reactions Unknown [facility] Other (16 sources) Dyes Propensity to adverse reactions 024 Comment:Contrast Dye [facility] (8 sources) Allergies Reconciled Propensity to adverse reactions Unknown [facility] Other (8 sources) patient allergy list reviewed by nurse or physicia Propensity to adverse reactions 015 Comment:Done [facility] Other (9 sources) Iodinated Contrast Media Drug Allergy 023 Unknown [facility] (2 sources) diphenhydrAMINE; Translations: [Benadryl] Drug Allergy [facility] Repository (1 source) diphenhydrAMINE; Translations: [DIPHENHYDRAMINE HCL] Drug Allergy 019 [facility] Repository Medications Current Medications Medication Drug Class(es) Dates Sig (Normalized) Sig (Original) Ascorbic Acid (20 sources) Vitamin C Start: 10-26-2023 Vitamin C Zeenat y Start Date: 10/26/23 Status: Ordered Vitamin C Active Aspir-81 81 MG (17 sources) take 1 tablet by mouth once daily Aspir-81 81 MG 1 tablet Orally Once a day Active aspirin 81 mg delayed release oral tablet (16 sources) Platelet Aggregation Inhibitor, Nonsteroidal Anti-inflammatory Drug Start: 09-09-2020 take 1 mg by mouth once daily aspirin 81 mg Oral EC Tab mg tab(s), Oral, Daily, Refills(s) 0 Start Date: 09/09/20 Status: Ordered Start: 09-22-2019 take 1 tablet by sol th once daily Aspirin 81 mg Tablet,Chewable Active 81 MG PO Daily September 22, 2019 12:00am atorvastatin 80 mg oral tablet (20 sources) HMG-CoA Reductase Inhibitor Start: 06-20-2024 take 1 tablet by mouth once daily in the evening Atorvastatin 80 mg tablet Active 0 .ROUTE .COMPLEX 90 June 20, 2024 12:05pm TAKE 1 TABLET BY MOUTH EVERY DAY IN THE EVENING Start: 09-22-2019 End: 06-20-2024 take 1 tablet by mouth once daily Atorvastatin 80 mg tablet Discontinued 80 MG PO Daily September 22, 2019 12:00am June 20, 2024 12:05pm atorvastatin (Li pitor) 10 MG tablet baclofen 10 mg oral tablet (2 sources) gamma-Aminobutyric Acid-ergic Agonist baclofen (Lioresal) 10 MG tablet baclofen 10 mg tablet 0 Active cefuroxime 250 mg oral tablet (11 sources) Cephalosporin Antibacterial Start: 2022 take 1 tablet by mouth twice daily [...] oral tablet (4 sources) Quinolone Antimicrobial Start: 2023 ciprofloxacin (Cipro) 500 MG tablet TAKE ONE TAB DAY BEFORE PROCEDURE AND ONE TAB AFTER PROCEDURE 0 10/26/2023 Active clopidogrel 75 mg oral tablet (20 sources) P2Y12 Platelet Inhibitor Start: 2018 take 1 tablet by mouth once daily Clopidogrel 75 mg tablet Active 75 MG PO Daily September 22, 2019 12:00am dapagliflozin 10 mg oral tablet (1 source) Sodium-Glucose Cotransporter 2 Inhibitor Start: 2023 take 1 tablet by mouth once daily Dapagliflozin Propanediol (Farxiga) 10 mg tablet Active 10 MG PO Daily August 30, 2024 12:00am doxycycline hyclate 100 mg oral capsule (1 source) Tetracycline-class Drug Start: 2023 take 1 capsule by mouth twice daily Doxycycline Hyclate 100 MG 1 capsule Orally twice daily for 7 days Nov, Active ezetimibe 10 mg oral tablet (3 sources) Dietary Cholesterol Absorption Inhibitor Start: 2023 take 1 tablet by mouth once daily Ezetimibe (Zetia) 10 mg tablet Active 10 MG PO Daily August 30, 2024 12:00am ezetimibe (Zetia ) 10 MG tablet ezetimibe 10 mg tablet 0 Active famotidine 40 mg oral tablet (1 source) Histamine-2 Receptor Antagonist Start: 09-04-2024 take 1 tablet by mouth once daily at bedtime Famotidine 40 mg tablet Active 40 MG PO Daily at bedtime 90 September 04, 2024 12:00am 24 hr hydroCHLOROthiazide 12.5 mg / metoprolol succinate 25 mg extended release oral tablet (8 sources) Thiazide Diuretic, beta-Adrenergic Rashad Start: 09-09-2020 take 1 tablet by mouth once daily hydrochlorothiazi de-metoprolol 12.5 mg-25 mg oral tablet, extended release tab(s), Oral, Daily, Refill(s) 0 Start Date: 09/09/20 Status: Ordered levoFLOXacin 500 mg oral tablet (2 sources) Quinolone Antimicrobial levoFLOXacin (Levaquin) 500 MG tablet levofloxacin 500 mg tablet 0 Active levothyroxine sodium 0.075 mg oral tablet (20 sources) l-Thyroxine Start: 08-15-2024 take 1 tablet by mouth once daily Levothyroxine 75 mcg tablet Active 0 .ROUTE .COMPLEX August 15, 2024 7:36am TAKE 1 TABLET BY MOUTH EVERY DAY Start: 09-09-2020 take 1 tablet by sol th once daily Synthroid 75 mcg (0.075 mg) Tab mcg tab(s), Oral, Daily, Refills(s) 0 Start Date: 09/09/20 Status: Ordered Start: 09-22-2019 End: 08-15-2024 take 1 tablet by mouth once daily Levothyroxine 75 mcg tablet Discontinued 75 MCG PO Daily September 22, 2019 12:00am August 15, 2024 7:36am take 1 tablet by sol th once daily in the morning Synthroid 75 MCG 1 tablet on an empty stomach in the morning Orally Once a day Active linagliptin 5 mg oral tablet (3 sources) Dipeptidyl Peptidase 4 Inhibitor Start: 04-04-2024 take 1 tablet by mouth once daily Linagliptin (Tradjenta) 5 mg tablet Active 5 MG PO Daily April 03, 2024 11:00pm On Hold: other medication started losartan potassium 25 mg oral tablet (1 source) Angiotensin 2 Receptor Rashad Start: 08-30-2024 take 1 tablet by mouth once daily Losartan 25 mg tablet Active 25 MG PO Daily August 30, 2024 12:00am meloxicam 15 mg oral tablet (2 sources) Nonsteroidal Anti-inflammatory Drug meloxicam (Mobic) 15 MG tablet meloxicam 15 mg tablet 0 Active metFORMIN hydrochloride 500 mg oral tablet (20 sources) Biguanide Start: 01-31-2024 take 1 tablet by mouth once daily at mealtime Metformin 500 mg tablet Active 0 .ROUTE .COMPLEX January 31, 2024 5:13pm TAKE 1 TABLET BY MOUTH EVERY DAY WITH A MEAL FOR 90 DAYS Start: 09-09-2020 take 1 mg by mouth twice daily metformin 500 mg oral tablet mg tab(s), Oral, BID, Refills(s) 0 Start Date: 09/09/20 Status: Ordered Start: 09-22-2019 End: 01-31-2024 take 1 tablet by mouth once daily Metformin 500 mg tablet Discontinued 500 MG PO Daily September 22, 2019 12:00am January 31, 2024 5:13pm metoprolol tartrate 25 mg oral tablet (20 sources) beta-Adrenergic Rashad Start: 09-22-2019 take 0.5 tablet by mouth twice daily Metoprolol Tartrate 25 mg Tablet Active 0.5 TAB PO Twice daily September 22, 2019 12:00am Start: 09-22-2019 take 0.5 tablet by m outh twice daily Metoprolol Tartrate Active 0.5 TAB PO Twice daily September 22, 2019 1:00am take 1 tablet by sol th every twenty-four hours in the morning metoprolol succinate XL (Toprol-XL) 25 MG 24 hr tablet Take 12.5 mg by mouth in the morning and 12.5 mg in the evening. 0 Active paxlovid (300/100) 20 x 150 mg & 10 x 100mg tablet therapy pack (2 sources) Start: 11-01-2023 take 3 tablets by mouth every twelve hours Paxlovid (300/100) 20 x 150 MG & 10 x 100MG 3 tablets Orally Twice a day for 5 days Oct, Active tamsulosin hydrochloride 0.4 mg oral capsule (3 sources) alpha-Adrenergi c Rashad Start: 08-30-2024 take 1 capsule by mouth once daily Tamsulosin 0.4 mg capsule Active 0.4 MG PO Daily August 30, 2024 12:00am Start: 03-23-2024 take 1 capsule by mo [facility] once daily tamsulosin 0.4 mg Cap 0.4 mg = 1 cap(s), Oral, Daily, # 90 cap(s), Refills(s) 3, Pharmacy: [facility]/pharmacy #[id number], 171, cm, 07/25/24 11:05:00 EDT, Height/Length Dosing, 79, kg, 07/25/24 11:05:00 EDT, Weight Dosing Start Date: 07/25/24 Status: Ordered traMADol hydrochloride 50 mg oral tablet (2 sources) Opioid Agonist traMADol (Ultram ) 50 MG tablet tramadol 50 mg tablet 0 Active Vitamin D3 (20 sources) Start: 10-26-2023 Vitamin D3 Start Date: 10/26/23 Status: Ordered Vitamin D3 Activ [...] Not-Taking/PRN Start: 05-04-2017 [facility] Augmentin Tablets 875 MG Take one tab Orally Twice daily for 10 days Apr, Not-Taking azithromycin 250 mg oral tablet (9 sources) Macrolide Antimicrobial Start: 07-28-2024 End: 08-30-2024 Azithromycin 250 mg tablet Discontinued 250 MG PO As Directed 03 22July 27, 2024 11:00pm August 30, 2024 5:33pm Start: 01-26-2024 End: 05-12-2024 Azithromycin 250 mg tablet D iscontinued 250 MG PO As Directed 03 22January 25, 2024 11:00pm May 12, 2024 3:08pm isosorbide dinitrate 30 mg oral tablet (17 sources) Nitrate Vasodilator take 1 tablet by mouth every twelve hours Isosorbide Dinitrate 30 MG 1 tablet Orally Twice a day Not-Taking/PRN Ketorolac (17 sources) Nonsteroidal Anti-inflammatory Drug, Cyclooxygenase Inhibitor Start: 11-17-19 15 Toradol per 15 mg Oct, 60 mg lisinopril 5 mg oral tablet (20 sources) Angiotensin Converting Enzyme Inhibitor Start: 02-17-20 End: 08-30-20 24 take 1 tablet by mouth once daily Lisinopril 5 mg tablet Discontinued 5 MG PO Daily 90 90 May 11, 2024 11:00pm August 30, 2024 5:33pm lisinopril 2.5 M G tablet lisinopril 2.5 mg tablet 0 Active Lisinopril Activ e pantoprazole 40 mg delayed release oral tablet (20 sources) Proton Pump Inhibitor Start: 09-22-2019 End: 09-04-2024 take 1 tablet by mouth once daily Pantoprazole 40 mg tablet,delayed release (DR/EC) Discontinued 40 MG PO Daily September 22, 2019 12:00am September 04, 2024 3:33pm Pantoprazole Sod ium 40 MG 1 packet Orally Once a day Active triamcinolone acetonide 40 mg/ml injectable suspension (20 sources) Corticosteroid Start: 01-27-2023 Kenalog-40 Jul, 60 mg Problems Active Problems Problem Classification Problem Date Documented Da te Episodic/Chronic Acute bronchitis (20 sources) Acute bronchitis; Translations: [Acute bronchitis, unspecified] Onset: 5 Episodic Asthma (18 sources) Mild intermittent asthma; Translations: [Mild intermittent asthma, uncomplicated] Onset: 9 Chronic Coronary atherosclerosis and other heart disease (20 sources) Atherosclerotic heart disease of [place] coronary artery without angina pectoris; Translations: [Coronary [...] Translations: [Essential (primary) hypertension] Chronic Gastrointestinal hemorrhage (17 sources) Rectal hemorrhage; Translations: [Hemorrhage of anus and rectum] 09-22-2019 Episodic Comment on above: Problem List clean-u p per request of Phys. EHR Cmte Genitourinary symptoms and ill-defined conditions (6 sources) [...] lower urinary tract symptoms] Onset: 5 Chronic Hypertension with complications and secondary hypertension (2 sources) Hypertensive heart disease without heart failure; Translations: [Hypertensive heart disease without heart failure] Onset: 4 Chronic Immunizations and screening for infectious disease (9 sources) Vaccination given; Translations: [Encounter for immunization] Episodic Miscellaneous mental health disorders (9 sources) Psychosexual dysfunction associated with inhibited sexual excitement; Translations: [Psychosexual dysfunction with inhibited sexual excitement] Onset: 5 Chronic Occlusion or stenosis of precerebral arteries (19 sources) Occlusion and stenosis of bilateral carotid arteries; Translations: [Left carotid artery occlusion] Onset: 2 Chronic Osteoarthritis (13 sources) Osteoarthritis of joint of right shoulder region; Translations: [Primary osteoarthritis, right shoulder] Chronic Other aftercare (2 sources) Other manager long term care (current) drug therapy; Translations: [OTH ALF CURRENT DRUG THERAPY] Onset: 2 Episodic Other aftercare (9 sources) Long-term current use of drug therapy; Translations: [Other manager long term care (current) drug therapy] Episodic Other aftercare (2 sources) Long-term current use of anticoagulant; Translations: [manager long term care (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] Onset: 4 Episodic [...] Value Interpretation Reference Range Facility Office Visiton 08-30-2024 Follow-up visit [id number] Ondina Lo 1950 M Date Provider Department Center 08/30/2024 [id number] Family History Problem Relation Age of Onset Heart failure Brother Cancer Brother Family Status - Relation Status Age at Brother Level of Service:90016 MT OFFICE/OUTPATIENT ESTABLISHED MOD MDM 30 MIN Normal [facility] Glucose mean value [Mass/vol ume] in Blood Estimated from glycated hemoglobinon 08-28-2024 Average glucose Estimated from glycated hemoglobin (Bld) [Mass/Vol] Glucose mean value [Mass/volume] in Blood Estimated from glycated hemoglobin [facility] - Hematology and Cell countson 08-28-2024 HbA1c (Bld) [Mass fraction] 8.3 % High 4.5-6.2 [facility] Comment on above: ADA RECOMMENDED LIMI T 4.0 - 6.0ADA THERAPEUTIC TARGET < 7.0ACTION SUGGESTED> 7.0 Ambulatory Visit Summaryon 1 Ambulatory Visit Summary Ambulatory Visit Summary ONDINA LO :1950 Visit Date:07/25/2024 Ambulatory Visit Instructions Your Diagnosis Lesion of bladder BPH without urinary obstruction Screening PSA (prostate specific antigen) Chronic cystitis ED (erectile dysfunction) Your Care Team Attending Physician - DODIE DAWKINS, Pola Rothman Primary Care Physician - PAIGE DAWKINS, OMER This Is Your Medications List [...] Pola CANTRELL MD Where: [facility] [address] [place] [address]- You Need to Schedule the Following Appointments Follow Up with Pola CANTRELL MD, URL When: Where: [facility] [address] [place] [address] [phone] Medications What How Much When Instructions Unchanged [...] and compresses (more content not included)... Normal [facility] Urology Office/Clinic Noteon 07-25-2024 Urology Office/Clinic Note [...] wo tumor involvement. 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 -Cont Tamsulosin daily. Refills sent to [facility]. -F/u in 1 year 3. Screening PSA [...] [facility] [address] [place] [address]- [phone] Additional Instructions: 1 yr (no labs) Patient Education Benign Prostatic Hyperplasia ISimran, personally scribed for Dr. Cantrell on 07/25/2024 11:40:35. . Documentation recorded by the scribeSimran, accurately reflects the services(s) I performed and [...] Daily clopidogrel 75 mg Tab, Oral, Daily hydrochlorothiazide-mn toprolol 12.5 mg-25 mg oral tablet, extended r (more content not included)... Normal [facility] Comment on above: Result Comment: Elec tronically Signed By: Pola CANTRELL MD\.br\Date and Time Signed: 07/25/24 11:48 EDT\.br\Electronically Co-Signed By: Simran Arroyo\.br\Date and Time Co-Signed: 07/25/24 11:41 EDT Glucose mean value [Mass/vol ume] in Blood Estimated from glycated hemoglobinon 04-04-2024 Average glucose Estimated from glycated hemoglobin (Bld) [Mass/Vol] 183 mg/dL [facility] - Hematology and Cell countson 04-04-2024 HbA1c (Bld) [Mass fraction] 8.0 % High 4.5-6.2 [facility] Comment on above: ADA RECOMMENDED LIMI T 4.0 - 6.0ADA THERAPEUTIC TARGET < 7.0ACTION SUGGESTED> 7.0 Pathology Noteon 03-24-2024 Pathology Note [id number]#1.00 TIFF [facility] Pathology Note [id number]#1.0 0TIFF [facility] Pathology Noteon 03-23-2024 Pathology Note [id number]#1.00 TIFF [facility] C Urineon 03-22-2024 Bacteria identified Cx Nom (U) Microbiology PROCEDURE: Urine Culture [R1] SOURCE: U CleanCatch BODY SITE: COLLECTED DATE/TIME: 03/20/2024 14:40 EDT RECEIVED DATE/TIME: 03/20/2024 18:59 EDT START DATE/TIME: 03/20/2024 18:59 EDT FREE TEXT SOURCE: DODIE DAWKINS, Pola De La Vega MD FINAL REPORTS Final Report [] Verified Date/Time: 03/22/2024 11:09 EDT No growth at 2 days. Performing Locations R1: This test was performed at: [facility], [address] [place] [address], [address] [place] [address], [facility] Comment on above: Performed By: #### 2 [id number] #### [facility] [address] [place] [address] Pathology Noteon 03-22-2024 Pathology Note [id number]#1.0 0TIFF Normal [facility] Pathology Noteon 03-19-2024 Pathology Note [id number]#1.00 TIFF Normal [facility] Pathology Noteon 03-15-2024 Pathology Note [id number]#1.00 TIFF [facility] Formson 03-10-2024 Forms [id number]#1.0 0TIFF [facility] Ambulatory Visit Summaryon 0 2024 Ambulatory Visit Summary ONDINA LO :1950 Visit Date:2024 Ambulatory Visit Instructions Your Diagnosis Lesion of bladder Gross hematuria Urge incontinence Your Care Team Attending Physician - DODIE DAWKINS, Pola Rothman Primary Care Physician - PAIGE DAWKINS, OMER This Is Your Medications List [...] Where: [facility] [address], [place] [address]- Medications What How Much When Instructions Unchanged [...] these instructions at home: Medicines ? Take dlsz-mxu-zwqzfbz and prescription medicines only as told by your health care provider. ? If you were prescribed an antibiotic medicine, take it as told by your health care provider. Do not stop taking the antibiotic even if you start to feel better. Eating and drinking ? Drink enough fluid to keep your urine pale yello (more content not included)... Normal [facility] Pathology Noteon 2024 Pathology Note [id number]#1.00 TIFF Normal [facility] Patient Educationon 03-08-20 Patient Education Urology Hematuria, Adult Hematuria is [...] these instructions at home: Medicines ? Take dlsk-chu-tkmmavj and prescription medicines only as told by [...] the blood stops without treatment. ? Take kjxt-ifp-bebnjjz and prescription medicines only as told by your health care provider. ? Drink enough fluid to keep your urine pale yellow. This information is not intended to replace advice given to you by your health care provider. Make sure you discuss any questions you have with your health care provider. Document Revised: 06/04/2021 Document Reviewed: 06/04/2021 [employer] Patient Education ? 2022 [employer]. Alexa [facility] Urology Office/Clinic Noteon 2024 Urology Office/Clinic Note [...] [facility] [address], [place] [address]- Additional Instructions: pending second opinion on path Patient Education Hematuria, Adult I, Amanda Regan, personally scribed for Dr. Cantrell on 2024 12:33:47. . Documentation recorded by the sedrickibdelmy, Amanda Regan, accurately reflects the services(s) I [...] conduit. Medications (more content not included)... Normal [facility] Comment on above: Result Comment: Elec tronically Signed By: Pola CANTRELL MD\.br\Date and Time Signed: 03/08/24 12:41 EDT\.br\Electronically Co-Signed By: Amanda Regan\.br\Date and Time Co-Signed: 03/08/24 12:35 EDT Pathology Noteon 03-07-2024 Pathology Note [id number]#1.00 TIFF [facility] Operative Reporton Operative Report [id number]#1.0 0TIFF [facility] Yonathan 03-02-2024 L Specimen: [id number] Received: 03/03/24 Status: WILMER Boo Num: [id number] Spec Type: Surgical Subm Dr: Pola Cantrell MD Tissues: A Urinary Bladder - TUR (BLADDER LESIONS) Procedures: HE/3, Gross/Micro L5 Age/ Patient Sex Location Account Attending Physician Ondina Lo 73/M LABELL [id number] Pola Cantrell MD SPEC NUM: [id number] RECD: 03/03/24 STATUS: WILMER BOO NUM: [id number] FRANCESCA: 03/02/[address] [facility] [address]: Pola Cantrell MD ENTERED: 03/03/24 [facility] DR: Sukhwinder [place] SPEC TYPE: Surgical DEPT: ALEXYS ARRIAGA ORDERED: HE/3, Gross/Micro L5 ORDERED: HE/3, Gross/Micro L5 Supplemental Report Addendum 1 Entered: 03/23/24125 Supplemental for findings of consultation report from [facility]: -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, intestinal type Addendum Signed (signature on file) Maddy Alan MD 03/23/24 2497 ---- Pathological Diagnosis The lesions, TURBT: -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 also noted in most fragments -No evidence of malignancy, CIS, or high-grade urothelial atypia -Small portion of muscularis propria muscle are also noted in at least 2 fragments, also without tumor involvement ---- Specimen: [id number] Received: 03/03/24 Status: WILMER Boo Num: [id number] Spec Type: Surgical Subm Dr: Pola Cantrell MD Tissues: A Urinary Bladder - TUR (BLADDER LESIONS) Procedures: HE/3, Gross/Micro L5 ---- Patient: Ondina Lo [id number] (Continued) ---- Specimen: [id number] Received: 03/03/24 (Continued) Signed (signature on file) Maddy Alan MD 03/06/24 1939 ---- Specimen: [id number] Received: 03/03/24 Status: WILMER Boo Num: [id number] Spec Type: Surgical Subm Dr: Pola Cantrell MD Tissues: A Urinary Bladder - TUR (BLADDER LESIONS) Procedures: HE/3, Gross/Micro L5 ---- Patient: Ondina Lo [id number] (Continued) ---- Specimen: [id number] Received: 03/03/24 (Continued) Clinical Information Bladder lesions, blood and urine. Gross Description Received in formalin, labeled with the patient's name, date of and bladder lesions are multiple rubbery and cauterized orr tissue fragments measuring in aggregate 1.8 x 0.7 x 0.3 cm, entirely submitted in A1. CPT Codes 42886 ---- ---- Specimen: [id number] Received: 03/03/24 Status: WILMER Boo Num: [id number] Spec Type: Surgical Subm Dr: Pola Cantrell MD Tissues: A Urinary Bladder - TUR (BLADDER LESIONS) Procedures: HE/3, Gross/Micro L5 ---- Patient: Ondina Lo [id number] (Continued) ---- Signed (signature on file) Flip-Ramin Alan MD 03/06/241938 Normal The Replaced By [facility] 02-22-2024 [facility] [id number]#1.0 0TIFF Normal [facility] ECG 12-Leadon 02-21-2024 ECG 12-Lead [id number]#1.0 0TIFF Normal [facility] Lab Reportson 02-21-2024 Lab Reports [id number]#1.0 0TIFF Normal [facility] Lab Reports [id number]#1.0 0TIFF Normal [facility] 02-21-2024 [facility] [id number]#1.0 0TIFF Normal [facility] Activated partial thrombopla stin time (aPTT) in platelet poor plasma by coagulation aon 02-18-2024 aPTT Coag (PPP) [Time] 25.8 s 22.3-36.2 [facility] Basophils Auto (Bld) [#/Vol] on 02-18-2024 Basophils (Bld) [#/Vol] 0.0 10 3/uL 0.0-0.1 [facility] Basophils/100 WBC Auto (Bld) on 02-18-2024 Basophils/100 WBC (Bld) 0.5 % 0.2-2.0 [facility] Eosinophils/100 WBC Auto (Bl d)on 02-18-2024 Eosinophils/100 WBC (Bld) 0.9 % 0.9-7.0 [facility] Erythrocyte distribution wid th Auto (RBC) [Ratio]on 02-18-2024 Erythrocyte distribution width (RBC) [Ratio] 13.5 % 11.0-15.0 [facility] Estimated glomerular filtrat ion rate (GFR) non- Americanon 02-18-2024 GFR/1.73 sq M.predicted among non-blacks MDRD (S/P/Bld) [Vol rate/Area] mL/min/{1.73_m2} >=60 [facility] Hematocrit Auto (Bld) [Volum e fraction]on 02-18-2024 Hematocrit (Bld) [Volume fraction] 39.7 % Low 42.0-54.0 [facility] Hemoglobin [Mass/volume] in Bloodon 02-18-2024 Hemoglobin (Bld) [Mass/Vol] 13.2 g/dL Low 14.0-18.0 [facility] INR in Platelet poor plasma by Coagulation assayon 02-18-2024 INR Coag (PPP) [Relative time] 0.97 {INR} [facility] Comment on above: DESIRED INR:2.0-3.0 CONDITIONS NOT LISTED BELOW2.5-3.5 FOR PROSTHETIC HEART VALVE REPLACEMENT2.5-3.5 RECURRENT THROMBOSIS Laboratory - Chemistry and C hemistry - challengeon 02-18-2024 Calcium [Mass/Vol] 9.5 mg/dL 8.5-10.1 [facility] Chloride [Moles/Vol] 102 mmol/L 98-107 [facility] CO2 [Moles/Vol] 30.4 mmol/L 21.0-32.0 [facility] Creatinine [Mass/Vol] 1.05 mg/dL 0.70-1.30 [facility] GFR/1.73 sq M.predicted MDRD (S/P/Bld) [Vol rate/Area] mL/min/{1.73_m2} >=60 [facility] Glucose [Mass/Vol] 222 mg/dL High 74-106 [facility] Potassium [Moles/Vol] 4.5 mmol/L 3.5-5.1 [facility] Sodium [Moles/Vol] 138 mmol/L 136-145 [facility] Urea nitrogen [Mass/Vol] 14.0 mg/dL 7.0-18.0 [facility] Urea nitrogen/Creatinine [Mass ratio] 13.3 mg/mg [facility] Laboratory - Hematology and Cell countson 02-18-2024 Immature granulocytes/100 WBC (Bld) 0.9 % High 0.0-0.5 [facility] Leukocytes [#/volume] correc kristal for nucleated erythrocytes in Blood by Automated counon 02-18-2024 WBC corrected for nucl RBC Auto (Bld) [#/Vol] 5.6 10 3/uL 4.0-11.0 [facility] Lymphocytes Auto (Bld) [#/Vo l]on 02-18-2024 Lymphocytes (Bld) [#/Vol] 0.8 10 3/uL Low 1.2-3.8 [facility] Lymphocytes/100 WBC Auto (Bl d)on 02-18-2024 Lymphocytes/100 WBC (Bld) 13.8 % Low 20.5-60.0 [facility] MCH Auto (RBC) [Entitic mass ]on 02-18-2024 MCH (RBC) [Entitic mass] 31.9 pg 25.9-34.0 [facility] MCHC Auto (RBC) [Mass/Vol]on 02-18-2024 MCHC (RBC) [Mass/Vol] 33.2 g/dL 29.9-35.2 [facility] MCV Auto (RBC) [Entitic vol] on 02-18-2024 MCV (RBC) [Entitic vol] 95.9 fL High 80.0-94.0 [facility] Monocytes Auto (Bld) [#/Vol] on 02-18-2024 Monocytes (Bld) [#/Vol] 0.5 10 3/uL 0.3-0.8 [facility] Monocytes/100 WBC Auto (Bld) on 02-18-2024 Monocytes/100 WBC (Bld) 9.1 % 1.7-12.0 [facility] Neutrophils Auto (Bld) [#/Vo l]on 02-18-2024 Neutrophils (Bld) [#/Vol] 4.2 10 3/uL 1.4-6.5 [facility] Neutrophils/100 WBC Auto (Bl d)on 02-18-2024 Neutrophils/100 WBC (Bld) 74.8 % 43.0-75.0 [facility] No Panel Informationon 02-17 Eosinophils # (Auto) 0.1 10 3/uL 0.0-0.7 [facility] Immature Granulocyte # (Auto) 0.05 10 3/uL High 0.00-0.03 [facility] Platelet mean volume Auto (B ld) [Entitic vol]on 02-18-2024 Platelet mean volume (Bld) [Entitic vol] 9.1 fL Low 9.5-13.5 [facility] Platelets Auto (Bld) [#/Vol] on 02-18-2024 Platelets (Bld) [#/Vol] 172 10 3/uL 150-450 [facility] Prothrombin time (PT)on PT Coag (PPP) [Time] 10.3 s 9.0-11.6 [facility] RBC Auto (Bld) [#/Vol]on RBC (Bld) [#/Vol] 4.14 10 6/uL Low 4.70-6.10 [facility] Serum or plasma anion gap de terminationon 02-18-2024 Anion gap [Moles/Vol] 10.1 mmol/L [facility] Formson 02-04-2024 Forms [id number]#1.0 0TIFF Normal [facility] Consent for Procedure/Surger yon 02-02-2024 Consent for Procedure/Surgery [id number]#1.0 0TIFF Normal [facility] Consent for Procedure/Surgery [id number]#1.0 0[facility] Formson 02-02-2024 Forms [id number]#1.0 0[facility] Ambulatory Visit Summaryon 0 02-01-2024 Ambulatory Visit Summary ONDINA LO :1950 Visit Date:02/01/2024 Ambulatory Visit Instructions Your Diagnosis Lesion of bladder Gross hematuria Chronic cystitis Screening PSA (prostate specific antigen) BPH without urinary obstruction ED (erectile dysfunction) Anticoagulated Your Care Team Attending Physician - Pola CANTRELL MD Primary Care Physician - PAIGE DAWKINS, OMER This Is Your Medications List [...] Removed: STOP]Stop taking these medications acetaminophen-hydrocod one (Tolstoy 325 mg-5 mg oral tablet) ciprofloxacin (Cipro 500 mg Tab) Procedures Performed Cystoscopy (02/01/2024), Cystoscopy (11/23/2023), Appendectomy, Cholecystectomy, Colonoscopy, Placement of stent in cardiac conduit. Discharge Vitals Height 171 cm Height 67 in Weight 78 kg Weight 171.6 lb BMI 26.67 What to do next Scheduled Follow-Up Appointments Wednesday. 2023 10:45 AM EDT With: Pola CANTRELL MD Where: [facility] Urology Office/Clinic Noteon 02-01-2024 Urology Office/Clinic [...] complications today. Pt took prophylactic abx and Tolstoy prior to procedure. Found to have C.F. [...] Gross hematuria (R31.0: Gross hematuria) Presented to [facility] at the beginning of September [...] unspecified) Sildenafil 100mg prn. 7. 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 Has 2 heart stents, placed 7 years ago. Elevated risk for periop complications in the future. Follow-up With When Contact Information Pola CANTRELL MD, URL [facility] [address], [place] [address]- [phone] Additional Instructions: sched TURBT Patient Education Cystoscopy I, Simran Arroyo, personally scribed for Dr. Cantrell on 02/01/2024 13:34:43. Electronically signed by dia Khalil (more content not included)... [facility] Comment on above: Result Comment: Elec tronically Signed By: Pola CANTRELL MD\.br\Date and Time Signed: 02/01/24 13:36 EDT\.br\Electronically Co-Signed By: Simran Arroyo\.br\Date and Time Co-Signed: 02/01/24 13:35 EDT Consent for Procedure/Surger yon 11-24-2023 Consent for Procedure/Surgery [id number]#1. 00TIFF [facility] No Panel Informationon 11-24 Complexity: simple Destruction method: electrodesiccation and curettage Informed consent: discussed and consent obtained Informed consent comment: The risks of the procedure were discussed, including, but not limited to risks of scarring, darker or manufacturing engineer machining pigmentary changes, recurrence, infection, and incomplete removal [...] lidocaine used: 1.0 cc Previous accession number: [id number] [facility] Ambulatory Visit Summaryon 0 11-23-2023 Ambulatory Visit Summary ONDINA LO :1950 Visit Date:11/23/2023 Ambulatory Visit Instructions Your Diagnosis Gross hematuria BPH without urinary obstruction Screening PSA (prostate specific antigen) ED (erectile dysfunction) Anticoagulated Lesion of bladder Chronic cystitis Your Care Team Attending Physician - DODIE DAWKINS, Pola Rothman Primary Care Physician - PAIGE DAWKINS, OMER This Is Your Medications List [...] with DODIE DAWKINS, Pola Rothman, URL When: Where: [facility] [address] [place] [address]- Medications What How Much When Instructions Unchanged [...] for choosing us for your care. Normal [facility] Urology Office/Clinic Noteon 11-23-2023 Urology Office/Clinic Note [...] Gross hematuria (R31.0: Gross hematuria) Presented to [facility] at the beginning of September [...] unspecified) Sildenafil 100mg prn. 5. Anticoagulated (Z79.01: detention (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) On Plavix and [...] [facility] [address], [place] [address]- Additional Instructions: Patient Education Jess Reeves , personally scribed for Dr. Cantrell on 11/23/2023 08:02:54. . Documentation recorded by the scribJess west, accurately reflects the services(s) I performed and decisions made by me. Problem List/Past Medical History (more content not included)... Normal [facility] Comment on above: Result Comment: Elec tronically Signed By: Pola CANTRELL MD\.br\Date and Time Signed: 11/23/23 08:04 EST\.br\Electronically Co-Signed By: Jess Solorzano\.br\Date and Time Co-Signed: 11/23/23 08:03 EST [facility] Cyt [facility] ([facility])on 11-03-2023 [facility] Diagnosis Info Invalid Interpretation Code [facility] Comment on above: Result Comment: A:Ur ine,Urine:Voided [...] correlated with cytology and cystoscopy results.* CPT 53070, 96095 Microscopic Notes - Microscopic Notes - Abnormal cells 9p21 deletions: Abnormal cells aneploid events: Total cells analyzed: 120 Hematuria: Gross Description Site ID:A color Mendel fixative Alcohol Received 90 mls of clear mendel fluid with the patient's name and, Urine on the vial. Electronically signed by : on: 11/03/2023 10:52:02 Performed By: #### 1 [id number] ####[facility] [address] [place] [address] Physician Referralon 024 Physician Referral [id number]#1.0 0TIFF Normal [facility] Formson 10-27-2023 Forms [id number]#1.0 0TIFF Normal [facility] Physician Referralon 024 Physician Referral [id number]#1. 00TIFF Normal [facility] Screenson 10-27-2023 Screens [id number]#1. 00TIFF Normal [facility] Ambulatory Visit Summaryon 0 10-26-2023 Ambulatory Visit Summary ONDINA LO :1950 Visit Date:10/26/2023 Ambulatory Visit Instructions Your Diagnosis Gross hematuria BPH without urinary obstruction Screening PSA (prostate specific antigen) ED (erectile dysfunction) Anticoagulated Tests Performed Urnls Dip Stick Auto w/o Microscopy POC 14560 Your Care Team Attending Physician - DODIE DAWKINS, Pola Rothman Primary Care Physician - PAIGE DAWKINS, OMER Referring Physician - BRANDON ESTRELLA [...] with DODIE DAWKINS, Pola Rothman, KRISTIN When: Comments: sched cysto Where: [facility] [address] , [place] [address]- [phone] Medications What How Much When Instructions New ciprofloxacin (Cipro 500 mg Tab) 1 Tablets By Mouth Every day take one tab day before procedure and one tab after procedure Pickup at [facility]/pharmacy #[id number] Unchanged ascorbic acid (Vitamin C) Every day [...] physician if questions or concerns Pharmacy Information [facility]/pharmacy #[id number]: [address], [place] [phone] Test Results Urnls Dip Stick Auto w/o Microscopy POC 65929 (10/26/2023) Bilirubin Urine Dipstick - Negative Blood Urine Dipstick - Negative Glucose Urine Dipstick - Negative Ketones Urine Dipstick - Negative Leukocytes Urine Dipstick - Negative Nitrite Urine Dipstick - Negative Protein Urine Dipstick - Negative Specific Elfrida Urine Dipstick - 1.020 Urine Appearance Urine [...] the pr (more content not included)... Normal [facility] Fish and Urine Cyt o ([facility])on 10-26-2023 [facility] Method of Extraction Voided Normal [facility] Comment on above: Performed By: #### 1 [id number] ####[facility] [id number] [facility] [place] [address] [facility] Number of Jars 1 Invalid Interpretation Code [facility] Comment on above: Performed By: #### 1 [id number] ####[facility] [id number] [facility] [place] [address] [facility] Specimen Urine Normal [facility] Comment on above: Performed By: #### 1 [id number] ####[facility] [id number] [facility] [place] [place] [address] [facility] Type of Service Technical Only Normal [facility] Comment on above: Performed By: #### 1 [id number] ####[facility] [id number] [facility] [place] [place] [address] Urology Office/Clinic Noteon 10-26-2023 Urology Office/Clinic Note Chief Complaint Pt re-referred by Brandon Estrella DO due to gross hematuria HPI Staff Re-referral per [facility] due to gross hematuria. Pt [...] Gross hematuria (R31.0: Gross hematuria) Presented to [facility] at the beginning of September [...] unspecified) Sildenafil 100mg prn. 5. Anticoagulated (Z79.01: detention (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) On Plavix and aspirin. Has 2 heart stents, placed 7 years ago. Follow-up With When Contact Information DODIE DAWKINS, Pola Rothman, URL [facility] [address], [place] [address] [phone] Additional Instructions: sched cysto Patient Education Cystoscopy Hematuria, Adult I, Simran Arroyo, personally scribed for Dr. Cantrell on 10/26/2023 10:02:48. . Documentation recorded by the Simran alvares, accurately reflects the services (more content not included)... Normal [facility] Comment on above: Result Comment: Elec tronically Signed By: Pola CANTRELL MD\.br\Date and Time Signed: 10/26/23 10:07 EST\.br\Electronically Co-Signed By: Simran Arroyo\.br\Date and Time Co-Signed: 10/26/23 10:03 EST RAD - CT Reporton 10-14-2023 RAD - CT Report [id number]#1.0 0TIFF Normal [facility] RAD - CT Report [id number]#1. 00TIFF Normal [facility] Office Visiton 09-15-2023 Follow-up visit [id number] Ondina Lo A 1950 Date Provider Department Center 09/15/2023 Aminta-CARLO SEN GINA [facility] Family History Problem Relation Age of Onset Heart failure Brother Cancer Brother Family Status - Relation Status Age at Brother Level of Service:41539 MT OFFICE/OUTPATIENT ESTABLISHED MOD MDM 30-39 MIN Normal [facility] Orders Onlyon 09-15-2023 Orders Only [id number] Ondina Lo A 1950 Date Provider Department Center 09/15/2023 Shannan5-ELLE [place] G[facility] Family History Problem Relation Age of Onset Heart failure Brother Cancer Brother Family Status - Relation Status Age at Brother Normal [facility] US CAROTID ART BILon 022 US [...] by: TIM BARBER Date: 2022-09-28 17:37 Normal [facility] AUTO DIFFon 09-24-2022 BASO # 0.0 103/ul Normal 0.0-0.1 [facility] Comment on above: Performed By: #### C BC #### [facility] [address] [address] [address] Daisy Alan Basophils/100 WBC (Bld) 0.6 % Normal 0.2-2.0 [facility] Comment on above: Performed By: #### C BC #### [facility] [address] [place] [address] Dr. Daisy Alan EO # 0.1 103/ul Normal 0.0-0.7 [facility] Comment on above: Performed By: #### C BC #### [facility] [address] [place] [address] Dr. Daisy Alan Eosinophils/100 WBC (Bld) 1.7 % Normal 0.9-7.0 [facility] Comment on above: Performed By: #### C BC #### [facility] [address] [place] [address] Dr. Daisy Alan Erythrocyte distribution width (RBC) [Ratio] 12.7 % Normal 11.0-15.0 [facility] Comment on above: Performed By: #### C BC #### [facility] [address] [place] [address] Dr. Daisy Alan Hematocrit (Bld) [Volume fraction] 41.4 % Critically low 42.0-54.0 [facility] Comment on above: Performed By: #### C BC #### [facility] [address] [place] [address] Dr. Daisy Alan Hemoglobin (Bld) [Mass/Vol] 14.4 g/dL Normal 14.0-18.0 [facility] Comment on above: Performed By: #### C BC #### [facility] [address] [place] [address] Dr. Daisy Alan IG # 0.02 10e3/ul Normal 0.00-0.03 [facility] Comment on above: Performed By: #### C BC #### [facility] [address] [place] [address] Dr. Daisy Alan IG % 0.3 % Normal 0.0-0.5 [facility] Comment on above: Performed By: #### C BC #### [facility] [address] [place] [address] Dr. Daisy Alan LYMPH # 1.0 103/ul Critically low 1.2-3.8 [facility] Comment on above: Performed By: #### C BC #### [facility] [address] [place] [address] Dr. Daisy Alan Lymphocytes/100 WBC (Bld) 14.1 % Critically low 20.5-60.0 [facility] Comment on above: Performed By: #### C BC #### [facility] [address] [place] [address] Dr. Daisy Alan MANUAL DIFF REQ NO Normal [facility] Comment on above: Performed By: #### C BC #### [facility] [address] [place] [address] Dr. Daisy Alan MCH (RBC) [Entitic mass] 31.9 pg Normal 25.9-34.0 [facility] Comment on above: Performed By: #### C BC #### [facility] [address] [place] [address] Dr. Daisy Alan MCHC (RBC) [Mass/Vol] 34.8 g/dL Normal 29.9-35.2 [facility] Comment on above: Performed By: #### C BC #### [facility] [address] [place] [address] Dr. Daisy Alan MCV (RBC) [Entitic vol] 91.6 fL Normal 80.0-94.0 [facility] Comment on above: Performed By: #### C BC #### [facility] [address] [place] [address] Dr. Daisy Alan MONO # 0.6 103/ul Normal 0.3-0.8 [facility] Comment on above: Performed By: #### C BC #### [facility] [address] [place] [address] Dr. Daisy Alan Monocytes/100 WBC (Bld) 8.7 % Normal 1.7-12.0 [facility] Comment on above: Performed By: #### C BC #### [facility] [address] [place] [address] Dr. Daisy Alan NEUT # 5.3 103/ul Normal 1.4-6.5 [facility] Comment on above: Performed By: #### C BC #### [facility] [address] [place] [address] Dr. Daisy Alan Neutrophils/100 WBC (Bld) 74.6 % Normal 43.0-75.0 [facility] Comment on above: Performed By: #### C BC #### [facility] [address] [place] [address] Dr. Daisy Alan Platelet mean volume (Bld) [Entitic vol] 9.0 fL Critically low 9.5-13.5 [facility] Comment on above: Performed By: #### C BC #### [facility] [address] [place] [address] Dr. Daisy Alan PLT 191 103/ul Normal 150-450 [facility] Comment on above: Performed By: #### C BC #### [facility] [address] [place] [address] Dr. Daisy Alan RBC 4.52 106/ul Critically low 4.70-6.10 [facility] Comment on above: Performed By: #### C BC #### [facility] [address] [place] [address] Dr. Daisy Alan WBC 7.1 103/ul Normal 4.0-11.0 [facility] Comment on above: Performed By: #### C BC #### [facility] [address] [place] [address] Dr. Daisy Alan CBC W MANUAL DIFFon 02-05-20 ATYPICAL LYMPH # Normal [facility] Comment on above: Performed By: #### C BCMAN #### [facility] [address] [place] [address] Dr. Daisy Alan ATYPICAL LYMPH % Normal [facility] Comment on above: Performed By: #### C BCMAN #### [facility] [address] [place] [address] Dr. Daisy Alan BAND # Normal 0.0-0.3 [facility] Comment on above: Performed By: #### C BRIGIDA #### [facility] [address] [place] [address] Dr. Daisy Alan BAND % Normal 0-5 [facility] Comment on above: Performed By: #### C BRIGIDA #### [facility] [address] [place] [address] Dr. Daisy Alan BASOM # 0.00 103/ul Normal 0.00-0.10 [facility] Comment on above: Performed By: #### C BRIGIDA #### [facility] [address] [place] [address] Dr. Daisy Alan BASOM % 0.0 % Critically low 0.2-2.0 [facility] Comment on above: Performed By: #### C BRIGIDA #### [facility] [address] [place] [address] Dr. Daisy Alan BLAST # Normal [facility] Comment on above: Performed By: #### C BRIGIDA #### [facility] [address] [place] [address] Dr. Daisy Alan BLAST % Normal [facility] Comment on above: Performed By: #### C BRIGIDA #### [facility] [address] [place] [address] Dr. Daisy Alan CORRECTED WBC Normal 4.0-11.0 [facility] Comment on above: Performed By: #### C BRIGIDA #### [facility] [address] [place] [address] Dr. Daisy Alan EOS # 0.13 103/ul Normal 0.00-0.70 [facility] Comment on above: Performed By: #### C BRIGIDA #### [facility] [address] [place] [address] Dr. Daisy Alan EOS% 2.0 % Normal 0.9-7.0 [facility] Comment on above: Performed By: #### C BRIGIDA #### [facility] [address] [address] [address] Daisy Alan HCT 41.8 % Critically low 42.0-54.0 [facility] Comment on above: Performed By: #### C BRIGIDA #### [facility] [address] [address] [address] Daisy Alan HGB 13.9 g/dl Critically low 14.0-18.0 [facility] Comment on above: Performed By: #### C BRIGIDA #### [facility] [address] [address] [address] Daisy Alan LYMPHM # 0.38 103/ul Critically low 1.20-3.80 [facility] Comment on above: Performed By: #### C BRIGIDA #### [facility] [address] [address] [address] Daisy Alan LYMPHM% 6.0 % Critically low 20.5-60.0 [facility] Comment on above: Performed By: #### C BRIGIDA #### [facility] [address] [address] [address] Daisy Alan MCH 30.8 pg Normal 25.9-34.0 [facility] Comment on above: Performed By: #### C BRIGIDA #### [facility] [address] [address] [address] Daisy Alan MCHC 33.3 g/dl Normal 29.9-35.2 [facility] Comment on above: Performed By: #### C BRIGIDA #### [facility] [address] [address] [address] Daisy Alan MCV 92.7 fL Normal 80.0-94.0 [facility] Comment on above: Performed By: #### C BRIGIDA #### [facility] [address] [address] [address] Daisy Alan METAMYELOCYTE # Normal [facility] Comment on above: Performed By: #### C BRIGIDA #### [facility] [address] [address] [address] Daisy Alan METAMYELOCYTE % Normal [facility] Comment on above: Performed By: #### C BRIGIDA #### [facility] [address] [address] [address] Daisy Alan MONOM# 0.50 103/ul Normal 0.30-0.80 [facility] Comment on above: Performed By: #### C BRIGIDA #### [facility] [address] [address] [address] Daisy Alan MONOM% 8.0 % Normal 1.7-12.0 [facility] Comment on above: Performed By: #### C BRIGIDA #### [facility] [address] [address] [address] Daisy Alan MPV 9.1 fL Critically low 9.5-13.5 [facility] Comment on above: Performed By: #### C BRIGIDA #### [facility] [address] [place] [address] Dr. Daisy Alan MYELOCYTE # Normal [facility] Comment on above: Performed By: #### C BRIGIDA #### [facility] [address] [address] [address] Daisy Alan MYELOCYTE % Normal [facility] Comment on above: Performed By: #### C BRIGIDA #### [facility] [address] [place] [address] Dr. Daisy Alan NRBC Normal [facility] Comment on above: Performed By: #### C BRIGIDA #### [facility] [address] [address] [address] Daisy Alan PLT 153 103/ul Normal 150-450 [facility] Comment on above: Performed By: #### C BRIGIDA #### [facility] [address] [address] [address] Daisy Alan RBC 4.51 106/ul Critically low 4.70-6.10 [facility] Comment on above: Performed By: #### C BRIGIDA #### [facility] [address] [place] [address] Dr. Daisy Alan RDW 12.8 % Normal 11.0-15.0 [facility] Comment on above: Performed By: #### C BCMAN #### [facility] [address] [address] [address] Daisy Alan SEG # 5.29 103/ul Normal 1.40-6.50 [facility] Comment on above: Performed By: #### C BCMAN #### [facility] [address] [address] [address] Daisy Alan SEG % 84.0 % Critically high 43.0-75.0 [facility] Comment on above: Performed By: #### C KEEMAN #### [facility] [address] [address] [address] Daisy Alan WBC 6.3 103/ul Normal 4.0-11.0 [facility] Comment on above: Performed By: #### C BRIGIDA #### [facility] [address] [address] [address] Daisy Alan GLYCOHEMOGLOBIN A1Con 2021 ADA RECOMMENDATION ADA THERAPEUTIC TARG ET 6.0 - 7.0 ACTION SUGGESTED > 7.0 Normal [facility] Comment on above: Performed By: #### A 1C #### [facility] [address] [address] [address] Daisy Alan Glucose [Mass/Vol] 154 mg/dL Normal [facility] Comment on above: Performed By: #### A 1C #### [facility] [address] [address] [address] Daisy Alan HbA1c (Bld) [Mass fraction] 7.0 % Critically high <=6.0 [facility] Comment on above: Performed By: #### A 1C #### [facility] [address] [address] [address] Daisy Alan LIPID PROFILEon 02-04-2022 CHOL-HDL RATIO NORM SEE BELOW Normal [facility] Comment on above: Result Comment: 3.3 - 4.4 LOW RISK 4.4 - 7.1 AVERAGE RISK 7.1 - 11.0 MODERATE RISK >11.0 HIGH RISK Performed By: #### B MP, LIPID, ALT, TSH #### [facility] [address] [address] [address] Daisy Alan Cholesterol [Mass/Vol] 149 mg/dL Normal <=200 [facility] Comment on above: Performed By: #### B MP, LIPID, ALT, TSH #### [facility] [address] [address] [address] Daisy Alan Cholesterol in HDL [Mass/Vol] 33 mg/dL Critically low 40-60 [facility] Comment on above: Performed By: #### B MP, LIPID, ALT, TSH #### [facility] [address] [address] [address] Daisy Alan Cholesterol in LDL [Mass/Vol] 71.0 mg/dL Normal [facility] Comment on above: Performed By: #### B MP, LIPID, ALT, TSH #### [facility] [address] [address] [address] Daisy Alan Cholesterol.total/C holesterol in HDL [Mass ratio] 4.5 {ratio} Normal [facility] Comment on above: Performed By: #### B MP, LIPID, ALT, TSH #### [facility] [address] [address] [address] Daisy Alan HDL NORMAL > or = 60 mg/dl - LO W CARDIOVASCULAR RISK <40 mg/dl - HIGH CARDIOVASCULAR RISK Normal [facility] Comment on above: Performed By: #### B MP, LIPID, ALT, TSH #### [facility] [address] [address] [address] Daisy Alan LDL CALC NORMAL SEE BELOW Normal [facility] Comment on above: Result Comment: <100 mg/dl OPTIMAL 100 - 129 mg/dl NEAR OR ABOVE OPTIMAL 130 - 159 mg/dl BORDERLINE HIGH 160 - 189 mg/dl HIGH >190 mg/dl VERY HIGH Performed By: #### B MP, LIPID, ALT, TSH #### [facility] [address] [address] [address] Daisy Alan Triglyceride [Mass/Vol] 225 mg/dL Critically high <=150 [facility] Comment on above: Performed By: #### B MP, LIPID, ALT, TSH #### [facility] [address] [address] [address] Daisy Alan VLDL CALC 45.0 mg/dL Normal [facility] Comment on above: Performed By: #### B MP, LIPID, ALT, TSH #### [facility] [address] [address] [address] Daisy Alan MICROALBUMIN, RAND URon 04-2 mALB 1.5 mg/L Normal <=30.0 [facility] Comment on above: Performed By: #### M ALBR #### [facility] [address] [address] [address] Daisy Alan PROF CHEM 8 (BAS METB)on Anion gap [Moles/Vol] 10.6 mmol/L Normal [facility] Comment on above: Performed By: #### B MP, LIPID, ALT, TSH #### [facility] [address] [address] [address] Daisy Alan Calcium [Mass/Vol] 9.2 mg/dL Normal 8.5-10.1 [facility] Comment on above: Performed By: #### B MP, LIPID, ALT, TSH #### [facility] [address] [address] [address] Daisy Alan Chloride [Moles/Vol] 99 mmol/L Normal 98-107 [facility] Comment on above: Performed By: #### B MP, LIPID, ALT, TSH #### [facility] [address] [address] [address] Daisy Alan CO2 [Moles/Vol] 27.7 mmol/L Normal 22.0-30.0 [facility] Comment on above: Performed By: #### B MP, LIPID, ALT, TSH #### [facility] [address] [address] [address] Daisy Alan Creatinine [Mass/Vol] 1.00 mg/dL Normal 0.66-1.25 [facility] Comment on above: Performed By: #### B MP, LIPID, ALT, TSH #### [facility] [address] [address] [address] Daisy Alan EGFR-AF MAURITIAN >60 Normal >=60 [facility] Comment on above: Performed By: #### B MP, LIPID, ALT, TSH #### [facility] [address] [address] [address] Daisy Alan EGFR-NON AF MAURITIAN >60 Normal >=60 [facility] Comment on above: Performed By: #### B MP, LIPID, ALT, TSH #### [facility] [address] [place] [address] Dr. Daisy Alan Glucose [Mass/Vol] 186 mg/dL Critically high 74-106 [facility] Comment on above: Performed By: #### B MP, LIPID, ALT, TSH #### [facility] [address] [place] [address] Dr. Daisy Alan Potassium [Moles/Vol] 4.3 mmol/L Normal 3.4-5.0 [facility] Comment on above: Performed By: #### B MP, LIPID, ALT, TSH #### [facility] [address] [place] [address] Dr. Daisy Alan Sodium [Moles/Vol] 133 mmol/L Critically low 137-145 [facility] Comment on above: Performed By: #### B MP, LIPID, ALT, TSH #### [facility] [address] [place] [address] Dr. Daisy Alan Urea nitrogen [Mass/Vol] 17.0 mg/dL Normal 7.0-18.0 [facility] Comment on above: Performed By: #### B MP, LIPID, ALT, TSH #### [facility] [address] [place] [address] Dr. Daisy Alan Urea nitrogen/Creatinine [Mass ratio] 17.0 mg/mg Normal [facility] Comment on above: Performed By: #### B MP, LIPID, ALT, TSH #### [facility] [address] [place] [address] Dr. Daisy Alan [facility] 02-04-2022 ALT [Catalytic activity/Vol] 36 U/L Normal 16-63 [facility] Comment on above: Performed By: #### B MP, LIPID, ALT, TSH #### [facility] [address] [place], [place] [address] Dr. Daisy Alan TSHon 02-04-2022 TSH 3.205 uIU/mL Normal 0.470-4.680 [facility] Comment on above: Performed By: #### B MP, LIPID, ALT, TSH #### [facility] [address] [place], [place] [address] Dr. Daisy Alan TSH RANGE SEE BELOW Normal [facility] Comment on above: Result Comment: <0.3 4 UIU/ml HYPERTHYROID 0.34-5.60 UIU/ml EUTHYROID >5.60 UIU/ml HYPOTHYROID Performed By: #### B MP, LIPID, ALT, TSH #### [facility] [address] [address] [address] Daisy Alan Vital Signs Date Time Vital Sign Value Performing Clinician Facility 09-04-2024 14:37-0500 Body height 170.18 cm [facility] 09-04-2024 14:37-0500 Body mass index (BMI) [Ratio] 27.4 kg/m2 [facility] 09-04-2024 14:37-0500 Body weight 79.49 kg [facility] 09-04-2024 14:37-0500 Diastolic blood pressure 74 mm[Hg] [facility] 09-04-2024 14:37-0500 Heart rate 60 /min [facility] 09-04-2024 14:37-0500 Respiratory rate 12 /min [facility] 09-04-2024 14:37-0500 Systolic blood pressure 131 mm[Hg] [facility] 07-28-2024 14:17-0400 Body height 170.18 cm [facility] 07-28-2024 14:17-0400 Body mass index (BMI) [Ratio] 27.3 kg/m2 [facility] 07-28-2024 14:17-0400 Body weight 79.37 kg [facility] 07-28-2024 14:17-0400 Diastolic blood pressure 68 mm[Hg] [facility] 07-28-2024 14:17-0400 Heart rate 67 /min [facility] 07-28-2024 14:17-0400 Respiratory rate 12 /min [facility] 07-28-2024 14:17-0400 Systolic blood pressure 122 mm[Hg] [facility] 07-25-2024 11:00-0400 Blood Pressure Location Pola CANTRELL [facility] 07-25-2024 11:00-0400 Diastolic blood pressure 70 mm[Hg] Pola CANTRELL [facility] 07-25-2024 11:00-0400 Heart rate 65 /min Pola CANTRELL [facility] 07-25-2024 11:00-0400 Systolic blood pressure 161 mm[Hg] Pola CANTRELL [facility] 03-23-2024 08:42-0400 Body height 170.18 cm MD Pola Cantrell Work Phone: [facility] 03-23-2024 08:42-0400 Body mass index (BMI) [Ratio] 27.3 kg/m2 MD Pola Cantrell Work Phone: [facility] 03-23-2024 08:42-0400 Body weight 79.15 kg MD Pola Cantrell Work Phone: [facility] 03-23-2024 08:42-0400 Diastolic blood pressure 76 mm[Hg] MD Pola Cantrell Work Phone: [facility] 03-23-2024 08:42-0400 Heart rate 57 /min MD Pola Cantrell Work Phone: [facility] 03-23-2024 08:42-0400 Respiratory rate 12 /min MD Pola Cantrell Work Phone: [facility] 03-23-2024 08:42-0400 Systolic blood pressure 133 mm[Hg] MD Pola Cantrell Work Phone: [facility] 2024 11:23-0400 Blood Pressure Location Polagage CANTRELL [facility] 2024 11:23-0400 Body temperature 98.6 [degF] Polagage CANTRELL [facility] 2024 11:23-0400 Diastolic blood pressure 75 mm[Hg] Polagage CANTRELL [facility] 2024 11:23-0400 Heart rate 59 /min Pola CANTRELL [facility] 2024 11:23-0400 Respiratory rate 17 /min Polagage CANTRELL [facility] 2024 11:23-0400 Systolic blood pressure 125 mm[Hg] Polagage CANTRELL [facility] 02-03-2024 10:16-0400 Body height 170.18 cm [facility] 02-03-2024 10:16-0400 Body mass index (BMI) [Ratio] 27.6 kg/m2 [facility] 02-03-2024 10:16-0400 Body weight 79.83 kg [facility] 02-03-2024 10:16-0400 Diastolic blood pressure 71 mm[Hg] [facility] 02-03-2024 10:16-0400 Heart rate 57 /min [facility] 02-03-2024 10:16-0400 SaO2% (BldA) [Mass fraction] 98 % [facility] 02-03-2024 10:16-0400 Systolic blood pressure 142 mm[Hg] [facility] 02-01-2024 12:47-0400 Blood Pressure Location Polagage CANTRELL [facility] 10-26-2023 08:52-0500 Blood Pressure Location Pola CANTRELL [facility] 10-26-2023 08:52-0500 Diastolic blood pressure 77 mm[Hg] Pola CANTRELL [facility] 10-26-2023 08:52-0500 Heart rate 59 /min Pola CANTRELL [facility] 10-26-2023 08:52-0500 Systolic blood pressure 137 mm[Hg] Pola CANTRELL [facility] 10-05-2023 13:45-0500 Body height 170.18 cm Brandon Ball Other [employer] Other 10-05-2023 13:45-0500 Body mass index (BMI) [Ratio] 27.94 kg/m2 Brandon Ball Other [employer] Other 10-05-2023 13:45-0500 Body weight 80.92 kg Brandon Ball Other [employer] Other 10-05-2023 13:45-0500 Diastolic blood pressure 77 mm[Hg] Brandon Ball Other [employer] Other 10-05-2023 13:45-0500 Respiratory rate 12 /min Brandon Ball Other [employer] Other 10-05-2023 13:45-0500 Systolic blood pressure 128 mm[Hg] Brandon Ball Other [employer] Other 03-22-2023 14:30-0400 Body height 170.18 cm Brandon Ball Other [employer] Other 03-22-2023 14:30-0400 Body mass index (BMI) [Ratio] 27.12 kg/m2 Brandon Ball Other [employer] Other 03-22-2023 14:30-0400 Body weight 78.56 kg Brandon Ball Other [employer] Other 03-22-2023 14:30-0400 Diastolic blood pressure 74 mm[Hg] Brandon Ball Other [employer] Other 03-22-2023 14:30-0400 Respiratory rate 12 /min Brandon [employer] Other [employer] Other 03-22-2023 14:30-0400 Systolic blood pressure 129 mm[Hg] Brandon [employer] Other [employer] Other 02-05-2022 11:00-0400 Body height 170.18 cm Tim Hardwick Other [employer] Other 02-05-2022 11:00-0400 Body mass index (BMI) [Ratio] 28.03 kg/m2 Tim Hardwick Other [employer] Other 02-05-2022 11:00-0400 Body temperature 97.3 [degF] Tim Hardwick Other [employer] Other 02-05-2022 11:00-0400 Body weight 81.19 kg Tim Hardwick Other [employer] Other 02-05-2022 11:00-0400 Diastolic blood pressure 83 mm[Hg] Tim Hardwick Other [employer] Other 02-05-2022 11:00-0400 SaO2% (BldA) [Mass fraction] 98 % Tim Hardwick Other [employer] Other 02-05-2022 11:00-0400 Systolic blood pressure 159 mm[Hg] Tim Ronen Other [employer] Other Encounters Encounter Date Encounter Type Care Provider Facility Start: 07-25-2025 ambulatory Pola CANTRELL Facili ty:[facility] Start: 09-04-2024 End: 09-04-2024 ambulatory [facility] Work Phone: Start: 09-04-2024 End: 09-04-2024 Patient encounter procedure Replaced By [facility] Physician [facility] Work Phone: Start: 08-30-2024 End: 08-30-2024 ambulatory [facility] Start: 08-28-2024 Non-patient / Non-visit Replaced By [facility] Physician [facility] [employer] Work Phone: Start: 07-28-2024 End: 07-28-2024 ambulatory [facility] Work Phone: Start: 07-28-2024 End: 07-28-2024 Patient encounter procedure [facility] Work Phone: Start: 07-25-2024 End: 07-25-2024 ambulatory Pola CANTRELL Facility:[facility] Start: 07-25-2024 End: 07-25-2024 Patient encounter procedure Pola CANTRELL [facility] Start: 07-24-2024 End: 07-24-2024 ambulatory Pola CANTRELL Facility:[facility] Start: 07-24-2024 End: 07-24-2024 Patient encounter procedure Pola CANTRELL [facility] Start: 05-23-2024 End: 05-23-2024 ambulatory JUVENAL BALLARD Not Available Start: 04-13-2024 End: 04-13-2024 ambulatory MD Pola Cantrell Work Phone: [facility] Work Phone: Start: 04-13-2024 End: 04-13-2024 Patient encounter procedure MD Pola Cantrell Work Phone: Replaced By [facility] Physician [facility] Work Phone: Start: 04-07-2024 ambulatory Pola CANTRELL Facili ty:[facility] Start: 04-04-2024 Non-patient / Non-visit MD Karol Cantrell Work Phone: [employer] [facility] [employer] Work Phone: Start: 03-23-2024 End: 03-23-2024 ambulatory MD Pola Cantrell Work Phone: [facility] Work Phone: Start: 03-23-2024 End: 03-23-2024 Patient encounter procedure MD Pola Cantrell Work Phone: [facility] Work Phone: Start: 03-20-2024 End: 03-20-2024 ambulatory Pola CANTRELL Facility:[facility] Start: 03-20-2024 End: 03-20-2024 Lab Drop off Pola CANTRELL [facility] Start: 03-20-2024 End: 03-20-2024 ambulatory Pola CANTRELL Facility:[facility] Start: 03-20-2024 End: 03-20-2024 Patient encounter procedure Pola CANTRELL [facility] Start: 2024 End: 2024 ambulatory Pola CANTRELL Facility:[facility] Start: 2024 End: 2024 Patient encounter procedure Pola CANTRELL [facility] Start: 03-02-2024 End: 03-02-2024 ambulatory Pola Cantrell [facility] Work Phone: Start: 03-02-2024 End: 03-02-2024 Departed Referred MD Pola Cantrell Work Phone: [facility] Start: 03-02-2024 End: 03-02-2024 ambulatory Pola CANTRELL Facility:[id number] Start: 02-18-2024 Non-patient / Non-visit MD Karol Cantrell Work Phone: Replaced By [facility] Physician [facility] Work Phone: Start: 02-03-2024 End: 02-03-2024 ambulatory [facility] Work Phone: Start: 02-03-2024 End: 02-03-2024 Patient encounter procedure Replaced By [facility] Physician [facility] Work Phone: Start: 02-01-2024 End: 02-01-2024 ambulatory Pola CANTRELL Facility:[facility] Start: 02-01-2024 End: 02-01-2024 Patient encounter procedure Pola CANTRELL [facility] Start: 01-26-2024 End: 01-26-2024 ambulatory [facility] Work Phone: Start: 01-26-2024 End: 01-26-2024 Patient encounter procedure [facility] Work [facility]: Start: 12-28-2023 End: 12-28-2023 Patient encounter procedure Replaced By [facility] Physician [facility] Work Phone: Start: 11-24-2023 End: 11-24-2023 Office outpatient visit 15 minutes Juvenal Ballard MD Work Phone: [facility] Comment on above: Actinic keratosis (P rimary Dx); Basal cell carcinoma of skin of left upper limb, including shoulder Start: 11-24-2023 End: 11-24-2023 ambulatory JUVENAL BALLARD Not Available Start: 11-23-2023 End: 11-23-2023 ambulatory Pola CANTRELL Facility:[facility] Start: 11-11-2023 End: 11-11-2023 ambulatory Brandon Estrella Other [employer] Other Start: 11-11-2023 Office outpatient vi sit 15 minutes Brandon Ball [facility] Start: 11-01-2023 End: 11-01-2023 ambulatory Brandon Paige Other [employer] Other Start: 11-01-2023 Office outpatient vi sit 15 minutes Brandon Ball [facility] Start: 11-01-2023 Patient encounter procedure Replaced By [facility]ician [facility]- Start: 10-26-2023 ambulatory Pola CANTRELL Facili ty:[facility] Start: 10-26-2023 End: 10-26-2023 Lab Drop off Pola CANTRELL [facility] Start: 10-26-2023 End: 10-26-2023 ambulatory BRANDON ESTRELLA Facility:[facility] Start: 10-26-2023 End: 10-26-2023 Patient encounter procedure Pola CANTRELL [facility] [place] Start: 10-14-2023 End: 10-14-2023 ambulatory Brandon Estrella Other [employer] Other Start: 10-14-2023 Telephone encounter Brandon Estrella [facility] Start: 10-08-2023 End: 10-08-2023 ambulatory Brandon Estrella Other [employer] Other Start: 10-08-2023 Telephone encounter Brandon Estrella [facility] Start: 10-07-2023 End: 10-07-2023 ambulatory Brandon Estrella Other [employer] Other Start: 10-07-2023 Telephone encounter Brandon Estrella [facility] Start: 10-05-2023 End: 10-05-2023 ambulatory Brandon Estrella Other [employer] Other Start: 10-05-2023 Office outpatient vi sit 15 minutes Brandon Ball [facility] Start: 10-04-2023 End: 10-04-2023 ambulatory JUVENAL BALLARD Not Available Start: 09-28-2023 End: 09-28-2023 ambulatory Brandon Ball Other [employer] Other Start: 09-28-2023 Telephone encounter Brandon Estrella [facility] Start: 09-15-2023 End: 09-15-2023 ambulatory [facility] Start: 07-20-2023 End: 07-20-2023 ambulatory Brandon Estrella Other [employer] Other Start: 07-20-2023 Nursing evaluation o f patient and report Brandon Estrella [facility] Start: 04-14-2023 End: 04-14-2023 ambulatory Brandon Estrella Other [employer] Other Start: 04-14-2023 Telephone encounter Brandon Estrella [facility] Start: 04-07-2023 End: 04-07-2023 ambulatory Brandon Ball Other [employer] Other Start: 04-07-2023 Office outpatient vi sit 15 minutes Brandon Ball [facility] Start: 03-22-2023 End: 03-22-2023 ambulatory Brandon Ball Other [employer] Other Start: 03-22-2023 Patient encounter procedure Brandon Estrella [facility] Start: 02-16-2023 End: 02-16-2023 ambulatory Brandon Estrella Other [employer] Other Start: 02-16-2023 Telephone encounter Brandon RODRIGUEZ [facility] Start: 01-27-2023 End: 01-27-2023 ambulatory Brandon Estrella Other [employer] Other Start: 01-27-2023 Nursing evaluation o f patient and report Brandon Paige [facility] Start: 01-18-2023 End: 01-18-2023 ambulatory Brandon Estrella Other [employer] Other Start: 01-18-2023 Telephone encounter Brandon Estrella JENNIFER [facility] Start: 09-28-2022 End: 09-29-[address] TIM BARBER Facility:[facility] Start: 09-24-2022 End: 09-25-[address] BRANDON ESTRELLA Facility:[facility] Start: 05-25-[address] BRANDON ESTRELLA Facili ty:[facility] Start: 03-20-2022 Adult health examination Brandon Estrella Other [employer] Other Start: 02-05-2022 End: 02-05-2022 ambulatory Tim Hardwick Other [employer] Other Start: 02-05-2022 Office outpatient vi sit 15 minutes Tim Hardwick [facility] Start: 02-05-2022 End: 02-05-2022 Patient encounter procedure DO Brandon Estrella Work Phone: [facility] Start: 02-04-2022 End: 02-05-[address] BRANDON ESTRELLA Facility:[facility] Start: 02-14-2018 End: 02-15-2018 Ambulatory DEFAULT PHYSICIAN Facility:[facility] Start: 02-10-2018 End: 02-11-2018 Ambulatory DEFAULT PHYSICIAN Facility:[facility] Procedures Date Procedure Procedure Detail Performing Clinician Start: 03-02-2024 Transurethral resect ion of bladder neoplasm Pola CANTRELL Start: 02-01-2024 Transurethral cystoscopy Pola CANTRELL Start: 11-24-2023 DESTRUCTION OF LESION Delmy Ballard MD Work Phone: Start: 11-23-2023 Transurethral cystoscopy Pola CANTRELL Start: 03-20-2022 Depression screening Be dae Estrella Other Start: 02-04-[address] TIM BARBER Comment on above: Performed By: #### P SASC #### [facility] [address] [place] [address] Dr. Daisy Alan Start: 12-10-2016 Viral screening Jennifer Estrella Other Start: 11-01-2014 Screening for malign ant neoplasm of prostate Brandon Estrella Other Appendectomy Pola CANTRELL Cholecystectomy Pola SHAN SOLIS Colonoscopy Pola CANTRELL Placement of stent i n cardiac conduit Pola CANTRELL Screening for malign ant neoplasm of colon Brandon Estrella Other Screening for malign ant neoplasm of prostate Brandon Estrella Other Plan of Treatment Date Care Activity Detail Author Start: 04-04-2024 End: 04-04-2024 Patient encounter procedure 04/04/2024 8:30 AM EDT Office Visit [facility] [address] [place] [address] Juvenal Ballard MD [address] [place] [address] [facility] Start: 12-11-2017 Pneumococcal Vaccine: 65+ Years (2 - PPSV23 or PCV20) Pneumococcal Vaccine: 65+ Years (2 - PPSV23 or PCV20) [facility] Start: 1950 Screening for malignant neoplasm of colon [facility]doppler Carotid arteries - bilateral [facility] Immunizations Immunization Date Immunization Notes Care Provider Terence may 08-07-2023 influenza virus vaccine, unspecified formulation Polagage CANTRELL [facility] 04-22-2023 zoster vaccine recombinant Pola CANTRELL [facility] 02-13-2023 zoster vaccine recombinant Pola Solavei [facility] 09-28-2022 influenza virus vaccine, split virus (incl. purified surface antigen) Brandon Estrella Other [employer] Other 09-28-2022 influenza virus vaccine, unspecified formulation Pola Solavei [facility] 01-31-2021 SARS-CoV-2 (COVID-19 ) mRNA BNT-162b2 vax Pola Solavei [facility] 01-10-2021 SARS-CoV-2 (COVID-19 ) mRNA BNT-162b2 vax Pola CANTRELL [facility] 08-06-2020 influenza virus vaccine, split virus (incl. purified surface antigen) Brandon Estrella Other [employer] Other 08-06-2020 influenza virus vaccine, unspecified formulation [facility] 08-17-2019 influenza virus vaccine, split virus (incl. purified surface antigen) Brandon Estrella Other [facility] Other 08-17-2019 influenza virus vaccine, unspecified formulation [facility] 09-06-2018 influenza virus vaccine, unspecified formulation Pola CANTRELL [facility] 07-27-2018 influenza virus vaccine, split virus (incl. purified surface antigen) Brandon Estrella Other [facility] Other 07-27-2018 influenza virus vaccine, unspecified formulation [facility] 07-25-2018 influenza virus vaccine, live, attenuated, for intranasal use Pola CANTRELL [facility] 12-11-2016 pneumococcal conjuga te vaccine, 13 valent Brandon Paige Other [facility] 08-18-2016 influenza virus vaccine, unspecified formulation Pola CANTRELL [facility] 08-02-2015 influenza virus vaccine, split virus (incl. purified surface antigen) Brandon Estrella Other [facility] Other 08-02-2015 influenza virus vaccine, unspecified formulation [facility] 08-02-2015 tetanus and diphther ia toxoids, adsorbed, preservative free, for adult use (5 Lf of tetanus toxoid and 2 Lf of diphtheria toxoid) [facility] 08-02-2015 tetanus toxoid, reduced diphtheria toxoid, and acellular pertussis vaccine, adsorbed Brandon Estrella Other [facility] Other 11-01-2014 pneumococcal Conjugate, unspecified formulation; Translations: [Need for prophylactic vaccination against Streptococcus pneumoniae (pneumococcus)] Brandon Estrella Other [facility] Other 11-01-2014 pneumococcal polysaccharide vaccine, 23 valent Brandon Estrella Other [facility] 08-22-1999 Td(adult) unspecifie d formulation Pola Solavei [facility] NEGATED: Highlighted row has not occurred!10-26-2023 influenza virus vaccine, unspecified formulation Pola Solavei [facility] Payers Date Payer Category Payer Unknown 2022 Unknown [id number] 1960 Medicare [id number] 1960 Self-pay [id number] 1959 Unknown [id number] 1950 Unknown [id number] 2.16.84 0.1.575850.3.579.2.593 1949 Unknown [id number] 2.16.84 0.1.009619.3.579.2.59 1949 Unknown [id number] 2.16.84 0.1.952012.3.579.2.593 1949 Unknown [id number] 2.16.84 0.1.012134.3.579.2.593 1949 Unknown [id number] 2.16.8 40.1.475675.3.579.2.72 1949 Unknown [id number] 2.16.8 40.1.863899.3.579.2.72 1949 Unknown [id number] 2.16.8 40.1.967748.3.579.2.72 1949 Unknown [id number] 2.16.8 40.1.378765.3.579.2.72 1949 Unknown [id number] 2.16.8 40.1.340372.3.579.2.72 1949 Unknown [id number] 2.16.8 40.1.591978.3.579.2.72 1949 Unknown [id number] 2.16.8 40.1.775028.3.579.2.72 1949 Unknown [id number] 2.16.8 40.1.414499.3.579.2.727 1949 Unknown [id number] 2.16.8 40.1.775016.3.579.2.727 1949 Unknown [id number] 2.16.84 0.1.423667.3.579.2.1259 1949 Unknown [id number] 2.16.84 0.1.165938.3.579.2.1259 1949 Unknown [id number] 2.16.840 .1.401937.3.579.2.1259 1949 Unknown [id number] 2.16.8 40.1.222651.3.579.2.727 1949 Unknown [id number] 2.16.8 40.1.765730.3.579.2.727 1949 Unknown [id number] 2.16.8 40.1.976687.3.579.2.727 1949 Unknown [id number] 2.16.8 40.1.703813.3.579.2.727 Self-pay Self Pay [id number] Unknown [place] [id number] Social History Date Type Detail Facility Start: 09-22-2019 End: 09-22-2019 Tobacco smoking status [facility] Never smoked tobacco (finding) [facility] Start: 1950 Sex Assigned At Male F [facility] Start: 11-24-2023 Sex Assigned At F [facility] Tobacco smoking status Never [facility] Start: 04-09-2023 Tobacco use and exposure Smokeless tobacco non-user [facility] Start: 11-24-2023 Alcohol intake Current drinke r of alcohol (finding) [facility] Start: 11-24-2023 History of Social function [facility] Start: 04-09-2023 Alcohol Comment caffeine: 1-2 cups per day [facility] Start: 1950 Sex Assigned At Not on file N [facility] Start: 09-04-2024 Sex Male (finding) [facility] Functional Status Date Assessment Result Facility 07-25-2024 Functional Status N/A [facility] 2024 Functional Status N/A [facility] 02-01-2024 Functional Status N/A [facility] 10-26-2023 Functional Status Yes [facility] Clinical Notes 02-05-2022 to 08-30-2024 Note Date & Type Note Facility 08-30-2024 Note [facility] Cardiology Clinic Note Chief Complaint: Patient here for 1 year follow up CAD, carotid artery stenosis, and hypertension. Had carotid duplex in March 2024. Denies chest pain, SOB, and palpitations. Does get a dry cough. HPI: Ondina Lo is a 74 y.o. male With a history of coronary artery disease, prior stent placement here in routine follow-up Denies symptoms. Pertinently, he had no significant symptoms prior to needing a stent approximately 7 years ago. He has been diabetic for the past 3 to 4 years. Update 08/30/2024: Doing well; no new cardiovascular complaints Has been complaining of a dry cough for the past year or so Cardiology ROS: Review of Systems HENT: Positive for tinnitus. Respiratory: Positive for cough and snoring. Musculoskeletal: Positive for arthritis and joint pain. All other systems reviewed and are negative. Past Medical History He has a past medical history of CAD (coronary artery disease), Carotid artery stenosis, Hyperlipidemia, and Hypertension. Surgical History He has [...] mouth in the evening., Disp: , Rfl: cholecalciferol, vitamin D3, 50 mcg (2,000 unit) capsule, Take 2,000 Units by mouth in the morning., Disp: , Rfl: clopidogrel (Plavix) 75 mg [...] Rfl: metoprolol tartrate (Lopressor) 25 mg tablet, TAKE 1/2 TABLET BY MOUTH IN THE MORNING AND AT BEDTIME, Disp: 90 tablet, Rfl: 3 pantoprazole (ProtoNix) 40 mg EC tablet, TAKE 1 TABLET BY MOUTH EVERY DAY DIRECTED, Disp: 90 tablet, Rfl: 3 Last Recorded Vitals BP 140/72 (BP Location: Right arm, Patient Position: Sitting) Pulse 63 Ht 1.727 m (5' 8 ) Wt 82.6 kg (182 lb) SpO2 99% BMI 27.67 kg/m??? Physical Examination: GENERAL: alert and oriented [...] EXTCMP, BMPR1A, CBCDIF, BNP, BNP, LASAP, RED Labs 10/07/2023: Serum creatinine 1.21 HbA1c 7.0 LFTs normal Triglycerides 158, cholesterol 188, HDL 42, LDL (more content not included)... [facility] 07-28-2024 Evaluation note Diagnosis Onset Date Resolution Acute bronchitis due to other specified organisms acute Octobe r 2023 2:09pm ASHD (arteriosclerotic heart disease) acute July 28, 2024 2:09pm ASHD (arteriosclerotic heart disease) acute September 04, 2024 2:13pm Hypercholesterolemia acute Nove mber 2023 2:13pm Type 2 diabetes mellitus with hyperglycemia acute August 2:13pm [facility] Work Phone: [phone] 313-452110-08-2024 Hospital Discharge instructions Patient Education 07/25/2024 11:39:02 Benign Prostatic Hyperplasia Benign Prostatic Hyperplasia Benign prostatic hyperplasia (BPH) is an enlarged prostate gland that is caused by the normal agingprocess. The prostate may get bigger as a man gets older. The condition is not caused by cancer. The prostate is a walnut-sized gland that is involved in the production of semen. It is located in front of the rectum and below the bladder. The bladder stores urine. The urethra carries stored urine ou t of the body. An enlarged prostate can press on the urethra. This can make it harder to pass urine. The buildup of urine in the bladder can cause infection. Back pressure and infection may progress to bladder damage and kidney (renal) failure. What are the causes? This condition is part of the normal aging process. However, not all men develop problems from thiscondition. If the prostate enlarges away from the [...] urethra. Follow these instructions at home: Take skdu-rzz-uircjxk and prescription medicines only as told by [...] provider. Document Revised: 04/22/2022 Document Reviewed: 04/22/2022 [employer] Patient Education 2023 [employer]. Follow Up Care 07/24/2024 13:23:01 With:DODIE DAWKINS, Pola Rothman, URL Address: [facility] [address] [place] [address] [phone] When: Unknown [facility] 10-08-2024 NotePatient Education Urology Benign Prostatic Hyperplasia Benign prostatic hyperplasia (BPH) is an enlarged prostate gland that is caused by the normal agingprocess. The prostate may get bigger as a man gets older. The condition is not caused by cancer. The prostate is a walnut-sized gland that is involved in the production of semen. It is located in front of the rectum and below the bladder. The bladder stores urine. The urethra carries stored urine ou t of the body. An enlarged prostate can press on the urethra. This can make it harder to pass urine. The buildup of urine in the bladder can cause infection. Back pressure and infection may progress to bladder damage and kidney (renal) failure. What are the causes? This condition is part of the normal aging process. However, not all men develop problems from thiscondition. If the prostate enlarges away from the [...] urine that may remain in your bladder afteryou finish urinating. ? A digital rectal exam. [...] this procedure, a tool is inserted through theopening at the tip of the penis (urethra). [...] procedure uses radio frequencies to destroy and removea small amount of prostate tissue. ? Interstitial laser coagulation (ILC). This procedure uses a laser to destroy and remove a small amount of prostate tissue. ? Transurethral electrovaporization (TUVP). This procedure uses electrodes to destroy and remove a small amount of prostate tissue. ? Prostatic urethral lift. This procedure inserts an implant to push the lobes of the prostate awayfrom the urethra. Follow these instructions at home: ? Take kari-wvq-uaxyapz and prescription medicines only as told by [...] You develop side effec (more content not included)...[facility]06-06-2024 Hospital Discharge instructions Follow Up Care 03/23/2024 12:48:04 With:DODIE DAWKINS, Pola Rothman, URL Address: [facility] [address] [place] [address]- [phone] When: Unknown [facility] 06-03-2024 Evaluation + Plan note Diagnostic Tests Pending * Urine Culture 03/20/24 [facility]05-22-2024 Hospital Discharge instructions Patient Education 2024 12:28:39 [...] Follow these instructions at home: Medicines Take kxme-iak-hghxdux and prescription medicines only as told by [...] or the blood stops without treatment. Take qtvi-ghr-szxdksx and prescription medicines only as told by your health care provider. Drink enough fluid to keep your urine pale yellow. This information is not intended to replace advice given to you by your health care provider. Make sure you discuss any questions you have with your health care provider. Document Revised: 06/04/2021 Document Reviewed: 06/04/2021 [employer] Patient Education 2022 [employer]ilynx. Follow Up Care 02/01/2024 13:46:15 With:DODIE DAWKINS, Pola Rothman, URL Address: [facility] [address], [place] [address]- When: Unknown [facility] 04-16-2024 Hospital Discharge instructions Patient Education 02/01/2024 13:26:23 [...] including vitamins, herbs, eye drops, creams, and fxjs-okc-dgvcjae medicines. Any problems you or family members [...] provider tells you to take them. Taking ttld-dso-folddpd medicines, vitamins, herbs, and supplements. Tests You [...] Follow these instructions at home: Medicines Take dlis-fep-vwglcut and prescription medicines only as told by [...] provider. Document Revised: 06/17/2022 Document Reviewed: 05/16/2021 [employer] Patient Education 2022 [employer]. Follow Up Care 01/31/2024 16:48:56 With:DODIE DAWKINS, Pola Rothman, URL Address: [facility] [address] , [place] [address]- [phone] When: Unknown Comments:adalberto RIOS [facility] 04-16-2024 NoteUrology Cystoscopy Cystoscopy is a procedure that [...] including vitamins, herbs, eye drops, creams, and fcsy-xwx-hhjgfud medicines. ? Any problems you or family [...] tells you to take them. ? Taking rldh-ziq-xfnnmxo medicines, vitamins, herbs, and supplements. Tests You [...] these instructions at home: Medicines ? Take umyk-xml-akjywqs and prescription medicines only as told by [...] or the department th (more content not included)...[facility] 11-24-2023 History of Present illness Narrative* Juvenal Ballard MD - 11/24/2023 8:50 AM EST Images from the original note were not [...] upper limb, including shoulder left clavicular area [place] papule at biopsy site Destr of lesion Complexity: simple Destruction method: electrodesiccation and curettage Informed consent: discussed and consent obtained Informed consent comment: The risks of the procedure were discussed, including, but not limited to risks of scarring, darker or manufacturing engineer machining pigmentary changes, recurrence, infection, and incomplete removal [...] instructions were given verbally and in writing. Theoffice will be contacted if the lesion fails to resolve despite treatment, or if a side effect develops such as abnormal crusting, scabbing, reddness, discharge, or tenderness. Additional details: Amount of lidocaine used: 1.0 cc Previous accession number: [id number] ED&C today, see procedure note. Return to clinic prior to next scheduled visit for any signs orsymptoms of recurrence, reviewed the signs and symptoms. 2. Actinic keratosis (3) Left Eyebrow, Right Ear, Right Upper Arm - Posterior Erythematous scaly papules Patient was counseled regarding these sun-induced growths that can develop into squamous cell carcinoma if left untreated. Discussed treatment options, including cryotherapy and topical preparations.It was emphasized that any treated lesions that fail to resolve should be re-evaluated. Patient elected for treatment with Efudex as this has become a chronic issue. Has already been using Efudex on these areas with good response. Educated on Efudex treatment. Continue to spot treat twice a day fortwo weeks. Discussed that treated areas will become [...] Next Visit: [id number] Evaluation note* Encounter Date Diagnosis Assessment Notes Treatment Notes Treatment Clinical Notes Oct, Acute bronchitis due to other specified organisms (ICD-10 - J20.8) Instructed to use robitussin or mucinex for cough, saline or flonase NS for congestion, tylenol for pain and fever. Instructed to use Robitussin or Mucinex for cough, saline or Flonase NS for congestion, Tylenol for pain and fever. Oct, ASHD (arteriosclerotic heart disease) (ICD-10 - I25.10) This patient is stable without activity related CP, dyspnea or lightheadedness. They are instructed to continue exercise and AHA diet plan. Continue secondary prevention measures. [facility] Other 01-15-2024 Evaluation note* Encounter Date Diagnosis [...] Increases risk for more serious, prolonged illness [facility] Other 01-09-2024 Hospital Discharge instructions Patient Education [...] including vitamins, herbs, eye drops, creams, and dvnv-hoy-tsgtogd medicines. Any problems you or family members [...] provider tells you to take them. Taking jesd-hsl-zepvkfl medicines, vitamins, herbs, and supplements. Tests You [...] Follow these instructions at home: Medicines Take yxcb-xlu-utfaczs and prescription medicines only as told by [...] provider. Document Revised: 06/17/2022 Document Reviewed: 05/16/2021 [employer] Patient Education 2022 [employer]. 10/26/2023 10:02:27 Hematuria, Adult Hematuria, Adult Hematuria [...] Follow these instructions at home: Medicines Take gibs-wub-pogswvw and prescription medicines only as told by [...] or the blood stops without treatment. Take qglq-rkk-eodipzz and prescription medicines only as told by your health care provider. Drink enough fluid to keep your urine pale yellow. This information is not intended to replace advice given to you by your health care provider. Make sure you discuss any questions you have with your health care provider. Document Revised: 06/04/2021 Document Reviewed: 06/04/2021 [employer] Patient Education 2022 [employer]. Follow Up Care 10/01/2023 13:06:22 With:DODIE DAWKINS, Pola Rothman, URL Address: [facility] [address] , [place] [address]- [phone] When: Unknown Comments:sched cysto [facility] 01-09-2024 NoteUrology Cystoscopy Cystoscopy is a procedure [...] including vitamins, herbs, eye drops, creams, and jrfq-lwq-jjaczmm medicines. ? Any problems you or family [...] tells you to take them. ? Taking vqwb-rof-naovpyo medicines, vitamins, herbs, and supplements. Tests You [...] these instructions at home: Medicines ? Take vjcl-wvo-prfhwgg and prescription medicines only as told by [...] or the department th (more content not included)...[facility] 10-05-2023 Evaluation note* Encounter Date Diagnosis Assessment [...] lower urinary tract symptoms (ICD-10 - N40.1) [facility] Chief Complaint: [...] including aspirin, high intensity statin therapy, a beta-rashad and an angiotensin-converting enzyme inhibi (more content not included)...[facility] 07-20-2023 Evaluation note* Encounter Date Diagnosis Assessment Notes Treatment Notes Treatment Clinical Notes Jul, Acute seasonal allergic rhinitis (ICD-10 - J30.2) [facility] Other 06-28-2023 Evaluation note* Encounter Date Diagnosis Assessment Notes Treatment Notes Treatment Clinical Notes Mar, Acute non-recurrent maxillary sinusitis (ICD-10 - J01.00) [facility] Other 06-21-2023 Evaluation note* Encounter Date Diagnosis Assessment Notes Treatment Notes Treatment Clinical Notes Mar, Acute non-recurrent maxillary sinusitis (ICD-10 - J01.00) Instructed to use Robitussin or Mucinex for cough, saline or Flonase NS for congestion, Tylenol for pain and fever. Mar, ASHD (arteriosclerotic heart disease) (ICD-10 - I25.10) Stable w/o symptoms suggestive of angina. Avoid decongestants, NSAIDs [facility] Other 06-05-2023 Evaluation note* Encounter Date Diagnosis [...] risk for cerebrovascular and cardiovascular disease. Mar, RICCADRO (obstructive sle ep apnea) (ICD-10 - G47.33) This patient is aware of the benefits associated with RICCARDO: With continued use, the patient reduces the risk for MT, CVA, HTN, cardiac dysrhythmias and sudden cardiac [...] High risk medication use (ICD-10 - Z79.899) [facility] Other 05-02-2023 Evaluation note* Encounter Date Diagnosis Assessment Notes Treatment Notes Treatment Clinical Notes February, Primary hypertension (ICD-10 - I10) [facility] Other 04-12-2023 Evaluation note* Encounter Date Diagnosis Assessment Notes Treatment Notes Treatment Clinical Notes Jan, Acute seasonal allergic rhinitis (ICD-10 - J30.2) [facility] Other 04-21-2022 Evaluation note* Encounter Date Diagnosis [...] sleepiness, or poor response to treatment. . [employer] Other Evaluation + Plan note Future Appointments Appointment Date:11/23/2023 07:30:00 AM Scheduled Provider:Pola CANTRELL MD Location:[facility] Appointment Type:URO Procedure 15 min [facility] Evaluation + Plan note Future Appointments Appointment Date:11/23/2023 07:30:00 AM Scheduled Provider:Pola CANTRELL MD Location:[facility] Appointment Type:URO Procedure 15 min Diagnostic Tests Pending * [facility] Fish and Urine Cyto ([facility]) [facility] Future App[facility]ments Appointment Date:2024 10:45:00 AM Scheduled Provider:Pola CANTRELL MD Location:[facility] Appointment Type:URO Office Visit [facility] Evaluation + Plan note Future Appointments Appointment Date:07/25/2024 10:15:00 AM Scheduled Provider:Pola CANTRELL MD Location:[facility] Appointment Type:URO Office Visit [facility] evaluation + Plan note Future Appointments Appointment Date:07/25/2025 08:15:00 AM Scheduled Provider:Pola CANTRELL MD Location:[facility] [place] Appointment Type:URO Office Visit [facility] Evaluation noteNo assessment information available [facility] Work Phone: Evaluation noteNo InformationNort [employer] Other Evaluation note* Diagnosis Actinic keratosis- Primary Basal cell carcinoma of skin of left upper limb, including shoulder [facility] Diagnosis Onset Date Resolution Status ASHD (arteriosclerotic heart disease) acute Acute bronchitis due to other specified organisms noneactive [facility] Work Phone: Evaluation note* Diagnosis Onset Date Resolution Status ASHD (arteriosclerotic heart disease) acute Acute bronchitis due to other specified organisms noneactive BMI 27.0-27.9,adult acute Obstructive sleep apnea acut e [facility] Work Phone: Evaluation note* Diagnosis Onset Date Resolution Status ASHD (arteriosclerotic heart disease) acute Acute bronchitis due to other specified organisms noneactive Obstructive sleep apnea acut e ASHD (arteriosclerotic heart disease) acute Carotid stenosis acute GERD (gastroesophageal reflux disease) acute Hypercholesterolemia acute Hypothyroid acute Obstructive sleep apnea acut e Type 2 diabetes mellitus with hyperglycemia acute Medicare annual wellness visit, subsequent noneactive [facility] Work Phone: History general Narrative - Reported* Type Description Date Medical History Hypercholesteremia Medical History Hypothyroid (per patient is cont rolled) Medical History GERD (gastroesophageal reflux di sease) Medical History diabetes Medical History RICCARDO Surgical History cholecystectomy Surgical History heart stent Surgical History appendectomy Hospitalization History see above [place] [employer] Other Hospital course Narrative No data available for this section [facility] Hospital Discharge instructions No data available for this section [facility] No data available for this section [facility] [employer] Summary Purpose Family History Relationship Condition Age [...] Date/ Time Advance Directives No August 2:12pm Advance Directive Response Recorded Date/ Time Advance Directives No August 1:12pm Chief Complaint and Reason for Visit Chief Complaint Sleep apnea annual f ollow up Chief Complaint Allergy Shot Sinuses/ [phone] Reason for Visit ASHD (arteriosclerot ic heart disease) Acute bronchitis due to other specified organisms Chief Complaint Allergy Shot Sinuses/ [phone] RICCARDO/Annual Reason for Visit ASHD (arteriosclerot ic heart disease) Acute bronchitis due to other specified organisms Chief Complaint Allergy Shot Sinuses/ [phone] RICCARDO/Annual Unknown Reason for Visit ASHD (arteriosclerot ic heart disease) Acute bronchitis due to other specified organisms BMI 27.0-27.9,adult Obstructive sleep apnea Chief Complaint Allergy Shot Sinuses/ [phone] RICCARDO/Annual Unknown Wellness Reason for Visit ASHD (arteriosclerot ic heart disease) Acute bronchitis due to other specified organisms Obstructive sleep apnea ASHD (arteriosclerotic heart disease) Carotid stenosis GERD (gastroesophageal reflux disease) Hypercholesterolemia Hypothyroid Obstructive sleep apnea Type 2 diabetes mellitus with hyperglycemia Medicare annual wellness visit, subsequent Chief Complaint Sinuses/ [phone] RICCARDO/Annual Unknown Wellness allergy shot Reason for Visit ASHD (arteriosclerot ic heart disease) Acute bronchitis due to other specified organisms Obstructive sleep apnea ASHD (arteriosclerotic heart disease) Carotid stenosis GERD (gastroesophageal reflux disease) Hypercholesterolemia Hypothyroid Obstructive sleep apnea Type 2 diabetes mellitus with hyperglycemia Medicare annual wellness visit, subsequent Chief Complaint cough, COVID - Chief Complaint Admit Date cough, COVID - July 28, 2024 2 :09pm medication discussion September 04 2:13pm Reason for Visit Admit Date Acute bronchitis due to other specified organisms July 28, 2024 2:09pm ASHD (arteriosclerotic heart disease) Oc tober 2023 2:09pm ASHD (arteriosclerotic heart disease) No vember 2023 2:13pm Hypercholesterolemia September 04, 2024 2:13pm Type 2 diabetes mellitus with hyperglyce meenakshi September 04, 2024 2:13pm Reason for Referral Reason Gross Hematuria Diagnosis 1 Gross hematuria (R31 .0) Referral Organization [facility] Referring Provider First Name Brandon Referring Provider Last Name Paige Referring Provider Specialty Internal Me dicine Referred Organization [facility] Referred Provider Pola Cantrell Referred Address [address],[place], [place],[address] Referred Provider Specialty Urology Referral Priority Routine [...] results. Clinical Notes Include CT scan from [facility]. Include recent labs completed. Additional Source Comments (unrecognized sect ion and content) No Status Records FoundNo Status Records FoundNo Status Records FoundNo Status Records FoundNo Status Records FoundNo Status Records FoundNo Status Records FoundNo Status Records Found INFORMATION SOURCE (unrecogn ized section and content) DATE CREATED AUTHOR 04/07/2018 [facility] DATE CREATED AUTHOR AUTHOR'S ORGANIZ ATION 10/09/2022 [facility] DATE CREATED AUTHOR AUTHOR'S ORGANIZ ATION 03/23/2024 [facility] DATE CREATED AUTHOR AUTHOR'S ORGANIZ ATION 03/25/2024 [facility] DATE CREATED AUTHOR AUTHOR'S ORGANIZ ATION 03/25/2024 [facility] DATE CREATED AUTHOR AUTHOR'S ORGANIZ ATION 05/25/2024 [facility] DATE CREATED AUTHOR AUTHOR'S ORGANIZ ATION 07/27/2024 [facility] DATE CREATED AUTHOR AUTHOR'S ORGANIZ ATION 09/01/2024 [facility] Care Teams (unrecognized sec tion and content) [...] DO Primary Care Provider Active Start: February 18, [...] 2024 Team Status: Active Member Role Status Dates [...] July 28, 2024 End: July 28, 2024 Team Status: Active Member Role Status Dates Brandon Estrella , Primary Care Provide r, Attending Provider Active Start: August 28, 2024 Team Status: Inactive Member Role Status Dates Brandon Estrella , Primary Care Provide r, Attending Provider Active Start: September 04, 2024 End: September 04, 2024 Goals (unrecognized section and content) Goals [...] Comments Follow-up coughChest Congestion, Sinuses-Testing for COVID- [phone] resultsER [phone] ShotRefill FOR RECORDS PERTAINING TO PATIENTS WHO [...] BE BASED ON THE PRIMARY CLINICAL RECORDS. [employer] provides no warranty or guarantee of the accuracy or completeness of information in this document.
[2024-09-07 09:56] LABS: Anion Gap 16.2; BUN Creatinine Ratio 14.8; Calcium 9.5 mg/dL (8.5-10.1); Carbon Dioxide 24.8 mmol/L (21.0-32.0); Chloride 103 mmol/L (98-107); Estimated GFR (African America >60 (>=60 mL/min/1.73m^2); Estimated GFR (Non-African Ame 55 (>=60 mL/min/1.73m^2); Glucose 154 mg/dL (74-106); Sodium 140 mmol/L (136-145)
== END 2024-09-07 09:09 | disposition home or self-care (01) ==
LOC: LAB 09:09
PROVIDERS: PCP Internal Medicine; Visit Provider Internal Medicine Interventional Cardiology
DX: I11.9 Hypertensive heart disease without heart failure (principal)
CPT/HCPCS: 36415; 80048

== ENCOUNTER 2025-03-29 08:31 | Outpatient (OUT) | payer OTHER, SELFPAY ==
--- OUTSIDE RECORDS SUMMARY | 2025-03-29 08:39 | XMS_ITS | Encounter Summary ---
Author Organization [facility] Address [facility] [place] [address] Care Team Providers Care Combiner Name Role Phone Unavailable Primary Care Provider Unavailabl e Source Comments In the event this information is protected by the Federal Confidentiality of Alcohol and Drug AbusePatient Records regulations: The Federal rules restrict any use of the information to criminally investigate or prosecute any alcohol or drug abuse patient.[facility] Encounter Details Date Type Department Care Team (Late st Contact Info) Description 03/20/2024 Lab Requisition [facility] Hospital Laboratory [facility] [place] [address] Flip Alan MD [address] [place] [address] Person encountering health services to consult on behalf of another person Social History Tobacco Use Types Packs/Day Years Used Date Smoking Tobacco: Never Assessed Sex and Gender Information Value Date Recorded Sex Assigned at Not on file Legal Sex Male 2:15 PM EDT Gender Identity Not on file Sexual Orientation Not on file documented as of this encounter Plan of Treatment Not on file documented as of this encounter Procedures Procedure Name Priority Date/Time Associated Diagnosis Comments SURGICAL PATHOLOGY REFERENCE LAB CONSULT Routine 03/20/2024 2:20 PM EDT Person encountering health services to consult on behalf of another person documented in this encounter Results * SURGICAL PATHOLOGY REFERENCE LAB CONSULT (03/20/2024 2:20 PM EDT) Case Report Surgical Pathology Report Case: [id number] Authorizing Provider: Flip Alan MD Collected: 03/20/2024 02:20 PM Ordering Location: [facility] Received: 03/20/2024 02:20 PM [facility] Pathologist: Evan Perez MD Specimen: Slide(s), 1 SLIDE [id number] 03/20/2024 3:26 PM EDT [facility] FINAL DIAGNOSIS [facility]; [place], [place] (BS [id number], 03/02/2024) A. 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 JKM 03/20/2024 03/20/2024 3:26 PM EDT [facility] at 1526 EDT Diagnosis Comment Thank you for allowing me to review this urinary bladder sample from a 74-year-old man. As noted there is florid cystitis cystica/cystitis glandularis. While there is some surface undulation, given the underlying cystitis glandularis, it is my opinion that there is not sufficient architectural complexity for definitive diagnosis as a urothelial neoplasm. 03/20/2024 3:26 PM EDT [facility] Clinical History CONSULT REQUESTED 03/20/2024 3:26 PM EDT [facility] Performing Lab Diagnostic interpretation performed at [place] [address] CLIA# [id number] Clearing Tub Worker: Claudio Garcia M.D. 03/20/2024 3:26 PM EDT [facility] Blocks or Slides MICROSCOPE SLIDE / Unknown 03/20/2024 2:20 PM EDT 03/20/2024 2:20 PM EDT us Flip Alan MD SURGICAL PATHOLOGY Final Re sult [facility] [address] [place] [address] [place] [address], documented in this encounter Visit Diagnoses Diagnosis Person encountering health services to consult on behalf of another person Other person consulting on behalf of another person documented in this encounter
--- OUTSIDE RECORDS SUMMARY | 2025-03-29 08:39 | XMS_ITS | Referral Summary ---
Author Organization [facility] Address [address] [place] [address] Care Team Providers Care Pilot Fuel Engineer Name Role Phone Brandon Estrella DO Primary Care Provider [phone] Encounters Date Type Department Care Team Description 03/26/2025 Refill [facility] [address] [place] [address] Jonah Das MD Essential hypertension 03/05/2025 Refill [facility] [address] [place] [address] Senia Fulton MA Benign hypertensive heart disease without congestive heart failure from Last 3 Months Allergies Active Allergy Reactions Criticality Noted Date Comments Diphenhydramine Hcl Unknown 05/10/2019 Medications aspirin 81 mg EC tablet Take 1 tablet every day by oral route. Active atorvastatin (Lipitor) 80 mg tablet Take 1 tablet by mouth in the evening. Active levothyroxine (Synthroid, Levoxyl) 75 mcg tablet Take 1 tablet by mouth in the morning. Active metFORMIN (Glucophage) 500 mg tablet Take 1 tablet by mouth in the morning. Active lisinopril 5 mg tabletIndications:Esse ntial hypertension Take 1 tablet (5 mg) by mouth once daily as directed. 90 tablet 1 022 Active cholecalciferol, vitamin D3, 50 mcg (2,000 unit) capsule Take 2,000 Units by mouth in the morning. Active pantoprazole (ProtoNix) 40 mg EC tabletIndications:Omar roesophageal reflux disease without esophagitis TAKE 1 TABLET BY MOUTH EVERY DAY DIRECTED 90 tablet 3 024 Active clopidogrel (Plavix) 75 mg tabletIndications:Clinton nary artery disease due to lipid rich plaque TAKE 1 TABLET BY MOUTH EVERY DAY IN THE MORNING 90 tablet 3 024 Active linaGLIPtin (Tradjenta) 5 mg tablet Take 5 mg by mouth in the morning. 024 Active losartan (Cozaar) 25 mg tabletIndications:Yamil gn hypertensive heart disease without congestive heart failure Take 1 tablet (25 mg) by mouth once daily as directed. STOP LISINOPRIL 90 tablet 3 024 Active ezetimibe (Zetia) 10 mg tabletIndications:Pure hypertriglyceridemia Take 1 tablet (10 mg) by mouth once daily as directed. 90 tablet 3 024 Active dapagliflozin propanediol (Farxiga) 10 mgIndications:Benign hypertensive heart disease without congestive heart failure Take 1 tablet (10 mg) by mouth once daily as directed. 90 tablet 3 025 03/05 Active metoprolol tartrate (Lopressor) 25 mg tabletIndications:Esse ntial hypertension TAKE 1/2 TABLET BY MOUTH IN THE MORNING AND AT BEDTIME 90 tablet 3 025 Active metoprolol tartrate (Lopressor) 25 mg tabletIndications:Esse ntial hypertension TAKE 1/2 TABLET BY MOUTH IN THE MORNING AND AT BEDTIME 90 tablet 3 024 03/26 Discontinued dapagliflozin propanediol (Farxiga) 10 mgIndications:Benign hypertensive heart disease without congestive heart failure Take 1 tablet (10 mg) by mouth once daily as directed. 90 tablet 3 024 03/05 Discontinued( Reorder) Active Problems Problem Noted Date Diagnosed Date Anticoagulated 08/30/2024 BPH associated with nocturia 08/30/2024 BPH without urinary obstruction 08/30/2024 Carotid stenosis 08/30/2024 Chronic cystitis 08/30/2024 ED (erectile dysfunction) 08/30/2024 GERD (gastroesophageal reflux disease) Gross hematuria 08/30/2024 High cholesterol 08/30/2024 Hypothyroid 08/30/2024 Lesion of bladder 08/30/2024 Obstructive sleep apnea 08/30/2024 Rectal bleed 08/30/2024 Screening PSA (prostate specific antigen) 2023 Skin cancer 08/30/2024 Type 2 diabetes mellitus with hyperglycemia 08/18 Urge incontinence 08/30/2024 Diabetes mellitus type II, non insulin dependent 09/17/2022 Coronary atherosclerosis 07/10/2022 Dyslipidemia 07/10/2022 Hypertensive disorder 07/10/2022 Serum creatinine raised 07/10/2022 Social History Tobacco Use Types Packs/Day Years Used Date Smoking Tobacco: Never Smokeless Tobacco: Never Tobacco Cessation:Counseling Given: Not Answered Alcohol Use Standard Drinks/Week Comments Yes 0 (1 standard drink = 0.6 oz pur e alcohol) occasional [place] Safety & Environment Answer Date Rec orded Fear of Current or Ex-Partner Not on file Emotionally Abused Not on file 12/09/2023 Physically Abused Not on file 12/09/2023 Sexually Abused Not on file 12/09/2023 Physically or Sexually Abused Not on file Sex and Gender Information Value Date Recorded Sex Assigned at Not on file Legal Sex Male 11:39 PM EDT Gender Identity Not on file Sexual Orientation Not on file Last Filed Vital Signs Vital Sign Reading Time Taken Comments Blood Pressure 140/72 08/30/2024 11:40 AM EST Pulse 63 08/30/2024 11:40 AM EST Temperature - - Respiratory Rate - - Oxygen Saturation 99% 08/30/2024 11:40 AM EST Inhaled Oxygen Concentration - - Weight 82.6 kg (182 lb) 08/30/2024 11:40 AM EST Height 172.7 cm (5' 8 ) 08/30/2024 11:40 AM EST Body Mass Index 27.67 08/30/2024 11:40 AM EST Plan of Treatment Not on file Insurance [employer] Care Teams Pilot Fuel Engineer Relationship Specialty Start Date End Date Brandon Estrella DO [address] [place] [address] PCP - General 07/23/22
--- OUTSIDE RECORDS SUMMARY | 2025-03-29 08:39 | XMS_ITS | Patient Health Record ---
Author Organization [facility] [address] [facility] Address [address] [place] [address] Care Team Providers Care Special Warfare Boat Operator Name Role Phone Sara Brown Primary Care Provider [phone] Reason For Referral No Information Medications Medication SIG (Take, Route, Fr equency, Duration) Notes Start Date End Date Status Atorvastatin Calcium Active Zinc Active Vitamin D3 Active Vitamin C Active Lisinopril Active Aspirin Active Levothyroxine Sodium Active metFORMIN HCl Active Metoprolol-12.5 mg A ctive Plan Of Treatment No Information Insurance Providers Payer Name Payer Address Payer Phone Subscriber Number Group Number Insured Name Patient Relationship to Insured Coverage Start Date Coverage End Date [employer] Non-Par [address] [place] [phone] [id number] ONDINA LO Self - patient is the insured 3 [employer] H[employer] [address] [place] [phone] [id number] ONDINA LO Self - patient is the insured 2 2 [employer] [address] [place] [phone] [id number] ONDINA LO Self - patient is the insured 3
--- OUTSIDE RECORDS SUMMARY | 2025-03-29 08:39 | XMS_ITS | Encounter Summary ---
Author Organization [facility] Address [address] [place] [address] Care Team Providers Care Shipping And Receiving Operator Name Role Phone Unavailable Primary Care Provider Unavailabl e Encounter Details Date Type Department Care Team (Late Contact Info) Description 04/09/2023 Abstract [facility] [address] [facility] [address] [place] [address] Trish Beltran MD [address] [facility] [address] [place] [address] Social History Tobacco Use Types Packs/Day Years Used Date Smoking Tobacco: Never Smokeless Tobacco: Never Tobacco Cessation:Counseling Given: Not Answered Alcohol Use Standard Drinks/Week Comments Yes 0 (1 standard drink = 0.6 oz pur e alcohol) caffeine: 1-2 cups per day Sex and Gender Information Value Date Recorded Sex Assigned at Not on file Legal Sex Male 7:18 PM EDT Gender Identity Not on file Sexual Orientation Not on file documented as of this encounter Plan of Treatment Upcoming Encounters Date Type Department Care Team (Late st Contact Info) Description 08/30/2025 11:20 AM EST Office Visit [facility] [address] [facility] [address] [place] [address] Trish Beltran MD [address] [facility] [address] [place] [address] documented as of this encounter Visit Diagnoses Not on filedocumented in this encounter
--- OUTSIDE RECORDS SUMMARY | 2025-03-29 08:39 | XMS_ITS | Clinical Summary ---
Author Organization [facility] Address [address] [place] [address] Care Team Providers Care Nailing Machine Feeder Name Role Phone Unavailable Primary Care Provider Unavailabl e Allergies Active Allergy Reactions Criticality Noted Date Comments Diphenhydramine Unknown 05/10/2019 Iodinated Contrast Media Unknown 06/16/2023 Medications atorvastatin (Lipitor) 10 MG tablet Active baclofen (Lioresal) 10 MG tablet baclofen 10 mg tablet Active cholecalciferol (Vitamin D-3) 50 MCG (1999 UT) capsule Take 2,000 Units by mouth in the morning. Active clopidogrel (Plavix) 75 MG tablet clopidogrel 75 mg tablet TAKE 1 TABLET BY MOUTH EVERY DAY 2 Active ezetimibe (Zetia) 10 MG tablet ezetimibe 10 mg tablet Active levoFLOXacin (Levaquin) 500 MG tablet levofloxacin 500 mg tablet Active lisinopril 2.5 MG tablet lisinopril 2.5 mg tablet Active meloxicam (Mobic) 15 MG tablet meloxicam 15 mg tablet Active metoprolol succinate XL (Toprol-XL) 25 MG 24 hr tablet Take 12.5 mg by mouth in the morning and 12.5 mg in the evening. Active pantoprazole (ProtoNix) 40 MG EC tablet pantoprazole 40 mg tablet,delayed release TAKE 1 TABLET BY MOUTH EVERY DAY 2 Active traMADol (Ultram) 50 MG tablet tramadol 50 mg tablet Active ciprofloxacin (Cipro) 500 MG tablet TAKE ONE TAB DAY BEFORE PROCEDURE AND ONE TAB AFTER PROCEDURE 4 Active triamcinolone (Kenalog) 0.1 % creamIndication s:Poison miriam dermatitis Apply to affected areas, up to twice a day when flared, do not use one the face, groin, or underarms, 30 day supply 30 g 11 4 Active dapagliflozin (Farxiga) 10 MG Take 10 mg by mouth 4 09/07/20 25 Active losartan (Cozaar) 25 MG tablet Take by mouth Active fluorouracil (Efudex) 5 % creamIndication s:Actinic keratosis APPLY TO DIRECTED AREAS ON THE SCALP,TEMPLES, EYEBROWS, AND FOREHEAD TWICE A DAY FOR 14 DAYS 40 g 5 Active Active Problems No known active problems Encounters Date Type Department Care Team Description 02/22/2025 9:35 AM EDT Office Visit [facility] [address] [place] [address] Trish Beltran MD Melanocytic nevus of trunk (Primary Dx); History of basal cell carcinoma; Actinic keratosis; Lentigines; Seborrheic keratosis 02/22/2025 Bamboo flowsheet [facility] [address] [place] [address] Trish Beltran MD 02/22/2025 Travel 01/16/2025 Refill [facility] [address] [place] [address] Trish Beltran MD Actinic keratosis from Last 3 Months Family History Medical History Relation Name Comments Heart disease Father Relation Name Status Comments Father Mother Social History Tobacco Use Types Packs/Day Years [...] Sign Reading Time Taken Comments Blood Pressure 142/70 07/30/2022 12:00 PM EDT Pulse - - Temperature - - Respiratory Rate - - Oxygen Saturation - - Inhaled Oxygen Concentration - - Weight 77.1 kg (170 lb) 02/16/2019 12:00 PM EDT Height 170.2 cm (5' 7 ) 10/01/2022 12:00 PM EST Body Mass Index 26.63 02/16/2019 12:00 PM EDT Plan of Treatment Upcoming Encounters Date Type Department Care Team (Late st Contact Info) Description 08/30/2025 11:20 AM EST Office Visit [facility] [address] [place] [address] Trish Beltran MD [address] [place] [address] Health Maintenance Due Date Last Done Comments Pneumococcal Vaccine: 65+ Ye ars (2 of 2 - PPSV23) 12/11/2017 12/11/2016 Influenza Vaccine Completed 09/10/2024, , 09/28/2022, Additional history exists Procedures Procedure Name Priority Date/Time Associated Diagnosis Comments CRYOTHERAPY SKIN LESION Routine 02/22/2025 9:46 A M EDT Actinic keratosis from Last 3 Months Results * Cryotherapy, skin lesion (02/22/2025 9:46 AM EDT) us Trish Beltran MD DERM PROCEDURE ORDERABLES Fin al Result from Last 3 Months Insurance [employer]
--- OUTSIDE RECORDS SUMMARY | 2025-03-29 08:39 | XMS_ITS | Clinical Summary ---
Author Organization [facility] Address [address] [place] [address] Care Team Providers Care [employer] Coxswain Name Role Phone Brandon Estrella DO Primary Care Provider [phone] Allergies Active Allergy Reactions Criticality Noted Date [...] Hypertensive disorder 07/10/2022 Serum creatinine raised 07/10/2022 Encounters Date Type Department Care Team Description 03/26/[address] [facility] Heart at [place] [address] [place] [address] Jonah Das MD Essential hypertension 03/05/[address] [facility] Heart at [facility] [address] [place] [address] Senia Fulton MA Benign hypertensive heart disease without congestive heart failure from Last 3 Months Family History Medical History Relation Name Comments Cancer Brother Heart failure Brother Relation Name Status Comments Brother Social History Tobacco Use Types Packs/Day Years [...] 08/30/2024 11:40 AM EST Plan of Treatment Health Maintenance Due Date Last Done Comments Diabetes: Hemoglobin A1C 1950 Medicare Annual Wellness (AWV) 1950 Diabetes: Retinopathy Screening 1959 Depression Screening 1961 Diabetes: Urine Protein Screening 1968 Adult Tetanus 08/22/2009 08/22/1999 Fall Risk Screening 2014 Pneumococcal Vaccine: 50+ Years (2 of 2 - PPSV23, PCV20, or PCV21) 02/05/2017 12/11/2016 COVID-19 Vaccine ( season) 2024 01/31/2021, 01/10/2021 Influenza Vaccine (Season Ended) 2025 08/07/2023, 09/28/2022, 09/06/2018, Additional history exists Zoster Vaccines Completed 04/22/2023, 02/13/2023 HIB Vaccines Aged Out No longer eligi ble based on patient's age to complete this topic HPV Vaccines Aged Out No longer eligi ble based on patient's age to complete this topic IPV Vaccines Aged Out No longer eligi ble based on patient's age to complete this topic Meningococcal B Vaccine Aged Out No l onger eligible based on patient's age to complete this topic Meningococcal Vaccine Aged Out No zena serina eligible based on patient's age to complete this topic Rotavirus Vaccines Aged Out No longer eligible based on patient's age to complete this topic Insurance [employer] Care Teams [employer] Coxswain Relationship Specialty Start Date End Date Brandon Estrella DO [address] [facility] [place] [address] PCP - General 07/23/22
--- OUTSIDE RECORDS SUMMARY | 2025-03-29 08:39 | XMS_ITS | Encounter Summary ---
Author Organization [facility] Address [address] [place] [address] Care Team Providers Care Pan Pusher Name Role Phone Brandon Estrella DO Primary Care Provider [phone] Reason for Visit * Reason Comments Med Refill Encounter Details Date Type Department Care Team (Late st Contact Info) Description 03/26/2025 Refill [facility] Heart at [facility] [address] [place] [address] Jonah Das MD [address] [facility] [address] [facility] [id number] Essential hypertension Social History Tobacco Use Types Packs/Day Years Used Date Smoking Tobacco: Never Smokeless Tobacco: Never Alcohol Use Standard Drinks/Week Comments Yes 0 [...] on file documented as of this encounter Visit Diagnoses Diagnosis Essential hypertension Unspecified essential hypertension documented in this encounter Care Teams Pan Pusher Relationship Specialty Start Date End Date Brandon Estrella DO [address] [address] PCP - General 07/23/22 documented as of this encounter
--- OUTSIDE RECORDS SUMMARY | 2025-03-29 08:39 | XMS_ITS | Clinical Summary ---
[facility] Organization [id number] [address] [place] [address] Care Team Providers Care Information Technology Coordinator Name Role Phone Brandon Estrella Primary Care Provider [phone] Allergies Active Allergy Reactions Criticality Noted Date Comments Diphenhydramine Hcl 05/10/2019 Medications aspirin 81 mg Take 81 mg by mouth daily. Active clopidogrel (PLAVIX) 75 mg tablet Take 75 mg by mouth daily. Active atorvastatin (LIPITOR) 80 mg tablet Take 80 mg by mouth daily. Active metoprolol succinate XL (TOPROL-XL) 25 mg 24 hr tablet Take 12.5 mg by mouth 2 (two) times a day. Active pantoprazole (PROTONIX) 40 mg EC tablet Take 40 mg by mouth daily. Active levothyroxine (SYNTHROID, LEVOTHROID) 75 MCG tablet Take 75 mcg by mouth daily. Active cholecalciferol, vitamin D3, 2,000 units capsule Take 2,000 Units by mouth daily. Active diphenoxylate-atrop ine (LOMOTIL) 2.5-0.025 mg per tabletIndications:C olitis Take 1 tablet by mouth 4 (four) times a day as needed for diarrhea for up to 10 doses. 10 tablet 9 Active ondansetron ODT (ZOFRAN-ODT) 4 mg disintegrating tablet Dissolve 1 tablet (4 mg total) on tongue every 8 (eight) hours as needed for nausea for up to 10 doses. 10 tablet 9 Active Social History Tobacco Use Types Packs/Day Years Used Date Smoking Tobacco: Never Smokeless Tobacco: Never Alcohol Use Standard Drinks/Week Comments Yes 0 (1 standard drink = 0.6 oz pur e alcohol) socially Childcare Answer Date Recorded Childcare Unknown 03/29/2019 Employment Answer Date Recorded Employment Unknown 03/29/2019 Purpose - Life Answer Date Recorded Purpose and direction in life Unknown Sex and Gender Information Value Date Recorded Sex Assigned at Not on file Legal Sex Male 12:11 PM EDT Gender Identity Not on file Sexual Orientation Not on file Last Filed Vital Signs Vital Sign Reading Time Taken Comments Blood Pressure 128/69 05/10/2019 9:49 PM EDT Pulse 64 05/10/2019 8:34 PM EDT Temperature 36.5 C (97.7 F) 05/10/2019 8:34 PM EDT Respiratory Rate 16 05/10/2019 8:34 PM EDT Oxygen Saturation 95% 05/10/2019 10:30 PM EDT Inhaled Oxygen Concentration - - Weight 76.2 kg (168 lb) 05/10/2019 8:34 PM EDT Height 170.2 cm (5' 7 ) 05/10/2019 8:34 PM EDT Body Mass Index 26.31 05/10/2019 8:34 PM EDT Plan of Treatment Health Maintenance Due Date Last Done Comments Depression Screening 1961 Tobacco Screening 1961 DTaP,Tdap and Td Vaccines (1 - Tdap) 1968 Zoster (Shingles) Vaccine (1 of 2) 1999 Fall Risk Screening 2014 Influenza Vaccine 06/18/2025 Medical Devices Not on file Insurance MEDICARE [facility] Care Teams Information Technology Coordinator Relationship Specialty Start Date End Date Brandon Estrella DO [address] [place] [address] PCP - General Internal Medicine 05/10/19
--- OUTSIDE RECORDS SUMMARY | 2025-03-29 08:39 | XMS_ITS | Clinical Summary ---
Author Organization [facility] Address [address] [place] [id number] Care Team Providers Care Affiliate Marketing Specialist Name Role Phone Unavailable Primary Care Provider Unavailabl e Social History Tobacco Use Types Packs/Day Years Used Date Smoking Tobacco: Never Assessed Sex and Gender Information Value Date Recorded Sex Assigned at Not on file Legal Sex Male 2:15 PM EDT Gender Identity Not on file Sexual Orientation Not on file Plan of Treatment Not on file
--- OUTSIDE RECORDS SUMMARY | 2025-03-29 08:46 | XMS_ITS | CCD ---
Author Organization [facility] Care Team Providers Care Staff Veterinarian Name Role Phone PHYSICIAN, DEFAULT Unavailable Unavailable PHYSICIAN, DEFAULT Unavailable Unavailable BALL, BRANDON Unavailable Unavailable PHYSICIAN, DEFAULT Unavailable Unavailable PHYSICIAN, DEFAULT Unavailable Unavailable BALL, BRANDON Unavailable Unavailable Ball, DO Brandon Primary Care Provider MD Tim [...] Care Provider MD Pola Plata Attending Provider Pola Cantrell Attending Unavailable Cantrell, Pola Admitting [...] Attending Unavailable CANTRELL, Pola R Attending Unavailable ELTAHAWY, EHAB Attending Unavailable ELTAHAWBrando, EHAB Attending Unavailable PETITTI, JUVENAL A Attending Unavailable PETITTI, JUVENAL A Attending Unavailable PETJUVENAL FERGUSON A Attending Unavailable Allergies Allergy Classification Reported Allergen(s) Allergy Type Date of Onset Reaction(s) Facility diphenhydrAMINE (1 source) diphenhydrAMINE Drug Allergy 024 Hallucinating [facility] (1 source) Contrast media Drug allergy (disorder) 016 AOF [facility] Repository (20 sources) diphenhydrAMINE; Translations: [Diphenhydramine] Drug Allergy 019 Hallucinations (finding), Unknown [facility] Comment on above: Pt states that it is only IV Benadryl (9 sources) Contrast media Propensity to adverse reactions Unknown [facility] [employer] Other (17 sources) Dyes Propensity to adverse reactions 024 Comment:Contrast Dye [facility] (8 sources) Allergies Reconciled Propensity to adverse reactions Unknown [facility] [employer] Other (8 sources) patient allergy list reviewed by nurse or physicia Propensity to adverse reactions Comment:Done [facility] [employer] Other (16 sources) Iodinated Contrast Media Drug Allergy 023 Unknown [facility] (2 sources) diphenhydrAMINE; Translations: [Benadryl] Drug Allergy [facility] Repository (1 source) diphenhydrAMINE; Translations: [DIPHENHYDRAMINE HCL] Drug Allergy 019 [facility] Repository Medications Current Medications Medication Drug Class(es) Dates Sig (Normalized) Sig (Original) Ascorbic Acid (20 sources) Vitamin C Start: 10-26-2023 Vitamin C Zeenat y Start Date: 10/26/23 Status: Ordered Vitamin C Active Aspir-81 81 MG (17 sources) take 1 tablet by mouth once daily Aspir-81 81 MG 1 tablet Orally Once a day Active aspirin 81 mg delayed release oral tablet (17 sources) Platelet Aggregation Inhibitor, Nonsteroidal Anti-inflammatory Drug [...] tablet (20 sources) HMG-CoA Reductase Inhibitor Start: 03-22-2025 take 1 tablet by mouth once daily Atorvastatin 80 mg tablet Active 80 MG PO Daily 90 March 22, 2025 12:30pm Start: 06-20-2024 End: 03-22-2025 take 1 tablet by mouth once daily in the evening Atorvastatin 80 mg tablet Discontinued 0 .ROUTE .COMPLEX January 16, 2025 8:21pm March 22, 2025 12:30pm TAKE 1 TABLET BY MOUTH EVERY DAY IN THE EVENING Start: 09-22-2019 End: 06-20-2024 take 1 tablet by mouth once daily Atorvastatin 80 mg tablet Discontinued 80 MG PO Daily September 22, 2019 1:00am June 20, 2024 1:05pm atorvastatin (Li pitor) 10 MG tablet Active baclofen 10 mg oral tablet (8 sources) gamma-Aminobutyric Acid-ergic Agonist baclofen (Lioresal) 10 MG tablet baclofen 10 mg tablet Active cefuroxime 250 mg oral tablet (11 sources) Cephalosporin Antibacterial Start: 2022 take 1 tablet by mouth twice daily Cefuroxime Axetil 250 MG 1 tablet Orally twice daily w/ food for 7 Mar, Active cholecalciferol 0.05 mg oral capsule (8 sources) Vitamin D take 1 capsule by mouth in the morning cholecalciferol (Vitamin D-3) 50 MCG (2000 UT) capsule Take 2,000 Units by mouth in the morning. Active ciprofloxacin 500 mg oral tablet (10 sources) Quinolone Antimicrobial Start: 2023 ciprofloxacin (Cipro) 500 MG tablet TAKE ONE TAB DAY BEFORE PROCEDURE AND ONE TAB AFTER PROCEDURE 10/26/2023 Active clopidogrel 75 mg oral tablet (20 sources) P2Y12 Platelet Inhibitor Start: 2018 take 1 tablet by mouth once daily Clopidogrel 75 mg tablet Active 75 MG PO Daily September 22, 2019 1:00am dapagliflozin 10 mg oral tablet (7 sources) Sodium-Glucose Cotransporter 2 Inhibitor Start: 2023 End: 2024 dapagliflozin (Farxiga) 10 MG Take 10 mg by mouth 09/07/2024 09/07/2025 Active doxycycline hyclate 100 mg oral capsule (1 source) Tetracycline-class Drug Start: 2023 take 1 capsule by mouth twice daily Doxycycline Hyclate 100 MG 1 capsule Orally twice daily for 7 days Nov, Active ezetimibe 10 mg oral tablet (10 sources) Dietary Cholesterol Absorption Inhibitor Start: 2023 take 1 tablet by mouth once daily Ezetimibe (Zetia) 10 mg tablet Active 10 MG PO Daily August 30, 2024 1:00am famotidine 40 mg oral tablet (2 sources) Histamine-2 Receptor Antagonist Start: 2023 take 1 tablet by mouth once daily at bedtime Famotidine 40 mg tablet Active 40 MG PO Daily at bedtime 90 September 04, 2024 1:00am fluorouracil 50 mg/ml topical cream (6 sources) Nucleoside Metabolic Inhibitor Start: 2024 fluorouracil (Efudex) 5 % cream Indications: Actinic keratosis APPLY TO DIRECTED AREAS ON THE SCALP,TEMPLES, EYEBROWS, AND FOREHEAD TWICE A DAY FOR 14 DAYS 40 g 01/16/2025 Active Start: 05-23-2024 fluorouracil ( Efudex) 5 % cream Indications: Actinic keratosis Apply to directed areas on the scalp,temples, eyebrows, and forehead twice a day x 14 days. Dispense 30 day supply but only use for 14 days. 40 g 05/23/2024 Active 24 hr hydroCHLOROthiazide 12.5 mg / metoprolol succinate 25 mg extended release oral tablet (8 sources) Thiazide Diuretic, beta-Adrenergic Rashad Start: 09-09-2020 take 1 tablet by mouth once daily hydrochlorothiazide-metoprolol 12.5 mg-25 mg oral tablet, extended release tab(s), Oral, Daily, Refill(s) 0 Start Date: 09/09/20 Status: Ordered levoFLOXacin 500 mg oral tablet (8 sources) Quinolone Antimicrobial levoFLOXacin (Levaqu in) 500 MG tablet levofloxacin 500 mg tablet Active levothyroxine sodium 0.075 mg oral tablet (20 sources) l-Thyroxine Start: 08-15-2024 take 1 tablet by mouth once daily Levothyroxine 75 mcg tablet Active 0 .ROUTE .COMPLEX August 15, 2024 8:36am TAKE 1 TABLET BY MOUTH EVERY DAY Start: 09-09-2020 take 1 tablet by sol th once daily Synthroid 75 mcg (0.075 mg) Tab mcg tab(s), Oral, Daily, Refills(s) 0 Start Date: 09/09/20 Status: Ordered Start: 09-22-2019 End: 08-15-2024 take 1 tablet by mouth once daily Levothyroxine 75 mcg tablet Discontinued 75 MCG PO Daily September 22, 2019 1:00am August 15, 2024 8:36am take 1 tablet by sol th once daily in the morning Synthroid 75 MCG 1 tablet on an empty stomach in the morning Orally Once a day Active linagliptin 5 mg oral tablet (4 sources) Dipeptidyl Peptidase 4 Inhibitor Start: 04-04-2024 take 1 tablet by mouth once daily Linagliptin (Tradjenta) 5 mg tablet Active 5 MG PO Daily April 04, 2024 12:00am On Hold: other medication started losartan potassium 25 mg oral tablet (7 sources) Angiotensin 2 Receptor Rashad Start: 08-30-2024 take 1 tablet by mouth once daily Losartan 25 mg tablet Active 25 MG PO Daily August 30, 2024 1:00am meloxicam 15 mg oral tablet (8 sources) Nonsteroidal Anti-inflammatory Drug meloxicam (Mobic) 15 MG tablet meloxicam 15 mg tablet Active metFORMIN hydrochloride 500 mg oral tablet (20 sources) Biguanide Start: 12-25-2024 End: 12-26-2024 take 1 tablet by mouth once daily Metformin 500 mg tablet Active 500 MG PO Daily December 26, 2024 12:27pm Start: 01-31-2024 End: 12-25-2024 take 1 tablet by mouth once daily at mealtime Metformin 500 mg tablet Discontinued 0 .ROUTE .COMPLEX January 31, 2024 6:13pm December 25, 2024 12:55pm TAKE 1 TABLET BY MOUTH EVERY DAY [...] PO Twice daily September 22, 2019 1:00am Start: 09-22-2019 take 0.5 tablet by m outh twice daily Metoprolol Tartrate Active 0.5 TAB PO Twice daily September 22, 2019 1:00am take 1 tablet by sol every twenty-four hours in the morning metoprolol succinate XL (Toprol-XL) 25 MG 24 hr tablet Take 12.5 mg by mouth in the morning and 12.5 mg in the evening. Active paxlovid (300/100) 20 x 150 mg & 10 x 100mg tablet therapy pack (2 sources) Start: 11-01-2023 take 3 tablets by mouth every twelve hours Paxlovid (300/100) 20 x 150 MG & 10 x 100MG 3 tablets Orally Twice a day for 5 days Oct, Active sildenafil 100 mg oral tablet (1 source) Phosphodiesterase 5 Inhibitor Start: 09-25-2024 Sildenafil 100 mg tablet Active 100 MG PO Daily as needed for sexual activity 04 16September 25, 2024 1:00am administer 30 minutes to 4 hours before activity tamsulosin hydrochloride 0.4 mg oral capsule (4 sources) alpha-Adrenergic Rashad Start: 08-30-2024 take 1 capsule by mouth once daily Tamsulosin 0.4 mg capsule Active 0.4 MG PO Daily August 30, 2024 1:00am Start: 03-23-2024 take 1 capsule by mo txh once daily tamsulosin 0.4 mg Cap 0.4 mg = 1 cap(s), Oral, Daily, # 90 cap(s), Refills(s) 3, Pharmacy: [facility]/pharmacy #[id number], 171, cm, 07/25/24 11:05:00 EDT, Height/Length Dosing, 79, kg, 07/25/24 11:05:00 EDT, Weight Dosing Start Date: 07/25/24 Status: Ordered traMADol hydrochloride 50 mg oral tablet (8 sources) Opioid Agonist traMADol (Ultram ) 50 MG tablet tramadol 50 mg tablet Active triamcinolone acetonide 1 mg/ml topical cream (20 sources) Corticosteroid Start: 05-23-2024 triamcinolone (Kenalog) 0.1 % cream Indications: Poison miriam dermatitis Apply to affected areas, up to twice a day when flared, do not use one the face, groin, or underarms, 30 day supply 30 g 11 05/23/2024 Active Start: 01-27-2023 Kenalog-40 Jul, 60 mg Vitamin D3 (20 sources) Start: 10-26-2023 Vitamin [...] Apr, Not-Taking azithromycin 250 mg oral tablet (11 sources) Macrolide Antimicrobial Start: 07-28-2024 End: 08-30-2024 Azithromycin 250 mg tablet Discontinued 250 MG PO As Directed 03 22July 28, 2024 12:00am August 30, 2024 6:33pm Start: 01-26-2024 End: 05-12-2024 Azithromycin 250 mg tablet D iscontinued 250 MG PO As Directed 03 22January 26, 2024 12:00am May 12, 2024 4:08pm isosorbide dinitrate 30 mg oral tablet (17 sources) Nitrate Vasodilator take 1 tablet by mouth every twelve hours Isosorbide Dinitrate 30 MG 1 tablet Orally Twice a day Not-Taking/PRN Ketorolac (17 sources) Nonsteroidal Anti-inflammatory Drug, Cyclooxygenase Inhibitor Start: 11-17-19 Toradol per 15 mg Oct, 60 mg lisinopril 5 mg oral tablet (20 sources) Angiotensin Converting Enzyme Inhibitor Start: 02-17-20 End: 08-30-20 24 take 1 tablet by mouth once daily Lisinopril 5 mg tablet Discontinued 5 MG PO Daily 90 90 May 12, 2024 12:00am August 30, 2024 6:33pm lisinopril 2.5 M G tablet lisinopril 2.5 mg tablet Active Lisinopril Activ e pantoprazole 40 mg delayed release oral tablet (20 sources) Proton Pump Inhibitor Start: 09-22-2019 End: 09-04-2024 take 1 tablet by mouth once daily Pantoprazole 40 mg tablet,delayed release (DR/EC) Discontinued 40 MG PO Daily September 22, 2019 1:00am September 04, 2024 4:33pm Pantoprazole Sod ium 40 MG 1 packet Orally Once a day Active Problems Active Problems Problem Classification Problem Date Documented Da te Episodic/Chronic Acute bronchitis (20 sources) Acute bronchitis; Translations: [Acute bronchitis, unspecified] Onset: 5 Episodic Asthma (18 sources) Mild intermittent asthma; Translations: [Mild intermittent asthma, uncomplicated] Onset: 9 Chronic Coronary atherosclerosis and other heart disease (20 sources) Atherosclerotic heart disease of [place] coronary artery without angina pectoris; Translations: [Coronary [...] Translations: [Essential (primary) hypertension] Chronic Gastrointestinal hemorrhage (18 sources) Rectal hemorrhage; Translations: [Hemorrhage of anus [...] Chronic Occlusion or stenosis of precerebral arteries (20 sources) Occlusion and stenosis of bilateral carotid arteries; Translations: [Left carotid artery occlusion] Onset: 2 Chronic Osteoarthritis (13 sources) Osteoarthritis of joint of right shoulder region; Translations: [Primary osteoarthritis, right shoulder] Chronic Other aftercare (2 sources) Other terminal superintendent (current) drug therapy; Translations: [OTH ALF CURRENT DRUG THERAPY] Onset: 2 Episodic Other aftercare (9 sources) Long-term current use of drug therapy; Translations: [Other assisted (current) drug therapy] Episodic Other aftercare (2 sources) Long-term current use of anticoagulant; 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] Onset: 4 Episodic Other and unspecified benign neoplasm (4 sources) Melanocytic nevus of trunk; Translations: [Melanocytic nevi of trunk] 11-23-2024 Episodic Other diseases of bladder and urethra (3 sources) Disorder of bladder; Translations: [Bladder disorder, unspecified] Onset: 4 Chronic Other diseases of bladder and urethra (6 sources) Lesion of bladder 11-23-2023 Chronic Other injuries and conditions due to external causes (9 sources) History of fall; Translations: [History of falling] Episodic Other lower respiratory disease (20 sources) Cough; Translations: [Other specified cough] Onset: 5 09-04-2024 Episodic Other male genital disorders (18 sources) Impotence of organic origin; Translations: [Erectile dysfunction due to arterial insufficiency] Onset: 5 Chronic Other male genital disorders (11 sources) Male erectile dysfunction, unspecified; Translations: [Erectile dysfunction] Onset: 4 Chronic Other nervous system disorders (2 sources) Notalgia paresthetica; Translations: [Paresthesia of skin] 11-23-2024 Episodic Other non-epithelial cancer of skin (14 sources) Malignant neoplasm of skin; Translations: [Basal [...] conditions (not mental disorders or infectious disease) (7 sources) Encounter for screening for malignant neoplasm of prostate; Translations: [Screening for malignant neoplasm done] Onset: 2 Episodic Other skin disorders (9 sources) Sebaceous cyst; Translations: [Sebaceous cyst] Episodic Other skin disorders (6 sources) Actinic keratosis; Translations: [Actinic keratosis] 11-24-2023 Episodic Other skin disorders (4 sources) Lentiginosis; Translations: [Other melanin hyperpigmentation] 11-23-2024 Episodic Other skin disorders (2 sources) Seborrheic keratosis; Translations: [Other seborrheic keratosis] 02-22-2025 Episodic Other upper respiratory disease (20 sources) [...] (adult) (pediatric)] 02-03-2024 Chronic Residual codes; unclassified (8 sources) Obstructive sleep apnea (adult) (pediatric); Translations: [...] Test Name Value Interpretation Reference Range Facility No Panel Informationon 02-22 [facility] Healthcare No Panel Informationon 11-23 [facility] Healthcare Office Visiton 08-30-2024 Follow-up visit [id number] Ondina Lo 1950 M Date Provider Department Center 08/30/2024 [id number] Family History Problem Relation Age of Onset Heart failure Brother Cancer Brother Family Status - Relation Status Age at Brother Level of Service:33317 MD OFFICE/OUTPATIENT ESTABLISHED MOD MDM 30 MIN Normal [facility] Glucose mean value [Mass/vol ume] in Blood Estimated from glycated hemoglobinon 08-28-2024 Average glucose Estimated from glycated hemoglobin (Bld) [Mass/Vol] Glucose mean value [Mass/volume] in Blood Estimated from glycated hemoglobin [facility] Laboratory - Hematology and Cell countson 08-28-2024 HbA1c (Bld) [Mass fraction] 8.3 % High 4.5-6.2 [facility] Comment on above: ADA RECOMMENDED LIMI T [...] CANTRELL MD Where: [facility] [address] [place] [address]- You Need to Schedule the Following Appointments Follow Up with Pola CANTRELL MD, URL When: Where: [facility] [address] , [place] [address]- [phone] Medications What How Much When Instructions Unchanged [...] and compresses (more content not included)... Normal [facility] Urology Office/Clinic Noteon 07-25-2024 Urology Office/Clinic Note [...] wo tumor involvement. 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 -Cont Tamsulosin daily. Refills sent to [facility]. -F/u in 1 year 3. Screening PSA [...] [facility] [address], [place] [address] [phone] Additional Instructions: 1 yr (no labs) Patient [...] Daily clopidogrel 75 mg Tab, Oral, Daily hydrochlorothiazide-hi toprolol 12.5 mg-25 mg oral tablet, extended r (more content not included)... Normal [facility] Comment on above: Result Comment: Elec tronically Signed By: Pola CANTRELL MD\.br\Date and Time Signed: 07/25/24 11:48 EDT\.br\Electronically Co-Signed By: Simran Arroyo\.br\Date and Time Co-Signed: 07/25/24 11:41 EDT Glucose mean value [Mass/vol ume] in Blood Estimated from glycated hemoglobinon 04-04-2024 Average glucose Estimated from glycated hemoglobin (Bld) [Mass/Vol] 183 mg/dL [facility] - Hematology and Cell countson 04-04-2024 HbA1c (Bld) [Mass fraction] 8.0 % High 4.5-6.2 [facility] Comment on above: ADA RECOMMENDED LIMI T 4.0 - 6.0ADA THERAPEUTIC TARGET < 7.0ACTION SUGGESTED> 7.0 Pathology Noteon 03-24-2024 Pathology Note [id number]#1.00 TIFF Normal [facility] Pathology Note [id number]#1.0 0TIFF Normal [facility] Pathology Noteon 03-23-2024 Pathology Note [id number]#1.00 TIFF Normal [facility] C Urineon 03-22-2024 Bacteria identified Cx Nom (U) Microbiology PROCEDURE: Urine Culture [R1] SOURCE: U CleanCatch BODY SITE: COLLECTED DATE/TIME: 03/20/2024 14:40 EDT RECEIVED DATE/TIME: 03/20/2024 18:59 EDT START DATE/TIME: 03/20/2024 18:59 EDT FREE TEXT SOURCE: Pola CANTRELL MD, MD, Patrick R FINAL REPORTS Final Report [] Verified Date/Time: 03/22/2024 11:09 EDT No growth at 2 days. Performing Locations R1: This test was performed at: [facility], [address] [place] [address], [address] [place] [address], Normal [facility] Comment on above: Performed By: #### 2 [id number] #### [facility] [address] [place] [address] Pathology Noteon 03-22-2024 Pathology Note [id number]#1.0 0TIFF Normal [facility] Pathology Noteon 03-19-2024 Pathology Note [id number]#1.00 TIFF Normal [facility] Pathology Noteon 03-15-2024 Pathology Note [id number]#1.00 TIFF [facility] Formson 03-10-2024 Forms [id number]#1.0 0TIFF [facility] Ambulatory Visit Summaryon 0 2024 Ambulatory [...] Appointments Follow Up with DODIE DAWKINS, KRISTIN Tlyer When: Where: [facility] [address], [place] [address]- Medications What How Much When Instructions Unchanged [...] these instructions at home: Medicines ? Take hljq-rsw-famjons and prescription medicines only as told by your health care provider. ? If you were prescribed an antibiotic medicine, take it as told by your health care provider. Do not stop taking the antibiotic even if you start to feel better. Eating and drinking ? Drink enough fluid to keep your urine pale yello (more content not included)... Normal [facility] Pathology Noteon 2024 Pathology Note [id number]#1.00 TIFF Normal [facility] Patient Educationon 03-08-20 Patient Education Urology Hematuria, [...] these instructions at home: Medicines ? Take txyy-nlq-xagyrxr and prescription medicines only as told by [...] the blood stops without treatment. ? Take mtix-wrl-absjeyb and prescription medicines only as told by your health care provider. ? Drink enough fluid to keep your urine pale yellow. This information is not intended to replace advice given to you by your health care provider. Make sure you discuss any questions you have with your health care provider. Document Revised: 06/04/2021 Document Reviewed: 06/04/2021 [employer] Patient Education ? 2022 [employer]. Alexa Ibrahim [facility] Urology Office/Clinic Noteon 2024 Urology Office/Clinic Note [...] [facility] [address], [place] [address]- Additional Instructions: pending second opinion on path [...] conduit. Medications (more content not included)... Normal [facility] Comment on above: Result Comment: Elec tronically Signed By: Pola CANTRELL MD\.br\Date and Time Signed: 03/08/24 12:41 EDT\.br\Electronically Co-Signed By: Amanda Regan\.br\Date and Time Co-Signed: 03/08/24 12:35 EDT Pathology Noteon 03-07-2024 Pathology Note [id number]#1.00 TIFF Normal [facility] Operative Reporton Operative Report [id number]#1.0 0TIFF Normal [facility] Yonathan 03-02-2024 L Specimen: [id number] Received: 03/03/24-1231 Status: SOUT Req Num: [id number] Spec Type: Surgical Subm Dr: Pola Cantrell MD Tissues: A Urinary Bladder - TUR (BLADDER LESIONS) Procedures: HE/3, Gross/Micro L5 Age/ Patient Sex Location Account Attending Physician Ondina Lo 73/M [place] [id number] Pola Cantrell MD SPEC NUM: [id number] RECD: 03/03/24 STATUS: WILMER BOO NUM: [id number] FRANCESCA: 03/02/[address]: Pola Cantrell MD ENTERED: 03/03/[address] [facility] DR: Sukhwinder [place] SPEC TYPE: Surgical DEPT: [facility]AG[facility] ORDERED: HE/3, Gross/Micro L5 ORDERED: HE/3, Gross/Micro L5 Supplemental Report Addendum 1 Entered: 03/23/24 Supplemental for findings of consultation report from [facility]: -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, intestinal type Addendum Signed (signature on file) Maddy Alan MD 03/23/24 6806 ---- Pathological Diagnosis The lesions, TURBT: -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 also noted in most fragments -No evidence of malignancy, CIS, or high-grade urothelial atypia -Small portion of muscularis propria muscle are also noted in at least 2 fragments, also without tumor involvement ---- Specimen: [id number] Received: 03/03/24 Status: WILMER Boo Num: [id number] Spec Type: Surgical Subm Dr: Pola Cantrell MD Tissues: A Urinary Bladder - TUR (BLADDER LESIONS) Procedures: HE/3, Gross/Micro L5 ---- Patient: Ondina Lo [id number] (Continued) ---- Specimen: [id number] Received: 03/03/24 (Continued) Signed (signature on file) Maddy Alan MD 03/06/24 1939 ---- Specimen: [id number] Received: 03/03/24 Status: WILMER Boo Num: [id number] Spec Type: Surgical Subm Dr: Pola Cantrell MD Tissues: A Urinary Bladder - TUR (BLADDER LESIONS) Procedures: Ronnie/Gregoria L5 ---- Patient: Ondina Lo [id number] (Continued) ---- Specimen: [id number] Received: 03/03/24 (Continued) Clinical Information Bladder lesions, blood and urine. Gross Description Received in formalin, labeled with the patient's name, date of and bladder lesions are multiple rubbery and cauterized orr tissue fragments measuring in aggregate 1.8 x 0.7 x 0.3 cm, entirely submitted in A1. CPT Codes 19250 ---- ---- Specimen: [id number] Received: 03/03/24 Status: WILMER Boo Num: [id number] Spec Type: Surgical Subm Dr: Pola Cantrell MD Tissues: A Urinary Bladder - TUR (BLADDER LESIONS) Procedures: HE/3, Gross/Micro L5 ---- Patient: Ondina Lo [id number] (Continued) ---- Signed (signature on file) Flip-Ramin Alan MD 03/06/241938 Normal [facility] [id number]#1.0 0TIFF Normal [facility] ECG 12-Leadon 02-21-2024 ECG 12-Lead [id number]#1.0 0TIFF [facility] [facility] 02-21-2024 Lab Reports [id number]#1.0 0TIFF Normal [facility] Lab Reports [id number]#1.0 0TIFF Normal [facility] RAD - MIS [id number]#1.0 0TIFF Normal [facility] Activated partial thrombopla stin time (aPTT) in platelet poor plasma by coagulation aon 02-18-2024 aPTT Coag (PPP) [Time] 25.8 s 22.3-36.2 [facility] Basophils Auto (Bld) [#/Vol] on 02-18-2024 Basophils (Bld) [#/Vol] 0.0 10 3/uL 0.0-0.1 [facility] Basophils/100 WBC Auto (Bld) on 02-18-2024 Basophils/100 WBC (Bld) 0.5 % 0.2-2.0 [facility] Eosinophils/100 WBC Auto (Bl d)on 02-18-2024 Eosinophils/100 WBC (Bld) 0.9 % 0.9-7.0 [facility] Erythrocyte distribution wid th Auto (RBC) [Ratio]on 02-18-2024 Erythrocyte distribution width (RBC) [Ratio] 13.5 % 11.0-15.0 [facility] Estimated glomerular filtrat ion rate (GFR) non- Americanon 02-18-2024 GFR/1.73 sq M.predicted among non-blacks MDRD (S/P/Bld) [Vol rate/Area] mL/min/{1.73_m2} >=60 [facility] Hematocrit Auto (Bld) [Volum e fraction]on 02-18-2024 Hematocrit (Bld) [Volume fraction] 39.7 % Low 42.0-54.0 [facility] Hemoglobin [Mass/volume] in Bloodon 02-18-2024 Hemoglobin (Bld) [Mass/Vol] 13.2 g/dL Low 14.0-18.0 [facility] INR in Platelet poor plasma by Coagulation assayon 02-18-2024 INR Coag (PPP) [Relative time] 0.97 {INR} [facility] Comment on above: DESIRED INR:2.0-3.0 CONDITIONS NOT LISTED BELOW2.5-3.5 FOR PROSTHETIC HEART VALVE REPLACEMENT2.5-3.5 RECURRENT THROMBOSIS Laboratory - Chemistry and C hemistry - challengeon 02-18-2024 Calcium [Mass/Vol] 9.5 mg/dL 8.5-10.1 [facility] Chloride [Moles/Vol] 102 mmol/L 98-107 [facility] CO2 [Moles/Vol] 30.4 mmol/L 21.0-32.0 [facility] Creatinine [Mass/Vol] 1.05 mg/dL 0.70-1.30 [facility] GFR/1.73 sq M.predicted MDRD (S/P/Bld) [Vol rate/Area] mL/min/{1.73_m2} >=60 [facility] Glucose [Mass/Vol] 222 mg/dL High 74-106 [facility] Potassium [Moles/Vol] 4.5 mmol/L 3.5-5.1 [facility] Sodium [Moles/Vol] 138 mmol/L 136-145 [facility] Urea nitrogen [Mass/Vol] 14.0 mg/dL 7.0-18.0 [facility] Urea nitrogen/Creatinine [Mass ratio] 13.3 mg/mg [facility] Laboratory - Hematology and Cell countson 02-18-2024 Immature granulocytes/100 WBC (Bld) 0.9 % High 0.0-0.5 [facility] Leukocytes [#/volume] correc kristal for nucleated erythrocytes in Blood by Automated counon 02-18-2024 WBC corrected for nucl RBC Auto (Bld) [#/Vol] 5.6 10 3/uL 4.0-11.0 [facility] Lymphocytes Auto (Bld) [#/Vo l]on 02-18-2024 Lymphocytes (Bld) [#/Vol] 0.8 10 3/uL Low 1.2-3.8 [facility] Lymphocytes/100 WBC Auto (Bl d)on 02-18-2024 Lymphocytes/100 WBC (Bld) 13.8 % Low 20.5-60.0 [facility] MCH Auto (RBC) [Entitic mass ]on 02-18-2024 MCH (RBC) [Entitic mass] 31.9 pg 25.9-34.0 [facility] MCHC Auto (RBC) [Mass/Vol]on 02-18-2024 MCHC (RBC) [Mass/Vol] 33.2 g/dL 29.9-35.2 [facility] MCV Auto (RBC) [Entitic vol] on 02-18-2024 MCV (RBC) [Entitic vol] 95.9 fL High 80.0-94.0 [facility] Monocytes Auto (Bld) [#/Vol] on 02-18-2024 Monocytes (Bld) [#/Vol] 0.5 10 3/uL 0.3-0.8 [facility] Monocytes/100 WBC Auto (Bld) on 02-18-2024 Monocytes/100 WBC (Bld) 9.1 % 1.7-12.0 [facility] Neutrophils Auto (Bld) [#/Vo l]on 02-18-2024 Neutrophils (Bld) [#/Vol] 4.2 10 3/uL 1.4-6.5 [facility] Neutrophils/100 WBC Auto (Bl d)on 02-18-2024 Neutrophils/100 WBC (Bld) 74.8 % 43.0-75.0 [facility] No Panel Informationon 02-17 Eosinophils # (Auto) 0.1 10 3/uL 0.0-0.7 [facility] Immature Granulocyte # (Auto) 0.05 10 3/uL High 0.00-0.03 [facility] Platelet mean volume Auto (B ld) [Entitic vol]on 02-18-2024 Platelet mean volume (Bld) [Entitic vol] 9.1 fL Low 9.5-13.5 [facility] Platelets Auto (Bld) [#/Vol] on 02-18-2024 Platelets (Bld) [#/Vol] 172 10 3/uL 150-450 [facility] Prothrombin time (PT)on PT Coag (PPP) [Time] 10.3 s 9.0-11.6 [facility] RBC Auto (Bld) [#/Vol]on RBC (Bld) [#/Vol] 4.14 10 6/uL Low 4.70-6.10 [facility] Serum or plasma anion gap de terminationon 02-18-2024 Anion gap [Moles/Vol] 10.1 mmol/L [facility] Formson 02-04-2024 Forms [id number]#1.0 0TIFF Normal [facility] Consent for Procedure/Surger yon 02-02-2024 Consent for Procedure/Surgery [id number]#1.0 0TIFF Normal [facility] Consent for Procedure/Surgery [id number]#1.0 0TIFF [facility] Formson 02-02-2024 Forms [id number]#1.0 0TIFF [facility] Ambulatory Visit Summaryon 0 02-01-2024 Ambulatory [...] Removed: STOP]Stop taking these medications acetaminophen-hydrocod one ([place] 325 mg-5 mg oral tablet) ciprofloxacin (Cipro 500 mg Tab) Procedures Performed Cystoscopy (02/01/2024), Cystoscopy (11/23/2023), Appendectomy, Cholecystectomy, Colonoscopy, Placement of stent in cardiac conduit. Discharge Vitals Height 171 cm Height 67 in Weight 78 kg Weight 171.6 lb BMI 26.67 What to do next Scheduled Follow-Up Appointments Wednesday. 2023 10:45 AM EDT With: DODIE DAWKINS, Pola Rothman Where: [facility] Urology Office/Clinic Noteon 02-01-2024 Urology Office/Clinic [...] complications today. Pt took prophylactic abx and [place] prior to procedure. Found to have C.F. [...] unspecified) Sildenafil 100mg prn. 7. Anticoagulated (Z79.01: alf (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) On Plavix and aspirin. Has 2 heart stents, placed 7 years ago. Elevated risk for periop complications in the future. Follow-up With When Contact Information oPla CANTRELL MD, URL [facility] [address], [place] [address]- [phone] Additional Instructions: sched TURBT Patient Education Cystoscopy I, Simran Arroyo, personally scribed for Dr. Cantrell on 02/01/2024 13:34:43. Electronically signed by dia Khalil (more content not included)... [facility] Comment on above: Result Comment: Elec tronically Signed By: Pola CANTRELL MD\.br\Date and Time Signed: 02/01/24 13:36 EDT\.br\Electronically Co-Signed By: Simran Arroyo\.br\Date and Time Co-Signed: 02/01/24 13:35 EDT Consent for Procedure/Surger yon 11-24-2023 Consent for Procedure/Surgery [id number]#1. 00TIFF [facility] No Panel Informationon 11-24 Complexity: simple Destruction method: electrodesiccation and curettage Informed consent: discussed and consent obtained Informed consent comment: The risks of the procedure were discussed, including, but not limited to risks of scarring, darker or linux programmer pigmentary changes, recurrence, infection, and incomplete removal [...] lidocaine used: 1.0 cc Previous accession number: [id number] [facility] Ambulatory Visit Summaryon 0 11-23-2023 Ambulatory Visit [...] [facility] [address] [place] [address]- Medications What How Much When Instructions Unchanged [...] choosing us for your care. Normal [facility] Urology Office/Clinic Noteon 11-23-2023 Urology Office/Clinic [...] unspecified) Sildenafil 100mg prn. 5. Anticoagulated (Z79.01: alf (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) On Plavix and [...] [facility] [address], [place] [address]- Additional Instructions: Patient Education IJess , personally scribed for Dr. Cantrell on 11/23/2023 08:02:54. . Documentation recorded by the Jess alvares, accurately reflects the services(s) I performed and decisions made by me. Problem List/Past Medical History (more content not included)... Normal [facility] Comment on above: Result Comment: Elec tronically Signed By: Pola CANTRELL MD\.br\Date and Time Signed: 11/23/23 08:04 EST\.br\Electronically Co-Signed By: Jess Solorzano.br\Date and Time Co-Signed: 11/23/23 08:03 EST [facility] Fish and Urine Cyt o ([facility])on 11-03-2023 [facility] Diagnosis Info Invalid Interpretation Code [facility] Comment on above: Result Comment: A:Ur ine,Urine:Voided [...] correlated with cytology and cystoscopy results.* CPT 99921, 68929 Microscopic Notes - Microscopic Notes - Abnormal cells 9p21 deletions: Abnormal cells aneploid events: Total cells analyzed: 120 Hematuria: Gross Description Site ID:A color Mendel fixative Alcohol Received 90 mls of clear mendel fluid with the patient's name and, Urine on the vial. Electronically signed by : on: 11/03/2023 10:52:02 Performed By: #### 1 [id number] ####[facility] [address] [place] [address] Physician Referralon 024 Physician Referral [id number]#1.0 0TIFF Normal [facility] Formson 10-27-2023 Forms [id number]#1.0 0TIFF Normal [facility] Physician Referralon 024 Physician Referral [id number]#1. 00TIFF Normal [facility] Screenson 10-27-2023 Screens [id number]#1. 00TIFF Normal [facility] Ambulatory Visit Summaryon 0 10-26-2023 Ambulatory Visit Summary ONDINA LO :1950 Visit Date:10/26/2023 Ambulatory Visit Instructions Your Diagnosis Gross hematuria BPH without urinary obstruction Screening PSA (prostate specific antigen) ED (erectile dysfunction) Anticoagulated Tests Performed Urnls Dip Stick Auto w/o Microscopy POC 23688 Your Care Team Attending Physician - DODIE [...] [facility] [address] , [place] [address]- [phone] Medications What How Much When Instructions New ciprofloxacin (Cipro 500 mg Tab) 1 Tablets By Mouth Every day take one tab day before procedure and one tab after procedure Pickup at [id number] Unchanged ascorbic acid (Vitamin C) Every day [...] physician if questions or concerns Pharmacy Information [id number]: [address], [place] [phone] Test Results Urnls Dip Stick Auto w/o Microscopy POC 64651 (10/26/2023) Bilirubin Urine Dipstick - Negative Blood Urine Dipstick - Negative Glucose Urine Dipstick - Negative Ketones Urine Dipstick - Negative Leukocytes Urine Dipstick - Negative Nitrite Urine Dipstick - Negative Protein Urine Dipstick - Negative Specific [place] Urine Dipstick - 1.020 Urine Appearance Urine [...] the pr (more content not included)... Normal [facility] Uro[facility]ys[facility] Fish and Urine Cyt o ([facility])on 10-26-2023 [facility] Method of Extraction Voided Normal [facility] Comment on above: Performed By: #### 1 [id number] ####[facility] [address] [place] [address] [facility] Number of Jars 1 Invalid Interpretation Code [facility] Comment on above: Performed By: #### 1 [id number] ####[facility] [address] [place] [address] [facility] Specimen Urine Normal [facility] Comment on above: Performed By: #### 1 [id number] ####[facility] [address] [place] [address] [facility] Type of Service Technical Only Normal [facility] Comment on above: Performed By: #### 1 [id number] ####[facility] [address] [place] [address] Urology Office/Clinic Noteon 10-26-2023 Urology Office/Clinic Note [...] unspecified) Sildenafil 100mg prn. 5. 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 Has 2 heart stents, placed 7 years ago. Follow-up With When Contact Information Pola CANTRELL MD, URL [facility] [address] [place] [address] [phone] Additional Instructions: sched cysto Patient Education Cystoscopy Hematuria, Adult I, Simran Arroyo, personally scribed for Dr. Cantrell on 10/26/2023 10:02:48. . Documentation recorded by the Simran alvares, accurately reflects the services (more content not included)... Normal [facility] Comment on above: Result Comment: Elec tronically Signed By: Pola CANTRELL MD\.br\Date and Time Signed: 10/26/23 10:07 EST\.br\Electronically Co-Signed By: Simran Arroyo\.br\Date and Time Co-Signed: 10/26/23 10:03 EST RAD - CT Reporton 10-14-2023 RAD - CT Report [id number]#1.0 0TIFF Normal [facility] RAD - CT Report [id number]#1. 00TIFF Normal [facility] Office Visiton 09-15-2023 Follow-up visit [id number] Ondina Lo A 1950 M Date Provider Department Center 09/15/2023 Aminta-CARLO SEN GINA [place] Family History Problem Relation Age of Onset Heart failure Brother Cancer Brother Family Status - Relation Status Age at Brother Level of Service:36855 MD OFFICE/OUTPATIENT ESTABLISHED MOD MDM 30-39 MIN Normal [facility] Orders Onlyon 09-15-2023 Orders Only [id number] Ondina Lo A 1950 M Date Provider Department Center 09/15/2023 Thai-ELLE GREENWOOD GINA [place] Family History Problem Relation Age of Onset Heart failure Brother Cancer Brother Family Status - Relation Status Age at Brother Normal [facility] US CAROTID ART BILon 022 US CAROTID [...] TIM BARBER Date: 2022-09-28 17:37 Normal [facility] CBC AUTO DIFFon 09-24-2022 BASO # 0.0 103/ul Normal 0.0-0.1 [facility] Comment on above: Performed By: #### C BC #### [facility] [address] [address] [address] Daisy Alan Basophils/100 WBC (Bld) 0.6 % Normal 0.2-2.0 [facility] Comment on above: Performed By: #### C BC #### [facility] [address] [address] [address] Daisy Alan EO # 0.1 103/ul Normal 0.0-0.7 [facility] Comment on above: Performed By: #### C BC #### [facility] [address] [address] [address] Daisy Alan Eosinophils/100 WBC (Bld) 1.7 % Normal 0.9-7.0 [facility] Comment on above: Performed By: #### C BC #### [facility] [address] [address] [address] Daisy Alan Erythrocyte distribution width (RBC) [Ratio] 12.7 % Normal 11.0-15.0 [facility] Comment on above: Performed By: #### C BC #### [facility] [address] [place] [address] Dr. Daisy Alan Hematocrit (Bld) [Volume fraction] 41.4 % Critically low 42.0-54.0 [facility] Comment on above: Performed By: #### C BC #### [facility] [address] [address] [address] Daisy Alan Hemoglobin (Bld) [Mass/Vol] 14.4 g/dL Normal 14.0-18.0 [facility] Comment on above: Performed By: #### C BC #### [facility] [address] [address] [address] Daisy Alan IG # 0.02 10e3/ul Normal 0.00-0.03 [facility] Comment on above: Performed By: #### C BC #### [facility] [address] [place] [address] Dr. Daisy Alan IG % 0.3 % Normal 0.0-0.5 [facility] Comment on above: Performed By: #### C BC #### [facility] [address] [place] [address] Dr. Daisy Alan LYMPH # 1.0 103/ul Critically low 1.2-3.8 [facility] Comment on above: Performed By: #### C BC #### [facility] [address] [place] [address] Dr. Daisy Alan Lymphocytes/100 WBC (Bld) 14.1 % Critically low 20.5-60.0 [facility] Comment on above: Performed By: #### C BC #### [facility] [address] [place] [address] Dr. Daisy Alan MANUAL DIFF REQ NO Normal [facility] Comment on above: Performed By: #### C BC #### [facility] [address] [place] [address] Dr. Daisy Alan MCH (RBC) [Entitic mass] 31.9 pg Normal 25.9-34.0 [facility] Comment on above: Performed By: #### C BC #### [facility] [address] [place] [address] Dr. Daisy Alan MCHC (RBC) [Mass/Vol] 34.8 g/dL Normal 29.9-35.2 [facility] Comment on above: Performed By: #### C BC #### [facility] [address] [place] [address] Dr. Daisy Alan MCV (RBC) [Entitic vol] 91.6 fL Normal 80.0-94.0 [facility] Comment on above: Performed By: #### C BC #### [facility] [address] [place] [address] Dr. Daisy Alan MONO # 0.6 103/ul Normal 0.3-0.8 [facility] Comment on above: Performed By: #### C BC #### [facility] [address] [place] [address] Dr. Daisy Alan Monocytes/100 WBC (Bld) 8.7 % Normal 1.7-12.0 [facility] Comment on above: Performed By: #### C BC #### [facility] [address] [place] [address] Dr. Daisy Alan NEUT # 5.3 103/ul Normal 1.4-6.5 [facility] Comment on above: Performed By: #### C BC #### [facility] [address] [place] [address] Dr. Daisy Alan Neutrophils/100 WBC (Bld) 74.6 % Normal 43.0-75.0 [facility] Comment on above: Performed By: #### C BC #### [facility] [address] [place] [address] Dr. Daisy Alan Platelet mean volume (Bld) [Entitic vol] 9.0 fL Critically low 9.5-13.5 [facility] Comment on above: Performed By: #### C BC #### [facility] [address] [place] [address] Dr. Daisy Alan PLT 191 103/ul Normal 150-450 [facility] Comment on above: Performed By: #### C BC #### [facility] [address] [place] [address] Dr. Daisy Alan RBC 4.52 106/ul Critically low 4.70-6.10 [facility] Comment on above: Performed By: #### C BC #### [facility] [address] [place] [address] Dr. Daisy Alan WBC 7.1 103/ul Normal 4.0-11.0 [facility] Comment on above: Performed By: #### C BC #### [facility] [address] [place] [address] Dr. Daisy Alan CBC W MANUAL DIFFon 02-05-20 ATYPICAL LYMPH # Normal [facility] Comment on above: Performed By: #### C BCMAN #### [facility] [address] [place] [address] Dr. Daisy Alan ATYPICAL LYMPH % Normal [facility] Comment on above: Performed By: #### C BRIGIDA #### [facility] [address] [address] [address] Daisy Alan BAND # Normal 0.0-0.3 [facility] Comment on above: Performed By: #### C BRIGIDA #### [facility] [address] [place] [address] Dr. Daisy Alan BAND % Normal 0-5 [facility] Comment on above: Performed By: #### C BRIGIDA #### [facility] [address] [place] [address] Dr. Daisy Alan BASOM # 0.00 103/ul Normal 0.00-0.10 [facility] Comment on above: Performed By: #### C BRIGIDA #### [facility] [address] [place] [address] Dr. Daisy Alan BASOM % 0.0 % Critically low 0.2-2.0 [facility] Comment on above: Performed By: #### C BRIGIDA #### [facility] [address] [place] [address] Dr. Daisy Alan BLAST # Normal [facility] Comment on above: Performed By: #### C BRIGIDA #### [facility] [address] [place] [address] Dr. Daisy Alan BLAST % Normal [facility] Comment on above: Performed By: #### C BRIGIDA #### [facility] [address] [place] [address] Dr. Daisy Alan CORRECTED WBC Normal 4.0-11.0 [facility] Comment on above: Performed By: #### C BRIGIDA #### [facility] [address] [place] [address] Dr. Daisy Alan EOS # 0.13 103/ul Normal 0.00-0.70 [facility] Comment on above: Performed By: #### C BCBLU #### [facility] [address] [place] [address] Dr. Daisy Alan EOS% 2.0 % Normal 0.9-7.0 [facility] Comment on above: Performed By: #### C BRIGIDA #### [facility] [address] [address] [address] Daisy Alan HCT 41.8 % Critically low 42.0-54.0 [facility] Comment on above: Performed By: #### C BRIGIDA #### [facility] [address] [address] [address] Daisy Alan HGB 13.9 g/dl Critically low 14.0-18.0 [facility] Comment on above: Performed By: #### C BRIGIDA #### [facility] [address] [address] [address] Daisy Alan LYMPHM # 0.38 103/ul Critically low 1.20-3.80 [facility] Comment on above: Performed By: #### C BRIGIDA #### [facility] [address] [place] [address] Dr. Daisy Alan LYMPHM% 6.0 % Critically low 20.5-60.0 [facility] Comment on above: Performed By: #### C BRIGIDA #### [facility] [address] [address] [address] Daisy Alan MCH 30.8 pg Normal 25.9-34.0 [facility] Comment on above: Performed By: #### C BRIGIDA #### [facility] [address] [address] [address] Daisy Alan MCHC 33.3 g/dl Normal 29.9-35.2 [facility] Comment on above: Performed By: #### C BRIGIDA #### [facility] [address] [address] [address] Daisy Alan MCV 92.7 fL Normal 80.0-94.0 [facility] Comment on above: Performed By: #### C BRIGIDA #### [facility] [address] [address] [address] Daisy Alan METAMYELOCYTE # Normal [facility] Comment on above: Performed By: #### C BRIGIDA #### [facility] [address] [place] [address] Dr. Daisy Alan METAMYELOCYTE % Normal [facility] Comment on above: Performed By: #### C BCMAN #### [facility] [address] [address] [address] Daisy Alan MONOM# 0.50 103/ul Normal 0.30-0.80 [facility] Comment on above: Performed By: #### C BCMAN #### [facility] [address] [address] [address] Daisy Alan MONOM% 8.0 % Normal 1.7-12.0 [facility] Comment on above: Performed By: #### C BCMAN #### [facility] [address] [place] [address] Dr. Daisy Alan MPV 9.1 fL Critically low 9.5-13.5 [facility] Comment on above: Performed By: #### C BRIGIDA #### [facility] [address] [place] [address] Dr. Daisy Alan MYELOCYTE # Normal [facility] Comment on above: Performed By: #### C BCBLU #### [facility] [address] [place] [address] Dr. Daisy Alan MYELOCYTE % Normal [facility] Comment on above: Performed By: #### C BCMAN #### [facility] [address] [place] [address] Dr. Daisy Alan NRBC Normal [facility] Comment on above: Performed By: #### C BCBLU #### [facility] [address] [place] [address] Dr. Daisy Alan PLT 153 103/ul Normal 150-450 [facility] Comment on above: Performed By: #### C BCMAN #### [facility] [address] [place] [address] Dr. Daisy Alan RBC 4.51 106/ul Critically low 4.70-6.10 [facility] Comment on above: Performed By: #### C BCMAN #### [facility] [address] [address] [address] Daisy Alan RDW 12.8 % Normal 11.0-15.0 [facility] Comment on above: Performed By: #### C BCMAN #### [facility] [address] [address] Dr. Daisy Alan SEG # 5.29 103/ul Normal 1.40-6.50 [facility] Comment on above: Performed By: #### C BCMAN #### [facility] [id number] Daisy Alan SEG % 84.0 % Critically high 43.0-75.0 [facility] Comment on above: Performed By: #### C KEEMAN #### [facility] [address] [address] [address] Daisy Alan WBC 6.3 103/ul Normal 4.0-11.0 [facility] Comment on above: Performed By: #### C BRIGIDA #### [facility] [address] [address] [address] Daisy Alan GLYCOHEMOGLOBIN A1Con 2021 ADA RECOMMENDATION ADA THERAPEUTIC TARG ET 6.0 - 7.0 ACTION SUGGESTED > 7.0 Normal [facility] Comment on above: Performed By: #### A 1C #### [facility] [address] [address] [address] Daisy Alan Glucose [Mass/Vol] 154 mg/dL Normal [facility] Comment on above: Performed By: #### A 1C #### [facility] [address] [address] [address] Daisy Alan HbA1c (Bld) [Mass fraction] 7.0 % Critically high <=6.0 [facility] Comment on above: Performed By: #### A 1C #### [facility] [address] [address] [address] Daisy Alan LIPID PROFILEon 02-04-2022 CHOL-HDL RATIO NORM SEE BELOW Normal [facility] Comment on above: Result Comment: 3.3 - 4.4 LOW RISK 4.4 - 7.1 AVERAGE RISK 7.1 - 11.0 MODERATE RISK >11.0 HIGH RISK Performed By: #### B MP, LIPID, ALT, TSH #### [facility] [address] [address] [address] Daisy Alan Cholesterol [Mass/Vol] 149 mg/dL Normal <=200 [facility] Comment on above: Performed By: #### B MP, LIPID, ALT, TSH #### [facility] [address] [address] [address] Daisy Alan Cholesterol in HDL [Mass/Vol] 33 mg/dL Critically low 40-60 [facility] Comment on above: Performed By: #### B MP, LIPID, ALT, TSH #### [facility] [address] [address] [address] Daisy Alan Cholesterol in LDL [Mass/Vol] 71.0 mg/dL Normal [facility] Comment on above: Performed By: #### B MP, LIPID, ALT, TSH #### [facility] [address] [address] [address] Daisy Alan Cholesterol.total/C holesterol in HDL [Mass ratio] 4.5 {ratio} Normal [facility] Comment on above: Performed By: #### B MP, LIPID, ALT, TSH #### [facility] [address] [address] [address] Daisy Alan HDL NORMAL > or = 60 mg/dl - LO W CARDIOVASCULAR RISK <40 mg/dl - HIGH CARDIOVASCULAR RISK Normal [facility] Comment on above: Performed By: #### B MP, LIPID, ALT, TSH #### [facility] [address] [address] [address] Daisy Alan LDL CALC NORMAL SEE BELOW Normal [facility] Comment on above: Result Comment: <100 mg/dl OPTIMAL 100 - 129 mg/dl NEAR OR ABOVE OPTIMAL 130 - 159 mg/dl BORDERLINE HIGH 160 - 189 mg/dl HIGH >190 mg/dl VERY HIGH Performed By: #### B MP, LIPID, ALT, TSH #### [facility] [address] [address] [address] Daisy Alan Triglyceride [Mass/Vol] 225 mg/dL Critically high <=150 [facility] Comment on above: Performed By: #### B MP, LIPID, ALT, TSH #### [facility] [address] [place] [address] Dr. Daisy Alan VLDL CALC 45.0 mg/dL Normal [facility] Comment on above: Performed By: #### B MP, LIPID, ALT, TSH #### [facility] [address] [place] [address] Dr. Daisy Alan MICROALBUMIN, RAND URon 04-2 mALB 1.5 mg/L Normal <=30.0 [facility] Comment on above: Performed By: #### M ALBR #### [facility] [address] [place] [address] Dr. Daisy Alan PROF CHEM 8 (BAS METB)on Anion gap [Moles/Vol] 10.6 mmol/L Normal [facility] Comment on above: Performed By: #### B MP, LIPID, ALT, TSH #### [facility] [address] [place] [address] Dr. Daisy Alan Calcium [Mass/Vol] 9.2 mg/dL Normal 8.5-10.1 [facility] Comment on above: Performed By: #### B MP, LIPID, ALT, TSH #### [facility] [address] [place] [address] Dr. Daisy Alan Chloride [Moles/Vol] 99 mmol/L Normal 98-107 [facility] Comment on above: Performed By: #### B MP, LIPID, ALT, TSH #### [facility] [address] [place] [address] Dr. Daisy Alan CO2 [Moles/Vol] 27.7 mmol/L Normal 22.0-30.0 [facility] Comment on above: Performed By: #### B MP, LIPID, ALT, TSH #### [facility] [address] [place] [address] Dr. Daisy Alan Creatinine [Mass/Vol] 1.00 mg/dL Normal 0.66-1.25 [facility] Comment on above: Performed By: #### B MP, LIPID, ALT, TSH #### [facility] [address] [place] [address] Dr. Daisy Alan EGFR-AF CYPRIOT >60 Normal >=60 [facility] Comment on above: Performed By: #### B MP, LIPID, ALT, TSH #### [facility] [address] [place] [address] Dr. Daisy Alan EGFR-NON AF CYPRIOT >60 Normal >=60 [facility] Comment on above: Performed By: #### B MP, LIPID, ALT, TSH #### [facility] [address] [place] [address] Dr. Daisy Alan Glucose [Mass/Vol] 186 mg/dL Critically high 74-106 [facility] Comment on above: Performed By: #### B MP, LIPID, ALT, TSH #### [facility] [address] [place] [address] Dr. Daisy Alan Potassium [Moles/Vol] 4.3 mmol/L Normal 3.4-5.0 [facility] Comment on above: Performed By: #### B MP, LIPID, ALT, TSH #### [facility] [address] [place] [address] Dr. Daisy Alan Sodium [Moles/Vol] 133 mmol/L Critically low 137-145 [facility] Comment on above: Performed By: #### B MP, LIPID, ALT, TSH #### [facility] [address] [place] [address] Dr. Daisy Alan Urea nitrogen [Mass/Vol] 17.0 mg/dL Normal 7.0-18.0 [facility] Comment on above: Performed By: #### B MP, LIPID, ALT, TSH #### [facility] [address] [place] [address] Dr. Daisy Alan Urea nitrogen/Creatinine [Mass ratio] 17.0 mg/mg Normal [facility] Comment on above: Performed By: #### B MP, LIPID, ALT, TSH #### [facility] [address] [place] [address] Dr. Daisy Alan SGPTon 02-04-2022 ALT [Catalytic activity/Vol] 36 U/L Normal 16-63 [facility] Comment on above: Performed By: #### B MP, LIPID, ALT, TSH #### [facility] [address] [place], [place] [address] Dr. Daisy Alan TSHon 02-04-2022 TSH 3.205 uIU/mL Normal 0.470-4.680 [facility] Comment on above: Performed By: #### B MP, LIPID, ALT, TSH #### [facility] [address] [place], [place] [address] Dr. Daisy Alan TSH RANGE SEE BELOW Normal [facility] Comment on above: Result Comment: <0.3 4 UIU/ml HYPERTHYROID 0.34-5.60 UIU/ml EUTHYROID >5.60 UIU/ml HYPOTHYROID Performed By: #### B MP, LIPID, ALT, TSH #### [facility] [address] [address] [address] Daisy Alan Vital Signs Date Time Vital Sign Value Performing Clinician Facility 03-28-2025 08:37-0400 Body height 170.[address] [facility] 03-28-2025 08:37-0400 Body mass index (BMI) [Ratio] 26.3 kg/m2 [facility] 03-28-2025 08:37-0400 Body weight 76.[address] [facility] 03-28-2025 08:37-0400 Diastolic blood pressure 73 mm[Hg] [facility] 03-28-2025 08:37-0400 Heart rate 53 /min [facility] 03-28-2025 08:37-0400 Respiratory rate 12 /min [facility] 03-28-2025 08:37-0400 Systolic blood pressure 128 mm[Hg] [facility] 09-04-2024 14:37-0500 Body height 170.[address] [facility] 09-04-2024 14:37-0500 Body mass index (BMI) [Ratio] 27.4 kg/m2 [facility] 09-04-2024 14:37-0500 Body weight 79.[address] [facility] 09-04-2024 14:37-0500 Diastolic blood pressure 74 mm[Hg] [facility] 09-04-2024 14:37-0500 Heart rate 60 /min [facility] 09-04-2024 14:37-0500 Respiratory rate 12 /min [facility] 09-04-2024 14:37-0500 Systolic blood pressure 131 mm[Hg] [facility] 07-28-2024 14:17-0400 Body height 170.[address] [facility] 07-28-2024 14:17-0400 Body mass index (BMI) [Ratio] 27.3 kg/m2 [facility] 07-28-2024 14:17-0400 Body weight 79.[address] [facility] 07-28-2024 14:17-0400 Diastolic blood pressure 68 mm[Hg] [facility] 07-28-2024 14:17-0400 Heart rate 67 /min [facility] 07-28-2024 14:17-0400 Respiratory rate 12 /min [facility] 07-28-2024 14:17-0400 Systolic blood pressure 122 mm[Hg] [facility] 07-25-2024 11:00-0400 Blood Pressure Location Pola CANTRELL [facility] 07-25-2024 11:00-0400 Diastolic blood pressure 70 mm[Hg] Pola CANTRELL [facility] 07-25-2024 11:00-0400 Heart rate 65 /min Pola CANTRELL [facility] 07-25-2024 11:00-0400 Systolic blood pressure 161 mm[Hg] Pola CANTRELL [facility] 03-23-2024 08:42-0400 Body height 170.18 cm MD Pola Cantrell Work Phone: [facility] 03-23-2024 08:42-0400 Body mass index (BMI) [Ratio] 27.3 kg/m2 MD Pola Cantrell Work Phone: [facility] 03-23-2024 08:42-0400 Body weight 79.15 kg MD Pola Cantrell Work Phone: [facility] 03-23-2024 08:42-0400 Diastolic blood pressure 76 mm[Hg] MD Pola Cantrell Work Phone: [facility] 03-23-2024 08:42-0400 Heart rate 57 /min MD Pola Cantrell Work Phone: [facility] 03-23-2024 08:42-0400 Respiratory rate 12 /min MD Pola Cantrell Work Phone: [facility] 03-23-2024 08:42-0400 Systolic blood pressure 133 mm[Hg] MD Pola Cantrell Work Phone: [facility] 2024 11:23-0400 Blood Pressure Location Pola CANTRELL [facility] 2024 11:23-0400 Body temperature 98.6 [degF] Pola CANTRELL [facility] 2024 11:23-0400 Diastolic blood pressure 75 mm[Hg] Pola CANTRELL [facility] 2024 11:23-0400 Heart rate 59 /min Pola CANTRELL [facility] 2024 11:23-0400 Respiratory rate 17 /min Pola CANTRELL [facility] 2024 11:23-0400 Systolic blood pressure 125 mm[Hg] Pola CANTRELL [facility] 02-03-2024 10:16-0400 Body height 170.[address] [facility] 02-03-2024 10:16-0400 Body mass index (BMI) [Ratio] 27.6 kg/m2 [facility] 02-03-2024 10:16-0400 Body weight 79.[address] [facility] 02-03-2024 10:16-0400 Diastolic blood pressure 71 mm[Hg] [facility] 02-03-2024 10:16-0400 Heart rate 57 /min [facility] 02-03-2024 10:16-0400 SaO2% (BldA) [Mass fraction] 98 % [facility] 02-03-2024 10:16-0400 Systolic blood pressure 142 mm[Hg] [facility] 02-01-2024 12:47-0400 Blood Pressure Location Pola CANTRELL [facility] 10-26-2023 08:52-0500 Blood Pressure Location Pola CANTRELL [facility] 10-26-2023 08:52-0500 Diastolic blood pressure 77 mm[Hg] Polagage CANTRELL [facility] 10-26-2023 08:52-0500 Heart rate 59 /min Pola CANTRELL [facility] 10-26-2023 08:52-0500 Systolic blood pressure 137 mm[Hg] Pola CANTRELL [facility] 10-05-2023 13:45-0500 Body height 170.18 cm Brandon Ball Other [facility] Other 10-05-2023 13:45-0500 Body mass index (BMI) [Ratio] 27.94 kg/m2 Brandon Ball Other [employer] [facility] [employer] Other 10-05-2023 13:45-0500 Body weight 80.92 kg Brandon Ball Other [facility] Other 10-05-2023 13:45-0500 Diastolic blood pressure 77 mm[Hg] Brandon Ball Other [facility] Other 10-05-2023 13:45-0500 Respiratory rate 12 /min Brandon Ball Other [facility] Other 10-05-2023 13:45-0500 Systolic blood pressure 128 mm[Hg] Brandon Ball Other [facility] Other 03-22-2023 14:30-0400 Body height 170.18 cm Brandon Ball Other [facility] Other 03-22-2023 14:30-0400 Body mass index (BMI) [Ratio] 27.12 kg/m2 Brandon Ball Other [facility] Other 03-22-2023 14:30-0400 Body weight 78.56 kg Brandon Ball Other [facility] Other 03-22-2023 14:30-0400 Diastolic blood pressure 74 mm[Hg] Brandon Ball Other [facility] Other 03-22-2023 14:30-0400 Respiratory rate 12 /min Brandon Ball Other [facility] Other 03-22-2023 14:30-0400 Systolic blood pressure 129 mm[Hg] Brandon Ball Other [facility] Other 02-05-2022 11:00-0400 Body height 170.18 cm Tim Hardwick Other [facility] Other 02-05-2022 11:00-0400 Body mass index (BMI) [Ratio] 28.03 kg/m2 Tim Hardwick Other [facility] Other 02-05-2022 11:00-0400 Body temperature 97.3 [degF] Tim Ronen Other [facility] Other 02-05-2022 11:00-0400 Body weight 81.19 kg Tim Ronen Other [facility] Other 02-05-2022 11:00-0400 Diastolic blood pressure 83 mm[Hg] Tim Ronen Other [facility] Other 02-05-2022 11:00-0400 SaO2% (BldA) [Mass fraction] 98 % Tim Ronen Other [facility] Other 02-05-2022 11:00-0400 Systolic blood pressure 159 mm[Hg] Tim Ronen Other [facility] Other Encounters Encounter Date Encounter Type Care Provider Facility Start: 07-25-2025 ambulatory [place] ty:[facility] Start: 03-28-2025 End: 03-28-2025 ambulatory [facility] Work Phone: Start: 03-28-2025 End: 03-28-2025 Patient encounter procedure [facility] Work Phone: Start: 02-22-2025 End: 02-22-2025 Annemarie Ballard MD Work Phone: [facility] Start: 02-22-2025 End: 02-22-2025 Annemarie Ballard MD Work Phone: [facility] Start: 02-22-2025 End: 02-22-2025 ambulatory JUVENAL BALLARD Not Available Start: 02-22-2025 End: 02-22-2025 Office outpatient visit 15 minutes Juvenal A Petitti MD Work Phone: [facility] Comment on above: Melanocytic nevus of trunk (Primary Dx); History of basal cell carcinoma; Actinic keratosis; Lentigines; Seborrheic keratosis Start: 11-23-2024 End: 11-23-2024 Bamboo flowsheet Juvenal Ballard MD Work Phone: [facility] Start: 11-23-2024 End: 11-23-2024 Bamboo flowsheet Juvenal Ballard MD Work Phone: [facility] Start: 11-23-2024 End: 11-23-2024 Office outpatient visit 15 minutes Juvenal Ballard MD Work Phone: [facility] Comment on above: Melanocytic nevus of trunk (Primary Dx); Actinic keratosis; Notalgia paresthetica; Lentigines; History of basal cell carcinoma Start: 11-23-2024 End: 11-23-2024 ambulatory JUVENAL BALLARD Not Available Start: 09-04-2024 End: 09-04-2024 ambulatory [facility] Work Phone: Start: 09-04-2024 End: 09-04-2024 Patient encounter procedure [facility] Work Phone: Start: 08-30-2024 End: 08-30-2024 ambulatory [facility] Start: 08-28-2024 Non-patient / Non-visit [facility] Work Phone: Start: 07-28-2024 End: 07-28-2024 ambulatory [facility] Work Phone: Start: 07-28-2024 End: 07-28-2024 Patient encounter procedure [facility] Work Phone: Start: 07-25-2024 End: 07-25-2024 ambulatory Pola CANTRELL Facility:[facility] Start: 07-25-2024 End: 07-25-2024 Patient encounter procedure Pola CANTRELL [facility] Start: 07-24-2024 End: 07-24-2024 ambulatory Pola CANTRELL Facility: [facility] Start: 07-24-2024 End: 07-24-2024 Patient encounter procedure Pola CANTRELL [facility] Start: 05-23-2024 End: 05-23-2024 ambulatory JUVENAL BALLARD Not Available Start: 04-13-2024 End: 04-13-2024 ambulatory MD Pola Cantrell Work Phone: [facility] Work Phone: Start: 04-13-2024 End: 04-13-2024 Patient encounter procedure MD Pola Cantrell Work Phone: [facility] Work Phone: Start: 04-07-2024 ambulatory Pola CANTRELL Facili ty:[facility] Start: 04-04-2024 Non-patient / Non-visit MD Karol Cantrell Work Phone: [facility] Work Phone: Start: 03-23-2024 End: 03-23-2024 ambulatory MD Pola Cantrell Work Phone: [facility] Work Phone: Start: 03-23-2024 End: 03-23-2024 Patient encounter procedure MD Pola Cantrell Work Phone: [facility] Work Phone: Start: 03-20-2024 End: 03-20-2024 ambulatory Pola CANTRELL [facility] Start: 03-20-2024 End: 03-20-2024 Lab Drop off Pola CANTRELL [facility] Start: 03-20-2024 End: 03-20-2024 ambulatory Pola CANTRELL Facility:[facility] Start: 03-20-2024 End: 03-20-2024 Patient encounter procedure Pola CANTRELL [facility] Start: 2024 End: 2024 ambulatory Pola CANTRELL Facility:[facility] Start: 2024 End: 2024 Patient encounter procedure Pola CANTRELL [facility] Start: 03-02-2024 End: 03-02-2024 ambulatory Pola Cantrell [facility] Work Phone: Start: 03-02-2024 End: 03-02-2024 Departed Referred MD Pola Cantrell Work Phone: [facility] Start: 03-02-2024 End: 03-02-2024 ambulatory Pola CANTRELL Facility:[id number] Start: 02-18-2024 Non-patient / Non-visit MD Karol Cantrell Work Phone: [facility] Work Phone: Start: 02-03-2024 End: 02-03-2024 ambulatory [facility] Work Phone: Start: 02-03-2024 End: 02-03-2024 Patient encounter procedure [facility] Work Phone: Start: 02-01-2024 End: 02-01-2024 ambulatory Pola CANTRELL Facility:[facility] [place] Start: 02-01-2024 End: 02-01-2024 Patient encounter procedure Pola CANTRELL [facility] Start: 01-26-2024 End: 01-26-2024 ambulatory [facility] Work Phone: Start: 01-26-2024 End: 01-26-2024 Patient encounter procedure [facility] Work Phone: Start: 12-28-2023 End: 12-28-2023 Patient encounter procedure [facility] Work Phone: Start: 11-24-2023 End: 11-24-2023 Office outpatient visit 15 minutes Juvenal Ballard MD Work Phone: [facility] Comment on above: Actinic keratosis (P rimary Dx); Basal cell carcinoma of skin of left upper limb, including shoulder Start: 11-23-2023 End: 11-23-2023 ambulatory Pola CANTRELL Facility: [place] Start: 11-11-2023 End: 11-11-2023 ambulatory Brandon Estrella Other [facility] Other Start: 11-11-2023 Office outpatient vi sit 15 minutes Brandon Estrella [facility] Start: 11-01-2023 End: 11-01-2023 ambulatory Brandon Estrella Other [facility] Other Start: 11-01-2023 Office outpatient vi sit 15 minutes Brandon [facility] Start: 11-01-2023 Patient encounter procedure [facility] Start: 10-26-2023 ambulatory Pola CANTRELL [facility] [place] Start: 10-26-2023 End: 10-26-2023 Lab Drop off Pola CANTRELL [facility] Start: 10-26-2023 End: 10-26-2023 ambulatory BRANDON ESTRELLA Facility: [place] Start: 10-26-2023 End: 10-26-2023 Patient encounter procedure Pola CANTRELL [facility] Start: 10-14-2023 End: 10-14-2023 ambulatory Brandon Estrella Other [facility] Other Start: 10-14-2023 Telephone encounter Brandon Ball [facility] Start: 10-08-2023 End: 10-08-2023 ambulatory Brandon Ball Other [facility] Other Start: 10-08-2023 Telephone encounter Brandon Ball [facility] Start: 10-07-2023 End: 10-07-2023 ambulatory Brandon Ball Other [facility] Other Start: 10-07-2023 Telephone encounter Brandon Ball [facility] Start: 10-05-2023 End: 10-05-2023 ambulatory Brandon Ball Other [facility] Other Start: 10-05-2023 Office outpatient vi sit 15 minutes Brandon Ball [facility] Start: 09-28-2023 End: 09-28-2023 ambulatory Brandon Ball Other [facility] Other Start: 09-28-2023 Telephone encounter Brandon Ball [facility] Start: 09-15-2023 End: 09-15-2023 ambulatory [facility] Start: 07-20-2023 End: 07-20-2023 ambulatory Brandon Ball Other [facility] Other Start: 07-20-2023 Nursing evaluation o f patient and report Brandon Ball [facility] Start: 04-14-2023 End: 04-14-2023 ambulatory Brandon Ball Other [facility] Other Start: 04-14-2023 Telephone encounter Brandon Ball [facility] Start: 04-07-2023 End: 04-07-2023 ambulatory Brandon Ball Other [facility] Other Start: 04-07-2023 Office outpatient vi sit 15 minutes Brandon Estrella [facility] Start: 03-22-2023 End: 03-22-2023 ambulatory Brandon Estrella Other [facility] Other Start: 03-22-2023 Patient encounter procedure Brandon Estrella [facility] Start: 02-16-2023 End: 02-16-2023 ambulatory Brandon Estrella Other [facility] Other Start: 02-16-2023 Telephone encounter Brandon Estrella [facility] Start: 01-27-2023 End: 01-27-2023 ambulatory Brandon Estrella Other [facility] Other Start: 01-27-2023 Nursing evaluation o f patient and report Brandon Estrella [facility] Start: 01-18-2023 End: 01-18-2023 ambulatory Brandon Estrella Other [facility] Other Start: 01-18-2023 Telephone encounter Brandon Estrella [facility] Start: 09-28-2022 End: 09-29-[address] TIM BARBER Facility:[facility] Start: 09-24-2022 End: 09-25-[address] BRANDON ESTRELLA Facility:[facility] Start: 05-25-[address] BRANDON ESTRELLA Facili ty:[facility] Start: 03-20-2022 Adult health examination Brandon Estrella Other [facility] Other Start: 02-05-2022 End: 02-05-2022 ambulatory Tim Hardwick Other [facility] Other Start: 02-05-2022 Office outpatient vi sit 15 minutes Tim Hardwick [facility] Start: 02-05-2022 End: 02-05-2022 Patient encounter procedure DO Brandon Estrella Work Phone: [facility] Start: 02-04-2022 End: 02-05-[address] BRANDON ESTRELLA Facility: Start: 02-14-2018 End: 02-15-2018 Ambulatory DEFAULT PHYSICIAN Facility:[facility] Start: 02-10-2018 End: 02-11-2018 Ambulatory DEFAULT PHYSICIAN Facility:[facility] Procedures Date Procedure Procedure Detail Performing Clinician Start: 02-22-2025 CRYOTHERAPY SKIN LESION Juvenal Ballard MD Work Phone: Start: 11-23-2024 CRYOTHERAPY SKIN LESION Juvenal Ballard MD Work Phone: Start: 03-02-2024 Transurethral resect ion of bladder neoplasm Pola CANTRELL Start: 02-01-2024 Transurethral cystoscopy Pola CANTRELL Start: 11-24-2023 DESTRUCTION OF LESION Delmy Ballard MD Work Phone: Start: 11-23-2023 Transurethral cystoscopy Pola CANTRELL Start: 03-20-2022 Depression screening Be dae Estrella Other Start: 02-04-[address] TIM BARBER Comment on above: Performed By: #### P [facility] #### [facility] [address] [place] [address] Dr. Daisy Alan Start: 12-10-2016 Viral screening [...] Treatment Date Care Activity Detail Author Start: 08-30-2025 End: 08-30-2025 Patient encounter procedure 08/30/2025 11:20 AM EST Office Visit [facility] [address] [place] [id number] Juvenal Ballard MD [address] [place] [address] [facility] Start: 02-22-2025 End: 02-22-2025 Patient encounter procedure 02/22/2025 9:35 AM EDT Office Visit [facility] [address] [place], [place] [id number] Juvenal Ballard MD [address] [place], [place] [id number] [facility] Start: 11-23-2024 End: 11-23-2024 Patient encounter procedure 11/23/2024 9:50 AM EST Office Visit [facility] [address] [place] [phone] Juvenal Ballard MD [address] [place] [address] Arrived [facility] Comment on above: Arrived Start: 06-18-2024 Influenza vaccination Influenza Vacc ine (#1) [facility] Start: 04-04-2024 End: 04-04-2024 Patient encounter procedure 04/04/2024 8:30 AM EDT Office Visit [facility] [address] [place] [phone] Juvenal Ballard MD [address] [place], [place] [id number] [facility] Start: 12-11-2017 Pneumococcal Vaccine : 65+ Years (2 - PPSV23 or PCV20) Pneumococcal Vaccine: 65+ Years (2 - PPSV23 or PCV20) [facility] Start: 12-11-2017 Pneumococcal Vaccine : 65+ Years (2 of 2 - PPSV23 or PCV20) Pneumococcal Vaccine: 65+ Years (2 of 2 - PPSV23 or PCV20) [facility] Start: 12-11-2017 Pneumococcal Vaccine : 65+ Years (2 of 2 - PPSV23) Pneumococcal Vaccine: 65+ Years (2 of 2 - PPSV23) [facility] Start: 1950 Screening for malign ant neoplasm of colon [facility] Comprehensive metabo lic 2000 panel - Serum or Plasma [facility] US.doppler Carotid arteries - bilateral [facility] Immunizations Immunization Date Immunization Notes Care Provider Fa cility 09-10-2024 influenza virus vaccine, unspecified formulation Juvenal Ballard MD Work Phone: [facility] 08-07-2023 influenza virus vaccine, unspecified formulation [employer] CANTRELL [facility] 04-22-2023 zoster vaccine recombinant [employer] [facility] 02-13-2023 zoster vaccine recombinant [employer] [facility] 09-28-2022 influenza virus vaccine, split virus (incl. purified surface antigen) Brandon Estrella Other [facility] Other 09-28-2022 influenza virus vaccine, unspecified formulation [employer] [facility] 01-31-2021 SARS-CoV-2 (COVID-19 ) mRNA BNT-162b2 vax [employer] [facility] 01-10-2021 SARS-CoV-2 (COVID-19 ) mRNA BNT-162b2 vax [employer] [facility] 08-06-2020 influenza virus vaccine, split virus (incl. purified surface antigen) Brandon Estrella Other [facility] Other 08-06-2020 influenza virus vaccine, unspecified formulation [facility] 08-17-2019 influenza virus vaccine, split virus (incl. purified surface antigen) Brandon Estrella Other [facility] [employer] Other 08-17-2019 influenza virus vaccine, unspecified formulation [facility] 09-06-2018 influenza virus vaccine, unspecified formulation [employer] [facility] 07-27-2018 influenza virus vaccine, split virus (incl. purified surface antigen) Brandon Estrella Other [facility] [employer] Other 07-27-2018 influenza virus vaccine, unspecified formulation [facility] 07-25-2018 influenza virus vaccine, live, attenuated, for intranasal use [employer] [facility] 12-11-2016 pneumococcal conjuga te vaccine, 13 valent Brandon Estrella Other [facility] 08-18-2016 influenza virus vaccine, unspecified formulation [employer] [facility] 08-02-2015 influenza virus vaccine, split virus (incl. purified surface antigen) Brandon Estrella Other [facility] [employer] Other 08-02-2015 influenza virus vaccine, unspecified formulation [facility] 08-02-2015 tetanus and diphther ia toxoids, adsorbed, preservative free, for adult use (5 Lf of tetanus toxoid and 2 Lf of diphtheria toxoid) [facility] 08-02-2015 tetanus toxoid, reduced diphtheria toxoid, and acellular pertussis vaccine, adsorbed Brandon Estrella Other [facility] [employer] Other 11-01-2014 pneumococcal Conjugate, unspecified formulation; Translations: [Need for prophylactic vaccination against Streptococcus pneumoniae (pneumococcus)] Brandon Estrella Other [place] Other 11-01-2014 pneumococcal polysaccharide vaccine, 23 valent Brandon Estrella Other [facility] 08-22-1999 Td(adult) unspecifie d formulation [employer] CANTRELL [facility] NEGATED: Highlighted row has not occurred!10-26-2023 influenza virus vaccine, unspecified formulation Pola CANTRELL [facility] Payers Date Payer Category Payer Unknown 2022 Medicare (Managed Care) [facility] [id number] 2022 Unknown [id number] 1959 Medicare [id number] 1959 Self-pay [id number] 1959 Unknown [id number] 1949 Unknown [id number] 2.16.840.1.792128.3.579.2. 59 1949 Unknown [id number] 2.16.840.1.246540.3.579.2. 59 1949 Unknown [id number] 2.16.840.1.400246.3.579.2. 59 1949 Unknown [id number] 2.16.840.1.977917.3.579.2. 593 1949 Unknown [id number] 2.16.840.1.188831.3.579.2. 72 1949 Unknown [id number] 2.16.840.1.572422.3.579.2. 72 1949 Unknown [id number] 2.16.840.1.121203.3.579.2. 72 1949 Unknown [id number] 2.16.840.1.405936.3.579.2. 1949 Unknown [id number] 2.16.840.1.437323.3.579.2 1949 Unknown [id number] 2.16.840.1.532196.3.579.2 1949 Unknown [id number] 2.16.840.1.218300.3.579.2 1949 Unknown [id number] 2.16.840.1.425524.3.579.2 1949 Unknown [id number] 2.16.840.1.399884.3.579.2 1949 Unknown [id number] 2.16.840.1.170108.3.579.2. 1949 Unknown [id number] 2.16.840.1.215423.3.579.2 1949 Unknown [id number] 2.16.840.1.701997.3.579.2. 1949 Unknown [id number] 2.16.840.1.241716.3.579.2 1949 Unknown [id number] 2.16.840.1.097688.3.579.2. 1259 1949 Unknown [id number] 2.16.840.1.824725.3.579.2. 1259 1949 Unknown [id number] 2.16.840.1.265705.3.579.2. 1259 Self-pay Self Pay [id number] Unknown [facility] [id number] Social History Date Type Detail Facility Start: 09-22-2019 End: 03-28-2025 Tobacco smoking status NHIS Never smoked tobacco (finding) [facility] Start: 1950 Sex Assigned At Male F [facility] Start: 11-24-2023 End: 02-22-2025 Sex Assigned At [facility] Tobacco smoking status Never [facility] Start: 04-09-2023 Tobacco use and exposure Smokeless tobacco non-user [facility] Start: 11-24-2023 End: 02-22-2025 Alcohol intake Current drinker of alcohol (finding) [facility] Start: 11-24-2023 End: 02-22-2025 History of Social function [facility] Start: 04-09-2023 Alcohol Comment caffeine: 1-2 cups per day [facility] Start: 1950 Sex Assigned At Not on file N [facility] Start: 09-04-2024 End: 03-28-2025 Sex Male (finding) [facility] Functional Status Date Assessment Result Facility 07-25-2024 Functional Status N/A [facility] 2024 Functional Status N/A [facility] 02-01-2024 Functional Status N/A [facility] 10-26-2023 Functional Status Yes [facility] Clinical Notes 02-05-2022 to 02-22-2025 Juvenal Ballard MD - 02/22/2025 9:35 AM Rebecca Ballard MD - 11/23/2024 9:50 AM EST Note Date & Type Note Facility 02-22-2025 History of Present illness Narrative Skin Check Location: Patient requests a skin examination from the waist up Dermatologic history: history of Actinic Keratosis, history of Basal Cell Carcinoma Last visit: 3 months ago Has used Efudex in the past Established patient All pertinent medical history, medications, and allergies were reviewed. General Exam: alert, oriented to person, place, and time, normal affect, well appearing Unaccompanied A complete skin exam was offered, pt declined. Areas not examined despite medical recommendation: From the waist down Scalp, Examined , exam limited by hair Head, Face Examined Neck Examined Chest Examined Back Examined Abdomen Examined Right arm Examined Left arm Examined Hands Examined Digits,nails: Examined Lymphatics: Skin Exam 1. MELANOCYTIC NEVUS OF TRUNK Torso - Posterior (Back) Scattered benign appearing, regular brown to light brown melanocytic papules and macules with similar morphology Counseled regarding these benign growths. Rarely, a nevus can develop into malignant melanoma, so any changing nevi should be promptly re-evaluated. 2. HISTORY OF BASAL CELL CARCINOMA left clavicular area No evidence of recurrence at BCC scar. The patient was counseled that scars from excisional sites of nonmelanoma skin cancers should be monitored closely for recurrence. The patient was instructed to contact the office for any new, changing, or symptomatic moles. The patient was also instructed to contact the office for any new lesions that develop within or around the previous surgery scar. 3. ACTINIC KERATOSIS (10) Left Eyebrow, Left Upper Back (2), Mid Back, Mid Occipital Scalp (3), Mid Parietal Scalp, Neck - Posterior (2) Erythematous scaly papules Patient was counseled regarding these sun-induced growths that can develop into squamous cell carcinoma if left untreated. Discussed treatment with cryotherapy. It was emphasized that any treated lesions that fail to resolve should be re-evaluated. Cryotherapy performed today; see procedure note Diagnosis: Actinic keratosis Indication: Precancerous Location: see skin exam Consent: Verbal consent was obtained and risks were discussed, including, but not limited to risks of scarring, darker or linux programmer pigmentary changes, recurrence, incomplete removal and infection. Method: Liquid nitrogen was used to treat the lesion(s) with two 5-10 second freeze-thaw cycles. Eyes were shielded using cotton pad during procedure Number of lesions treated: 10 Post-procedure instructions: Instructions were given orally and in writing. The office will be contacted if the lesion fails to resolve despite treatment, or if a side effect develops such as abnormal crusting, scabbing, redness or tenderness Plan to treat ears, forehead, sides of face, forearms with Efudex cream bid x 14 days. Patient declines refill at this time. Cryotherapy, skin lesion - Left Eyebrow, Left Upper Back (2), Mid Back, Mid Occipital Scalp (3), Mid Parietal Scalp, Neck - Posterior (2) Related Medications fluorouracil (Efudex) 5 % cream APPLY TO DIRECTED AREAS ON THE SCALP,TEMPLES, EYEBROWS, AND FOREHEAD TWICE A DAY FOR 14 DAYS 4. LENTIGINES Generalized Scattered orr macules in sun-exposed areas. The patient was informed that lentigines are benign pigmented lesions that occur on sun-exposed and sun-damaged skin. No treatment is necessary. Recommended regular use of broad spectrum sunscreen SPF 30 or higher 5. SEBORRHEIC KERATOSIS Torso - Posterior (Back) Stuck on verrucous, orr-brown papules and plaques. Patient was counseled regarding these benign growths. Removal is normally not necessary, but they may be removed if they are symptomatic or for cosmetic reasons. Next Visit: 6 months documented in this encounter [facility] 11-23-2024 History of Present illness Narrative Images from the original note were not included. Skin Check Location: Patient requests a skin examination from the waist up Dermatologic history: history of Actinic Keratosis, history of Basal Cell Carcinoma Last visit: 6 months ago Has used Efudex in the past- last used on scalp, had good response. Established patient All pertinent medical history, medications, and allergies were reviewed. General Exam: alert, oriented to person, place, and time, normal affect, well appearing Unaccompanied A complete skin exam was offered, pt declined. Areas not examined despite medical recommendation: From the waist down Scalp, Examined , exam limited by hair Head, Face Examined Neck Examined Chest Examined Back Examined Abdomen Examined Right arm Examined Left arm Examined Hands Examined Digits,nails: Examined Lymphatics: Not examined 1. Melanocytic nevus of trunk Torso - Posterior (Back) Scattered benign appearing, regular brown to light brown melanocytic papules and macules with similar morphology Counseled regarding these benign growths. Rarely, a nevus can develop into malignant melanoma, so any changing nevi should be promptly re-evaluated. 2. Actinic keratosis (3) Mid Parietal Scalp (3) Erythematous scaly papules Patient was counseled regarding these sun-induced growths that can develop into squamous cell carcinoma if left untreated. Discussed treatment with cryotherapy. It was emphasized that any treated lesions that fail to resolve should be re-evaluated. Cryotherapy performed today; see procedure note Diagnosis: Actinic keratosis Indication: Precancerous Location: see skin exam Consent: Verbal consent was obtained and risks were discussed, including, but not limited to risks of scarring, darker or linux programmer pigmentary changes, recurrence, incomplete removal and infection. Method: Liquid nitrogen was used to treat the lesion(s) with two 5-10 second freeze-thaw cycles. Number of lesions treated: 3 Post-procedure instructions: Instructions were given orally and in writing. The office will be contacted if the lesion fails to resolve despite treatment, or if a side effect develops such as abnormal crusting, scabbing, redness or tenderness Educated on Efudex treatment. Discussed that treated areas will become red, crusty, and inflamed. If areas become too uncomfortable, patient may use OTC hydrocortisone cream to help decrease irritation. Sun exposure should be avoided during treatment. Patient instructed to contact office for any questions. Lesions that fail to resolve once treated area is healed should be re-evaluated in the office. Instructed to use Efudex cream bid x 14 days to temples, forehead, forearms, ears, left clavicular area, superior abdomen. Written instructions given. Plan to recheck in 3 months and biopsy if not resolved. Cryotherapy, skin lesion - Mid Parietal Scalp (3) Related Medications fluorouracil (Efudex) 5 % cream Apply to directed areas on the scalp,temples, eyebrows, and forehead twice a day x 14 days. Dispense 30 day supply but only use for 14 days. 3. Notalgia paresthetica Mid Back Skin appears normal in areas of itching. The patient was informed that notalgia paresthetica is a chronic itching, burning, or tingling sensation in the areas of skin just below the shoulder blade on either side of the back. The affected skin may appear normal or show changes from chronic scratching. It was explained that this is caused by nerve changes or damage in the local nerves, usually from arthritis or minor injury. The patient was informed that treatment is difficult and often ineffective. Treatment options were discussed including cooling lotions/icing the area. 4. Lentigines (2) Neck, Torso - Posterior (Back) Scattered orr macules in sun-exposed areas. The patient was informed that lentigines are benign pigmented lesions that occur on sun-exposed and sun-damaged skin. No treatment is necessary. Recommended regular use of broad spectrum sunscreen SPF 30 or higher 5. History of basal cell carcinoma left clavicular area No evidence of recurrence at BCC scar. The patient was counseled that scars from excisional sites of nonmelanoma skin cancers should be monitored closely for recurrence. The patient was instructed to contact the office for any new, changing, or symptomatic moles. The patient was also instructed to contact the office for any new lesions that develop within or around the previous surgery scar. Next Visit: 6 months documented in this encounter [facility] 08-30-2024 Note [facility] Cardiology Clinic Note Chief Complaint: Patient here [...] HDL 42, LDL (more content not included)... [facility] 07-28-2024 Evaluation note Diagnosis Onset Date Resolution Acute bronchitis due to other specified organisms acute Octobe r 2023 2:09pm ASHD (arteriosclerotic heart disease) acute July 28, 2024 2:09pm ASHD (arteriosclerotic heart disease) acute September 04, 2024 2:13pm Hypercholesterolemia acute Nove mber 2023 2:13pm Type 2 diabetes mellitus with hyperglycemia acute August 2:13pm [facility] Work Phone: 1(257) 993-235510-08-2024 Hospital Discharge instructions Patient Education 07/25/2024 11:39:02 [...] urethra. Follow these instructions at home: Take zndg-cvz-kndnoua and prescription medicines only as told by [...] provider. Document Revised: 04/22/2022 Document Reviewed: 04/22/2022 [employer] Patient Education 2023 [employer] Follow Up Care 07/24/2024 13:23:01 With:DODIE DAWKINS, Pola Rothman, URL Address: [facility] [address] [place] [address] [phone] When: Unknown [facility] [place] 10-08-2024 NotePatient Education Urology Benign Prostatic Hyperplasia [...] Follow these instructions at home: ? Take ujlw-evw-swgjtrs and prescription medicines only as told by [...] You develop side effec (more content not included)...[facility]06-06-2024 Hospital Discharge instructions Follow Up Care 03/23/2024 12:48:04 With:DODIE DAWKINS, Pola Rothman, URL Address: [facility] [address] [place] [address] [phone] When: Unknown [facility] 06-03-2024 Evaluation + Plan note Diagnostic Tests Pending * Urine Culture 03/20/24 [facility]05-22-2024 Hospital Discharge instructions Patient Education 2024 [...] Follow these instructions at home: Medicines Take rrhj-glp-tcdmjog and prescription medicines only as told by [...] or the blood stops without treatment. Take shvj-net-tjspdhj and prescription medicines only as told by your health care provider. Drink enough fluid to keep your urine pale yellow. This information is not intended to replace advice given to you by your health care provider. Make sure you discuss any questions you have with your health care provider. Document Revised: 06/04/2021 Document Reviewed: 06/04/2021 [employer] Patient Education 2022 [employer]. Follow Up Care 02/01/2024 13:46:15 With:DODIE DAWKINS, Pola Rothman, URL Address: [facility] [address] , [place] [address]- When: Unknown [facility] 04-16-2024 Hospital Discharge instructions Patient Education 02/01/2024 [...] including vitamins, herbs, eye drops, creams, and ovae-jnx-cjadedy medicines. Any problems you or family members [...] provider tells you to take them. Taking cbjt-tya-stltqpo medicines, vitamins, herbs, and supplements. Tests You [...] Follow these instructions at home: Medicines Take kgmi-lzv-wauueyh and prescription medicines only as told by [...] provider. Document Revised: 06/17/2022 Document Reviewed: 05/16/2021 [employer] Patient Education 2022 [employer]. Follow Up Care 01/31/2024 16:48:56 With:DODIE DAWKINS, Pola Rothman, URL Address: [facility] [address] [place] [address]- [phone] When: Unknown Comments:adalberto RIOS [facility] 04-16-2024 NoteUrology Cystoscopy Cystoscopy is a procedure [...] including vitamins, herbs, eye drops, creams, and sjej-ixr-lathuxv medicines. ? Any problems you or family [...] tells you to take them. ? Taking fseh-unk-lrudnvk medicines, vitamins, herbs, and supplements. Tests You [...] these instructions at home: Medicines ? Take hlgt-ofh-fxywkzm and prescription medicines only as told by [...] or the department th (more content not included)...[facility] 11-24-2023 History of Present illness Narrative* Juvenal [...] upper limb, including shoulder left clavicular area [place] papule at biopsy site Destr of lesion Complexity: simple Destruction method: electrodesiccation and curettage Informed consent: discussed and consent obtained Informed consent comment: The risks of the procedure were discussed, including, but not limited to risks of scarring, darker or linux programmer pigmentary changes, recurrence, infection, and incomplete removal [...] lidocaine used: 1.0 cc Previous accession number: [id number] ED&C today, see procedure note. Return to [...] Next Visit: as [id number]* Encounter Date Diagnosis Assessment Notes [...] AHA diet plan. Continue secondary prevention measures. [facility] Other 01-15-2024 Evaluation note* Encounter Date Diagnosis [...] Increases risk for more serious, prolonged illness [facility] Other 01-09-2024 Hospital Discharge instructions Patient Education [...] including vitamins, herbs, eye drops, creams, and unot-jfj-npdrzyf medicines. Any problems you or family members [...] provider tells you to take them. Taking ermu-ofn-mmlmwch medicines, vitamins, herbs, and supplements. Tests You [...] Follow these instructions at home: Medicines Take qqad-dqn-qftfowc and prescription medicines only as told by [...] provider. Document Revised: 06/17/2022 Document Reviewed: 05/16/2021 [employer] Patient Education 2022 [employer]. 10/26/2023 10:02:27 Hematuria, Adult Hematuria, Adult Hematuria [...] Follow these instructions at home: Medicines Take xkhs-xkh-clirsiu and prescription medicines only as told by [...] or the blood stops without treatment. Take tnkg-nvf-dkbnisz and prescription medicines only as told by your health care provider. Drink enough fluid to keep your urine pale yellow. This information is not intended to replace advice given to you by your health care provider. Make sure you discuss any questions you have with your health care provider. Document Revised: 06/04/2021 Document Reviewed: 06/04/2021 [employer] Patient Education 2022 [employer] Follow Up Care 10/01/2023 13:06:22 With:DODIE DAWKINS, Pola Rothman, URL Address: [facility] [address], [place] [address] [phone] When: Unknown Comments:sched cysto [facility] [place] 01-09-2024 NoteUrology Cystoscopy Cystoscopy is a procedure [...] including vitamins, herbs, eye drops, creams, and wjzt-wbv-huvqliv medicines. ? Any problems you or family [...] tells you to take them. ? Taking mxmm-lam-pszxibt medicines, vitamins, herbs, and supplements. Tests You [...] these instructions at home: Medicines ? Take hajo-hvz-bzqizeq and prescription medicines only as told by [...] or the department th (more content not included)...[facility] 10-05-2023 Evaluation note* Encounter Date Diagnosis Assessment [...] lower urinary tract symptoms (ICD-10 - N40.1) [facility] Chief Complaint: Patient [...] an angiotensin-converting enzyme inhibi (more content not included)...[facility] 07-20-2023 Evaluation note* Encounter Date Diagnosis Assessment Notes Treatment Notes Treatment Clinical Notes Jul, Acute seasonal allergic rhinitis (ICD-10 - J30.2) [facility] Other 06-28-2023 Evaluation note* Encounter Date Diagnosis Assessment Notes Treatment Notes Treatment Clinical Notes Mar, Acute non-recurrent maxillary sinusitis (ICD-10 - J01.00) [facility] Other 06-21-2023 Evaluation note* Encounter Date Diagnosis Assessment Notes Treatment Notes Treatment Clinical Notes Mar, Acute non-recurrent maxillary sinusitis (ICD-10 - J01.00) Instructed to use Robitussin or Mucinex for cough, saline or Flonase NS for congestion, Tylenol for pain and fever. Mar, ASHD (arteriosclerotic heart disease) (ICD-10 - I25.10) Stable w/o symptoms suggestive of angina. Avoid decongestants, NSAIDs [facility] 06-05-2023 Evaluation note* Encounter Date Diagnosis [...] use, the patient reduces the risk for MN, CVA, HTN, cardiac dysrhythmias and sudden cardiac [...] High risk medication use (ICD-10 - Z79.899) [facility] 05-02-2023 Evaluation note* Encounter Date Diagnosis Assessment Notes Treatment Notes Treatment Clinical Notes February, Primary hypertension (ICD-10 - I10) [facility] 04-12-2023 Evaluation note* Encounter Date Diagnosis Assessment Notes Treatment Notes Treatment Clinical Notes Jan, Acute seasonal allergic rhinitis (ICD-10 - J30.2) [facility] 04-21-2022 Evaluation note* Encounter Date Diagnosis [...] sleepiness, or poor response to treatment. . [facility] Evaluation + Plan note Future Appointments Appointment Date:11/23/2023 07:30:00 AM Scheduled Provider:Pola CANTRELL MD Location:[facility] Centre Appointment Type:URO Procedure 15 min [facility] Evaluation + Plan note Future Appointments Appointment Date:11/23/2023 07:30:00 AM Scheduled Provider:Pola CANTRELL MD Location:[facility] [place] Appointment Type:URO Procedure 15 min Diagnostic Tests Pending * [facility] Fish [facility] Urine Cyto ([facility]) [facility] Appointment Date:2024 10:45:00 AM Scheduled Provider:Pola CANTRELL MD [facility] App[facility] Type:URO Office Visit [facility] Evaluation + Plan note Future Appointments Appointment Date:07/25/2024 10:15:00 AM Scheduled Provider:Pola CANTRELL MD [facility] Appointment Type:URO Office Visit [facility] evaluation + Plan note Future Appointments Appointment Date:07/25/2025 08:15:00 AM Scheduled Provider:Pola CANTRELL MD Location:[facility] Appointment Type:URO Office Visit [facility] Evjcfation noteNo assessment information available [facility] Work Phone: Evaluation noteNo InformationNort [place] Other Evalualvuv note* Diagnosis Actinic keratosis- Primary Basal cell carcinoma of skin of left upper limb, including shoulder [facility] encounter [facility] Diagnosis Onset Date Resolution Status ASHD (arteriosclerotic heart disease) acute Acute bronchitis due to other specified organisms noneactive [facility] Work Phone: Evaluation note* Diagnosis Onset Date Resolution Status ASHD (arteriosclerotic heart disease) acute Acute bronchitis due to other specified organisms noneactive BMI 27.0-27.9,adult acute Obstructive sleep apnea acut e [facility] Work Phone: Evaluyxdrs note* Diagnosis Onset Date Resolution Status ASHD (arteriosclerotic heart disease) acute Acute bronchitis due to other specified organisms noneactive Obstructive sleep apnea acut e ASHD (arteriosclerotic heart disease) acute Carotid stenosis acute GERD (gastroesophageal reflux disease) acute Hypercholesterolemia acute Hypothyroid acute Obstructive sleep apnea acut e Type 2 diabetes mellitus with hyperglycemia acute Medicare annual wellness visit, subsequent noneactive [facility] Work Phone: Evaluation note* Diagnosis Melanocytic nevus of trunk- Primary Benign neoplasm of skin of trunk, except scrotum Actinic keratosis Notalgia paresthetica Disturbance of skin sensation Lentigines History of basal cell carcinoma Personal history of other malignant neoplasm of skin documented in this encounter [facility]* Diagnosis Melanocytic nevus of trunk- Primary Benign neoplasm of skin of trunk, except scrotum History of basal cell carcinoma Personal history of other malignant neoplasm of skin Actinic keratosis Lentigines Seborrheic keratosis documented in this encounter [facility] note* Diagnosis Onset Date Resolution Status Admit Date ASHD (arteriosclerotic heart disease) acute March 28, 2025 8:20am Carotid stenosis acute March 8:20am GERD (gastroesophageal reflu x disease) acute March 28, 2025 8:20am Hypercholesterolemia acute March 28, 2025 8:20am Hypothyroid acute March 28 8:20am Obstructive sleep apnea acute J 2024 8:20am Screening PSA (prostate spec ific antigen) acute March 28, 2025 8:20am Type 2 diabetes mellitus wit h hyperglycemia acute March 28, 2025 8:20am Medicare annual wellness vis it, subsequent noneactive March 28, 2025 8:20am [facility] Work Phone: History general Narrative - Reported* Type Description Date Medical History Hypercholesteremia Medical History Hypothyroid (per patient is cont rolled) Medical History GERD (gastroesophageal reflux di sease) Medical History diabetes Medical History RICCARDO Surgical History cholecystectomy Surgical History heart stent Surgical History appendectomy Hospitalization History see above [facility] Hospital course Narrative No data available for this section [facility] Discharge instructions No data available for this section [facility] No data available for this section [facility] Summary Purpose Family History Relationship Condition Age [...] ollow up Chief Complaint Allergy Shot Sinuses/ [phone] Reason for Visit ASHD (arteriosclerot ic heart disease) Acute bronchitis due to other specified organisms Chief Complaint Allergy Shot Sinuses/ [phone] RICCARDO/Annual Reason for Visit ASHD (arteriosclerot ic heart disease) Acute bronchitis due to other specified organisms Chief Complaint Allergy Shot Sinuses/ [phone] RICCARDO/Annual Unknown Reason for Visit ASHD (arteriosclerot ic heart disease) Acute bronchitis due to other specified organisms BMI 27.0-27.9,adult Obstructive sleep apnea Chief Complaint Allergy Shot Sinuses/ [phone] RICCARDO/Annual Unknown Wellness Reason for Visit ASHD [...] with hyperglyce meenakshi September 04, 2024 2:13pm Chief Complaint Admit Date Wellness March 28, 2025 8:20 am Reason for Visit Admit Date ASHD (arteriosclerotic heart disease) Ju ne 2024 8:20am Carotid stenosis March 28, 2025 8:20 am GERD (gastroesophageal reflux disease) J une 2024 8:20am Hypercholesterolemia March 28, 2025 8:2 0am Hypothyroid March 28, 2025 8:20 am Obstructive sleep apnea March 28, 2025 8:20am Screening PSA (prostate specific antigen ) March 28, 2025 8:20am Type 2 diabetes mellitus with hyperglyce meenakshi March 28, 2025 8:20am Medicare annual wellness visit, subseque nt March 28, 2025 8:20am Reason for Referral Reason Gross Hematuria Diagnosis 1 Gross hematuria (R31 .0) Referral Organization [facility] Referring Provider First Name Brandon Referring Provider Last Name Paige Referring Provider Specialty Internal Me dicine Referred Organization [facility] Referred Provider Pola Cantrell Referred Address [address],[place], [place],[address] Referred Provider Specialty Urology Referral Priority Routine [...] section and content) DATE CREATED AUTHOR 04/07/2018 [facility] DATE CREATED AUTHOR AUTHOR'S ORGANIZ ATION 10/09/2022 [facility] DATE CREATED AUTHOR AUTHOR'S ORGANIZ ATION 03/23/2024 [facility] DATE CREATED AUTHOR AUTHOR'S ORGANIZ ATION 03/25/2024 [facility] DATE CREATED AUTHOR AUTHOR'S ORGANIZ ATION 03/25/2024 [facility] DATE CREATED AUTHOR AUTHOR'S ORGANIZ ATION 07/27/2024 [facility] DATE CREATED AUTHOR AUTHOR'S ORGANIZ ATION 09/01/2024 [facility] DATE CREATED AUTHOR AUTHOR'S ORGANIZ ATION 02/24/2025 [facility] EPIC Care Teams (unrecognized sec [...] Status: Inactive Member Role Status Dates Brandon Ball , DO Primary Care Provider Active Start: April [...] September 04, 2024 End: September 04, 2024 Team Status: Inactive Member Role Status Dates Brandon Estrella , DO Primary Care Provide r, Attending Provider Active Start: March 28, 2025 End: March 28, 2025 Goals (unrecognized section and content) Goals may [...] (unrecogniz ed section and content) Reason Comments Skin Check Reason Comments Follow-up coughChest Congestion, Sinuses-Testing for COVID- [phone] resultsER f/[phone] ShotRefill FOR RECORDS PERTAINING TO PATIENTS WHO [...] BE BASED ON THE PRIMARY CLINICAL RECORDS. [facility] [employer] [facility]. provides no warranty or guarantee of the accuracy or completeness of information in this document.
[2025-03-29 09:21] LABS: Hematocrit 42.1 % (42.0-54.0); Mean Corpuscular HGB Conc 35.6 g/dL (29.9-35.2); Mean Corpuscular Hemoglobin 33.4 pg (25.9-34.0); Mean Corpuscular Volume 93.8 fL (80.0-94.0); Mean Platelet Volume 9.3 fL (9.5-13.5); Platelet Count 188 10^3/uL (150-450); Red Blood Count 4.49 10^6/uL (4.70-6.10); Red Cell Distribution Width 12.9 % (11.0-15.0); White Blood Count 7.1 10^3/uL (4.0-11.0)
[2025-03-29 09:29] LABS: Creatinine Urine Random 96.32 mg/dL (20.00-300.00); Microalbumin Urine Random <1.3 mg/dL (<=30.0)
[2025-03-29 09:46] LABS: Band Neutrophils Absolute 0.1 10^3/uL (0.0-0.3); Segmented Neut Absolute Manual 6.17 10^3/uL (1.4-6.5)
[2025-03-29 09:47] LABS: Lymphocytes Absolute Manual 0.28 10^3/uL (1.20-3.80); Monocytes Absolute Manual 0.56 10^3/uL (0.30-0.80)
[2025-03-29 10:10] LABS: Alanine Aminotransferase 39 U/L (16-63); Albumin Globulin Ratio 1.2; Albumin Level 4.1 g/dL (3.4-5.0); Alkaline Phosphatase 67 U/L (46-116); Anion Gap 11.2; Aspartate Amino Transferase 26 U/L (15-37); BUN Creatinine Ratio 20.6; Bilirubin Total 1.9 mg/dL (0.2-1.0); Calcium 9.6 mg/dL (8.5-10.1); Chloride 103 mmol/L (98-107); Chol HDL Ratio 2.2; Cholesterol 126 mg/dL (<=200); Estimated GFR (African America >60 (>=60 mL/min/1.73m^2); Estimated GFR (Non-African Ame >60 (>=60 mL/min/1.73m^2); Globulin 3.5 g/dL; Glucose 180 mg/dL (74-106); HDL Cholesterol 57 mg/dL (40-60); Potassium 4.2 mmol/L (3.5-5.1); Sodium 139 mmol/L (136-145); Thyroid Stimulating Hormone 1.722 uIU/mL (0.358-3.740); Total Protein 7.6 g/dL (6.4-8.2); Triglycerides 45 mg/dL (<=150)
[2025-03-29 10:12] LABS: Prostate Specific Antigen Scrn 2.14 ng/mL (<=4.00)
[2025-03-29 15:18] LABS: Estimated Average Glucose 154 mg/dL
== END 2025-03-29 08:32 | disposition home or self-care (01) ==
LOC: LAB 08:37
PROVIDERS: PCP Internal Medicine; Visit Provider Internal Medicine
DX: E03.8 Other specified hypothyroidism (principal); E78.00 Pure hypercholesterolemia, unspecified; E11.65 Type 2 diabetes mellitus with hyperglycemia; I25.10 Atherosclerotic heart disease of native coronary artery without angina pectoris; Z12.5 Encounter for screening for malignant neoplasm of prostate; E06.3 Autoimmune thyroiditis
CPT/HCPCS: 36415; 80053; 80061; 82043; 82570; 83036; 84443; 85007; 85027; G0103